=== PATIENT | female | born 1965 | race Caucasian/White ===

== ENCOUNTER 2017-10-06 13:42 | Inpatient (IN) | payer MEDICAID, OTHER ==
[~2017-10-06] VITALS: Ht 160 cm; Wt 84.0 kg
[~2017-10-06 13:42] MED LIST: /ACETCOD2T PO; /OMEP10CA PO; BENA25TA4 PO; BENZ0.5T PO; BENZ5TA PO; COZA1TAB PO; DITR5TAB PO; FLUO20CA8 PO; FLUO40CA PO; FLUP10TA PO; FLUP25TA PO; GEOD1CAP PO; HALO10TA PO; HALO2TA PO; LAMO10TA PO; LIPI10TA PO; LIPI20TA PO; LOSA25TA8 PO; MELA3TAB PO; MELA3TAB49 PO; OMEP40CA2 PO; PRIL20CA PO; PRIL20CA9 PO; PROZ20CA11 PO; PROZ40CA PO; REST15CA PO; RISP25INJ IM; RISP4TAB33 PO; TRAZ1TAB14 PO; TRAZ1TAB25 PO; TRAZ50TA11 PO; VENTAER IN; VITA200028 PO; ZIPR80CA12 PO; ZIPR80CAP FT; ZIPR80CAP PO; cogentin PO; prolixin IM; prolixin PO
[2017-10-06] MEDS ORDERED: BENZ-52 PO (13:53)
[2017-10-06] MEDS ORDERED: LITH300T2 PO (13:53)
[2017-10-06] MEDS ORDERED: GLIP5TAB8 PO (13:53)
[2017-10-06] MEDS ORDERED: LATU120T PO (13:53)
[2017-10-06] MEDS ORDERED: FLUP25VL IM (13:53)
[2017-10-06] MEDS ORDERED: TRAZ-136 PO (13:53)
[2017-10-06 14:41] LABS: MEAN CORPUSCULAR HEMOGLOBIN 28.4 pg (27.0-33.0); MEAN CORPUSCULAR VOLUME 88.8 fl (80.0-96.0); PLATELET COUNT, AUTOMATED 509 10^3/uL (150-450); WHITE BLOOD COUNT 8.6 10^3/uL (4.0-10.0)
[2017-10-06 15:11] LABS: METHADONE URINE NEGATIVE (NEGATIVE)
[2017-10-06 15:22] LABS: ALBUMIN/GLOBULIN RATIO 1.05 (1.00-1.93); ALKALINE PHOSPHATASE 139 U/L (45-117); ALT/SGPT 13 U/L (12-78); ANION GAP 9 MEQ/L (8-16); AST/SGOT < 3 U/L (7-37); BILIRUBIN,DIRECT 0.1 MG/DL (0.0-0.2); BILIRUBIN,TOTAL 0.4 MG/DL (0.2-1.0); BLOOD UREA NITROGEN 20 MG/DL (7-18); CALCIUM LEVEL 9.1 MG/DL (8.5-10.1); CARBON DIOXIDE LEVEL 25 MEQ/L (21-32); CHLORIDE LEVEL 104 MEQ/L (98-107); CREATININE FOR GFR 1.13 MG/DL (0.55-1.02); GLOMERULAR FILTRATION RATE 53.6 (>51); GLUCOSE, FASTING 130 MG/DL (70-105); POTASSIUM SERUM 4.1 MEQ/L (3.5-5.1); SODIUM LEVEL 138 MEQ/L (136-145); TOTAL PROTEIN 7.8 GM/DL (6.4-8.2)
[2017-10-06] MEDS ORDERED: ERGO500014 PO (16:41)
[2017-10-06] MEDS ORDERED: MOM 30ML SUSPENSION UDC PO PRN (16:45)
[2017-10-06] MEDS ORDERED: ACETAMINOPHEN TAB 650MG DOSE (2X325MG) PO PRN (16:45)
[2017-10-06] MEDS ORDERED: MAALOX 30 ML SUSP *UDC PO PRN (16:45)
[2017-10-06 17:38] VITALS: BP 129/62
[2017-10-06] MEDS: traZODone 50 MG TAB PO SCH (20:17)
[2017-10-06] MEDS: ATORVASTATIN 20 MG TAB PO SCH (20:17)
[2017-10-06] MEDS: LITHIUM CARBONATE 300 MG CAP PO SCH (20:17)
[2017-10-07 06:43] VITALS: BP 116/54
[2017-10-07] MEDS: glipiZIDE (GLUCOTROL) 5 MG TAB PO SCH (06:43)
[2017-10-07] MEDS: BENZTROPINE 1 MG TAB PO SCH (08:40)
[2017-10-07] MEDS: OMEPRAZOLE 20 MG CAP PO SCH (08:40)
[2017-10-07] MEDS: FLUoxetine 20 MG CAP PO SCH (08:40)
[2017-10-07] MEDS: LOSARTAN 25 MG TAB PO SCH (08:40)
[2017-10-07] MEDS: LURASIDONE 20 MG TAB (LATUDA) PO SCH (08:41)
[2017-10-07] MEDS ORDERED: fluPHENAZine DECAN 25MG/ML 5ML VIAL (J2680) IM SCH (09:00)
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
[2017-10-07 18:00] VITALS: BP 96/56
[2017-10-07] MEDS: LITHIUM CARBONATE 300 MG CAP PO SCH (20:22)
[2017-10-07] MEDS: traZODone 50 MG TAB PO SCH (20:22)
[2017-10-07] MEDS: ATORVASTATIN 20 MG TAB PO SCH (20:22)
[2017-10-08 06:00] VITALS: BP 118/56
[2017-10-08] MEDS: glipiZIDE (GLUCOTROL) 5 MG TAB PO SCH (07:03)
[2017-10-08] MEDS: LURASIDONE 20 MG TAB (LATUDA) PO SCH (08:39)
[2017-10-08] MEDS: FLUoxetine 20 MG CAP PO SCH (08:39)
[2017-10-08] MEDS: OMEPRAZOLE 20 MG CAP PO SCH ×2 (08:39→21:00)
[2017-10-08] MEDS: LOSARTAN 25 MG TAB PO SCH (08:39)
[2017-10-08] MEDS: BENZTROPINE 1 MG TAB PO SCH (08:39)
--- NOTE | 2017-10-08 09:28 | MHIPNPDOC ---
[facility] Progress Note Progress Note DATE OF SERVICE: 10/08/17 HISTORY: Patient states that she is doing a little better than yesterday, but still depressed with AVH of the hooded figure talking to her. Patient has some SI but without intent and plan, though she states these symptoms have improved a little since yesterday. Reports sleeping over 7 hours. VITAL SIGNS: See below. NEW TEST RESULTS: NA CURRENT MEDICATIONS: See below. MENTAL STATUS EXAMINATION: Behavior: in bed, calm, cooperative Speech: some latency, quiet, withdrawn tone Thought processes: linear Thought content: appropriate, some paucity in content. Perception: last night had paranoid delusions and hallucinations Judgment: fair Insight: fair Orientation: did not assess Mood: "depressed." Affect: dysphoric, restricted range DIAGNOSES: 1. Schizoaffective disorder 2. PTSD 3. MDD ASSESSMENT: Patient remains depressed with psychotic symptoms. Despite these symptoms she is relatable and has some insight into her condition. PROBLEM LIST: 1. psychosis 2. suicidality and depression Plan: - Continue home prolixin 50 mg IM q2.5weeks, last dose was 10/07/17 - Continue prolixin 2.5 mg po BID for psychosis - Continue home prozac 60 mg daily for mood - Continue home latuda 120 mg qhs for psychosis - Continue other home medications - PRN trazodone, tylenol, MOM, Mylanta - Encourage pt to participate in group activities ESTIMATED LENGTH OF STAY: 7 DAYS. TIME SPENT COUNSELING AND COORDINATING INITIAL CARE: 20 minutes. Vital Signs Vital Signs Date Time Temp Pulse Resp B/P (MAP) Pulse Ox O2 Delivery O2 Flow Rate FiO2 10/08/17 08:39 118/56 10/08/17 06:00 96.4 61 14 10/06/17 17:38 95 Room Air Current Medications Current Medications Acetaminophen (Tylenol Tab) 650 mg Q6HP PRN PO HEADACHE or DISCOMFORT; Start 10/06/17 at 16:45; Stop 11/05/17 at 16:44 Al Hydrox/Mg Hydrox/Simethicone (Mylanta) 30 ml Q4HP PRN PO HEARTBURN/ INDIGESTION Last administered on 10/07/17 18:45; Start 10/06/17 at 16:45; Stop 11/05/17 at 16:44 Atorvastatin Calcium (Lipitor) 40 mg QHS PO Last administered on 10/07/17 20: 22; Start 10/06/17 at 21:00; Stop 11/05/17 at 20:59 Benztropine Mesylate (Cogentin) 1 mg DAILY PO Last administered on 10/08/17 08 :39; Start 10/07/17 at 09:00; Stop 11/06/17 at 08:59 Fluoxetine HCl (PROzac) 60 mg DAILY PO Last administered on 10/08/17 08:39; Start 10/07/17 at 09:00; Stop 11/06/17 at 08:59 Fluphenazine Decanoate (Prolixin Decanoate) 50 mg Q14D@09 IM Last administered on 10/07/17 14:28; Start 10/07/17 at 09:00; Stop 11/06/17 at 08:59 Fluphenazine HCl (Prolixin) 2.5 mg BID PO Last administered on 10/08/17 08:39 ; Start 10/07/17 at 09:00; Stop 11/06/17 at 08:59 Glipizide (Glucotrol) 5 mg QAM@0730 PO Last administered on 10/08/17 07:03; Start 10/07/17 at 07:30; Stop 11/06/17 at 07:29 Home Med (Med Rec Complete!) ASDIRECTED XX ; Start 10/06/17 at 16:45; Stop 10/06/17 at 16:45; Status DC [place] Carbonate ([place] Carbonate) 300 mg QHS PO Last administered on 20:22; Start 10/06/17 at 21:00; Stop 11/05/17 at 20:59 Losartan Potassium (Cozaar) 25 mg DAILY PO Last administered on 10/08/17 08:39 ; Start 10/07/17 at 09:00; Stop 11/06/17 at 08:59 Lurasidone HCl (Latuda) 80 mg DAILY@08 PO Last administered on 10/08/17 08:39 ; Start 10/07/17 at 08:00; Stop 11/06/17 at 07:59 Magnesium Hydroxide (Milk Of Magnesia) 30 ml DAILYPRN PRN PO CONSTIPATION; Start 10/06/17 at 16:45; Stop 11/05/17 at 16:44 Omeprazole (PriLOSEC) 20 mg DAILY PO Last administered on 10/08/17 08:39; Start 10/07/17 at 09:00; Stop 11/06/17 at 08:59 Trazodone HCl (Desyrel) 100 mg QHS PO Last administered on 10/07/17 20:22; Start 10/06/17 at 21:00; Stop 11/05/17 at 20:59 Vitamin D (Drisdol) 50,000 units [place]@0900 PO ; Start 10/09/17 at 09:00; Stop 11/08/17 at 08:59 Allergies Coded Allergies: Sertraline (Verified Allergy, Intermediate, RASH, 02/06/13) Bupropion (Verified Allergy, Unknown, 02/06/13) Gabapentin (Verified Allergy, Unknown, SEIZURES, 02/06/13) SMOKE (Verified Adverse Reaction, Intermediate, ASTHMA, 03/30/06) J LUIS SANABRIA MD Oct 08, 2017 09:28
[2017-10-08 18:00] VITALS: BP 111/59
[2017-10-08] MEDS: traZODone 50 MG TAB PO SCH (20:37)
[2017-10-08] MEDS: ATORVASTATIN 20 MG TAB PO SCH (20:37)
[2017-10-08] MEDS: LITHIUM CARBONATE 300 MG CAP PO SCH (20:37)
[2017-10-08] MEDS: NYSTATIN 100,000 UNITS/GM TOPICAL PWD 15 GM TOP SCH (21:00)
[2017-10-08] MEDS ORDERED: OMEPRAZOLE 20 MG CAP PO SCH (21:00)
[2017-10-09 07:00] VITALS: BP 104/54
[2017-10-09] MEDS: glipiZIDE (GLUCOTROL) 5 MG TAB PO SCH (07:01)
[2017-10-09] MEDS: BENZTROPINE 1 MG TAB PO SCH (08:54)
[2017-10-09] MEDS: LOSARTAN 25 MG TAB PO SCH (08:54)
[2017-10-09] MEDS: LURASIDONE 20 MG TAB (LATUDA) PO SCH (08:54)
[2017-10-09] MEDS: OMEPRAZOLE 20 MG CAP PO SCH ×2 (08:54→20:09)
[2017-10-09] MEDS: FLUoxetine 20 MG CAP PO SCH (08:54)
[2017-10-09] MEDS: NYSTATIN 100,000 UNITS/GM TOPICAL PWD 15 GM TOP SCH ×2 (08:55→20:10)
[2017-10-09] MEDS ORDERED: OMEPRAZOLE 20 MG CAP PO SCH (09:00)
[2017-10-09] MEDS ORDERED: NYSTATIN 100,000 UNITS/GM TOPICAL PWD 15 GM TOP SCH (09:00)
[2017-10-09] MEDS ORDERED: VITAMIN D 50,000 UNITS CAPSULE (ERGOCALCIFEROL 1.25MG) PO SCH (09:00)
--- NOTE | 2017-10-09 09:31 | MHIPNPDOC ---
[facility] Progress Note Progress Note DATE OF SERVICE: 10/09/17 HISTORY: Patient reports continuing to have AVH of the hooded figure, though less intense than yesterday. Patient has fleeting SI without intent and plan. Patient reports good sleep, reports mood to be depressed but better, denies medication side effects. VITAL SIGNS: See below. NEW TEST RESULTS: NA CURRENT MEDICATIONS: See below. MENTAL STATUS EXAMINATION: Behavior: in bed, calm, cooperative Speech: some latency, quiet, withdrawn tone Thought processes: linear Thought content: appropriate, some paucity in content. Perception: still has AVH of the hooded figure Judgment: fair Insight: fair Orientation: did not assess Mood: "depressed." Affect: dysphoric, restricted range DIAGNOSES: 1. Schizoaffective disorder 2. PTSD 3. MDD ASSESSMENT: Patient remains depressed with psychotic symptoms. Despite these symptoms she is relatable and has some insight into her condition. PROBLEM LIST: 1. psychosis 2. suicidality and depression Plan: - Continue home prolixin 50 mg IM q2.5weeks, last dose was 10/07/17 - Increase oral prolixin to 5 mg po BID for psychosis - Continue home prozac 60 mg daily for mood - Continue home latuda 120 mg qhs for psychosis - Continue other home medications - PRN trazodone, tylenol, MOM, Mylanta - Encourage pt to participate in group activities ESTIMATED LENGTH OF STAY: 7 DAYS. TIME SPENT COUNSELING AND COORDINATING INITIAL CARE: 20 minutes. Vital Signs Vital Signs Date Time Temp Pulse Resp B/P (MAP) Pulse Ox O2 Delivery O2 Flow Rate FiO2 10/09/17 08:54 104/54 10/09/17 07:00 97.7 64 14 10/06/17 17:38 95 Room Air Current Medications Current Medications Acetaminophen (Tylenol Tab) 650 mg Q6HP PRN PO HEADACHE or DISCOMFORT; Start 10/06/17 at 16:45; Stop 11/05/17 at 16:44 Al Hydrox/Mg Hydrox/Simethicone (Mylanta) 30 ml Q4HP PRN PO HEARTBURN/ INDIGESTION Last administered on 10/07/17 18:45; Start 10/06/17 at 16:45; Stop 11/05/17 at 16:44 Atorvastatin Calcium (Lipitor) 40 mg QHS PO Last administered on 10/08/17 20: 37; Start 10/06/17 at 21:00; Stop 11/05/17 at 20:59 Benztropine Mesylate (Cogentin) 1 mg DAILY PO Last administered on 10/09/17 08:54; Start 10/07/17 at 09:00; Stop 11/06/17 at 08:59 Fluoxetine HCl (PROzac) 60 mg DAILY PO Last administered on 10/09/17 08:54; Start 10/07/17 at 09:00; Stop 11/06/17 at 08:59 Fluphenazine Decanoate (Prolixin Decanoate) 50 mg Q14D@09 IM Last administered on 10/07/17 14:28; Start 10/07/17 at 09:00; Stop 11/06/17 at 08:59 Fluphenazine HCl (Prolixin) 2.5 mg BID PO Last administered on 10/09/17 08:54 ; Start 10/07/17 at 09:00; Stop 11/06/17 at 08:59 Glipizide (Glucotrol) 5 mg QAM@0730 PO Last administered on 10/09/17 07:01; Start 10/07/17 at 07:30; Stop 11/06/17 at 07:29 Home Med (Med Rec Complete!) ASDIRECTED XX ; Start 10/06/17 at 16:45; Stop 10/06/17 at 16:45; Status DC [place] Carbonate ([place] Carbonate) 300 mg QHS PO Last administered on 20:37; Start 10/06/17 at 21:00; Stop 11/05/17 at 20:59 Losartan Potassium (Cozaar) 25 mg DAILY PO Last administered on 10/09/17 08: 54; Start 10/07/17 at 09:00; Stop 11/06/17 at 08:59 Lurasidone HCl (Latuda) 80 mg DAILY@08 PO Last administered on 10/09/17 08:54 ; Start 10/07/17 at 08:00; Stop 11/06/17 at 07:59 Magnesium Hydroxide (Milk Of Magnesia) 30 ml DAILYPRN PRN PO CONSTIPATION; Start 10/06/17 at 16:45; Stop 11/05/17 at 16:44 Nystatin (Mycostatin Powder, Nystop) BID TOP ; Start 10/09/17 at 09:00; Stop 10/09/17 at 09:00; Status DC Nystatin (Mycostatin Powder, Nystop) under breasts ... BID TOP Last administered on 10/09/17 08:55; Start 10/08/17 at 21:00; Stop 11/07/17 at 20:59 Omeprazole (PriLOSEC) 20 mg BID PO Last administered on 10/09/17 08:54; Start 10/08/17 at 21:00; Stop 11/07/17 at 20:59 Omeprazole (PriLOSEC) 20 mg BID PO ; Start 10/08/17 at 21:00; Stop 11/07/17 at 20 :59; Status Cancel Omeprazole (PriLOSEC) 20 mg DAILY PO ; Start 10/09/17 at 09:00; Stop 11/08/17 at 08:59; Status Cancel Omeprazole (PriLOSEC) 20 mg DAILY PO Last administered on 10/08/17 08:39; Start 10/07/17 at 09:00; Stop 10/08/17 at 16:22; Status DC Trazodone HCl (Desyrel) 100 mg QHS PO Last administered on 10/08/17 20:37; Start 10/06/17 at 21:00; Stop 11/05/17 at 20:59 Vitamin D (Drisdol) 50,000 units [place]arro@0900 PO Last administered on 10/09/17 08: 54; Start 10/09/17 at 09:00; Stop 11/08/17 at 08:59 Allergies Coded Allergies: Sertraline (Verified Allergy, Intermediate, RASH, 02/06/13) Bupropion (Verified Allergy, Unknown, 02/06/13) Gabapentin (Verified Allergy, Unknown, SEIZURES, 02/06/13) SMOKE (Verified Adverse Reaction, Intermediate, ASTHMA, 03/30/06) J LUIS SANABRIA MD Oct 09, 2017 09:31
[2017-10-09 18:00] VITALS: BP 97/50
[2017-10-09] MEDS: ATORVASTATIN 20 MG TAB PO SCH (20:07)
[2017-10-09] MEDS: traZODone 50 MG TAB PO SCH (20:08)
[2017-10-09] MEDS: LITHIUM CARBONATE 300 MG CAP PO SCH (20:08)
[2017-10-10 06:00] VITALS: BP 117/56
[2017-10-10] MEDS: glipiZIDE (GLUCOTROL) 5 MG TAB PO SCH (06:41)
[2017-10-10] MEDS: LURASIDONE 20 MG TAB (LATUDA) PO SCH (08:49)
[2017-10-10] MEDS: OMEPRAZOLE 20 MG CAP PO SCH ×2 (08:49→20:15)
[2017-10-10] MEDS: FLUoxetine 20 MG CAP PO SCH (08:49)
[2017-10-10] MEDS: LOSARTAN 25 MG TAB PO SCH (08:49)
[2017-10-10] MEDS: BENZTROPINE 1 MG TAB PO SCH (08:49)
[2017-10-10] MEDS: NYSTATIN 100,000 UNITS/GM TOPICAL PWD 15 GM TOP SCH ×2 (08:50→20:15)
--- NOTE | 2017-10-10 10:54 | MHIPNPDOC ---
[facility] Progress Note Progress Note DATE OF SERVICE: 10/10/17 HISTORY: Patient states she is still having AVH of the hooded figure, though believes they are less intense than before. Has fleeting SI but without intent and plan. Patient feels a little less depressed, has mostly been isolative and sleeping in her room. VITAL SIGNS: See below. NEW TEST RESULTS: NA CURRENT MEDICATIONS: See below. MENTAL STATUS EXAMINATION: Behavior: in bed, calm, cooperative Speech: some latency, withdrawn tone Thought processes: linear Thought content: appropriate, some paucity in content. Perception: has AVH of the hooded figure Judgment: fair Insight: fair Orientation: did not assess Mood: "depressed." Affect: dysthymic, restricted range DIAGNOSES: 1. Schizoaffective disorder 2. PTSD 3. MDD ASSESSMENT: Patient remains depressed with psychotic symptoms. Despite these symptoms she is relatable and has some insight into her condition. PROBLEM LIST: 1. psychosis 2. suicidality and depression Plan: - Continue home prolixin 50 mg IM q2.5weeks, last dose was 10/07/17 - Continue oral prolixin to 5 mg po BID for psychosis - Continue home prozac 60 mg daily for mood - Continue home latuda 120 mg qhs for psychosis - Continue other home medications - PRN trazodone, tylenol, MOM, Mylanta - Encourage pt to participate in group activities ESTIMATED LENGTH OF STAY: 7 DAYS. TIME SPENT COUNSELING AND COORDINATING INITIAL CARE: 20 minutes. Vital Signs Vital Signs Date Time Temp Pulse Resp B/P (MAP) Pulse Ox O2 Delivery O2 Flow Rate FiO2 10/10/17 08:49 138/86 10/10/17 06:00 97.9 60 18 10/06/17 17:38 95 Room Air Current Medications Current Medications Acetaminophen (Tylenol Tab) 650 mg Q6HP PRN PO HEADACHE or DISCOMFORT; Start 10/06/17 at 16:45; Stop 11/05/17 at 16:44 Al Hydrox/Mg Hydrox/Simethicone (Mylanta) 30 ml Q4HP PRN PO HEARTBURN/ INDIGESTION Last administered on 10/07/17 18:45; Start 10/06/17 at 16:45; Stop 11/05/17 at 16:44 Atorvastatin Calcium (Lipitor) 40 mg QHS PO Last administered on 12/10/17at 20: 07; Start 10/06/17 at 21:00; Stop 11/05/17 at 20:59 Benztropine Mesylate (Cogentin) 1 mg DAILY PO Last administered on 10/10/17 08:49; Start 10/07/17 at 09:00; Stop 11/06/17 at 08:59 Fluoxetine HCl (PROzac) 60 mg DAILY PO Last administered on 10/10/17 08:49; Start 10/07/17 at 09:00; Stop 11/06/17 at 08:59 Fluphenazine Decanoate (Prolixin Decanoate) 50 mg Q14D@09 IM Last administered on 10/07/17 14:28; Start 10/07/17 at 09:00; Stop 11/06/17 at 08:59 Fluphenazine HCl (Prolixin) 2.5 mg BID PO Last administered on 10/09/17 08:54 ; Start 10/07/17 at 09:00; Stop 10/09/17 at 09:32; Status DC Fluphenazine HCl (Prolixin) 5 mg BID PO Last administered on 10/10/17 08:48; Start 10/09/17 at 21:00; Stop 11/08/17 at 20:59 Glipizide (Glucotrol) 5 mg QAM@0730 PO Last administered on 10/10/17 06:41; Start 10/07/17 at 07:30; Stop 11/06/17 at 07:29 Home Med (Med Rec Complete!) ASDIRECTED XX ; Start 10/06/17 at 16:45; Stop 10/06/17 at 16:45; Status DC [place] Carbonate ([place] Carbonate) 300 mg QHS PO Last administered on 20:08; Start 10/06/17 at 21:00; Stop 11/05/17 at 20:59 Losartan Potassium (Cozaar) 25 mg DAILY PO Last administered on 10/10/17 08: 49; Start 10/07/17 at 09:00; Stop 11/06/17 at 08:59 Lurasidone HCl (Latuda) 80 mg DAILY@08 PO Last administered on 10/10/17 08:49 ; Start 10/07/17 at 08:00; Stop 11/06/17 at 07:59 Magnesium Hydroxide (Milk Of Magnesia) 30 ml DAILYPRN PRN PO CONSTIPATION; Start 10/06/17 at 16:45; Stop 11/05/17 at 16:44 Nystatin (Mycostatin Powder, Nystop) BID TOP ; Start 10/09/17 at 09:00; Stop 10/09/17 at 09:00; Status DC Nystatin (Mycostatin Powder, Nystop) under breasts ... BID TOP Last administered on 10/10/17 08:50; Start 10/08/17 at 21:00; Stop 11/07/17 at 20:59 Omeprazole (PriLOSEC) 20 mg BID PO Last administered on 10/10/17 08:49; Start 10/08/17 at 21:00; Stop 11/07/17 at 20:59 Omeprazole (PriLOSEC) 20 mg BID PO ; Start 10/08/17 at 21:00; Stop 11/07/17 at 20 :59; Status Cancel Omeprazole (PriLOSEC) 20 mg DAILY PO ; Start 10/09/17 at 09:00; Stop 11/08/17 at 08:59; Status Cancel Omeprazole (PriLOSEC) 20 mg DAILY PO Last administered on 10/08/17 08:39; Start 10/07/17 at 09:00; Stop 10/08/17 at 16:22; Status DC Trazodone HCl (Desyrel) 100 mg QHS PO Last administered on 10/09/17 20:08; Start 10/06/17 at 21:00; Stop 11/05/17 at 20:59 Vitamin D (Drisdol) 50,000 units Navarro@0900 PO Last administered on 10/09/17 08: 54; Start 10/09/17 at 09:00; Stop 11/08/17 at 08:59 Allergies Coded Allergies: Sertraline (Verified Allergy, Intermediate, RASH, 02/06/13) Bupropion (Verified Allergy, Unknown, 02/06/13) Gabapentin (Verified Allergy, Unknown, SEIZURES, 02/06/13) SMOKE (Verified Adverse Reaction, Intermediate, ASTHMA, 03/30/06) J LUIS SANABRIA MD Oct 10, 2017 10:54
[2017-10-10 18:00] VITALS: BP 90/60
[2017-10-10] MEDS: ATORVASTATIN 20 MG TAB PO SCH (20:14)
[2017-10-10] MEDS: traZODone 50 MG TAB PO SCH (20:14)
[2017-10-10] MEDS: LITHIUM CARBONATE 300 MG CAP PO SCH (20:15)
[2017-10-11 07:02] VITALS: BP 104/58
[2017-10-11] MEDS: glipiZIDE (GLUCOTROL) 5 MG TAB PO SCH (07:03)
[2017-10-11] MEDS: OMEPRAZOLE 20 MG CAP PO SCH ×2 (08:44→20:17)
[2017-10-11] MEDS: LURASIDONE 20 MG TAB (LATUDA) PO SCH (08:45)
[2017-10-11] MEDS: LOSARTAN 25 MG TAB PO SCH (08:45)
[2017-10-11] MEDS: BENZTROPINE 1 MG TAB PO SCH (08:45)
[2017-10-11] MEDS: FLUoxetine 20 MG CAP PO SCH (08:45)
[2017-10-11] MEDS: NYSTATIN 100,000 UNITS/GM TOPICAL PWD 15 GM TOP SCH ×2 (08:46→20:16)
--- NOTE | 2017-10-11 10:37 | HPE ---
DATE OF ADMISSION: 10/06/2017 Please refer to psychiatric history and evaluation for further details on this admission. This examination and history is intended for medical issues which may need treatment, followup or consult in this 52-year-old female. PRIMARY CARE PROVIDER: Kate Mendoza [facility]. ALLERGIES: BUPROPION, GABAPENTIN, SERTRALINE, SMOKE. SOCIAL HISTORY: She lives in [place]. She is . She resides with her ex-. She has five children, one resides with her currently. EtOH: None. Smokes: None. Recreational drug use: None. FAMILY HISTORY: Noncontributory. PAST MEDICAL HISTORY: Hypertension. Hyperlipidemia. Gastroesophageal reflux disease (GERD). Osteoporosis. Bipolar disorder. Schizoaffective disorder with auditory hallucinations. Overactive bladder. PAST SURGICAL HISTORY: Appendectomy. Radical hysterectomy. Umbilical hernia repair. Rectocele repair. Cholecystectomy. Unknown back surgery. HOME MEDICATIONS: - atorvastatin 40 mg by mouth daily at bedtime - Cogentin 1 mg by mouth daily - vitamin D 50,000 units by mouth weekly - Prozac 20 mg by mouth three times daily - Prolixin 2 mL IM every 2 weeks - glipizide 5 mg by mouth daily - lithium 300 mg by mouth daily at bedtime - Cozaar 25 mg by mouth daily at bedtime - Latuda 120 mg by mouth daily every evening - trazodone 100 mg by mouth daily at bedtime LABORATORY STUDIES: WBC 8.6, hemoglobin 12.2, hematocrit 38.1, platelets 509. Sodium 138, potassium 4.1, chloride 104, CO2 25, anion gap was 9, BUN 20, creatinine 1.1. Nonfasting glucose 130. [place] level was 0.33. Ten systems review was done. Patient's only complaint was of rash under her breasts and abdominal fold. Will order Nystatin powder. PHYSICAL EXAMINATION: 52-year-old obese female in no acute distress. Height 63 inches, weight 84 kg. Body mass index (BMI) 32.8. The patient is alert and oriented times three. Pupils equal and reactive to light. Extraocular movements intact. Cornea and sclera clear. Conjunctiva normal. No facial asymmetry. Pharynx, tongue and gums pink and moist. Tongue is midline. Neck is supple, without lymphadenopathy. No thyromegaly. No goiter. Carotids 2+ without bruit. Chest clear to auscultation without wheeze or retraction. Heart is regular. Slight reddened rash under breasts. No open areas. Abdomen benign. Bowel sounds positive. Slight reddened rash under abdominal fold. No open areas noted. Peripheral pulses equal and palpable bilaterally. Skin is warm and dry. IMPRESSION/PLAN: 1. Psychiatric plan per psychiatry. Nystatin powder under breasts and abdominal fold twice daily. 2. History of gastroesophageal reflux disease. Continue omeprazole. 3. History of hypertension, stable. 4. History of hyperlipidemia, continue Lipitor. 5. History of hypertension, stable.
--- NOTE | 2017-10-11 13:28 | MHIPNPDOC ---
[facility] Progress Note Progress Note DATE OF SERVICE: 10/11/17 HISTORY: Patient states that her mood has gotten better. Patient still has AVH of the hooded figure making remarks at her, including CAH to harm self, but patient states that she is aware they are AVH, and that they are manageable. States that these AVH have decreased in intensity. Patient states she is likely OK to go home tomorrow. Denies SI intent and plan, reports good sleep, was socializing with roommate. Pt states that she dose not believe in increase in her medications is necessary. VITAL SIGNS: See below. NEW TEST RESULTS: NA CURRENT MEDICATIONS: See below. MENTAL STATUS EXAMINATION: Behavior: walking, calm, cooperative Speech: some latency, mildly taciturn Thought processes: linear Thought content: appropriate, some paucity in content. Perception: has AVH of the hooded figure Judgment: fair Insight: fair Orientation: did not assess Mood: "better" Affect: neutral, restricted range DIAGNOSES: 1. Schizoaffective disorder 2. PTSD 3. MDD ASSESSMENT: Patient's depression and psychotic symptoms have decreased in intensity to the point where the patient believes they are manageable. PROBLEM LIST: 1. psychosis 2. suicidality and depression Plan: - Continue home prolixin 50 mg IM q2.5weeks, last dose was 10/07/17 - Continue oral prolixin 5 mg po BID for psychosis - Continue home prozac 60 mg daily for mood - Continue home latuda 120 mg qhs for psychosis - Continue other home medications - PRN trazodone, tylenol, MOM, Mylanta - Encourage pt to participate in group activities ESTIMATED LENGTH OF STAY: 7 DAYS. TIME SPENT COUNSELING AND COORDINATING INITIAL CARE: 20 minutes. Vital Signs Vital Signs Date Time Temp Pulse Resp B/P (MAP) Pulse Ox O2 Delivery O2 Flow Rate FiO2 10/11/17 08:45 126/96 10/11/17 07:02 97.6 66 18 Room Air 10/06/17 17:38 95 Current Medications Current Medications Acetaminophen (Tylenol Tab) 650 mg Q6HP PRN PO HEADACHE or DISCOMFORT; Start 10/06/17 at 16:45; Stop 11/05/17 at 16:44 Al Hydrox/Mg Hydrox/Simethicone (Mylanta) 30 ml Q4HP PRN PO HEARTBURN/ INDIGESTION Last administered on 10/07/17 18:45; Start 10/06/17 at 16:45; Stop 11/05/17 at 16:44 Atorvastatin Calcium (Lipitor) 40 mg QHS PO Last administered on 10/10/17 20: 14; Start 10/06/17 at 21:00; Stop 11/05/17 at 20:59 Benztropine Mesylate (Cogentin) 1 mg DAILY PO Last administered on 10/11/17 08:45; Start 10/07/17 at 09:00; Stop 11/06/17 at 08:59 Fluoxetine HCl (PROzac) 60 mg DAILY PO Last administered on 10/11/17 08:45; Start 10/07/17 at 09:00; Stop 11/06/17 at 08:59 Fluphenazine Decanoate (Prolixin Decanoate) 50 mg Q14D@09 IM Last administered on 10/07/17 14:28; Start 10/07/17 at 09:00; Stop 11/06/17 at 08:59 Fluphenazine HCl (Prolixin) 2.5 mg BID PO Last administered on 10/09/17 08:54 ; Start 10/07/17 at 09:00; Stop 10/09/17 at 09:32; Status DC Fluphenazine HCl (Prolixin) 5 mg BID PO Last administered on 10/11/17 08:45; Start 10/09/17 at 21:00; Stop 11/08/17 at 20:59 Glipizide (Glucotrol) 5 mg QAM@0730 PO Last administered on 10/11/17 07:03; Start 10/07/17 at 07:30; Stop 11/06/17 at 07:29 Home Med (Med Rec Complete!) ASDIRECTED XX ; Start 10/06/17 at 16:45; Stop 10/06/17 at 16:45; Status DC [place] Carbonate ([place] Carbonate) 300 mg QHS PO Last administered on 20:15; Start 10/06/17 at 21:00; Stop 11/05/17 at 20:59 Losartan Potassium (Cozaar) 25 mg DAILY PO Last administered on 10/11/17 08: 45; Start 10/07/17 at 09:00; Stop 11/06/17 at 08:59 Lurasidone HCl (Latuda) 80 mg DAILY@08 PO Last administered on 10/11/17 08:45 ; Start 10/07/17 at 08:00; Stop 11/06/17 at 07:59 Magnesium Hydroxide (Milk Of Magnesia) 30 ml DAILYPRN PRN PO CONSTIPATION; Start 10/06/17 at 16:45; Stop 11/05/17 at 16:44 Nystatin (Mycostatin Powder, Nystop) BID TOP ; Start 10/09/17 at 09:00; Stop 10/09/17 at 09:00; Status DC Nystatin (Mycostatin Powder, Nystop) under breasts ... BID TOP Last administered on 10/11/17 08:46; Start 10/08/17 at 21:00; Stop 11/07/17 at 20:59 Omeprazole (PriLOSEC) 20 mg BID PO Last administered on 10/11/17 08:44; Start 10/08/17 at 21:00; Stop 11/07/17 at 20:59 Omeprazole (PriLOSEC) 20 mg BID PO ; Start 10/08/17 at 21:00; Stop 11/07/17 at 20 :59; Status Cancel Omeprazole (PriLOSEC) 20 mg DAILY PO ; Start 10/09/17 at 09:00; Stop 11/08/17 at 08:59; Status Cancel Omeprazole (PriLOSEC) 20 mg DAILY PO Last administered on 10/08/17 08:39; Start 10/07/17 at 09:00; Stop 10/08/17 at 16:22; Status DC Trazodone HCl (Desyrel) 100 mg QHS PO Last administered on 10/10/17 20:14; Start 10/06/17 at 21:00; Stop 11/05/17 at 20:59 Vitamin D (Drisdol) 50,000 units [place]@0900 PO Last administered on 10/09/17 08: 54; Start 10/09/17 at 09:00; Stop 11/08/17 at 08:59 Allergies Coded Allergies: Sertraline (Verified Allergy, Intermediate, RASH, 02/06/13) Bupropion (Verified Allergy, Unknown, 02/06/13) Gabapentin (Verified Allergy, Unknown, SEIZURES, 4/9/13) SMOKE (Verified Adverse Reaction, Intermediate, ASTHMA, 03/30/06) J LUIS SANABRIA MD Oct 11, 2017 13:28
[2017-10-11 18:34] VITALS: BP 137/78
[2017-10-11] MEDS: traZODone 50 MG TAB PO SCH (20:17)
[2017-10-11] MEDS: LITHIUM CARBONATE 300 MG CAP PO SCH (20:17)
[2017-10-11] MEDS: ATORVASTATIN 20 MG TAB PO SCH (20:17)
[2017-10-12] MEDS: glipiZIDE (GLUCOTROL) 5 MG TAB PO SCH (06:45)
[2017-10-12 06:48] VITALS: BP 123/60
[2017-10-12 08:16] VITALS: BP 123/60
[2017-10-12] MEDS: FLUoxetine 20 MG CAP PO SCH (08:16)
[2017-10-12] MEDS: BENZTROPINE 1 MG TAB PO SCH (08:16)
[2017-10-12] MEDS: LOSARTAN 25 MG TAB PO SCH (08:16)
[2017-10-12] MEDS: OMEPRAZOLE 20 MG CAP PO SCH (08:16)
[2017-10-12] MEDS: LURASIDONE 20 MG TAB (LATUDA) PO SCH (08:16)
[2017-10-12] MEDS: NYSTATIN 100,000 UNITS/GM TOPICAL PWD 15 GM TOP SCH (08:17)
[2017-10-12] MEDS ORDERED: LITH300T2 PO ×2 (10:13→10:59)
[2017-10-12] MEDS ORDERED: LATU120T PO ×2 (10:13→10:59)
[2017-10-12] MEDS ORDERED: FLUO60TA PO (10:13)
[2017-10-12] MEDS ORDERED: TRAZ-136 PO ×2 (10:13→10:59)
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
== END 2017-10-12 15:56 | disposition home or self-care (01) | DRG 750 ==
LOC: M ED 13:42 → M ED INP 16:43 → M PSY 17:30
PROVIDERS: ADMIT Psychiatry & Neurology Psychiatry; ATTEND Psychiatry & Neurology Psychiatry
DX: F25.9 Schizoaffective disorder, unspecified (principal); I10 Essential (primary) hypertension; K21.9 Gastro-esophageal reflux disease without esophagitis; E78.5 Hyperlipidemia, unspecified; Z91.5 Personal history of self-harm; Z79.899 Other long term (current) drug therapy; Z88.8 Allergy status to other drugs, medicaments and biological substances; Z91.048 Other nonmedicinal substance allergy status; Z90.49 Acquired absence of other specified parts of digestive tract

== ENCOUNTER 2020-05-13 12:29 | Inpatient (IN) | payer MEDICAID, OTHER ==
[~2020-05-13] VITALS: Ht 160 cm; Wt 88.8 kg
[~2020-05-13 12:29] MED LIST changes: -/ACETCOD2T PO; +ACET1TAB15 PO; +BENZ-52 PO; -BENZ0.5T PO; +BENZ0.5T23 PO; +FLUO20CA20 PO; -FLUO20CA8 PO; +FLUO60TA PO; -FLUP10TA PO; +FLUP10TA11 PO; +FLUP2.5T12 PO; -FLUP25TA PO; +FLUP25VL IM; +GLIP5TAB8 PO; -HALO10TA PO; +HALO1TAB29 PO; -HALO2TA PO; +HALO2TAB26 PO; +LAMO100T80 PO; -LAMO10TA PO; +LATU120T PO; +LITH300T2 PO; +LOSA25TA14 PO; -LOSA25TA8 PO; -MELA3TAB PO; +MELA3TAB63 PO; -OMEP40CA2 PO; +OMEP40CA97 PO; +TRAZ-252 PO; +TRAZ-257 PO; -TRAZ50TA11 PO; +VITA500045 PO
[2020-05-13 13:34] LABS: HEMATOCRIT 41.3 % (36.0-47.0); MEAN CORPUSCULAR HGB CONC 31.5 g/dl (32.0-36.5); MEAN CORPUSCULAR VOLUME 92.2 fl (80.0-96.0); PLATELET COUNT, AUTOMATED 504 10^3/uL (150-450); RED BLOOD COUNT 4.48 10^6/uL (4.00-5.40); WHITE BLOOD COUNT 12.2 10^3/uL (4.0-10.0)
[2020-05-13 13:54] LABS: AMPHETAMINES LEVEL URINE NEGATIVE (NEGATIVE); BARBITURATES URINE NEGATIVE (NEGATIVE); BENZODIAZEPINES URINE NEGATIVE (NEGATIVE); CANNABINOIDS URINE NEGATIVE (NEGATIVE); COCAINE METABOLITE URINE NEGATIVE (NEGATIVE); METHADONE URINE NEGATIVE (NEGATIVE); OPIATES URINE NEGATIVE (NEGATIVE); PHENCYCLIDINE URINE NEGATIVE (NEGATIVE)
[2020-05-13 14:07] LABS: ACETAMINOPHEN LEVEL < 2.0 UG/ML (10.0-30.0); ALBUMIN 3.8 GM/DL (3.2-5.2); ALT/SGPT 16 U/L (12-78); BILIRUBIN,DIRECT 0.1 MG/DL (0.0-0.2); BILIRUBIN,TOTAL 0.5 MG/DL (0.2-1.0); BLOOD UREA NITROGEN 14 MG/DL (7-18); CALCIUM LEVEL 9.2 MG/DL (8.5-10.1); CARBON DIOXIDE LEVEL 24 MEQ/L (21-32); CHLORIDE LEVEL 110 MEQ/L (98-107); CREATININE FOR GFR 0.95 MG/DL (0.55-1.30); ETHYL ALCOHOL (ETHANOL) < 0.003 % (0.000-0.010); GLOMERULAR FILTRATION RATE > 60.0 (>51); GLUCOSE, FASTING 113 MG/DL (70-100); LITHIUM LEVEL 0.26 MEQ/L (0.60-1.20); POTASSIUM SERUM 4.3 MEQ/L (3.5-5.1); SALICYLATE LEVEL < 1.7 MG/DL (5.0-30.0); SODIUM LEVEL 143 MEQ/L (136-145); TOTAL PROTEIN 7.5 GM/DL (6.4-8.2)
--- NOTE | 2020-05-13 21:04 | ECGEPIP ---
[facility] - ED Test Date: 2020-05-13 Pat Name: CRISTINA ALLEN Department: Room: - Gender: Female Oral Health Therapist: ROLF : 1965 Requested By: ALLISON Mccloud Order Number: [id number] Reading MD: Monae Murguia Measurements Intervals Dora Rate: 67 P: 57 NH: 179 QRS: 47 QRSD: 95 T: 17 QT: 392 QTc: 414 Interpretive Statements SINUS RHYTHM NSTTW abnormalities SIMILAR 03/12/15 Electronically Signed on 05-13-2020 21:04:10 EDT by Monae Murguia
[2020-05-13] MEDS ORDERED: LURASIDONE HCL 40 MG TAB (LATUDA) PO ONE (22:00)
[2020-05-13] MEDS ORDERED: OMEPRAZOLE 20 MG CAP PO ONE (22:00)
[2020-05-13] MEDS ORDERED: LOSARTAN 25 MG TAB PO ONE (22:00)
[2020-05-13] MEDS ORDERED: SENNA 8.6 MG TAB (SENOKOT) PO ONE (22:00)
[2020-05-13] MEDS ORDERED: ATORVASTATIN 20 MG TAB PO ONE (22:00)
[2020-05-13] MEDS ORDERED: LITHIUM CARBONATE 300 MG CAP PO ONE (22:00)
[2020-05-13] MEDS ORDERED: risperiDONE 2 MG TAB PO ONE (22:00)
[2020-05-13] MEDS ORDERED: LATU80TA PO (22:41)
[2020-05-13] MEDS ORDERED: VITA50005 PO (22:41)
[2020-05-13] MEDS ORDERED: RISP2TAB3 PO (22:41)
[2020-05-13] MEDS ORDERED: SENN-80 PO (22:41)
[2020-05-13] MEDS ORDERED: DOXE50CA PO (22:41)
[2020-05-13] MEDS ORDERED: FLUO20CA22 PO (22:41)
[2020-05-13] MEDS ORDERED: MIRA1POW3 PO (22:41)
[2020-05-13] MEDS ORDERED: INGR40CA PO (22:41)
[2020-05-13] MEDS ORDERED: LITH300T2 PO (22:41)
[2020-05-13] MEDS ORDERED: ATOR80TA59 PO (22:41)
[2020-05-13] MEDS ORDERED: OMEP-218 PO (22:41)
[2020-05-14] MEDS ORDERED: FLUoxetine 20 MG CAP PO ONE (10:30)
[2020-05-14] MEDS ORDERED: glipiZIDE (GLUCOTROL) 5 MG TAB PO ONE (10:30)
[2020-05-14] MEDS ORDERED: OMEPRAZOLE 20 MG CAP PO ONE (10:30)
[2020-05-14] MEDS ORDERED: BENZTROPINE 1 MG TAB PO ONE (10:30)
[2020-05-14] MEDS ORDERED: MOM 30ML SUSPENSION UDC PO PRN (17:00)
[2020-05-14] MEDS ORDERED: ACETAMINOPHEN TAB 650MG DOSE (2X325MG) PO PRN (17:00)
[2020-05-14] MEDS: MIRALAX *UNIT DOSE* 17GM PACKET PO SCH (18:15)
[2020-05-14] MEDS: LURASIDONE HCL 40 MG TAB (LATUDA) PO SCH (18:16)
[2020-05-14] MEDS: DOXEPIN 25 MG CAP PO SCH (22:18)
[2020-05-14] MEDS: OMEPRAZOLE 20 MG CAP PO SCH (22:18)
[2020-05-14] MEDS: risperiDONE 2 MG TAB PO SCH (22:19)
[2020-05-14] MEDS: ATORVASTATIN 20 MG TAB PO SCH (22:19)
[2020-05-14] MEDS: BENZTROPINE 1 MG TAB PO SCH (22:19)
[2020-05-14] MEDS: SENNA 8.6 MG TAB (SENOKOT) PO SCH (22:19)
[2020-05-14] MEDS: LITHIUM CARBONATE 300 MG CAP PO SCH (22:19)
[2020-05-14] MEDS: LOSARTAN 25 MG TAB PO SCH (22:58)
[2020-05-14 23:28] VITALS: BP 135/90
[2020-05-15] MEDS: traZODone 50 MG TAB PO PRN ×2 (00:32→20:40)
[2020-05-15] MEDS: MAALOX 30 ML SUSP *UDC PO PRN (01:17)
--- NOTE | 2020-05-15 07:37 | MHHPEPDOC ---
[facility] History & Physical History and Physical DATE OF ADMISSION: May 14, 2020 at 16:58 HPI: Viry presents today for concerns regarding difficulty sleeping. Viry was brought to the hospital by someone else because she was having suicidal thoughts and is feeling depressed. She reports hearing voices which say that she has ruined things by coming to the hospital and negative perceptions about herself. Sometimes, she only hears one voice or sometimes telling her to kill others. MEDICATIONS: She does not remember which medications she is currently taking, but notes that it is a lot. MEDICAL HISTORY: Viry reports seeing a doctor at a community clinic. Additionally, she reports being admitted to the hospital before for the same sleep-related issues. SOCH/FM: unable to review due to MSE Objective Thought Content: Psychotic tangential reports hearing voices. Appears to respond to internal stimuli. Insight: Poor insight and judgement. Assessment F25.0 Schizoaffective disorder, bipolar type Plan Continue home medications. Observe and determine if complianceis an issue. Treatment priorities are at risk for suicide and altered thought. Length of stay will be between five and seven days. Vital Signs Vital Signs Date Time Temp Pulse Resp B/P (MAP) Pulse Ox O2 Delivery O2 Flow Rate FiO2 05/14/20 23:28 98.6 91 14 135/90 (105) 94 Room Air Medications Scheduled Atorvastatin Calcium (Atorvastatin Calcium) 80 Mg Tablet, 80 MG PO QHS, (Reported) Benztropine Mesylate (Benztropine Mesylate) 1 Mg Tab, 1 MG PO BID, (Reported) Doxepin HCl (Doxepin HCl) 50 Mg Capsule, 50 MG PO QHS, (Reported) Ergocalciferol (Vitamin D2) (Vitamin D2) 50,000 Units Cap, 50,000 UNITS PO 1XWK, (Reported) TUESDAY NIGHTS Fluoxetine Hcl (Fluoxetine HCl) 20 Mg Capsule, 20 MG PO DAILY, (Reported) Fluphenazine Decanoate (Fluphenazine Decanoate) 25 Mg/Ml Soln, 2.5 ML IM ASDI RECTED, (Reported) EVERY 3 WEEKS Glipizide (Glipizide) 5 Mg Tab, 5 MG PO DAILY, (Reported) [place] Carbonate ([place] Carbonate) 300 Mg Tablet, 300 MG PO QHS, (Reported) Losartan Potassium (Cozaar) 25 Mg Tab, 25 MG PO QHS, (Reported) Lurasidone HCl (Latuda) 80 Mg Tablet, 80 MG PO QPM, (Reported) TAKES AT DINNERTIME Omeprazole (Omeprazole) 20 Mg Capsule.dr, 20 MG PO BID, (Reported) Polyethylene Glycol 3350 (Miralax) 17 Gm Powd.pack, 17 GM PO Q2D, (Reported) Risperidone (Risperidone) 2 Mg Tablet, 2 MG PO QHS, (Reported) Sennosides (Senna) 8.6 Mg Tablet, 2 TAB PO QHS, (Reported) Valbenazine Tosylate (Ingrezza) 40 Mg Capsule, 40 MG PO DAILY, (Reported) Allergies Coded Allergies: gabapentin (Verified Adverse Reaction, Severe, seizures, 05/13/20) SMOKE (Verified Adverse Reaction, Intermediate, ASTHMA, 03/30/06) sertraline (Verified Adverse Reaction, Intermediate, rash, 05/13/20) VANNA MONTANEZ DO May 15, 2020 07:37
[2020-05-15] MEDS: BENZTROPINE 1 MG TAB PO SCH ×2 (08:19→20:40)
[2020-05-15] MEDS: OMEPRAZOLE 20 MG CAP PO SCH ×2 (08:19→20:39)
[2020-05-15] MEDS: glipiZIDE (GLUCOTROL) 5 MG TAB PO SCH (08:19)
--- NOTE | 2020-05-15 12:50 | HPEPDOC ---
General Date of Admission May 14, 2020 at 16:58 Date of Service: May 15, 2020 Chief Complaint The patient is a 54-year-old female admitted with a reason for visit of Unspecified Psychosis. History of Present Illness 54 y/o F with h/o schizophrenia was admitted for unspecified psychosis. Hospitalist service was consulted to admit the patient for medical evaluation. Pt was seen and examined at bedside. Pt stated that she is feeling fine. Did not have any physical complaint. c/o hearing non specific voices. Home Medications Scheduled Atorvastatin Calcium (Atorvastatin Calcium) 80 Mg Tablet, 80 MG PO QHS, (Reported) Benztropine Mesylate (Benztropine Mesylate) 1 Mg Tab, 1 MG PO BID, (Reported) Doxepin HCl (Doxepin HCl) 50 Mg Capsule, 50 MG PO QHS, (Reported) Ergocalciferol (Vitamin D2) (Vitamin D2) 50,000 Units Cap, 50,000 UNITS PO 1XWK, (Reported) TUESDAY NIGHTS Fluoxetine Hcl (Fluoxetine HCl) 20 Mg Capsule, 20 MG PO DAILY, (Reported) Fluphenazine Decanoate (Fluphenazine Decanoate) 25 Mg/Ml Soln, 2.5 ML IM ASDIRECTED, (Reported) EVERY 3 WEEKS Glipizide (Glipizide) 5 Mg Tab, 5 MG PO DAILY, (Reported) [place] Carbonate ([place] Carbonate) 300 Mg Tablet, 300 MG PO QHS, (Reported) Losartan Potassium (Cozaar) 25 Mg Tab, 25 MG PO QHS, (Reported) Lurasidone HCl (Latuda) 80 Mg Tablet, 80 MG PO QPM, (Reported) TAKES AT DINNERTIME Omeprazole (Omeprazole) 20 Mg Capsule.dr, 20 MG PO BID, (Reported) Polyethylene Glycol 3350 (Miralax) 17 Gm Powd.pack, 17 GM PO Q2D, (Reported) Risperidone (Risperidone) 2 Mg Tablet, 2 MG PO QHS, (Reported) Sennosides (Senna) 8.6 Mg Tablet, 2 TAB PO QHS, (Reported) Valbenazine Tosylate (Ingrezza) 40 Mg Capsule, 40 MG PO DAILY, (Reported) Allergies Coded Allergies: gabapentin (Verified Adverse Reaction, Severe, seizures, 05/13/20) SMOKE (Verified Adverse Reaction, Intermediate, ASTHMA, 03/30/06) sertraline (Verified Adverse Reaction, Intermediate, rash, 05/13/20) Past Medical History Medical History HLD, DM type 2, HTN, GERD, Schizophrenia Surgical History hysterectomy Family History Father alive 80 years old have DM and HTN Mother at 64 y/o age of mesothiloma complications Social History * Smoker: non-smoker Alcohol: Denies A-FIB/CHADSVASC A-FIB History Current/History of A-Fib/PAF?: No Current PO Anticoag Therapy: No Review of Systems Other systems 10 points review of systems was performed and it was negative except as per HPI Physical Examination General Exam: Positive: Alert, Cooperative, No Acute Distress Eye Exam: Positive: PERRLA ENT Exam: Positive: Atraumatic, Mucous membr. moist/pink Neck Exam: Positive: Supple Chest Exam: Positive: Clear to auscultation Heart Exam: Positive: Rate Normal Telemetry: Positive: No significant arrhythmia Abdomen Exam: Positive: Normal bowel sounds Extremity Exam: Negative: Edema Skin Exam: Positive: Nl turgor and temperature Neuro Exam: Positive: Normal Gait, Normal Speech, Strength at 5/5 X4 ext Psych Exam: Positive: Mood NL Vital Signs Vital Signs Date Time Temp Pulse Resp B/P (MAP) Pulse Ox O2 Delivery O2 Flow Rate FiO2 05/14/20 23:28 98.6 91 14 135/90 (105) 94 Room Air Assessment/Plan 54 y/o F with h/o schizophrenia admitted for non specific psychosis after hearing voices Recent labs reviewed Impression- schizophrenia Plan 1. Schizophrenia further management as per psychiatry team 2. HLD home meds 3. DM type 2 diabetic diet, home meds will controlled 4. HTN home meds 5. GERD home meds 6. Obesity supportive care Thank you for letting us participate in taking care of this patient. Please reconsult as needed. Plan / VTE VTE Prophylaxis Ordered?: No VTE Exclusion Mechanical Proph: Low Risk for VTE GREGG THORNTON MD May 15, 2020 12:50
[2020-05-15] MEDS: LURASIDONE HCL 40 MG TAB (LATUDA) PO SCH (17:35)
[2020-05-15 18:30] VITALS: BP 121/85
[2020-05-15] MEDS: SENNA 8.6 MG TAB (SENOKOT) PO SCH (20:39)
[2020-05-15] MEDS: DOXEPIN 25 MG CAP PO SCH (20:39)
[2020-05-15] MEDS: LOSARTAN 25 MG TAB PO SCH (20:40)
[2020-05-15] MEDS: ATORVASTATIN 20 MG TAB PO SCH (20:40)
[2020-05-15] MEDS: risperiDONE 2 MG TAB PO SCH (20:40)
[2020-05-15] MEDS: LITHIUM CARBONATE 300 MG CAP PO SCH (20:41)
[2020-05-15] MEDS ORDERED: traZODone 50 MG TAB PO ONE (23:00)
[2020-05-16 06:28] VITALS: BP 109/60
--- NOTE | 2020-05-16 07:31 | MHIPNPDOC ---
[facility] Progress Note Progress Note DATE OF SERVICE: 05/16/20 HPI: Viry presents today for concerns regarding her schizoaffective disorder bipolar type. Patient states that she has been feeling moderate with the current medication she is taking, Latuda. Patient denies going to any support groups. Patient notes that she has been having auditory hallucinations telling her to kill Objective Behavior: Bizzare. Intense gaze. Speech: Hyper-verbal. Tangential. Assessment F25.0 Schizoaffective disorder, bipolar type Plan Continue to observe patient At this time, patient is not acutely dangerous Change medication from Latuda to Vraylar 1.5 mg daily. Vital Signs Vital Signs Date Time Temp Pulse Resp B/P (MAP) Pulse Ox O2 Delivery O2 Flow Rate FiO2 05/16/20 06:28 97.0 67 16 109/60 (76) Room Air 05/14/20 23:28 94 Current Medications Current Medications Medications (Trade) Dose Ordered Sig/Bakari Route PRN Reason Start Time Stop Time Status Last Admin Dose Admin Acetaminophen (Tylenol Tab) 650 mg Q6HP PRN PO HEADACHE or DISCOMFORT 05/14/20 17:00 Al Hydrox/Mg Hydrox/Simethicone (Mylanta) 30 ml Q4HP PRN PO HEARTBURN/INDIGESTION 05/14/20 17:00 05/15/20 01:17 Atorvastatin Calcium (Lipitor) 80 mg QHS PO 05/14/20 21:00 05/15/20 20:40 Benztropine Mesylate (Cogentin) 1 mg BID PO 05/14/20 21:00 05/15/20 20:40 Doxepin HCl (SINEquan) 50 mg QHS PO 05/14/20 21:00 05/15/20 20:39 Glipizide (Glucotrol) 5 mg DAILY PO 05/15/20 09:00 05/15/20 08:19 Home Med (Med Rec Complete!) ASDIRECTED XX 05/13/20 22:45 05/13/20 22:42 DC [place] Carbonate ([place] Carbonate) 300 mg QHS PO 05/14/20 21:00 05/15/20 20:41 Losartan Potassium (Cozaar) 25 mg QHS PO 05/14/20 21:00 05/15/20 20:40 Lurasidone HCl (Latuda) 80 mg QPM@1800 PO 05/14/20 18:00 05/15/20 17:35 Magnesium Hydroxide (Milk Of Magnesia) 30 ml DAILYPRN PRN PO CONSTIPATION 05/14/20 17:00 Omeprazole (PriLOSEC) 20 mg BID PO 05/14/20 21:00 05/15/20 20:39 Polyethylene Glycol (Miralax) 1 pkt Q2D PO 05/14/20 09:00 05/14/20 18:15 Risperidone (RisperDAL) 2 mg QHS PO 05/14/20 21:00 05/15/20 20:40 Senna (Senokot) 2 tab QHS PO 05/14/20 21:00 05/15/20 20:39 Trazodone HCl (Desyrel) 50 mg QHSP PRN PO INSOMNIA 05/14/20 17:00 05/15/20 20:40 Allergies Coded Allergies: gabapentin (Verified Adverse Reaction, Severe, seizures, 05/13/20) SMOKE (Verified Adverse Reaction, Intermediate, ASTHMA, 03/30/06) sertraline (Verified Adverse Reaction, Intermediate, rash, 05/13/20) VANNA MONTANEZ DO May 16, 2020 07:31
[2020-05-16] MEDS: glipiZIDE (GLUCOTROL) 5 MG TAB PO SCH (08:14)
[2020-05-16] MEDS: OMEPRAZOLE 20 MG CAP PO SCH ×2 (08:14→21:22)
[2020-05-16] MEDS: MIRALAX *UNIT DOSE* 17GM PACKET PO SCH (08:14)
[2020-05-16] MEDS: BENZTROPINE 1 MG TAB PO SCH ×2 (08:14→21:22)
[2020-05-16] MEDS: CARIPRAZINE 1.5MG CAPSULE (VRAYLAR) PO SCH (09:41)
[2020-05-16 18:09] VITALS: BP 154/78
[2020-05-16] MEDS: traZODone 50 MG TAB PO PRN (21:22)
[2020-05-16] MEDS: SENNA 8.6 MG TAB (SENOKOT) PO SCH (21:22)
[2020-05-16] MEDS: DOXEPIN 25 MG CAP PO SCH (21:22)
[2020-05-16] MEDS: LOSARTAN 25 MG TAB PO SCH (21:22)
[2020-05-16] MEDS: ATORVASTATIN 20 MG TAB PO SCH (21:23)
[2020-05-16] MEDS: risperiDONE 2 MG TAB PO SCH (21:23)
[2020-05-16] MEDS: LITHIUM CARBONATE 300 MG CAP PO SCH (21:23)
[2020-05-17 06:33] VITALS: BP 120/74
[2020-05-17] MEDS: CARIPRAZINE 1.5MG CAPSULE (VRAYLAR) PO SCH (08:27)
[2020-05-17] MEDS: BENZTROPINE 1 MG TAB PO SCH ×2 (08:27→20:28)
[2020-05-17] MEDS: OMEPRAZOLE 20 MG CAP PO SCH ×2 (08:27→20:28)
[2020-05-17] MEDS: glipiZIDE (GLUCOTROL) 5 MG TAB PO SCH (08:28)
[2020-05-17 15:43] VITALS: BP 107/58
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
[2020-05-17] MEDS: SENNA 8.6 MG TAB (SENOKOT) PO SCH (20:27)
[2020-05-17] MEDS: ATORVASTATIN 20 MG TAB PO SCH (20:28)
[2020-05-17] MEDS: risperiDONE 2 MG TAB PO SCH (20:28)
[2020-05-17] MEDS: traZODone 50 MG TAB PO PRN (20:28)
[2020-05-17] MEDS: DOXEPIN 25 MG CAP PO SCH (20:28)
[2020-05-17] MEDS: LITHIUM CARBONATE 300 MG CAP PO SCH (20:29)
[2020-05-17] MEDS: LOSARTAN 25 MG TAB PO SCH (20:31)
[2020-05-18 06:32] VITALS: BP 132/83
[2020-05-18] MEDS: CARIPRAZINE 1.5MG CAPSULE (VRAYLAR) PO SCH (08:00)
[2020-05-18] MEDS: BENZTROPINE 1 MG TAB PO SCH ×2 (08:00→20:49)
[2020-05-18] MEDS: OMEPRAZOLE 20 MG CAP PO SCH ×2 (08:00→20:49)
[2020-05-18] MEDS: glipiZIDE (GLUCOTROL) 5 MG TAB PO SCH (08:01)
[2020-05-18] MEDS: MIRALAX *UNIT DOSE* 17GM PACKET PO SCH (08:01)
[2020-05-18 16:25] VITALS: BP 129/73
--- NOTE | 2020-05-18 17:48 | MHIPNPDOC ---
[facility] [place] Progress Note Progress Note DATE OF SERVICE: 05/18/20 HISTORY: She says she was at the ED since Tuesday. her son brought her. She sees a man in a hoody and he tells her to hill herself or kill her . She says she feels about the same, she still sees the man in the hoody. interval History: On 05/18/20 she says she feels about the same. She says she slept well, her appetite is good. She still feels hopeless and helpless. She still has SI to go home and overdose, she feels safe at [facility] but she is still paranoid and endorses visual and auditory hallucinations VITAL SIGNS: See below. NEW TEST RESULTS: Se below CURRENT MEDICATIONS: See below. MENTAL STATUS EXAMINATION: Patient is a 54-year old female, who is alert, dressed in hospital clothes. Speech: Is slow, normal tone and volume. Thought processes including: She is still asilly distracted, disorganized as if she is responding to internal stimuli Thought content: She still endorses paranoid thoughts, suicidal ideation with a plan to overdose on tablets as soon as she goes back home Description of associations: not loose Description of abnormal or psychotic thoughts: she still endorses paranoid delusions, visual and auditory hallucinations and suicidal thoughts to overdose as soon as she goes back home Judgment: Poor Insight: Poor Orientation: oriented x 3 Recent and remote memory: poor recent and remote memory Attention span and concentration: she is easily distracted Mood: depressed Affect: congruent with mood DIAGNOSES: F25.0 Schizoaffective disorder, bipolar type ASSESSMENT: She is still psychotic. she has poverty of speech, she needs to be prompted to speak. her eye contact is very intense, as if she would be trying to guess my thoughts. She is still depressed, I will increase Vraylar to 3 mgs PO daily. She will start tomorrow her first dose. MANAGEMENT PLAN: Will increase Vraylar to 3 mgs PO daily. She will start this new dose tomorrow morning. TIME SPENT: 20 minutes. Vital Signs Vital Signs Date Time Temp Pulse Resp B/P (MAP) Pulse Ox O2 Delivery O2 Flow Rate FiO2 05/18/20 16:25 98.9 83 16 129/73 (91) 05/18/20 06:32 94 Room Air Current Medications Current Medications Medications (Trade) Dose Ordered Sig/Bakari Route PRN Reason Start Time Stop Time Status Last Admin Dose Admin Acetaminophen (Tylenol Tab) 650 mg Q6HP PRN PO HEADACHE or DISCOMFORT 05/14/20 17:00 Al Hydrox/Mg Hydrox/Simethicone (Mylanta) 30 ml Q4HP PRN PO HEARTBURN/INDIGESTION 05/14/20 17:00 05/15/20 01:17 Atorvastatin Calcium (Lipitor) 80 mg QHS PO 05/14/20 21:00 05/17/20 20:28 Benztropine Mesylate (Cogentin) 1 mg BID PO 05/14/20 21:00 05/18/20 08:00 Cariprazine (Vraylar) 1.5 mg DAILY PO 05/16/20 09:00 05/18/20 08:00 Doxepin HCl (SINEquan) 50 mg QHS PO 05/14/20 21:00 05/17/20 20:28 Glipizide (Glucotrol) 5 mg DAILY PO 05/15/20 09:00 05/18/20 08:01 Home Med (Med Rec Complete!) ASDIRECTED XX 05/13/20 22:45 05/13/20 22:42 DC [place] Carbonate ([place] Carbonate) 300 mg QHS PO 05/14/20 21:00 05/17/20 20:29 Losartan Potassium (Cozaar) 25 mg QHS PO 05/14/20 21:00 05/17/20 20:31 Lurasidone HCl (Latuda) 80 mg QPM@1800 PO 05/14/20 18:00 05/16/20 09:03 DC 05/15/20 17:35 Magnesium Hydroxide (Milk Of Magnesia) 30 ml DAILYPRN PRN PO CONSTIPATION 05/14/20 17:00 Omeprazole (PriLOSEC) 20 mg BID PO 05/14/20 21:00 05/18/20 08:00 Polyethylene Glycol (Miralax) 1 pkt Q2D PO 05/14/20 09:00 05/18/20 08:01 Risperidone (RisperDAL) 2 mg QHS PO 05/14/20 21:00 05/17/20 20:28 Senna (Senokot) 2 tab QHS PO 05/14/20 21:00 7/18/20 20:27 Trazodone HCl (Desyrel) 50 mg QHSP PRN PO INSOMNIA 05/14/20 17:00 05/17/20 20:28 Allergies Coded Allergies: gabapentin (Verified Adverse Reaction, Severe, seizures, 05/13/20) SMOKE (Verified Adverse Reaction, Intermediate, ASTHMA, 03/30/06) sertraline (Verified Adverse Reaction, Intermediate, rash, 05/13/20) GRANT BOLAND MD May 18, 2020 17:48
[2020-05-18] MEDS: SENNA 8.6 MG TAB (SENOKOT) PO SCH (20:48)
[2020-05-18] MEDS: ATORVASTATIN 20 MG TAB PO SCH (20:48)
[2020-05-18] MEDS: DOXEPIN 25 MG CAP PO SCH (20:49)
[2020-05-18] MEDS: risperiDONE 2 MG TAB PO SCH (20:50)
[2020-05-18] MEDS: LITHIUM CARBONATE 300 MG CAP PO SCH (20:50)
[2020-05-18] MEDS: LOSARTAN 25 MG TAB PO SCH (20:50)
[2020-05-18] MEDS: MAALOX 30 ML SUSP *UDC PO PRN (20:54)
[2020-05-18] MEDS: traZODone 50 MG TAB PO PRN (23:20)
[2020-05-19 06:09] VITALS: BP 120/62
--- NOTE | 2020-05-19 07:53 | MHIPNPDOC ---
[facility] Progress Note Progress Note DATE OF SERVICE: 05/19/20 HPI: Viry presents today for a follow-up visit. She states she has been feeling a little better. She denies experiencing shakes or tremors. Viry admits suicidal thoughts and hallucinations are still present. MEDICATIONS: Viry admits to taking 3 mg of Vraylar. Objective Appearance: Appears to be stated age. Well groomed. Well nourished. Affect: Flat affect. Speech: Normal rate. Normal volume. Spontaneous and Fluid. Thought Form: Linear and goal directed. Thought Content: Reports suicidal thoughts and hallucinations still abound. Insight: Poor insight. Assessment F31.9 Bipolar disorder, unspecified Plan Will continue Vraylar at current dose as well as other medications observed. Still isolative to room, will continue to ascertain effect of medications. Vital Signs Vital Signs Date Time Temp Pulse Resp B/P (MAP) Pulse Ox O2 Delivery O2 Flow Rate FiO2 05/19/20 06:09 98.6 74 120/62 (81) Room Air 05/18/20 16:25 16 05/18/20 06:32 94 Current Medications Current Medications Medications (Trade) Dose Ordered Sig/Bakari Route PRN Reason Start Time Stop Time Status Last Admin Dose Admin Acetaminophen (Tylenol Tab) 650 mg Q6HP PRN PO HEADACHE or DISCOMFORT 05/14/20 17:00 Al Hydrox/Mg Hydrox/Simethicone (Mylanta) 30 ml Q4HP PRN PO HEARTBURN/INDIGESTION 05/14/20 17:00 05/18/20 20:54 Atorvastatin Calcium (Lipitor) 80 mg QHS PO 05/14/20 21:00 05/18/20 20:48 Benztropine Mesylate (Cogentin) 1 mg BID PO 05/14/20 21:00 05/18/20 20:49 Cariprazine (Vraylar) 1.5 mg DAILY PO 05/16/20 09:00 05/18/20 17:37 DC 05/18/20 08:00 Cariprazine (Vraylar) 3 mg DAILY PO 05/19/20 09:00 Doxepin HCl (SINEquan) 50 mg QHS PO 05/14/20 21:00 05/18/20 20:49 Glipizide (Glucotrol) 5 mg DAILY PO 05/15/20 09:00 05/18/20 08:01 Home Med (Med Rec Complete!) ASDIRECTED XX 05/13/20 22:45 05/13/20 22:42 DC [place] Carbonate ([place] Carbonate) 300 mg QHS PO 05/14/20 21:00 05/18/20 20:50 Losartan Potassium (Cozaar) 25 mg QHS PO 05/14/20 21:00 05/18/20 20:50 Lurasidone HCl (Latuda) 80 mg QPM@1800 PO 05/14/20 18:00 05/16/20 09:03 DC 05/15/20 17:35 Magnesium Hydroxide (Milk Of Magnesia) 30 ml DAILYPRN PRN PO CONSTIPATION 05/14/20 17:00 Omeprazole (PriLOSEC) 20 mg BID PO 05/14/20 21:00 05/18/20 20:49 Polyethylene Glycol (Miralax) 1 pkt Q2D PO 05/14/20 09:00 05/18/20 08:01 Risperidone (RisperDAL) 2 mg QHS PO 05/14/20 21:00 05/18/20 20:50 Senna (Senokot) 2 tab QHS PO 05/14/20 21:00 05/18/20 20:48 Trazodone HCl (Desyrel) 50 mg QHSP PRN PO INSOMNIA 05/14/20 17:00 05/18/20 23:20 Allergies Coded Allergies: gabapentin (Verified Adverse Reaction, Severe, seizures, 05/13/20) SMOKE (Verified Adverse Reaction, Intermediate, ASTHMA, 03/30/06) sertraline (Verified Adverse Reaction, Intermediate, rash, 05/13/20) VANNA MONTANEZ DO May 19, 2020 07:53
[2020-05-19] MEDS: glipiZIDE (GLUCOTROL) 5 MG TAB PO SCH (08:07)
[2020-05-19] MEDS: CARIPRAZINE 3MG CAPSULE (VRAYLAR) PO SCH (08:07)
[2020-05-19] MEDS: OMEPRAZOLE 20 MG CAP PO SCH ×2 (08:07→20:10)
[2020-05-19] MEDS: BENZTROPINE 1 MG TAB PO SCH ×2 (08:07→20:10)
[2020-05-19 16:12] VITALS: BP 102/58
[2020-05-19] MEDS: SENNA 8.6 MG TAB (SENOKOT) PO SCH (20:08)
[2020-05-19] MEDS: risperiDONE 2 MG TAB PO SCH (20:08)
[2020-05-19] MEDS: LOSARTAN 25 MG TAB PO SCH (20:08)
[2020-05-19] MEDS: traZODone 50 MG TAB PO PRN (20:10)
[2020-05-19] MEDS: DOXEPIN 25 MG CAP PO SCH (20:10)
[2020-05-19] MEDS: LITHIUM CARBONATE 300 MG CAP PO SCH (20:10)
[2020-05-19] MEDS: ATORVASTATIN 20 MG TAB PO SCH (20:10)
[2020-05-19] MEDS ORDERED: traZODone 50 MG TAB PO ONE (21:45)
[2020-05-20 06:32] VITALS: BP 108/69
--- NOTE | 2020-05-20 07:55 | MHIPNPDOC ---
[facility] Progress Note Progress Note DATE OF SERVICE: 05/20/20 HPI: Viry, who has a history of auditory hallucinations, presents today for a follow up. Her sleep quality has been slightly improving. Patient notes that her medication is treating her okay. She reports that she is still experiencing auditory hallucinations with no changes. Viry reports no tremor issues. MEDICATIONS: Patient may need to increase the amount of Vraylar to get the auditory hallucinations under control. Patient may need to have Trazadone dosage increased to improve sleep quality. Objective Appearance: Well nourished. Appears to be stated age. Well groomed. Mood: Generally good. Euthymic. Appropriately reactive. Speech: Normal rate. Normal volume. Spontaneous and Fluid. Thought Content: No evidence of aggressive or homicidal ideation. No evidence of delusions. No thoughts of self harm. No evidence of suicidal ideation. Judgement: Intact as evidenced by decision making in the recent past. Insight: Good insight into symptoms and treatment options. Assessment F25.0 Schizoaffective disorder, bipolar type Plan Increased Vraylar to 4.5 milligrams daily. Continued patients [place] and other medixations without change at this time. Vital Signs Vital Signs Date Time Temp Pulse Resp B/P (MAP) Pulse Ox O2 Delivery O2 Flow Rate FiO2 05/20/20 06:32 97.9 77 12 108/69 (82) Room Air 05/18/20 06:32 94 Current Medications Current Medications Medications (Trade) Dose Ordered Sig/Bakari Route PRN Reason Start Time Stop Time Status Last Admin Dose Admin Acetaminophen (Tylenol Tab) 650 mg Q6HP PRN PO HEADACHE or DISCOMFORT 05/14/20 17:00 Al Hydrox/Mg Hydrox/Simethicone (Mylanta) 30 ml Q4HP PRN PO HEARTBURN/INDIGESTION 05/14/20 17:00 05/18/20 20:54 Atorvastatin Calcium (Lipitor) 80 mg QHS PO 05/14/20 21:00 05/19/20 20:10 Benztropine Mesylate (Cogentin) 1 mg BID PO 05/14/20 21:00 05/19/20 20:10 Cariprazine (Vraylar) 1.5 mg DAILY PO 05/16/20 09:00 05/18/20 17:37 DC 05/18/20 08:00 Cariprazine (Vraylar) 3 mg DAILY PO 05/19/20 09:00 05/19/20 08:07 Doxepin HCl (SINEquan) 50 mg QHS PO 05/14/20 21:00 05/19/20 20:10 Glipizide (Glucotrol) 5 mg DAILY PO 05/15/20 09:00 05/19/20 08:07 Home Med (Med Rec Complete!) ASDIRECTED XX 05/13/20 22:45 05/13/20 22:42 DC [place] Carbonate ([place] Carbonate) 300 mg QHS PO 05/14/20 21:00 05/19/20 20:10 Losartan Potassium (Cozaar) 25 mg QHS PO 05/14/20 21:00 05/19/20 20:08 Lurasidone HCl (Latuda) 80 mg QPM@1800 PO 05/14/20 18:00 05/16/20 09:03 DC 05/15/20 17:35 Magnesium Hydroxide (Milk Of Magnesia) 30 ml DAILYPRN PRN PO CONSTIPATION 05/14/20 17:00 Omeprazole (PriLOSEC) 20 mg BID PO 05/14/20 21:00 05/19/20 20:10 Polyethylene Glycol (Miralax) 1 pkt Q2D PO 05/14/20 09:00 05/18/20 08:01 Risperidone (RisperDAL) 2 mg QHS PO 05/14/20 21:00 05/19/20 20:08 Senna (Senokot) 2 tab QHS PO 05/14/20 21:00 05/19/20 20:08 Trazodone HCl (Desyrel) 50 mg QHSP PRN PO INSOMNIA 05/14/20 17:00 05/19/20 20:10 Allergies Coded Allergies: gabapentin (Verified Adverse Reaction, Severe, seizures, 05/13/20) SMOKE (Verified Adverse Reaction, Intermediate, ASTHMA, 03/30/06) sertraline (Verified Adverse Reaction, Intermediate, rash, 05/13/20) VANNA MONTANEZ DO May 20, 2020 07:55
[2020-05-20] MEDS: CARIPRAZINE 3MG CAPSULE (VRAYLAR) PO SCH (08:09)
[2020-05-20] MEDS: BENZTROPINE 1 MG TAB PO SCH ×2 (08:09→20:06)
[2020-05-20] MEDS: OMEPRAZOLE 20 MG CAP PO SCH ×2 (08:09→20:06)
[2020-05-20] MEDS: glipiZIDE (GLUCOTROL) 5 MG TAB PO SCH (08:09)
[2020-05-20] MEDS: MIRALAX *UNIT DOSE* 17GM PACKET PO SCH (08:09)
[2020-05-20 16:13] VITALS: BP 130/83
[2020-05-20] MEDS: LOSARTAN 25 MG TAB PO SCH (20:04)
[2020-05-20] MEDS: SENNA 8.6 MG TAB (SENOKOT) PO SCH (20:05)
[2020-05-20] MEDS: traZODone 100 MG TAB PO PRN (20:06)
[2020-05-20] MEDS: ATORVASTATIN 20 MG TAB PO SCH (20:06)
[2020-05-20] MEDS: DOXEPIN 25 MG CAP PO SCH (20:06)
[2020-05-20] MEDS: risperiDONE 2 MG TAB PO SCH (20:06)
[2020-05-20] MEDS: LITHIUM CARBONATE 300 MG CAP PO SCH (20:06)
[2020-05-21 06:33] VITALS: BP 119/64
[2020-05-21] MEDS: BENZTROPINE 1 MG TAB PO SCH ×2 (08:02→21:12)
[2020-05-21] MEDS: glipiZIDE (GLUCOTROL) 5 MG TAB PO SCH (08:02)
[2020-05-21] MEDS: OMEPRAZOLE 20 MG CAP PO SCH ×2 (08:02→21:12)
[2020-05-21] MEDS ORDERED: CARIPRAZINE 1.5MG CAPSULE (VRAYLAR) PO SCH (09:00)
--- NOTE | 2020-05-21 09:14 | MHIPNPDOC ---
[facility] Progress Note Progress Note DATE OF SERVICE: 05/21/20 HPI: Viry presents today for concerns regarding a follow up. She notes that the Vraylar is not helping enough. She states that the suicidal thoughts are l essening. MEDICATIONS: She reports that she is doing alright on the physical, commercial medications. Objective Appearance: Appears to be stated age. Fair hygiene. Well nourished. Behavior: Engaged. Pleasant. More talkative. Cooperative with good eye contact. Speech: Normal rate. More spontaneous and fluid with her discussion. Normal volume. Motor: No gross motor abnormalities. No psychomotor problems. Thought Content: No evidence of delusions. No evidence of aggressive or homicidal ideation. Suicidal thoughts from time to time. No thoughts of self harm. Perception: Psychotic symptoms. Insight: Improved insight. Good insight into symptoms and treatment options. Assessment F25.0 Schizoaffective disorder, bipolar type Plan Discontinue Vraylar as patient reports that it is not helpful. Try alternative agent, such as Invega, of which a long depot could be quite helpful for her given her long history Take Invega 3 mg q.n. The risks, benefits as well as common side effects as well as alternative treatments (including non-treatment) were discussed with the patient both in general and for their particular case. The patient selected this option out of a range. Vital Signs Vital Signs Date Time Temp Pulse Resp B/P (MAP) Pulse Ox O2 Delivery O2 Flow Rate FiO2 05/21/20 06:33 97.5 71 18 119/64 (82) Room Air 05/18/20 06:32 94 Current Medications Current Medications Medications (Trade) Dose Ordered Sig/Bakari Route PRN Reason Start Time Stop Time Status Last Admin Dose Admin Acetaminophen (Tylenol Tab) 650 mg Q6HP PRN PO HEADACHE or DISCOMFORT 05/14/20 17:00 Al Hydrox/Mg Hydrox/Simethicone (Mylanta) 30 ml Q4HP PRN PO HEARTBURN/INDIGESTION 05/14/20 17:00 05/18/20 20:54 Atorvastatin Calcium (Lipitor) 80 mg QHS PO 05/14/20 21:00 05/20/20 20:06 Benztropine Mesylate (Cogentin) 1 mg BID PO 05/14/20 21:00 05/21/20 08:02 Cariprazine (Vraylar) 1.5 mg DAILY PO 05/16/20 09:00 05/18/20 17:37 DC 05/18/20 08:00 Cariprazine (Vraylar) 3 mg DAILY PO 05/19/20 09:00 05/20/20 08:59 DC 05/20/20 08:09 Cariprazine (Vraylar) 4.5 mg DAILY PO 05/21/20 09:00 05/21/20 08:02 Doxepin HCl (SINEquan) 50 mg QHS PO 05/14/20 21:00 05/20/20 20:06 Glipizide (Glucotrol) 5 mg DAILY PO 05/15/20 09:00 05/21/20 08:02 Home Med (Med Rec Complete!) ASDIRECTED XX 05/13/20 22:45 05/13/20 22:42 DC [place] Carbonate ([place] Carbonate) 300 mg QHS PO 05/14/20 21:00 05/20/20 20:06 Losartan Potassium (Cozaar) 25 mg QHS PO 05/14/20 21:00 05/20/20 20:04 Lurasidone HCl (Latuda) 80 mg QPM@1800 PO 05/14/20 18:00 05/16/20 09:03 DC 05/15/20 17:35 Magnesium Hydroxide (Milk Of Magnesia) 30 ml DAILYPRN PRN PO CONSTIPATION 05/14/20 17:00 Omeprazole (PriLOSEC) 20 mg BID PO 05/14/20 21:00 05/21/20 08:02 Polyethylene Glycol (Miralax) 1 pkt Q2D PO 05/14/20 09:00 05/20/20 08:09 Risperidone (RisperDAL) 2 mg QHS PO 05/14/20 21:00 05/20/20 20:06 Senna (Senokot) 2 tab QHS PO 05/14/20 21:00 05/20/20 20:05 Trazodone HCl (Desyrel) 50 mg QHSP PRN PO INSOMNIA 05/14/20 17:00 05/20/20 09:00 DC 05/19/20 20:10 Trazodone HCl (Desyrel) 100 mg QHSP PRN PO INSOMNIA 05/20/20 09:00 05/20/20 20:06 Allergies Coded Allergies: gabapentin (Verified Adverse Reaction, Severe, seizures, 05/13/20) SMOKE (Verified Adverse Reaction, Intermediate, ASTHMA, 03/30/06) sertraline (Verified Adverse Reaction, Intermediate, rash, 05/13/20) VANNA MONTANEZ DO May 21, 2020 09:14
[2020-05-21 16:10] VITALS: BP 102/67
[2020-05-21] MEDS ORDERED: PALIPERIDONE 3 MG ER TAB (INVEGA) PO SCH (21:00)
[2020-05-21] MEDS: SENNA 8.6 MG TAB (SENOKOT) PO SCH (21:11)
[2020-05-21] MEDS: ATORVASTATIN 20 MG TAB PO SCH (21:11)
[2020-05-21] MEDS: LITHIUM CARBONATE 300 MG CAP PO SCH (21:12)
[2020-05-21] MEDS: DOXEPIN 25 MG CAP PO SCH (21:12)
[2020-05-21 21:14] VITALS: BP 134/88
[2020-05-21] MEDS: LOSARTAN 25 MG TAB PO SCH (21:14)
[2020-05-21] MEDS: traZODone 100 MG TAB PO PRN (22:08)
[2020-05-22 06:38] VITALS: BP 111/66
--- NOTE | 2020-05-22 08:00 | MHIPNPDOC ---
[facility] Progress Note Progress Note DATE OF SERVICE: 05/22/20 Subjective HPI: Viry complains of fatigue because her roommate was awake all night. She still has suicidal thoughts and hallucinations. Objective Behavior: Cooperative with good eye contact. Pleasant. Has been friendly in the unit. Engaged. Mood: Patient is more euthymic. Appropriately reactive. Generally good. Cognition: Grossly intact. Alert, Attentive, and Oriented to person, place, time. Thought Form: More linear and logical. Thought Content: No evidence of delusions. No thoughts of self harm. No evidence of aggressive or homicidal ideation. Reports some suicidal thoughts and auditory hallucinations, but appears generally amenable. Judgement: Fair. Insight: Fair. Assessment F25.0 Schizoaffective disorder, bipolar type Plan Continue with Invega at this time for treatment of schizoaffective disorder. Continue other medications as she appears to be tolerating well. Well continue to monitor. Vital Signs Vital Signs Date Time Temp Pulse Resp B/P (MAP) Pulse Ox O2 Delivery O2 Flow Rate FiO2 05/22/20 06:38 97.5 79 18 111/66 (81) 05/21/20 06:33 Room Air 05/18/20 06:32 94 Current Medications Current Medications Medications (Trade) Dose Ordered Sig/Bakari Route PRN Reason Start Time Stop Time Status Last Admin Dose Admin Acetaminophen (Tylenol Tab) 650 mg Q6HP PRN PO HEADACHE or DISCOMFORT 05/14/20 17:00 Al Hydrox/Mg Hydrox/Simethicone (Mylanta) 30 ml Q4HP PRN PO HEARTBURN/INDIGESTION 05/14/20 17:00 05/18/20 20:54 Atorvastatin Calcium (Lipitor) 80 mg QHS PO 05/14/20 21:00 05/21/20 21:11 Benztropine Mesylate (Cogentin) 1 mg BID PO 05/14/20 21:00 05/21/20 21:12 Cariprazine (Vraylar) 1.5 mg DAILY PO 05/16/20 09:00 05/18/20 17:37 DC 05/18/20 08:00 Cariprazine (Vraylar) 3 mg DAILY PO 05/19/20 09:00 05/20/20 08:59 DC 05/20/20 08:09 Cariprazine (Vraylar) 4.5 mg DAILY PO 05/21/20 09:00 05/21/20 13:28 DC 05/21/20 08:02 Doxepin HCl (SINEquan) 50 mg QHS PO 05/14/20 21:00 05/21/20 21:12 Glipizide (Glucotrol) 5 mg DAILY PO 05/15/20 09:00 05/21/20 08:02 Home Med (Med Rec Complete!) ASDIRECTED XX 05/13/20 22:45 05/13/20 22:42 DC [place] Carbonate ([place] Carbonate) 300 mg QHS PO 05/14/20 21:00 05/21/20 21:12 Losartan Potassium (Cozaar) 25 mg QHS PO 05/14/20 21:00 05/21/20 21:14 Lurasidone HCl (Latuda) 80 mg QPM@1800 PO 05/14/20 18:00 05/16/20 09:03 DC 05/15/20 17:35 Magnesium Hydroxide (Milk Of Magnesia) 30 ml DAILYPRN PRN PO CONSTIPATION 05/14/20 17:00 Omeprazole (PriLOSEC) 20 mg BID PO 05/14/20 21:00 05/21/20 21:12 Paliperidone (Invega) 3 mg QHS PO 05/21/20 21:00 05/21/20 21:14 Polyethylene Glycol (Miralax) 1 pkt Q2D PO 05/14/20 09:00 05/20/20 08:09 Risperidone (RisperDAL) 2 mg QHS PO 05/14/20 21:00 05/21/20 13:28 DC 05/20/20 20:06 Senna (Senokot) 2 tab QHS PO 05/14/20 21:00 05/21/20 21:11 Trazodone HCl (Desyrel) 50 mg QHSP PRN PO INSOMNIA 05/14/20 17:00 05/20/20 09:00 DC 05/19/20 20:10 Trazodone HCl (Desyrel) 100 mg QHSP PRN PO INSOMNIA 05/20/20 09:00 05/21/20 22:08 Allergies Coded Allergies: gabapentin (Verified Adverse Reaction, Severe, seizures, 05/13/20) SMOKE (Verified Adverse Reaction, Intermediate, ASTHMA, 03/30/06) sertraline (Verified Adverse Reaction, Intermediate, rash, 05/13/20) VANNA MONTANEZ DO May 22, 2020 08:00
[2020-05-22] MEDS: BENZTROPINE 1 MG TAB PO SCH (08:29)
[2020-05-22] MEDS: glipiZIDE (GLUCOTROL) 5 MG TAB PO SCH (08:29)
[2020-05-22] MEDS: OMEPRAZOLE 20 MG CAP PO SCH (08:29)
[2020-05-22] MEDS: MIRALAX *UNIT DOSE* 17GM PACKET PO SCH (08:29)
[2020-05-24] MEDS ORDERED: BENZTROPINE 1 MG TAB ONE ×2 (11:22→17:21)
[2020-05-24] MEDS ORDERED: OMEPRAZOLE 20 MG CAP ONE ×2 (11:22→21:23)
[2020-05-24] MEDS ORDERED: glipiZIDE (GLUCOTROL) 5 MG TAB ONE ×2 (11:22→11:30)
[2020-05-24] MEDS ORDERED: MIRALAX *UNIT DOSE* 17GM PACKET ONE (11:29)
[2020-05-24] MEDS ORDERED: LOSARTAN 25 MG TAB ONE ×2 (11:30→17:21)
[2020-05-24] MEDS ORDERED: LITHIUM CARBONATE 300 MG CAP ONE (17:21)
[2020-05-24] MEDS ORDERED: SENNA 8.6 MG TAB (SENOKOT) ONE (17:21)
[2020-05-24] MEDS ORDERED: ATORVASTATIN 20 MG TAB ONE (17:21)
[2020-05-24] MEDS ORDERED: PALIPERIDONE 3 MG ER TAB (INVEGA) ONE (17:21)
[2020-05-24] MEDS ORDERED: traZODone 100 MG TAB ONE (21:23)
[2020-05-24] MEDS ORDERED: DOXEPIN 25 MG CAP ONE (21:23)
[2020-05-25] MEDS ORDERED: OMEPRAZOLE 20 MG CAP ONE ×2 (09:16→09:24)
[2020-05-25] MEDS ORDERED: DOXEPIN 25 MG CAP ONE (09:16)
[2020-05-25] MEDS ORDERED: LOSARTAN 50MG TABLET ONE (09:24)
[2020-05-25] MEDS ORDERED: SENNA 8.6 MG TAB (SENOKOT) ONE (09:24)
[2020-05-25] MEDS ORDERED: PALIPERIDONE 3 MG ER TAB (INVEGA) ONE (09:24)
[2020-05-25] MEDS ORDERED: ATORVASTATIN 20 MG TAB ONE (09:24)
[2020-05-25] MEDS ORDERED: BENZTROPINE 1 MG TAB ONE ×2 (09:24)
[2020-05-25] MEDS ORDERED: glipiZIDE (GLUCOTROL) 5 MG TAB ONE (09:24)
[2020-05-25] MEDS ORDERED: LITHIUM CARBONATE 300 MG CAP ONE (09:24)
[2020-05-25] MEDS ORDERED: traZODone 100 MG TAB ONE (09:24)
[2020-05-26] MEDS ORDERED: SENNA 8.6 MG TAB (SENOKOT) ONE (08:17)
[2020-05-26] MEDS ORDERED: ATORVASTATIN 20 MG TAB ONE (08:17)
[2020-05-26] MEDS ORDERED: glipiZIDE (GLUCOTROL) 5 MG TAB ONE (08:17)
[2020-05-26] MEDS ORDERED: PALIPERIDONE 3 MG ER TAB (INVEGA) ONE (08:17)
[2020-05-26] MEDS ORDERED: LOSARTAN 25 MG TAB ONE (08:17)
[2020-05-26] MEDS ORDERED: OMEPRAZOLE 20 MG CAP ONE ×2 (08:17→09:03)
[2020-05-26] MEDS ORDERED: BENZTROPINE 1 MG TAB ONE (08:17)
[2020-05-26] MEDS ORDERED: MIRALAX *UNIT DOSE* 17GM PACKET ONE (08:17)
[2020-05-26] MEDS ORDERED: traZODone 100 MG TAB ONE (08:17)
[2020-05-26] MEDS ORDERED: LITHIUM CARBONATE 300 MG CAP ONE (08:17)
[2020-05-26] MEDS ORDERED: DOXEPIN 25 MG CAP ONE (09:03)
[2020-05-26] MEDS ORDERED: ACETAMINOPHEN TAB 650MG DOSE (2X325MG) ONE (09:03)
[2020-05-27] MEDS ORDERED: DOXEPIN 25 MG CAP ONE (08:26)
[2020-05-27] MEDS ORDERED: LITHIUM CARBONATE 300 MG CAP ONE (08:26)
[2020-05-27] MEDS ORDERED: BENZTROPINE 1 MG TAB ONE ×2 (08:26→10:22)
[2020-05-27] MEDS ORDERED: ATORVASTATIN 20 MG TAB ONE (08:26)
[2020-05-27] MEDS ORDERED: traZODone 100 MG TAB ONE (08:26)
[2020-05-27] MEDS ORDERED: OMEPRAZOLE 20 MG CAP ONE ×2 (08:26→10:22)
[2020-05-27] MEDS ORDERED: PALIPERIDONE 3 MG ER TAB (INVEGA) ONE (10:22)
[2020-05-27] MEDS ORDERED: SENNA 8.6 MG TAB (SENOKOT) ONE (10:22)
[2020-05-27] MEDS ORDERED: glipiZIDE (GLUCOTROL) 5 MG TAB ONE (10:22)
[2020-05-27] MEDS ORDERED: LOSARTAN 25 MG TAB ONE (10:22)
[2020-05-28] MEDS ORDERED: OMEPRAZOLE 20 MG CAP ONE ×2 (08:35→20:29)
[2020-05-28] MEDS ORDERED: BENZTROPINE 1 MG TAB ONE ×2 (08:35→20:29)
[2020-05-28] MEDS ORDERED: glipiZIDE (GLUCOTROL) 5 MG TAB ONE (08:35)
[2020-05-28] MEDS ORDERED: MIRALAX *UNIT DOSE* 17GM PACKET ONE (08:35)
[2020-05-28] MEDS ORDERED: ATORVASTATIN 20 MG TAB ONE (20:29)
[2020-05-28] MEDS ORDERED: DOXEPIN 25 MG CAP ONE (20:29)
[2020-05-28] MEDS ORDERED: SENNA 8.6 MG TAB (SENOKOT) ONE (20:29)
[2020-05-28] MEDS ORDERED: traZODone 100 MG TAB ONE (20:29)
[2020-05-28] MEDS ORDERED: LOSARTAN 25 MG TAB ONE (20:29)
[2020-05-28] MEDS ORDERED: PALIPERIDONE 3 MG ER TAB (INVEGA) ONE (20:29)
[2020-05-28] MEDS ORDERED: LITHIUM CARBONATE 300 MG CAP ONE (20:29)
[2020-05-29] MEDS ORDERED: OMEPRAZOLE 20 MG CAP ONE (08:29)
[2020-05-29] MEDS ORDERED: glipiZIDE (GLUCOTROL) 5 MG TAB ONE (08:29)
[2020-05-29] MEDS ORDERED: BENZTROPINE 1 MG TAB ONE (08:29)
[2020-07-17 23:14] LABS: BASO # 0.1 10^3/uL (0.0-0.2); BASO % 0.8 % (0.0-1.0); EOS # 0.4 10^3/uL (0.0-0.5); EOS % 4.1 % (0.0-3.0); HEMATOCRIT 38.6 % (36.0-47.0); HEMOGLOBIN 12.3 g/dl (12.0-15.5); LYMPH # 2.7 10^3/uL (1.5-5.0); LYMPH % 29.4 % (24.0-44.0); MEAN CORPUSCULAR HEMOGLOBIN 29.3 pg (27.0-33.0); MEAN CORPUSCULAR HGB CONC 31.9 g/dl (32.0-36.5); MEAN CORPUSCULAR VOLUME 91.9 fl (80.0-96.0); MONO # 0.7 10^3/uL (0.0-0.8); MONO % 7.3 % (0.0-5.0); NEUTROPHILS # 5.3 10^3/uL (1.5-8.5); NEUTROPHILS % 57.9 % (36.0-66.0); PLATELET COUNT, AUTOMATED 484 10^3/uL (150-450); WHITE BLOOD COUNT 9.2 10^3/uL (4.0-10.0)
--- NOTE | 2020-09-02 11:18 | MHDSPDOC ---
[facility] Discharge Summary Discharge Summary DATE OF ADMISSION: May 14, 2020 at 16:58 DATE OF DISCHARGE: May 29, 2020 at 10:36 DISCHARGE DIAGNOSES: Unspecified psychotic disorder CONSULTANTS INVOLVED:[ None (basic hospitalist screening)] REASON FOR ADMISSION & TREATMENT AND PROGRESS ON THE UNIT : Viry presented to [facility] for experiencing auditory hallucinations and homicidal and suicidal ideation. She reported that she was feeling worse and presented full remission and was admitted out of an abundance of caution. When she was admitted, she subsequently discontinued her previous Latuda as it was not helpful. Viry did better, she improved her hallucinations which were solved, she was social and spontaneous, respectful, pleasant during her admission, and had no behavioral outbursts or other issues. No significant testing problems; For lithium it was 0.48, and she did well on her current lithium dose where she improved and eventually did not meet the involuntary criteria.She had no behavioral outbursts, did well, and attended groups. Will send patient home with Invega and no other changes to her medications. MEDICATIONS: She was tried on Vraylar which did not have a sufficient effect; Other m edications tried was Invega that was titrated up to an effective dose with positive results. DISCHARGE ASSESSMENT:[improved] Legal status considerations: The patient at the time of discharge did not meet criteria for involuntary admission/extension due to having a [normal] mental status exam, [fair] insight into the situation, They are engaged in the discharge process, as well as being friendly and amenable in behavioral control and havent been engaging in any observed concerning behavior or ideation recently. They decline voluntary extension/admission at this time and must be discharged in good jordana, as Im unable to make a case for holding the patient against their will. They may have historical risk factors of admissions and other interactions with psychiatry however, those are not modifiable from a clinical perspective. The patient will need to be discharged in good jordana. MENTAL STATUS EXAMINATION ON DISCHARGE: [General: Well dressed with good hygiene Speech: Spontaneous and fluid Thought processes: Linear and logical Thought content: Future orientated Abstract reasoning, and computation: Intact Description of associations: Intact Description of abnormal or psychotic thoughts:Denies any suicidal or homicidal ideation. Denies any auditory or visual hallucinations. Does not appear to be responding to internal stimuli. Does not appear to be endorsing any bizarre or paranoid ideation. Judgment: fair Insight: fair Orientation: Alert and orientated 3 Recent and remote memory: Intact Attention span and concentration: Intact Fund of knowledge: Adequate Mood: "okay" Affect: Euthymic with a full range] PLAN/FOLLOWUP ARRANGEMENTS: Follow up appointments made (PCP and MH in 5 days of D/C date) and safety plan completed. Safety Planning aspects completed prior to discharge [Medication supplies limited to 7 days with 4 refills to prevent accumulation to OD] [RN reviewed crisis hotline information and other aspects to empower patient to access care in interim before next appointment.] The amount of time spent in the coordination of care for this patient was approximately 30 minutes. Medications Scheduled Atorvastatin Calcium (Atorvastatin Calcium) 80 Mg Tablet, 80 MG PO QHS, (Reported) Benztropine Mesylate (Benztropine Mesylate) 1 Mg Tab, 1 MG PO BID, (Reported) Doxepin HCl (Doxepin HCl) 50 Mg Capsule, 50 MG PO QHS, (Reported) Ergocalciferol (Vitamin D2) (Vitamin D2) 50,000 Units Cap, 50,000 UNITS PO 1XWK, (Reported) TUESDAY NIGHTS Fluoxetine Hcl (Fluoxetine HCl) 20 Mg Capsule, 20 MG PO DAILY, (Reported) Fluphenazine Decanoate (Fluphenazine Decanoate) 25 Mg/Ml Soln, 2.5 ML IM ASDIRECTED, (Reported) EVERY 3 WEEKS Glipizide (Glipizide) 5 Mg Tab, 5 MG PO DAILY, (Reported) [place] Carbonate ([place] Carbonate) 300 Mg Tablet, 300 MG PO QHS, (Reported) Losartan Potassium (Cozaar) 25 Mg Tab, 25 MG PO QHS, (Reported) Lurasidone HCl (Latuda) 80 Mg Tablet, 80 MG PO QPM, (Reported) TAKES AT DINNERTIME Omeprazole (Omeprazole) 20 Mg Capsule.dr, 20 MG PO BID, (Reported) Polyethylene Glycol 3350 (Miralax) 17 Gm Powd.pack, 17 GM PO Q2D, (Reported) Risperidone (Risperidone) 2 Mg Tablet, 2 MG PO QHS, (Reported) Sennosides (Senna) 8.6 Mg Tablet, 2 TAB PO QHS, (Reported) Valbenazine Tosylate (Ingrezza) 40 Mg Capsule, 40 MG PO DAILY, (Reported) Allergies Coded Allergies: gabapentin (Verified Adverse Reaction, Severe, seizures, 7/14/20) SMOKE (Verified Adverse Reaction, Intermediate, ASTHMA, 03/30/06) sertraline (Verified Adverse Reaction, Intermediate, rash, 05/13/20) VANNA MONTANEZ DO Sep 02, 2020 11:18
== END 2020-05-29 10:36 | disposition home or self-care (01) | DRG 750 ==
LOC: M ED 12:29 → M ED INP 05-14 16:58 → M PSY 05-14 21:20
PROVIDERS: ADMIT Psychiatry & Neurology Addiction Medicine; ATTEND Psychiatry & Neurology Addiction Medicine
DX: F25.0 Schizoaffective disorder, bipolar type (principal); E11.9 Type 2 diabetes mellitus without complications; I10 Essential (primary) hypertension; Z79.84 Long term (current) use of oral hypoglycemic drugs; Z79.899 Other long term (current) drug therapy; Z88.8 Allergy status to other drugs, medicaments and biological substances; Z91.048 Other nonmedicinal substance allergy status; E78.5 Hyperlipidemia, unspecified; K21.9 Gastro-esophageal reflux disease without esophagitis; E66.9 Obesity, unspecified; Z68.34 Body mass index [BMI] 34.0-34.9, adult

== ENCOUNTER 2021-01-29 11:49 | Emergency (ER) | payer MEDICAID, OTHER ==
[~2021-01-29] VITALS: Ht 162.6 cm; Wt 81.1 kg
[~2021-01-29 11:49] MED LIST changes: +ATOR80TA59 PO; +DOXE50CA PO; +FLUO20CA22 PO; +LATU80TA PO; -MELA3TAB63 PO; +MELA3TAB70 PO; +MIRA1POW3 PO; +OMEP-218 PO; +RISP-9 PO; +SENN-80 PO; +VALB40CA PO; +VITA50005 PO
[2021-01-29] MEDS ORDERED: STEG5TAB (12:04)
[2021-01-29] MEDS ORDERED: LUMA42CA (12:04)
--- NOTE | 2021-01-29 12:49 | REP ---
INDICATION: Altered Mental Status. COMPARISON: 12/16/2015. TECHNIQUE: CT BRAIN PERFORMED IN THE AXIAL PLANE. CORONAL RECONSTRUCTION IMAGES ARE PERFORMED. FINDINGS: THE VENTRICLES ARE NORMAL IN SIZE AND POSITION. THERE IS NO MIDLINE SHIFT OR MASS EFFECT. KOO-WHITE DIFFERENTIATION IS WELL MAINTAINED. THERE IS NO ACUTE INTRACRANIAL HEMORRHAGE OR EXTRA-AXIAL FLUID COLLECTION. BONE WINDOW EXAMINATION IS UNREMARKABLE. VISUALIZED MASTOID AIR CELLS AND PARANASAL SINUSES ARE CLEAR. IMPRESSION: NEGATIVE NONCONTRAST CT BRAIN. <Electronically signed by David Koo > 01/29/21 1244
[2021-01-29 13:00] LABS: BASO % 0.4 % (0.0-1.0); EOS # 0.1 10^3/uL (0.0-0.5); HEMATOCRIT 41.3 % (36.0-47.0); HEMOGLOBIN 13.2 g/dl (12.0-15.5); LYMPH # 1.5 10^3/uL (1.5-5.0); MEAN CORPUSCULAR HEMOGLOBIN 29.6 pg (27.0-33.0); MEAN CORPUSCULAR VOLUME 92.6 fl (80.0-96.0); MONO # 0.6 10^3/uL (0.0-0.8); MONO % 5.4 % (2.0-8.0); NEUTROPHILS # 7.9 10^3/uL (1.5-8.5); NEUTROPHILS % 77.7 % (36.0-66.0); PLATELET COUNT, AUTOMATED 431 10^3/uL (150-450); RED BLOOD COUNT 4.46 10^6/uL (4.00-5.40); WHITE BLOOD COUNT 10.2 10^3/uL (4.0-10.0)
[2021-01-29 13:43] LABS: ACETAMINOPHEN LEVEL < 2.0 UG/ML (10.0-30.0); ALBUMIN 3.9 GM/DL (3.2-5.2); ALT/SGPT 13 U/L (12-78); BILIRUBIN,DIRECT 0.2 MG/DL (0.0-0.2); BILIRUBIN,TOTAL 0.6 MG/DL (0.2-1.0); BLOOD UREA NITROGEN 17 MG/DL (7-18); CALCIUM LEVEL 9.7 MG/DL (8.5-10.1); CARBON DIOXIDE LEVEL 27 MEQ/L (21-32); CHLORIDE LEVEL 108 MEQ/L (98-107); CK-MB VALUE MASS < 1.0 NG/ML (<3.6); CPK CREATINE PHOSPHOKINASE 63 U/L (26-192); CREATININE FOR GFR 0.88 MG/DL (0.55-1.30); ETHYL ALCOHOL (ETHANOL) < 0.003 % (0.000-0.010); GLOMERULAR FILTRATION RATE > 60.0 (>51); GLUCOSE, FASTING 111 MG/DL (70-100); LITHIUM LEVEL 0.31 MEQ/L (0.60-1.20); MB/CK RELATIVE INDEX 1.59 (< OR =4); POTASSIUM SERUM 4.4 MEQ/L (3.5-5.1); SALICYLATE LEVEL < 1.7 MG/DL (5.0-30.0); SODIUM LEVEL 141 MEQ/L (136-145); TOTAL PROTEIN 7.3 GM/DL (6.4-8.2); TROPONIN I < 0.02 NG/ML (< 0.10)
[2021-01-29 13:58] LABS: OSMOLALITY SERUM 294 MOSM/KG (275-295)
[2021-01-29 14:35] VITALS: BP 162/77
[2021-01-29 14:43] LABS: AMPHETAMINES LEVEL URINE NEGATIVE (NEGATIVE); BARBITURATES URINE NEGATIVE (NEGATIVE); BENZODIAZEPINES URINE NEGATIVE (NEGATIVE); CANNABINOIDS URINE NEGATIVE (NEGATIVE); COCAINE METABOLITE URINE NEGATIVE (NEGATIVE); METHADONE URINE NEGATIVE (NEGATIVE); OPIATES URINE NEGATIVE (NEGATIVE); PHENCYCLIDINE URINE NEGATIVE (NEGATIVE)
--- NOTE | 2021-01-30 06:32 | ECGEPIP ---
[facility] - ED Test Date: 2021-01-29 Pat Name: CRISTINA ALLEN Department: Room: - Gender: Female Dining Room Server: fabiano : [id number] Requested By: MARÍA ELENA URBINA Order Number: [id number] Reading MD: Asha Morris Measurements Intervals [place] Rate: 68 P: 46 TN: 186 QRS: 24 QRSD: 76 T: 20 QT: 398 QTc: 423 Interpretive Statements Normal sinus rhythm Septal infarct , age undetermined Nonspecific ST T wave changes cw 05/13/[address] T wave changes Electronically Signed on 01-30-2021 6:31:44 EDT by Asha Morris
== END 2021-01-29 14:39 | disposition home or self-care (01) ==
LOC: M ED 11:49
DX: R41.3 Other amnesia (principal); I10 Essential (primary) hypertension; E78.5 Hyperlipidemia, unspecified; F20.9 Schizophrenia, unspecified; J30.89 Other allergic rhinitis; Z79.899 Other long term (current) drug therapy; Z88.8 Allergy status to other drugs, medicaments and biological substances

== ENCOUNTER 2021-03-13 10:29 | Inpatient (IN) | payer MEDICAID, OTHER ==
[~2021-03-13] VITALS: Ht 162.6 cm; Wt 79.9 kg
[~2021-03-13 10:29] MED LIST changes: +LUMA42CA PO; +STEG5TAB PO
[2021-03-13 11:11] LABS: HEMATOCRIT 40.8 % (36.0-47.0); MEAN CORPUSCULAR HEMOGLOBIN 29.6 pg (27.0-33.0); MEAN CORPUSCULAR HGB CONC 31.9 g/dl (32.0-36.5); MEAN CORPUSCULAR VOLUME 92.9 fl (80.0-96.0); PLATELET COUNT, AUTOMATED 423 10^3/uL (150-450); RED BLOOD COUNT 4.39 10^6/uL (4.00-5.40); WHITE BLOOD COUNT 8.5 10^3/uL (4.0-10.0)
[2021-03-13 11:41] LABS: ACETAMINOPHEN LEVEL < 2.0 UG/ML (10.0-30.0); ALBUMIN 3.8 GM/DL (3.2-5.2); ALT/SGPT 13 U/L (12-78); BILIRUBIN,DIRECT 0.1 MG/DL (0.0-0.2); BILIRUBIN,TOTAL 0.5 MG/DL (0.2-1.0); BLOOD UREA NITROGEN 17 MG/DL (7-18); CALCIUM LEVEL 9.3 MG/DL (8.5-10.1); CARBON DIOXIDE LEVEL 28 MEQ/L (21-32); CHLORIDE LEVEL 110 MEQ/L (98-107); CREATININE FOR GFR 0.69 MG/DL (0.55-1.30); ETHYL ALCOHOL (ETHANOL) < 0.003 % (0.000-0.010); GLOMERULAR FILTRATION RATE > 60.0 (>51); GLUCOSE, FASTING 106 MG/DL (70-100); POTASSIUM SERUM 4.3 MEQ/L (3.5-5.1); SALICYLATE LEVEL < 1.7 MG/DL (5.0-30.0); SODIUM LEVEL 143 MEQ/L (136-145); TOTAL PROTEIN 7.1 GM/DL (6.4-8.2)
[2021-03-13 12:03] LABS: AMPHETAMINES LEVEL URINE NEGATIVE (NEGATIVE); BARBITURATES URINE NEGATIVE (NEGATIVE); BENZODIAZEPINES URINE NEGATIVE (NEGATIVE); CANNABINOIDS URINE NEGATIVE (NEGATIVE); COCAINE METABOLITE URINE NEGATIVE (NEGATIVE); METHADONE URINE NEGATIVE (NEGATIVE); OPIATES URINE NEGATIVE (NEGATIVE); PHENCYCLIDINE URINE NEGATIVE (NEGATIVE)
[2021-03-13] MEDS ORDERED: ONE-1TAB PO (13:42)
[2021-03-13] MEDS ORDERED: MAGN400C2 PO (13:42)
[2021-03-13] MEDS ORDERED: TRAZ-252 PO (13:42)
[2021-03-13] MEDS ORDERED: MOM 30ML SUSPENSION UDC PO PRN (16:30)
[2021-03-13 17:36] VITALS: BP 138/80
[2021-03-13] MEDS: traZODone 50 MG TAB PO PRN (20:42)
[2021-03-13] MEDS: ACETAMINOPHEN TAB 650MG DOSE (2X325MG) PO PRN (20:43)
[2021-03-13] MEDS: SENNA 8.6 MG TAB (SENOKOT) PO SCH (21:00)
[2021-03-13] MEDS: MAGNESIUM OXIDE 400MG TAB (MAG-OX) PO SCH (21:00)
[2021-03-13] MEDS: OLANZapine ORAL DISINTEGRATING TAB 5MG PO PRN (21:20)
[2021-03-13] MEDS: ATORVASTATIN 20 MG TAB PO SCH (21:20)
[2021-03-13] MEDS: OMEPRAZOLE 20 MG CAP PO SCH (21:20)
[2021-03-13] MEDS: LITHIUM CARBONATE 300 MG CAP PO SCH (21:21)
[2021-03-13] MEDS ORDERED: traZODone 50 MG TAB PO ONE (23:10)
[2021-03-14 06:19] VITALS: BP 141/86
[2021-03-14] MEDS: glipiZIDE (GLUCOTROL) 5 MG TAB PO SCH (06:50)
[2021-03-14] MEDS: LOSARTAN 25 MG TAB PO SCH (08:12)
[2021-03-14] MEDS: FLUoxetine 20 MG CAP PO SCH (08:12)
[2021-03-14] MEDS: OMEPRAZOLE 20 MG CAP PO SCH ×2 (08:12→20:07)
--- NOTE | 2021-03-14 11:58 | MHHPEPDOC ---
General Date Of Admission: March 13, 2021 Legal Status: 9.39 Chief Complaint "[I was having suicidal thoughts and almost walked in front of a car]. History of Present Illness HISTORY OF THE PRESENT ILLNESS: Patient is a 55 -year-old , female, who [has a long extensive psychiatric history with the numerous previous admissions, with last discharge 4 months ago The patient has been attending outpatient clinic and has been compliant with her medications. Patient states that for the past week. She has been feeling increasingly depressed with increasing suicidal thoughts, and 2 days ago she tried to walk into an approaching car, but she stopped but felt very scared and feeling unsafe and came to emergency room seeking help. Patient claims that she hasn't no new stressors and no clear precipitant, but just does not feel right, feeling sad, having no energy or motivation and doesn't feel right.]. She denies any drug or alcohol use and denies any new changes in her life.. Psychiatric Review of Systems Depression (2 or more weeks): depressed mood, insomnia/hypersomnia, feelings of worthlesness, suicidal thoughts Edwige (4 or more days of): denies Psychosis: denies PTSD: denies Anxiety: denies Past Psychiatric History Previous Psychiatric Diagnosis: [Has extensive history]. Previous Psychiatric Admissions: [Multiple admissions]. Suicide Attempts: [Had some suicidal thoughts in the past, but no serious attempt reported]. Psychiatric Follow-up: [Is attending outpatient clinic]. Psychiatric medications: [Per history]. Past Medical History Medical Problems No major medical history except for chronic back pain Head Injury: No Seizures: No Hospitalizations: No Surgeries: No Family Medical/Psychiatric HX Medical Problems Noncontributory Psychiatric Disorders: No Addiction: No Suicide Attemps/Completions: No Addiction History denies Social History Childhood: [Uneventful]. Abuse/Trauma:[Denies]. Current Living Situation: [Lived with her ex- who she 13 years of]. Education: [High school education]. Employment: . On SSI Social Support: [Lived with her ex-. Reports getting some support]. Legal: [Denies]. Marital: [Was , has 5 children live through the ex-]. Mental Status Examination General Appearance: disheveled, appears stated age Build: average Demeanor: average, withdrawn Eye Contact: average Activity: average Behavior: cooperative Speech: clear, slow, low in volume Mood: depressed Affect: constricted, appropriate, congruent Thought Process: logical/linear Thought Content (Delusions): none reported Thought Content (Other): none reported Thought Content (Aggressive): none reported Perception (Hallucinations): none reported Perception (Other): none reported Cognition (Impairment of): none reported Cognition(Intelligence Est.): average Oriented: Awake, Alert, Oriented times three Insight: fair Judgment: Poor Psychosis: Denies Diagnoses Major depression, recurrent, severe without psychosis A-FIB/CHADSVASC A-FIB History Current/History of A-Fib/PAF?: No Current PO Anticoag Therapy: No Age/Risk Factor Scoring CHADSVASC: CHADSVASC Response (Comments) Value Gender Risk Factor Female 1 Hx of CHF No 0 Hx of HTN No 0 Hx of Stroke/TIA/or VTE No 0 Hx of Diabetes No 0 Hx of Vascular Disease No 0 Total 1 Treatment Treatment ordered: NONE Assessment Increasing depression without any clear precipitant Initial Treatment Plan 1. Patient was admitted on a 9.39 status. 2. Complete history was obtained. 3. With patients permission, family will be contacted and database will be expanded. 4. Patients medication regimen will be reviewed and changed accordingly. 5. Patient will be provided with protected environment. 6. Patient will be treated with individual, group, and milieu therapies. 7. Patient will receive supportive psych-education. 8. Discharge planning will commence immediately. 9. Outpatient follow-up treatment will be strongly recommended. 10. The initial treatment plan will focus initially on: * Depression. * Risk for suicide. ESTIMATED LENGTH OF STAY: 5-7 DAYS. TIME SPENT COUNSELING AND COORDINATING INITIAL CARE: 45 minutes. Tobacco Cessation Screen If Patient is a Smoker None N/A-No Antipsychotics Vital Signs Vital Signs Date Time Temp Pulse Resp B/P (MAP) Pulse Ox O2 Delivery O2 Flow Rate FiO2 03/14/21 08:12 141/74 03/14/21 06:19 97.8 67 18 97 Room Air Medications Scheduled Atorvastatin Calcium (Atorvastatin Calcium) 80 Mg Tablet, 80 MG PO QHS, (Reported) Ergocalciferol (Vitamin D2) (Vitamin D2) 50,000 Units Cap, 50,000 UNITS PO 1XWK, (Reported) TUESDAY NIGHTS Ertugliflozin Pidolate (Steglatro) 5 Mg Tablet, 5 MG PO DAILY, (Reported) Fluoxetine Hcl (Fluoxetine HCl) 20 Mg Capsule, 20 MG PO DAILY, (Reported) Fluphenazine Decanoate (Fluphenazine Decanoate) 25 Mg/Ml Soln, 2.5 ML IM ASDIRECTED, (Reported) EVERY 2-3 WEEKS Glipizide (Glipizide) 5 Mg Tab, 5 MG PO DAILY, (Reported) Abrams Carbonate (Abrams Carbonate) 300 Mg Tablet, 300 MG PO QHS, (Reported) Losartan Potassium (Cozaar) 25 Mg Tab, 25 MG PO DAILY, (Reported) Lumateperone Tosylate (Caplyta) 42 Mg Capsule, 42 MG PO QHS, (Reported) Magnesium Oxide (Magnesium) 400 Mg Capsule, 400 MG PO QHS, (Reported) Multivitamin/Ferrous Sulfate (One-Daily Dujsl-Nai-Pqzq Tab) 18 Mg Tablet, 1 TAB PO QHS, (Reported) Omeprazole (Omeprazole) 20 Mg Capsule.dr, 20 MG PO BID, (Reported) Sennosides (Senna) 8.6 Mg Tablet, 2 TAB PO QHS, (Reported) Trazodone HCl (Trazodone HCl) 50 Mg Tablet, 50 MG PO QHS, (Reported) Valbenazine Tosylate (Ingrezza) 40 Mg Capsule, 40 MG PO DAILY, (Reported) Scheduled PRN Polyethylene Glycol 3350 (Miralax) 17 Gm Powd.pack, 17 GM PO DAILY PRN for CONSTIPATION, (Reported) Allergies Coded Allergies: gabapentin (Verified Adverse Reaction, Severe, seizures, 05/13/20) SMOKE (Verified Adverse Reaction, Intermediate, ASTHMA, 03/30/06) sertraline (Verified Adverse Reaction, Intermediate, rash, 05/13/20) CHUCK MEDINA M.D. March 14, 2021 11:58
[2021-03-14] MEDS: ACETAMINOPHEN TAB 650MG DOSE (2X325MG) PO PRN ×2 (13:22→21:01)
[2021-03-14 16:36] VITALS: BP 134/66
[2021-03-14] MEDS: ATORVASTATIN 20 MG TAB PO SCH (20:06)
[2021-03-14] MEDS: LITHIUM CARBONATE 300 MG CAP PO SCH (20:07)
[2021-03-14] MEDS: traZODone 50 MG TAB PO PRN (20:07)
[2021-03-14] MEDS: MAGNESIUM OXIDE 400MG TAB (MAG-OX) PO SCH (21:00)
[2021-03-14] MEDS: SENNA 8.6 MG TAB (SENOKOT) PO SCH (21:00)
[2021-03-14] MEDS ORDERED: traZODone 50 MG TAB PO ONE (22:25)
[2021-03-15] MEDS: ACETAMINOPHEN TAB 650MG DOSE (2X325MG) PO PRN (03:35)
[2021-03-15] MEDS: LOSARTAN 25 MG TAB PO SCH (06:04)
[2021-03-15] MEDS: glipiZIDE (GLUCOTROL) 5 MG TAB PO SCH (06:33)
[2021-03-15 06:55] VITALS: BP 182/110
[2021-03-15 07:12] VITALS: BP 196/102
[2021-03-15] MEDS ORDERED: LOSARTAN 25 MG TAB PO ONE (07:45)
[2021-03-15] MEDS ORDERED: cloNIDine 0.1MG TABLET PO ONE ×2 (07:45→09:00)
[2021-03-15] MEDS: OMEPRAZOLE 20 MG CAP PO SCH ×2 (08:18→20:08)
[2021-03-15] MEDS: FLUoxetine 20 MG CAP PO SCH (08:18)
[2021-03-15 09:06] VITALS: BP 112/62
--- NOTE | 2021-03-15 09:13 | MHIPNPDOC ---
[facility] Progress Note Progress Note DATE OF SERVICE: 03/15/21 The patient reports that she is failing so so and not much better. She didn't fall asleep until 4:00 in the morning and didn't get much rest.. She is a eating, maintaining good control. and hasn't shown any acting out behavior. She appears very preoccupied, somewhat withdrawn and not very spontaneous and reports feeling anxious and depressed, but not any worse. She is denying any hallucination denying any active suicidal plan and is willing to cooperate with the treatment to feel better. HISTORY: . VITAL SIGNS: See below. NEW TEST RESULTS: . CURRENT MEDICATIONS: See below. MENTAL STATUS EXAMINATION: Patient is a [55]-year old female, who is [, sitting on her bed, cooperative]. Speech: Is [ration are organized but not productive]. Language skills are [good]. Thought processes including: [Organized]. Thought content: [. No gross psychotic symptoms and patient denies any active suicidal plan]. Abstract reasoning, and computation: [Fair]. Description of associations: [Firm]. Description of abnormal or psychotic thoughts: [None]. Judgment: [Fair]. Insight: [fair]. Orientation: [, Well oriented]. Recent and remote memory: [Fair]. Attention span and concentration: [Fair]. Language: . Fund of knowledge: [Average]. Mood: [, Depressed, preoccupied]. Affect: [A little blunted but appropriate]. DIAGNOSES: 1. . Major depression, recurrent 2. . 3. . ASSESSMENT:[Cooperating with treatment, but no significant change] MANAGEMENT PLAN: [Continue with her medicine and supportive therapy]. TIME SPENT: [15] minutes. Vital Signs Vital Signs Date Time Temp Pulse Resp B/P (MAP) Pulse Ox O2 Delivery O2 Flow Rate FiO2 03/15/21 07:46 196/102 03/15/21 07:40 66 03/15/21 06:55 98.2 18 98 03/14/21 06:19 Room Air Current Medications Current Medications Medications (Trade) Dose Ordered Sig/Bakari Route PRN Reason Start Time Stop Time Status Last Admin Dose Admin Acetaminophen (Tylenol Tab) 650 mg Q6HP PRN PO HEADACHE or DISCOMFORT 03/13/21 16:30 03/15/21 03:35 Al Hydrox/Mg Hydrox/Simethicone (Mylanta) 30 ml Q4HP PRN PO HEARTBURN/INDIGESTION 03/13/21 16:30 Atorvastatin Calcium (Lipitor) 80 mg QHS PO 03/13/21 21:00 03/14/21 20:06 Fluoxetine HCl (PROzac) 20 mg DAILY PO 03/14/21 09:00 03/15/21 08:18 Fluphenazine Decanoate (Prolixin Decanoate) 62.5 mg Q21D IM 03/23/21 09:00 Glipizide (Glucotrol) 5 mg DAILY@0730 PO 03/14/21 07:30 03/15/21 06:33 Home Med (Med Rec Complete!) ASDIRECTED XX 03/13/21 13:45 03/13/21 13:45 DC [place] Carbonate ([place] Carbonate) 300 mg QHS PO 03/13/21 21:00 03/14/21 20:07 Losartan Potassium (Cozaar) 25 mg DAILY PO 03/14/21 09:00 03/15/21 06:04 Magnesium Hydroxide (Milk Of Magnesia) 30 ml DAILYPRN PRN PO CONSTIPATION 03/13/21 16:30 Magnesium Oxide (Mag-Ox) 400 mg QHS PO 03/13/21 21:00 Olanzapine (ZyPREXA ZYDIS) 10 mg Q6HP PRN PO ANXIETY/AGITATION 03/13/21 16:30 03/13/21 21:20 Omeprazole (PriLOSEC) 20 mg BID PO 03/13/21 21:00 03/15/21 08:18 Polyethylene Glycol (Miralax) 1 pkt DAILY PRN PO CONSTIPATION 03/13/21 20:45 Senna (Senokot) 2 tab QHS PO 03/13/21 21:00 Trazodone HCl (Desyrel) 50 mg QHSP PRN PO INSOMNIA 03/13/21 16:30 03/14/21 22:45 DC 03/14/21 20:07 Trazodone HCl (Desyrel) 100 mg QHSP PRN PO INSOMNIA 03/15/21 20:00 Vitamin D (Drisdol) 50,000 units Navarro@2100 PO 03/15/21 21:00 Allergies Coded Allergies: gabapentin (Verified Adverse Reaction, Severe, seizures, 05/13/20) SMOKE (Verified Adverse Reaction, Intermediate, ASTHMA, 03/30/06) sertraline (Verified Adverse Reaction, Intermediate, rash, 05/13/20) CHUCK MEDINA M.D. March 15, 2021 09:13
[2021-03-15 10:49] VITALS: BP 128/66
[2021-03-15] MEDS ORDERED: RIZATRIPTAN MLT 10 MG TAB PO PRN (10:55)
[2021-03-15] MEDS ORDERED: FIORICET TAB PO PRN (10:55)
--- NOTE | 2021-03-15 11:11 | IPNPDOC ---
Date Seen The patient was seen on 03/15/21. Progress Note SUBJECTIVE: Patient complains of severe headache occurring 2 times a week diffusely, without photophobia, neck rigidity, fever, chills, bilateral upper extremity paresthesias better with Tylenol , which she usually takes at home but had not given her much relief here in the hospital. She denies nausea, vomiting, epigastric pain, auditory aura. No changes in vision, diplopia, blurred vision or change in visual acuity. Patient was found to have uncontrolled hypertension diastolic pressure greater than 100 OBJECTIVE PHYSICAL EXAMINATION: VITAL SIGNS: Please see below. GENERAL: Awake, alert, oriented 3. Face is symmetric. No pallor, icterus CARDIOVASCULAR: S1, S2, regular rate, rhythm RESPIRATORY: Clear to auscultation wheezing or rales ABDOMINAL: Obese, soft, nontender, nondistended, positive bowel sounds 4 quadrants EXTREMITIES: No cyanosis, clubbing or pitting edema LABORATORY DATA, IMAGING STUDIES, MICROBIOLOGY: Please see below. ASSESSMENT AND PLAN: Migraine -Maxalt 10 mg every 2 hourly, 30 mg daily dose. Maximum -PRN FIORICET -tylenol 1 gram bid -topamax 25 mg qhs -outpt referral for maintenance rx and eval for botox /neurology at [facility] Uncontrollable hypertension secondary to migraine -losartan increased to 50 mg bid with holding parameters -treat migraine to decrease hypertension which is reactive -given clonidine and norvasc today. HOSPITALIST signing off, pls reconsult if needed. VS, I&O, 24H, Fishbone Vital Signs/I&O Vital Signs Date Time Temp Pulse Resp B/P (MAP) Pulse Ox O2 Delivery O2 Flow Rate FiO2 03/15/21 10:49 128/66 (86) 03/15/21 09:06 70 03/15/21 06:55 98.2 18 98 03/14/21 06:19 Room Air Laboratory Data Microbiology Microbiology 03/13/21 Respiratory Virus Panel (PCR) (СЕРГЕЙ) - Final, Complete LEE BAKER MD March 15, 2021 11:11
--- NOTE | 2021-03-15 11:17 | HPEPDOC ---
[facility] Medical History & Physical Date of Admission March 14, 2021 Date of Service: March 15, 2021 History and Physical CHIEF COMPLAINT:h/a HISTORY OF PRESENT ILLNESS: 55 y/o F w pmh HTN, DM, migraine admitted to [facility] for schizophrenia . Patient complains of severe headache occurring 2 times a week diffusely, without photophobia, neck rigidity, fever, chills, bilateral upper extremity paresthesias better with Tylenol , which she usually takes at home but had not given her much relief here in the hospital. She denies nausea, vomiting, epigastric pain, auditory aura. No changes in vision, diplopia, blurred vision or change in visual acuity. Patient was found to have uncontrolled hypertension diastolic pressure greater than 100 PAST MEDICAL HISTORY: Schizophrenia, diabetes, hypertension, obesity, BMI of 30 hyperlipidemia, gastroesophageal reflux disease, chronic back pain PAST SURGICAL HISTORY: Hysterectomy, back surgery with hollie placed SOCIAL HISTORY: Nonsmoker. No alcohol use or recreational drug use FAMILY HISTORY: father diabetes, hypertension. Mother, mesothelioma at 64 ALLERGIES: Please see below. REVIEW OF SYSTEMS: 10 point review of systems negative aside from positive findings in HPI HOME MEDICATIONS: Please see below. PHYSICAL EXAMINATION: VITAL SIGNS: see below GENERAL: Awake, alert, oriented 3. Face is symmetric. No pallor, icterus CARDIOVASCULAR: S1, S2, regular rate, rhythm RESPIRATORY: Clear to auscultation wheezing or rales ABDOMINAL: Obese, soft, nontender, nondistended, positive bowel sounds 4 quadrants EXTREMITIES: No cyanosis, clubbing or pitting edema LABORATORY DATA, IMAGING STUDIES, MICROBIOLOGY: Please see below. ASSESSMENT AND PLAN: Migraine -Maxalt 10 mg every 2 hourly, 30 mg daily dose. Maximum -PRN FIORICET -tylenol 1 gram bid -topamax 25 mg qhs -outpt referral for maintenance rx and eval for botox /neurology at [facility] Uncontrollable hypertension secondary to migraine -losartan increased to 50 mg bid with holding parameters -treat migraine to decrease hypertension which is reactive -given clonidine and norvasc today. Schizophrenia, -Managed by primary team psychiatrist diabetes, -Consistent carbohydrate diet, resume on home meds obesity, BMI of 30 -Outpatient weight loss program. Encouraged low-fat diet at home hyperlipidemia, -Outpatient referral for weight loss program resumed on home meds gastroesophageal reflux disease, -Asymptomatic. Resume home meds chronic back pain -Outpatient follow-up with her neurologist in the office HOSPITALIST signing off, pls reconsult if needed. Vital Signs Vital Signs Date Time Temp Pulse Resp B/P (MAP) Pulse Ox O2 Delivery O2 Flow Rate FiO2 03/15/21 10:49 128/66 (86) 03/15/21 09:06 70 03/15/21 06:55 98.2 18 98 03/14/21 06:19 Room Air Laboratory Data Microbiology Microbiology 03/13/21 Respiratory Virus Panel (PCR) (СЕРГЕЙ) - Final, Complete Home Medications Scheduled Atorvastatin Calcium (Atorvastatin Calcium) 80 Mg Tablet, 80 MG PO QHS Ergocalciferol (Vitamin D2) (Vitamin D2) 50,000 Units Cap, 50,000 UNITS PO 1XWK Tuesday Ertugliflozin Pidolate (Steglatro) 5 Mg Tablet, 5 MG PO DAILY Fluoxetine Hcl (Fluoxetine HCl) 20 Mg Capsule, 20 MG PO DAILY Fluphenazine Decanoate (Fluphenazine Decanoate) 25 Mg/Ml Soln, 2.5 ML IM ASDIRECTED EVERY 2-3 WEEKS Glipizide (Glipizide) 5 Mg Tab, 5 MG PO DAILY [place]ive Carbonate (Clive Carbonate) 300 Mg Tablet, 300 MG PO QHS Losartan Potassium (Cozaar) 25 Mg Tab, 25 MG PO DAILY Lumateperone Tosylate (Caplyta) 42 Mg Capsule, 42 MG PO QHS Magnesium Oxide (Magnesium) 400 Mg Capsule, 400 MG PO QHS Multivitamin/Ferrous Sulfate (One-Daily Plglx-Wnz-Vlft Tab) 18 Mg Tablet, 1 TAB PO QHS Omeprazole (Omeprazole) 20 Mg Capsule.dr, 20 MG PO BID Sennosides (Senna) 8.6 Mg Tablet, 2 TAB PO QHS Trazodone HCl (Trazodone HCl) 50 Mg Tablet, 50 MG PO QHS Valbenazine Tosylate (Ingrezza) 40 Mg Capsule, 40 MG PO DAILY Scheduled PRN Polyethylene Glycol 3350 (Miralax) 17 Gm Powd.pack, 17 GM PO DAILY PRN for CONSTIPATION Allergies Coded Allergies: gabapentin (Verified Adverse Reaction, Severe, seizures, 05/13/20) SMOKE (Verified Adverse Reaction, Intermediate, ASTHMA, 03/30/06) sertraline (Verified Adverse Reaction, Intermediate, rash, 05/13/20) A-FIB/CHADSVASC A-FIB History Current/History of A-Fib/PAF?: No Age/Risk Factor Scoring CHADSVASC: CHADSVASC Response (Comments) Value Age Risk Factor Age < 65 years old 0 Gender Risk Factor Female 1 Hx of CHF No 0 Hx of Stroke/TIA/or VTE No 0 Hx of Diabetes Yes 1 Hx of Vascular Disease No 0 Total 2 Treatment Treatment ordered: NONE LEE BAKER MD March 15, 2021 11:14
[2021-03-15] MEDS: ACETAMINOPHEN 500 MG TAB PO SCH ×2 (11:19→20:08)
[2021-03-15] MEDS ORDERED: RIZATRIPTAN MLT 10 MG TAB PO ONE (11:30)
[2021-03-15] MEDS ORDERED: FIORICET TAB PO ONE (11:30)
[2021-03-15 17:24] VITALS: BP 120/78
[2021-03-15] MEDS: OLANZapine ORAL DISINTEGRATING TAB 5MG PO PRN (17:26)
[2021-03-15] MEDS: LITHIUM CARBONATE 300 MG CAP PO SCH (20:08)
[2021-03-15] MEDS: VITAMIN D 50,000 UNITS CAPSULE (ERGOCALCIFEROL 1.25MG) PO SCH (20:08)
[2021-03-15] MEDS: traZODone 100 MG TAB PO PRN (20:08)
[2021-03-15] MEDS: ATORVASTATIN 20 MG TAB PO SCH (20:08)
[2021-03-15] MEDS: TOPIRAMATE (TopAMAX) 25 MG TAB PO SCH (20:08)
[2021-03-15] MEDS: LOSARTAN 50MG TABLET PO SCH (20:08)
[2021-03-15] MEDS: SENNA 8.6 MG TAB (SENOKOT) PO SCH (21:00)
[2021-03-15] MEDS: MAGNESIUM OXIDE 400MG TAB (MAG-OX) PO SCH (21:00)
[2021-03-16 06:30] VITALS: BP 98/67
[2021-03-16] MEDS: glipiZIDE (GLUCOTROL) 5 MG TAB PO SCH (06:34)
[2021-03-16] MEDS: LOSARTAN 50MG TABLET PO SCH ×2 (08:47→20:08)
[2021-03-16] MEDS: FLUoxetine 20 MG CAP PO SCH (08:47)
[2021-03-16] MEDS: ACETAMINOPHEN 500 MG TAB PO SCH ×2 (08:47→20:06)
[2021-03-16 08:48] LABS: BLOOD UREA NITROGEN 18 MG/DL (7-18); CALCIUM LEVEL 9.2 MG/DL (8.5-10.1); CARBON DIOXIDE LEVEL 29 MEQ/L (21-32); CHLORIDE LEVEL 109 MEQ/L (98-107); GLOMERULAR FILTRATION RATE > 60.0 (>51); GLUCOSE, FASTING 100 MG/DL (70-100); POTASSIUM SERUM 4.3 MEQ/L (3.5-5.1); SODIUM LEVEL 142 MEQ/L (136-145)
[2021-03-16] MEDS: OMEPRAZOLE 20 MG CAP PO SCH ×2 (08:48→20:08)
--- NOTE | 2021-03-16 13:51 | MHIPNPDOC ---
[facility] Progress Note Progress Note DATE OF SERVICE: 03/16/21 HISTORY: Patient is a 55 -year-old , female, who has a long extensive psychiatric history with the numerous previous admissions, with last discharge 4 months ago. She came in with suicidal ideation stating that I was having suicidal thoughts and almost walked in front of a car.The patient has been attending outpatient clinic and has been compliant with her medications. Patient states that for the past week. She has been feeling increasingly depressed with increasing suicidal thoughts, and 2 days ago she tried to walk into an approaching car, but she stopped but felt very scared and feeling unsafe and came to emergency room seeking help. Patient claims that she hasn't no new stressors and no clear precipitant, but just does not feel right, feeling sad, having no energy or motivation and doesn't feel right.]. She denies any drug or alcohol use and denies any new changes in her life. VITAL SIGNS: See below. NEW TEST RESULTS: . CURRENT MEDICATIONS: See below. MENTAL STATUS EXAMINATION Patient is a 55 -year-old , female, who has a long extensive psychiatric history with the numerous previous admissions who came in with suicidal ideation stating that I was having suicidal thoughts and almost walked in front of a car" General Appearance: slightly disheveled, appears stated age Build: average Demeanor: average, withdrawn Eye Contact: average Activity: average Behavior: cooperative Speech: clear, slow, low in volume Mood: depressed Affect: constricted, appropriate, congruent Thought Process: logical/linear Thought Content (Delusions): none reported Thought Content (Other): none reported Thought Content (Aggressive): none reported Perception (Hallucinations): none reported Perception (Other): none reported Cognition (Impairment of): none reported Cognition(Intelligence Est.): average Oriented: Awake, Alert, Oriented times three Insight: fair Judgment: Poor DIAGNOSES: Schizoaffective, Bipolar type ASSESSMENT: Patient is interviewed today in the interview room. She is dressed in hospital clothing and is slightly disheveled. She is meeting with this provider for the first time as she was admitted during the weekend. Patient explains that she became increasingly depressed over the past two weeks, was having suicidal thoughts and walked in front of cars in an attempt to end her life. She states that when she walked in front of the cars, they were swerving to avoid hitting her and drivers were swearing at her and she went back home. She states that 2 days later, she felt not safe at home and she confided to a confidant that she was having suicidal thoughts . Her confidant then told her to come to the ED. Patient states that she has previously suicide attempt by overdose. Asked about any stressors or triggers, she states that her ex- is a stressor. She states that they live in the same house, but have separate rooms. She states that he is an angry person. She explains that when they were still ,she cheated on him and they got and he has not forgiven her. She continues to say that her ex- " he won't sleep with me, he won't hug me and I was feeling alone". She states that sometimes he raises his voice at her. Patient states that she has family members who are supportive, but they live far away from her. Patient states that she is thinking of going to live in [address]. She states that she is also thinking of joining a daycare program . States that she was active in a daycare program years ago and her mood significantly improved. She states that she has chronic migraines which make her depression worse. Today she reports no migraines. She reports no suicidal or Homicidal ideation. She is compliant with medication and she has been attending group activities. She is encouraged to continue attending group and will start discharge planning discussion tomorrow. MANAGEMENT PLAN:Continue with all her medications TIME SPENT: 25 minutes. Vital Signs Vital Signs Date Time Temp Pulse Resp B/P (MAP) Pulse Ox O2 Delivery O2 Flow Rate FiO2 03/16/21 08:47 140/81 03/16/21 06:30 98.2 72 18 98 Room Air Laboratory Data 24H Labs Laboratory Tests 2 03/16/21 07:57: Anion Gap 4L, Glomerular Filtration Rate > 60.0, Calcium Level 9.2 CBC/BMP Laboratory Tests 03/16/21 07:57 Current Medications Current Medications Medications (Trade) Dose Ordered Sig/Bakari Route PRN Reason Start Time Stop Time Status Last Admin Dose Admin Acetaminophen (Tylenol Tab) 650 mg Q6HP PRN PO HEADACHE or DISCOMFORT 03/13/21 16:30 03/15/21 10:56 DC 03/15/21 03:35 Acetaminophen (Tylenol Tab) 1,000 mg BID PO 03/15/21 09:00 03/16/21 08:47 Acetaminophen/ Butalbital/ Caffeine (Fioricet) 2 ea Q4HP PRN PO HEADACHE 03/15/21 10:55 Al Hydrox/Mg Hydrox/Simethicone (Mylanta) 30 ml Q4HP PRN PO HEARTBURN/INDIGESTION 03/13/21 16:30 Atorvastatin Calcium (Lipitor) 80 mg QHS PO 03/13/21 21:00 03/15/21 20:08 Fluoxetine HCl (PROzac) 20 mg DAILY PO 03/14/21 09:00 03/16/21 08:47 Fluphenazine Decanoate (Prolixin Decanoate) 62.5 mg Q21D IM 03/23/21 09:00 Glipizide (Glucotrol) 5 mg DAILY@0730 PO 03/14/21 07:30 03/16/21 06:34 Home Med (Med Rec Complete!) ASDIRECTED XX 03/13/21 13:45 03/13/21 13:45 DC [place] Carbonate ([place] Carbonate) 300 mg QHS PO 03/13/21 21:00 03/15/21 20:08 Losartan Potassium (Cozaar) 25 mg DAILY PO 03/14/21 09:00 03/15/21 11:00 DC 03/15/21 06:04 Losartan Potassium (Cozaar) 50 mg BID PO 03/15/21 21:00 03/16/21 08:47 Magnesium Hydroxide (Milk Of Magnesia) 30 ml DAILYPRN PRN PO CONSTIPATION 03/13/21 16:30 Magnesium Oxide (Mag-Ox) 400 mg QHS PO 03/13/21 21:00 Olanzapine (ZyPREXA ZYDIS) 10 mg Q6HP PRN PO ANXIETY/AGITATION 03/13/21 16:30 03/15/21 17:26 Omeprazole (PriLOSEC) 20 mg BID PO 03/13/21 21:00 03/16/21 08:48 Polyethylene Glycol (Miralax) 1 pkt DAILY PRN PO CONSTIPATION 03/13/21 20:45 Rizatriptan Benzoate (Maxalt-Photolithographer) 10 mg Q2HP PRN PO MIGRAINE 03/15/21 10:55 03/15/21 20:08 Senna (Senokot) 2 tab QHS PO 03/13/21 21:00 Topiramate (TopAMAX) 25 mg QHS PO 03/15/21 21:00 03/15/21 20:08 Trazodone HCl (Desyrel) 50 mg QHSP PRN PO INSOMNIA 03/13/21 16:30 03/14/21 22:45 DC 03/14/21 20:07 Trazodone HCl (Desyrel) 100 mg QHSP PRN PO INSOMNIA 03/15/21 20:00 03/15/21 20:08 Vitamin D (Drisdol) 50,000 units Navarro@2100 PO 03/15/21 21:00 03/15/21 20:08 Allergies Coded Allergies: gabapentin (Verified Adverse Reaction, Severe, seizures, 05/13/20) SMOKE (Verified Adverse Reaction, Intermediate, ASTHMA, 03/30/06) sertraline (Verified Adverse Reaction, Intermediate, rash, 05/13/20) GILMA RIVERA NP March 16, 2021 13:51
[2021-03-16 16:53] VITALS: BP 134/75
[2021-03-16] MEDS: SENNA 8.6 MG TAB (SENOKOT) PO SCH (20:06)
[2021-03-16] MEDS: LITHIUM CARBONATE 300 MG CAP PO SCH (20:06)
[2021-03-16] MEDS: TOPIRAMATE (TopAMAX) 25 MG TAB PO SCH (20:06)
[2021-03-16] MEDS: ATORVASTATIN 20 MG TAB PO SCH (20:08)
[2021-03-16] MEDS: traZODone 100 MG TAB PO PRN (20:10)
[2021-03-16] MEDS: MAGNESIUM OXIDE 400MG TAB (MAG-OX) PO SCH (20:11)
[2021-03-17] MEDS: MAALOX 30 ML SUSP *UDC PO PRN (02:49)
[2021-03-17] MEDS: glipiZIDE (GLUCOTROL) 5 MG TAB PO SCH (06:36)
[2021-03-17 06:55] VITALS: BP 137/68
[2021-03-17] MEDS: FLUoxetine 20 MG CAP PO SCH (08:10)
[2021-03-17] MEDS: ACETAMINOPHEN 500 MG TAB PO SCH ×2 (08:10→20:31)
[2021-03-17] MEDS: OMEPRAZOLE 20 MG CAP PO SCH ×2 (08:10→20:30)
[2021-03-17] MEDS: LOSARTAN 50MG TABLET PO SCH ×2 (08:11→20:58)
[2021-03-17] MEDS: MIRALAX *UNIT DOSE* 17GM PACKET PO PRN (09:06)
--- NOTE | 2021-03-17 11:33 | MHIPNPDOC ---
[facility] Progress Note Progress Note DATE OF SERVICE: 03/17/21 HISTORY: Patient is a 55 -year-old , female, who has a long extensive psychiatric history with the numerous previous admissions, with last discharge 4 months ago. She came in with suicidal ideation stating that I was having suicidal thoughts and almost walked in front of a car.The patient has been attending outpatient clinic and has been compliant with her medications. Patient states that for the past week. She has been feeling increasingly depressed with increasing suicidal thoughts, and 2 days ago she tried to walk into an approaching car, but she stopped but felt very scared and feeling unsafe and came to emergency room seeking help. Patient claims that she hasn't no new stressors and no clear precipitant, but just does not feel right, feeling sad, having no energy or motivation and doesn't feel right.]. She denies any drug or alcohol use and denies any new changes in her life. VITAL SIGNS: See below. NEW TEST RESULTS: . CURRENT MEDICATIONS: See below. MENTAL STATUS EXAMINATION Patient is a 55 -year-old , female, who has a long extensive psychiatric history with the numerous previous admissions who came in with suicidal ideation stating that I was having suicidal thoughts and almost walked in front of a car" General Appearance: slightly disheveled, appears stated age Build: average Demeanor: average, withdrawn Eye Contact: average Activity: average Behavior: cooperative Speech: clear, slow, low in volume Mood: depressed Affect: constricted, appropriate, congruent Thought Process: logical/linear Thought Content (Delusions): none reported Thought Content (Other): none reported Thought Content (Aggressive): none reported Perception (Hallucinations): none reported Perception (Other): none reported Cognition (Impairment of): none reported Cognition(Intelligence Est.): average Oriented: Awake, Alert, Oriented times three Insight: fair Judgment: Poor DIAGNOSES: Schizoaffective, Bipolar type ASSESSMENT: Reports feeling sleep deprived due to poor sleep due secondary to gas pain, reports feeling anxious today. Also was told by her ex- that he does not want to her to return home. He states that he is not comfortable with her returning home and she is home while he is at work. He doesn't want her at the house waiting for a bed at [facility]. She may have to go to [facility] she reports. States that she is mildly anxious about talking to [facility] about her housing. She reports poor supports and only has her ex-. States that feels that she need more supervision during the day. She reports that when she walked out into the traffic reports that the voices were saying "do it! I just didn't do it quite right, I couldn't tell him that I did that for two days." She reports d epression and anxiety but no longer has suicidal ideations, although she had not divulged that she was having auditory hallucinations in her initial assessment. MANAGEMENT PLAN:Continue with all her medications. Discharge when stable TIME SPENT: 25 minutes. Vital Signs Vital Signs Date Time Temp Pulse Resp B/P (MAP) Pulse Ox O2 Delivery O2 Flow Rate FiO2 03/17/21 08:11 168/94 03/17/21 06:55 98.9 65 20 98 Room Air Current Medications Current Medications Medications (Trade) Dose Ordered Sig/Bakari Route PRN Reason Start Time Stop Time Status Last Admin Dose Admin Acetaminophen (Tylenol Tab) 650 mg Q6HP PRN PO HEADACHE or DISCOMFORT 03/13/21 16:30 03/15/21 10:56 DC 03/15/21 03:35 Acetaminophen (Tylenol Tab) 1,000 mg BID PO 03/15/21 09:00 03/17/21 08:10 Acetaminophen/ Butalbital/ Caffeine (Fioricet) 2 ea Q4HP PRN PO HEADACHE 03/15/21 10:55 Al Hydrox/Mg Hydrox/Simethicone (Mylanta) 30 ml Q4HP PRN PO HEARTBURN/INDIGESTION 03/13/21 16:30 03/17/21 02:49 Atorvastatin Calcium (Lipitor) 80 mg QHS PO 03/13/21 21:00 03/16/21 20:08 Fluoxetine HCl (PROzac) 20 mg DAILY PO 03/14/21 09:00 03/17/21 08:10 Fluphenazine Decanoate (Prolixin Decanoate) 62.5 mg Q21D IM 03/23/21 09:00 Glipizide (Glucotrol) 5 mg DAILY@0730 PO 03/14/21 07:30 03/17/21 06:36 Home Med (Med Rec Complete!) ASDIRECTED XX 03/13/21 13:45 03/13/21 13:45 DC [place] Carbonate ([place] Carbonate) 300 mg QHS PO 03/13/21 21:00 03/16/21 20:06 Losartan Potassium (Cozaar) 25 mg DAILY PO 03/14/21 09:00 03/15/21 11:00 DC 03/15/21 06:04 Losartan Potassium (Cozaar) 50 mg BID PO 03/15/21 21:00 03/17/21 08:11 Magnesium Hydroxide (Milk Of Magnesia) 30 ml DAILYPRN PRN PO CONSTIPATION 03/13/21 16:30 Magnesium Oxide (Mag-Ox) 400 mg QHS PO 03/13/21 21:00 Olanzapine (ZyPREXA ZYDIS) 10 mg Q6HP PRN PO ANXIETY/AGITATION 03/13/21 16:30 03/15/21 17:26 Omeprazole (PriLOSEC) 20 mg BID PO 03/13/21 21:00 03/17/21 08:10 Polyethylene Glycol (Miralax) 1 pkt DAILY PRN PO CONSTIPATION 03/13/21 20:45 03/17/21 09:06 Rizatriptan Benzoate (Maxalt-Food And Beverage Service Manager) 10 mg Q2HP PRN PO MIGRAINE 03/15/21 10:55 03/15/21 20:08 Senna (Senokot) 2 tab QHS PO 03/13/21 21:00 03/16/21 20:06 Topiramate (TopAMAX) 25 mg QHS PO 03/15/21 21:00 03/16/21 20:06 Trazodone HCl (Desyrel) 50 mg QHSP PRN PO INSOMNIA 03/13/21 16:30 03/14/21 22:45 DC 03/14/21 20:07 Trazodone HCl (Desyrel) 100 mg QHSP PRN PO INSOMNIA 03/15/21 20:00 03/16/21 20:10 Vitamin D (Drisdol) 50,000 units Navarro@2100 PO 03/15/21 21:00 03/15/21 20:08 Allergies Coded Allergies: gabapentin (Verified Adverse Reaction, Severe, seizures, 05/13/20) SMOKE (Verified Adverse Reaction, Intermediate, ASTHMA, 03/30/06) sertraline (Verified Adverse Reaction, Intermediate, rash, 05/13/20) GILMA RIVERA NP March 17, 2021 11:33
[2021-03-17 16:10] VITALS: BP 152/86
[2021-03-17] MEDS: OLANZapine ORAL DISINTEGRATING TAB 5MG PO PRN (16:20)
[2021-03-17] MEDS: MAGNESIUM OXIDE 400MG TAB (MAG-OX) PO SCH (20:30)
[2021-03-17] MEDS: ATORVASTATIN 20 MG TAB PO SCH (20:31)
[2021-03-17] MEDS: TOPIRAMATE (TopAMAX) 25 MG TAB PO SCH (20:31)
[2021-03-17] MEDS: LITHIUM CARBONATE 300 MG CAP PO SCH (20:31)
[2021-03-17] MEDS: SENNA 8.6 MG TAB (SENOKOT) PO SCH (20:31)
[2021-03-17] MEDS ORDERED: fluPHENAZine DECAN 25MG/ML 5ML VIAL (J2680) IM ONE (21:00)
[2021-03-17] MEDS: traZODone 100 MG TAB PO PRN (21:41)
[2021-03-18 06:37] VITALS: BP 125/73
[2021-03-18] MEDS: glipiZIDE (GLUCOTROL) 5 MG TAB PO SCH (07:49)
[2021-03-18] MEDS: OMEPRAZOLE 20 MG CAP PO SCH ×2 (09:33→20:15)
[2021-03-18] MEDS: FLUoxetine 20 MG CAP PO SCH (09:33)
[2021-03-18] MEDS: LOSARTAN 50MG TABLET PO SCH ×2 (09:33→20:16)
[2021-03-18] MEDS: ACETAMINOPHEN 500 MG TAB PO SCH ×2 (09:34→20:16)
--- NOTE | 2021-03-18 13:41 | MHIPNPDOC ---
[facility] Progress Note Progress Note DATE OF SERVICE: 03/18/21 HISTORY: Patient is a 55 -year-old , female, who has a long extensive psychiatric history with the numerous previous admissions, with last discharge 4 months ago. She came in with suicidal ideation stating that I was having suicidal thoughts and almost walked in front of a car.The patient has been attending outpatient clinic and has been compliant with her medications. Patient states that for the past week. She has been feeling increasingly depressed with increasing suicidal thoughts, and 2 days ago she tried to walk into an approaching car, but she stopped but felt very scared and feeling unsafe and came to emergency room seeking help. Patient claims that she hasn't no new stressors and no clear precipitant, but just does not feel right, feeling sad, having no energy or motivation and doesn't feel right.]. She denies any drug or alcohol use and denies any new changes in her life. VITAL SIGNS: See below. NEW TEST RESULTS: . CURRENT MEDICATIONS: See below. MENTAL STATUS EXAMINATION Patient is a 55 -year-old , female, who has a long extensive psychiatric history with the numerous previous admissions who came in with suicidal ideation stating that I was having suicidal thoughts and almost walked in front of a car" General Appearance: slightly disheveled, appears stated age Build: average Demeanor: average, withdrawn Eye Contact: average Activity: average Behavior: cooperative Speech: clear, slow, low in volume Mood: depressed Affect: constricted, congruent Thought Process: logical/linear Thought Content (Delusions): none reported Thought Content (Other): visual hallucinations Thought Content (Aggressive): none reported Perception (Hallucinations): none reported Perception (Other): none reported Cognition (Impairment of): none reported Cognition(Intelligence Est.): average Oriented: Awake, Alert, Oriented times three Insight: fair Judgment: fair DIAGNOSES: Schizoaffective, Bipolar type ASSESSMENT: Patient has been sleeping most of the shift. She reports being very tired, states that she is trying to catch up on her sleep. She reports continued depression and anxiety but denies suicidal ideations today. She stated "I wish I would quit seeing the hooded person." She states that she has visual hallucinations of a black hooded person, she states that this scares her at times. She was given her Long Acting Injectable yesterday. Had a meeting today with [facility], states that the meeting went well. She understands that she will be discussed in their next meeting next week. She does not feel safe at this time for discharge due to her continued depression and anxiety. Reports poor motivation and MANAGEMENT PLAN:Continue with all her medications. Discharge when stable TIME SPENT: 25 minutes. Vital Signs Vital Signs Date Time Temp Pulse Resp B/P (MAP) Pulse Ox O2 Delivery O2 Flow Rate FiO2 03/18/21 09:33 125/73 03/18/21 06:37 98.1 65 16 100 Room Air Current Medications Current Medications Medications (Trade) Dose Ordered Sig/Bakari Route PRN Reason Start Time Stop Time Status Last Admin Dose Admin Acetaminophen (Tylenol Tab) 650 mg Q6HP PRN PO HEADACHE or DISCOMFORT 03/13/21 16:30 03/15/21 10:56 DC 03/15/21 03:35 Acetaminophen (Tylenol Tab) 1,000 mg BID PO 03/15/21 09:00 03/18/21 09:34 Acetaminophen/ Butalbital/ Caffeine (Fioricet) 2 ea Q4HP PRN PO HEADACHE 03/15/21 10:55 Al Hydrox/Mg Hydrox/Simethicone (Mylanta) 30 ml Q4HP PRN PO HEARTBURN/INDIGESTION 03/13/21 16:30 03/17/21 02:49 Atorvastatin Calcium (Lipitor) 80 mg QHS PO 03/13/21 21:00 03/17/21 20:31 Fluoxetine HCl (PROzac) 20 mg DAILY PO 03/14/21 09:00 03/18/21 09:33 Fluphenazine Decanoate (Prolixin Decanoate) 62.5 mg Q21D IM 03/23/21 09:00 03/17/21 11:28 DC Glipizide (Glucotrol) 5 mg DAILY@0730 PO 03/14/21 07:30 03/18/21 07:49 Home Med (Med Rec Complete!) ASDIRECTED XX 03/13/21 13:45 03/13/21 13:45 DC [place] Carbonate ([place] Carbonate) 300 mg QHS PO 03/13/21 21:00 03/17/21 20:31 Losartan Potassium (Cozaar) 25 mg DAILY PO 03/14/21 09:00 03/15/21 11:00 DC 03/15/21 06:04 Losartan Potassium (Cozaar) 50 mg BID PO 03/15/21 21:00 03/18/21 09:33 Magnesium Hydroxide (Milk Of Magnesia) 30 ml DAILYPRN PRN PO CONSTIPATION 03/13/21 16:30 Magnesium Oxide (Mag-Ox) 400 mg QHS PO 03/13/21 21:00 03/17/21 20:30 Olanzapine (ZyPREXA ZYDIS) 10 mg Q6HP PRN PO ANXIETY/AGITATION 03/13/21 16:30 03/17/21 16:20 Omeprazole (PriLOSEC) 20 mg BID PO 03/13/21 21:00 03/18/21 09:33 Polyethylene Glycol (Miralax) 1 pkt DAILY PRN PO CONSTIPATION 03/13/21 20:45 03/17/21 09:06 Rizatriptan Benzoate (Maxalt-Telephone Operator Chief) 10 mg Q2HP PRN PO MIGRAINE 03/15/21 10:55 03/15/21 20:08 Senna (Senokot) 2 tab QHS PO 03/13/21 21:00 03/17/21 20:31 Topiramate (TopAMAX) 25 mg QHS PO 03/15/21 21:00 03/17/21 20:31 Trazodone HCl (Desyrel) 50 mg QHSP PRN PO INSOMNIA 03/13/21 16:30 03/14/21 22:45 DC 03/14/21 20:07 Trazodone HCl (Desyrel) 100 mg QHSP PRN PO INSOMNIA 03/15/21 20:00 03/17/21 21:41 Vitamin D (Drisdol) 50,000 units Navarro@2100 PO 03/15/21 21:00 03/15/21 20:08 Allergies Coded Allergies: gabapentin (Verified Adverse Reaction, Severe, seizures, 05/13/20) SMOKE (Verified Adverse Reaction, Intermediate, ASTHMA, 03/30/06) sertraline (Verified Adverse Reaction, Intermediate, rash, 05/13/20) GILMA RIVERA NP March 18, 2021 13:38
[2021-03-18 18:09] VITALS: BP 139/79
[2021-03-18] MEDS: ATORVASTATIN 20 MG TAB PO SCH (20:15)
[2021-03-18] MEDS: SENNA 8.6 MG TAB (SENOKOT) PO SCH (20:15)
[2021-03-18] MEDS: TOPIRAMATE (TopAMAX) 25 MG TAB PO SCH (20:15)
[2021-03-18] MEDS: MAGNESIUM OXIDE 400MG TAB (MAG-OX) PO SCH (20:15)
[2021-03-18] MEDS: LITHIUM CARBONATE 300 MG CAP PO SCH (20:16)
[2021-03-18] MEDS: traZODone 100 MG TAB PO PRN (20:16)
[2021-03-19 06:45] VITALS: BP 110/59
[2021-03-19] MEDS: glipiZIDE (GLUCOTROL) 5 MG TAB PO SCH (07:03)
[2021-03-19] MEDS: OMEPRAZOLE 20 MG CAP PO SCH ×2 (08:06→20:16)
[2021-03-19] MEDS: ACETAMINOPHEN 500 MG TAB PO SCH ×2 (08:06→20:16)
[2021-03-19] MEDS: FLUoxetine 20 MG CAP PO SCH (08:07)
[2021-03-19] MEDS: LOSARTAN 50MG TABLET PO SCH ×2 (08:09→20:15)
--- NOTE | 2021-03-19 12:02 | MHIPNPDOC ---
[facility] Progress Note Progress Note DATE OF SERVICE: 03/19/21 HISTORY: Patient is a 55 -year-old , female, who has a long extensive psychiatric history with the numerous previous admissions, with last discharge 4 months ago. She came in with suicidal ideation stating that I was having suicidal thoughts and almost walked in front of a car.The patient has been attending outpatient clinic and has been compliant with her medications. Patient states that for the past week. She has been feeling increasingly depressed with increasing suicidal thoughts, and 2 days ago she tried to walk into an approaching car, but she stopped but felt very scared and feeling unsafe and came to emergency room seeking help. Patient claims that she hasn't no new stressors and no clear precipitant, but just does not feel right, feeling sad, having no energy or motivation and doesn't feel right.]. She denies any drug or alcohol use and denies any new changes in her life. VITAL SIGNS: See below. NEW TEST RESULTS: . CURRENT MEDICATIONS: See below. MENTAL STATUS EXAMINATION Patient is a 55 -year-old , female, who has a long extensive psychiatric history with the numerous previous admissions who came in with suicidal ideation stating that I was having suicidal thoughts and almost walked in front of a car" General Appearance: slightly disheveled, appears stated age Speech: Is spontaneous normal rate, tone and volume Language skills are intact Thought processes including: linear and goal oriented Thought content: denies depression and anxiety. Reports fleeing suicidal idea tions but no homicidal ideation, planning or intent. Abstract reasoning, and computation: fair Description of associations: denies, none observed Description of abnormal or psychotic thoughts: denies, none observed. Judgment: fair Insight: fair Orientation: alert and oriented to person, place, time and situation Recent and remote memory: intact Attention span and concentration: good Language: expansive Fund of knowledge: average Mood: Less depressed mood Affect: Constricted DIAGNOSES: Schizoaffective, Bipolar type ASSESSMENT: Patient found in bed, states that her depression and anxiety has mildly decreased but reports fleeting suicidal ideations. She states that she had auditory and visual hallucinations and stated "I probably won't ever stop seeing the hooded person,. he's always been there." She reports that while she has been in the hospital that she has thoughts about self harm. "I am safe here because I can't overdose on medications because that is given to me, I can't hang myself on the bathroom door because that would fall down." She reports fearing the voices because when she was brought in she states "When I out into traffic, right before that I was only going out for the mail - the voices told me to go out into traffic and I did it." She worries about her impulse to listen to the voices. She states that she does not feel safe to go to the [facility] at this time, fears that she may not be able to not listen to voices that continue to tell her "kill yourself, hurt yourself." Patient remains depressed and anxious per her report, minimal socialization with peers and group therapy. MANAGEMENT PLAN:Continue with all her medications. Discharge when stable TIME SPENT: 25 minutes. Vital Signs Vital Signs Date Time Temp Pulse Resp B/P (MAP) Pulse Ox O2 Delivery O2 Flow Rate FiO2 03/19/21 08:09 136/91 03/19/21 06:45 98.1 63 18 95 Room Air Current Medications Current Medications Medications (Trade) Dose Ordered Sig/Bakari Route PRN Reason Start Time Stop Time Status Last Admin Dose Admin Acetaminophen (Tylenol Tab) 650 mg Q6HP PRN PO HEADACHE or DISCOMFORT 03/13/21 16:30 03/15/21 10:56 DC 03/15/21 03:35 Acetaminophen (Tylenol Tab) 1,000 mg BID PO 03/15/21 09:00 03/19/21 08:06 Acetaminophen/ Butalbital/ Caffeine (Fioricet) 2 ea Q4HP PRN PO HEADACHE 03/15/21 10:55 Al Hydrox/Mg Hydrox/Simethicone (Mylanta) 30 ml Q4HP PRN PO HEARTBURN/INDIGESTION 03/13/21 16:30 03/17/21 02:49 Atorvastatin Calcium (Lipitor) 80 mg QHS PO 03/13/21 21:00 03/18/21 20:15 Fluoxetine HCl (PROzac) 20 mg DAILY PO 03/14/21 09:00 03/19/21 08:07 Fluphenazine Decanoate (Prolixin Decanoate) 62.5 mg Q21D IM 03/23/21 09:00 03/17/21 11:28 DC Glipizide (Glucotrol) 5 mg DAILY@0730 PO 03/14/21 07:30 03/19/21 07:03 Home Med (Med Rec Complete!) ASDIRECTED XX 03/13/21 13:45 03/13/21 13:45 DC [place] Carbonate ([place] Carbonate) 300 mg QHS PO 03/13/21 21:00 03/18/21 20:16 Losartan Potassium (Cozaar) 25 mg DAILY PO 03/14/21 09:00 03/15/21 11:00 DC 03/15/21 06:04 Losartan Potassium (Cozaar) 50 mg BID PO 03/15/21 21:00 03/18/21 20:16 Magnesium Hydroxide (Milk Of Magnesia) 30 ml DAILYPRN PRN PO CONSTIPATION 03/13/21 16:30 Magnesium Oxide (Mag-Ox) 400 mg QHS PO 03/13/21 21:00 03/18/21 20:15 Olanzapine (ZyPREXA ZYDIS) 10 mg Q6HP PRN PO ANXIETY/AGITATION 03/13/21 16:30 03/17/21 16:20 Omeprazole (PriLOSEC) 20 mg BID PO 03/13/21 21:00 03/19/21 08:06 Polyethylene Glycol (Miralax) 1 pkt DAILY PRN PO CONSTIPATION 03/13/21 20:45 03/17/21 09:06 Rizatriptan Benzoate (Maxalt-Scarf And Anneal Operator) 10 mg Q2HP PRN PO MIGRAINE 03/15/21 10:55 03/15/21 20:08 Senna (Senokot) 2 tab QHS PO 03/13/21 21:00 03/18/21 20:15 Topiramate (TopAMAX) 25 mg QHS PO 03/15/21 21:00 03/18/21 20:15 Trazodone HCl (Desyrel) 50 mg QHSP PRN PO INSOMNIA 03/13/21 16:30 03/14/21 22:45 DC 03/14/21 20:07 Trazodone HCl (Desyrel) 100 mg QHSP PRN PO INSOMNIA 03/15/21 20:00 03/18/21 20:16 Vitamin D (Drisdol) 50,000 units Navarro@2100 PO 03/15/21 21:00 03/15/21 20:08 Allergies Coded Allergies: gabapentin (Verified Adverse Reaction, Severe, seizures, 05/13/20) SMOKE (Verified Adverse Reaction, Intermediate, ASTHMA, 03/30/06) sertraline (Verified Adverse Reaction, Intermediate, rash, 05/13/20) GILMA RIVERA NP March 19, 2021 11:36
[2021-03-19 16:08] VITALS: BP 126/71
[2021-03-19] MEDS: SENNA 8.6 MG TAB (SENOKOT) PO SCH (20:15)
[2021-03-19] MEDS: traZODone 100 MG TAB PO PRN (20:15)
[2021-03-19] MEDS: LITHIUM CARBONATE 300 MG CAP PO SCH (20:16)
[2021-03-19] MEDS: TOPIRAMATE (TopAMAX) 25 MG TAB PO SCH (20:16)
[2021-03-19] MEDS: ATORVASTATIN 20 MG TAB PO SCH (20:16)
[2021-03-19] MEDS: MAGNESIUM OXIDE 400MG TAB (MAG-OX) PO SCH (20:17)
[2021-03-20 06:19] VITALS: BP 115/65
[2021-03-20] MEDS: glipiZIDE (GLUCOTROL) 5 MG TAB PO SCH (08:00)
[2021-03-20] MEDS: FLUoxetine 20 MG CAP PO SCH (08:25)
[2021-03-20] MEDS: OMEPRAZOLE 20 MG CAP PO SCH ×2 (08:25→20:12)
[2021-03-20] MEDS: ACETAMINOPHEN 500 MG TAB PO SCH ×2 (08:25→20:14)
[2021-03-20] MEDS: LOSARTAN 50MG TABLET PO SCH ×2 (08:27→20:16)
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
--- NOTE | 2021-03-20 15:52 | IPNPDOC ---
Subjective Date Seen The patient was seen on 03/20/21. Subjective Chief Complaint/HPI called by nurse to see this patient for Ear pain. Tracie complained of right ear pain for the past 3 days. She stated having the pain after a shower when the water force hit her right ear. Since then she has also been having difficulty in hearing in that ear. It feels full and when she swallows it hurts and "pops" Objective Physical Examination General Exam: Positive: Alert, Cooperative, No Acute Distress Eye Exam: Positive: PERRLA, Conjunctiva & lids normal, EOMI; Negative: Sclera icteric ENT Exam: Positive: Other ENT (bilateral large amounts of wax.) Neck Exam: Positive: Supple; Negative: JVD, thyromegaly Chest Exam: Positive: Clear to auscultation, Normal air movement Heart Exam: Positive: Rate Normal, Regular Rhythm, Normal S1, Normal S2; Negative: Murmurs, Rubs Abdomen Exam: Positive: Normal bowel sounds, Soft; Negative: Tenderness, Hepatospenomegaly Assessment /Plan Assessment Right Ear Pain and difficulty in hearing Otoscopy of both ears show large amounts of dark brown wax. The right ear is completely blocked and Tm could not be seen. Left ear is partially blocked and a chinck of the top part of the TM could be seen which appeared OK as much as could be seen will start on Carbamide ear drops both ears. Lalit improvement by Tuesday will have to refer to the ENT clinic Plan/VTE VTE Prophylaxis Ordered?: No VS, I&O, 24H, Fishbone Vital Signs/I&O Vital Signs Date Time Temp Pulse Resp B/P (MAP) Pulse Ox O2 Delivery O2 Flow Rate FiO2 03/20/21 08:27 115/65 03/20/21 06:19 99.0 67 18 95 Room Air Laboratory Data Microbiology Microbiology 03/13/21 Respiratory Virus Panel (PCR) (СЕРГЕЙ) - Final, Complete IBIS COMBS MD March 20, 2021 15:52
[2021-03-20 18:26] VITALS: BP 142/92
[2021-03-20] MEDS: TOPIRAMATE (TopAMAX) 25 MG TAB PO SCH (20:11)
[2021-03-20] MEDS: SENNA 8.6 MG TAB (SENOKOT) PO SCH (20:11)
[2021-03-20] MEDS: traZODone 100 MG TAB PO PRN (20:12)
[2021-03-20] MEDS: MAGNESIUM OXIDE 400MG TAB (MAG-OX) PO SCH (20:12)
[2021-03-20] MEDS: ATORVASTATIN 20 MG TAB PO SCH (20:12)
[2021-03-20] MEDS: CARBAMIDE PEROXIDE 6.5% OTIC SOLN 15ML AU SCH (20:12)
[2021-03-20] MEDS: LITHIUM CARBONATE 300 MG CAP PO SCH (20:12)
[2021-03-20] MEDS: OLANZapine ORAL DISINTEGRATING TAB 5MG PO PRN (23:10)
[2021-03-21 06:00] VITALS: BP 122/68
[2021-03-21] MEDS: glipiZIDE (GLUCOTROL) 5 MG TAB PO SCH (06:30)
[2021-03-21] MEDS: OMEPRAZOLE 20 MG CAP PO SCH ×2 (08:09→20:16)
[2021-03-21] MEDS: FLUoxetine 20 MG CAP PO SCH (08:09)
[2021-03-21] MEDS: CARBAMIDE PEROXIDE 6.5% OTIC SOLN 15ML AU SCH ×2 (08:10→20:17)
[2021-03-21] MEDS: ACETAMINOPHEN 500 MG TAB PO SCH ×2 (08:10→20:16)
[2021-03-21] MEDS: LOSARTAN 50MG TABLET PO SCH ×2 (08:12→20:17)
[2021-03-21 16:52] VITALS: BP 148/81
[2021-03-21] MEDS: traZODone 100 MG TAB PO PRN (20:16)
[2021-03-21] MEDS: TOPIRAMATE (TopAMAX) 25 MG TAB PO SCH (20:16)
[2021-03-21] MEDS: SENNA 8.6 MG TAB (SENOKOT) PO SCH (20:16)
[2021-03-21] MEDS: LITHIUM CARBONATE 300 MG CAP PO SCH (20:17)
[2021-03-21] MEDS: MAGNESIUM OXIDE 400MG TAB (MAG-OX) PO SCH (20:17)
[2021-03-21] MEDS: ATORVASTATIN 20 MG TAB PO SCH (20:17)
[2021-03-21] MEDS: OLANZapine ORAL DISINTEGRATING TAB 5MG PO PRN (22:06)
[2021-03-22 06:47] VITALS: BP 117/78
[2021-03-22] MEDS: glipiZIDE (GLUCOTROL) 5 MG TAB PO SCH (07:44)
[2021-03-22] MEDS: FLUoxetine 20 MG CAP PO SCH (08:32)
[2021-03-22] MEDS: ACETAMINOPHEN 500 MG TAB PO SCH ×2 (08:32→20:14)
[2021-03-22] MEDS: CARBAMIDE PEROXIDE 6.5% OTIC SOLN 15ML AU SCH ×2 (08:32→21:05)
[2021-03-22] MEDS: OMEPRAZOLE 20 MG CAP PO SCH ×2 (08:32→20:14)
[2021-03-22] MEDS: LOSARTAN 50MG TABLET PO SCH ×2 (09:00→21:00)
[2021-03-22] MEDS: MIRALAX *UNIT DOSE* 17GM PACKET PO PRN (17:16)
[2021-03-22 18:11] VITALS: BP 126/68
[2021-03-22] MEDS: VITAMIN D 50,000 UNITS CAPSULE (ERGOCALCIFEROL 1.25MG) PO SCH (20:14)
[2021-03-22] MEDS: ATORVASTATIN 20 MG TAB PO SCH (20:14)
[2021-03-22] MEDS: TOPIRAMATE (TopAMAX) 25 MG TAB PO SCH (20:14)
[2021-03-22] MEDS: SENNA 8.6 MG TAB (SENOKOT) PO SCH (20:14)
[2021-03-22] MEDS: LITHIUM CARBONATE 300 MG CAP PO SCH (20:15)
[2021-03-22] MEDS: MAGNESIUM OXIDE 400MG TAB (MAG-OX) PO SCH (20:15)
[2021-03-22] MEDS: traZODone 100 MG TAB PO PRN (20:15)
[2021-03-22] MEDS: OLANZapine ORAL DISINTEGRATING TAB 5MG PO PRN (20:22)
[2021-03-23] MEDS: glipiZIDE (GLUCOTROL) 5 MG TAB PO SCH (06:42)
[2021-03-23 07:02] VITALS: BP 107/60
[2021-03-23] MEDS: OMEPRAZOLE 20 MG CAP PO SCH ×2 (08:23→20:07)
[2021-03-23] MEDS: FLUoxetine 20 MG CAP PO SCH (08:23)
[2021-03-23] MEDS: ACETAMINOPHEN 500 MG TAB PO SCH ×2 (08:23→20:07)
[2021-03-23] MEDS: CARBAMIDE PEROXIDE 6.5% OTIC SOLN 15ML AU SCH ×2 (08:24→20:06)
[2021-03-23] MEDS: LOSARTAN 50MG TABLET PO SCH ×2 (09:00→20:43)
[2021-03-23] MEDS ORDERED: fluPHENAZine DECAN 25MG/ML 5ML VIAL (J2680) IM SCH ×2 (09:00→14:00)
[2021-03-23] MEDS: OLANZapine ORAL DISINTEGRATING TAB 5MG PO PRN ×2 (11:31→22:45)
--- NOTE | 2021-03-23 12:19 | MHIPNPDOC ---
[facility] Progress Note Progress Note DATE OF SERVICE: 03/23/21 HISTORY: [Patient is a 55 -year-old , female, who has a long extensive psychiatric history with the numerous previous admissions, with last discharge 4 months ago. She came in with suicidal ideation stating that I was having suicidal thoughts and almost walked in front of a car.The patient has been attending outpatient clinic and has been compliant with her medications. Patient states that for the past week. She has been feeling increasingly depressed with increasing suicidal thoughts, and 2 days ago she tried to walk into an approaching car, but she stopped but felt very scared and feeling unsafe and came to emergency room seeking help. Patient claims that she hasn't no new stressors and no clear precipitant, but just does not feel right, feeling sad, having no energy or motivation and doesn't feel right.]. She denies any drug or alcohol use and denies any new changes in her life. VITAL SIGNS: See below. CURRENT MEDICATIONS: See below. MENTAL STATUS EXAMINATION Patient is a 55 -year-old , female, who has a long extensive psychiatric history with the numerous previous admissions who came in with suicidal ideation stating that I was having suicidal thoughts and almost walked in front of a car" General Appearance: unkempt, disheveled, poor attention to ADLs, appears stated age Speech: Is spontaneous slow/rate rate, tone and volume Language skills are intact Thought processes including: linear and goal oriented Thought content: report mild depression and anxiety. Reports fleeting suicidal ideations but no homicidal ideation, planning or intent. Abstract reasoning, and computation: fair Description of associations: denies, none observed Description of abnormal or psychotic thoughts: denies Judgment: fair Insight: fair Orientation: alert and oriented to person, place, time and situation Recent and remote memory: intact Attention span and concentration: good Language: expansive Fund of knowledge: average Mood: euthymic mood Affect: Constricted DIAGNOSES: Schizoaffective, Bipolar type ASSESSMENT: In today's interview patient reports that she is doing better and is moderately anxious due to unknown housing. She would like to be discharged tomorrow to have her machine adjuster leader case trim meet her at [facility]. she is future oriented, denies in the interview that she is depressed and did not mention her auditory or visual hallucinations. She has been withdrawn and isolative at times, but according to the room mate who shares the room they have been social with each other. Patient feels that she is ready for discharge tomorrow MANAGEMENT PLAN: Continue with all her medications. Discharge tomorrow TIME SPENT: 25 minutes. Vital Signs Vital Signs Date Time Temp Pulse Resp B/P (MAP) Pulse Ox O2 Delivery O2 Flow Rate FiO2 03/23/21 09:00 107/60 03/23/21 07:02 97.9 63 20 96 Room Air Current Medications Current Medications Medications (Trade) Dose Ordered Sig/Bakari Route PRN Reason Start Time Stop Time Status Last Admin Dose Admin Acetaminophen (Tylenol Tab) 650 mg Q6HP PRN PO HEADACHE or DISCOMFORT 03/13/21 16:30 03/15/21 10:56 DC 03/15/21 03:35 Acetaminophen (Tylenol Tab) 1,000 mg BID PO 03/15/21 09:00 03/23/21 08:23 Acetaminophen/ Butalbital/ Caffeine (Fioricet) 2 ea Q4HP PRN PO HEADACHE 03/15/21 10:55 Al Hydrox/Mg Hydrox/Simethicone (Mylanta) 30 ml Q4HP PRN PO HEARTBURN/INDIGESTION 03/13/21 16:30 03/17/21 02:49 Atorvastatin Calcium (Lipitor) 80 mg QHS PO 03/13/21 21:00 03/22/21 20:14 Carbamide Peroxide (Debrox) 3 drop BID AU 03/20/21 21:00 03/24/21 09:01 03/23/21 08:24 Fluoxetine HCl (PROzac) 20 mg DAILY PO 03/14/21 09:00 03/23/21 08:23 Fluphenazine Decanoate (Prolixin Decanoate) 62.5 mg Q21D IM 03/23/21 09:00 03/17/21 11:28 DC Glipizide (Glucotrol) 5 mg DAILY@0730 PO 03/14/21 07:30 03/23/21 06:42 Home Med (Med Rec Complete!) ASDIRECTED XX 03/13/21 13:45 03/13/21 13:45 DC Hallam Carbonate (Hallam Carbonate) 300 mg QHS PO 03/13/21 21:00 03/22/21 20:15 Losartan Potassium (Cozaar) 25 mg DAILY PO 03/14/21 09:00 03/15/21 11:00 DC 03/15/21 06:04 Losartan Potassium (Cozaar) 50 mg BID PO 03/15/21 21:00 03/19/21 20:15 Magnesium Hydroxide (Milk Of Magnesia) 30 ml DAILYPRN PRN PO CONSTIPATION 03/13/21 16:30 Magnesium Oxide (Mag-Ox) 400 mg QHS PO 03/13/21 21:00 03/22/21 20:15 Olanzapine (ZyPREXA ZYDIS) 10 mg Q6HP PRN PO ANXIETY/AGITATION 03/13/21 16:30 03/23/21 11:31 Omeprazole (PriLOSEC) 20 mg BID PO 03/13/21 21:00 03/23/21 08:23 Polyethylene Glycol (Miralax) 1 pkt DAILY PRN PO CONSTIPATION 03/13/21 20:45 03/22/21 17:16 Rizatriptan Benzoate (Maxalt-School Guidance Counselor) 10 mg Q2HP PRN PO MIGRAINE 03/15/21 10:55 03/15/21 20:08 Senna (Senokot) 2 tab QHS PO 03/13/21 21:00 03/22/21 20:14 Topiramate (TopAMAX) 25 mg QHS PO 03/15/21 21:00 03/22/21 20:14 Trazodone HCl (Desyrel) 50 mg QHSP PRN PO INSOMNIA 03/13/21 16:30 03/14/21 22:45 DC 03/14/21 20:07 Trazodone HCl (Desyrel) 100 mg QHSP PRN PO INSOMNIA 03/15/21 20:00 03/22/21 20:15 Vitamin D (Drisdol) 50,000 units Navarro@2100 PO 03/15/21 21:00 03/22/21 20:14 Allergies Coded Allergies: gabapentin (Verified Adverse Reaction, Severe, seizures, 05/13/20) SMOKE (Verified Adverse Reaction, Intermediate, ASTHMA, 03/30/06) sertraline (Verified Adverse Reaction, Intermediate, rash, 05/13/20) GILMA RIVERA NP March 23, 2021 12:19
[2021-03-23 18:54] VITALS: BP 150/86
[2021-03-23] MEDS: SENNA 8.6 MG TAB (SENOKOT) PO SCH (20:06)
[2021-03-23] MEDS: MAGNESIUM OXIDE 400MG TAB (MAG-OX) PO SCH (20:06)
[2021-03-23] MEDS: LITHIUM CARBONATE 300 MG CAP PO SCH (20:06)
[2021-03-23] MEDS: ATORVASTATIN 20 MG TAB PO SCH (20:07)
[2021-03-23] MEDS: traZODone 100 MG TAB PO PRN (20:07)
[2021-03-23] MEDS: TOPIRAMATE (TopAMAX) 25 MG TAB PO SCH (20:07)
[2021-03-24] MEDS: MAALOX 30 ML SUSP *UDC PO PRN (04:49)
[2021-03-24 06:38] VITALS: BP 145/90
[2021-03-24] MEDS: glipiZIDE (GLUCOTROL) 5 MG TAB PO SCH (06:46)
[2021-03-24 07:59] VITALS: BP 145/90
[2021-03-24] MEDS: CARBAMIDE PEROXIDE 6.5% OTIC SOLN 15ML AU SCH (08:03)
[2021-03-24 08:04] VITALS: BP 135/90
[2021-03-24] MEDS: OMEPRAZOLE 20 MG CAP PO SCH (08:04)
[2021-03-24] MEDS: FLUoxetine 20 MG CAP PO SCH (08:04)
[2021-03-24] MEDS: LOSARTAN 50MG TABLET PO SCH (08:04)
[2021-03-24] MEDS: ACETAMINOPHEN 500 MG TAB PO SCH (08:04)
[2021-03-24] MEDS ORDERED: ATOR80TA59 PO (08:47)
[2021-03-24] MEDS ORDERED: COZA1TAB PO (08:47)
[2021-03-24] MEDS ORDERED: SENN-80 PO (08:47)
[2021-03-24] MEDS ORDERED: LITH300T2 PO (08:47)
[2021-03-24] MEDS ORDERED: FLUP25VL IM (08:47)
[2021-03-24] MEDS ORDERED: GLIP5TAB8 PO (08:47)
[2021-03-24] MEDS ORDERED: FLUO20CA22 PO (08:47)
[2021-03-24] MEDS ORDERED: VITA50005 PO (08:47)
[2021-03-24] MEDS ORDERED: VALB40CA PO (08:47)
[2021-03-24] MEDS ORDERED: OMEP-218 PO (08:47)
[2021-03-24] MEDS ORDERED: MIRA1POW3 PO (08:48)
[2021-03-24] MEDS ORDERED: TRAZ-257 PO (08:48)
[2021-03-24] MEDS ORDERED: MAXA10TA15 PO (08:48)
[2021-03-24] MEDS ORDERED: STEG5TAB PO (08:48)
[2021-03-24] MEDS ORDERED: MAGN400C2 PO (08:48)
[2021-03-24] MEDS ORDERED: LUMA42CA PO (08:48)
[2021-03-24] MEDS ORDERED: TOPA1TAB PO (08:48)
[2021-03-24] MEDS ORDERED: ONE-1TAB PO (08:48)
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
== END 2021-03-24 09:05 | disposition home or self-care (01) | DRG 750 ==
LOC: M ED 10:29 → M ED INP 16:29 → M PSY 17:15
PROVIDERS: ADMIT Psychiatry & Neurology Psychiatry; ATTEND Psychiatry & Neurology Psychiatry
DX: F25.0 Schizoaffective disorder, bipolar type (principal); R45.851 Suicidal ideations; M54.9 Dorsalgia, unspecified; G89.29 Other chronic pain; Z79.899 Other long term (current) drug therapy; Z88.8 Allergy status to other drugs, medicaments and biological substances; F33.0 Major depressive disorder, recurrent, mild; G43.909 Migraine, unspecified, not intractable, without status migrainosus; I10 Essential (primary) hypertension; E11.9 Type 2 diabetes mellitus without complications; E66.9 Obesity, unspecified; Z68.30 Body mass index [BMI] 30.0-30.9, adult; E78.5 Hyperlipidemia, unspecified; K21.9 Gastro-esophageal reflux disease without esophagitis; Z90.79 Acquired absence of other genital organ(s); Z98.1 Arthrodesis status; H92.01 Otalgia, right ear; H61.21 Impacted cerumen, right ear

== ENCOUNTER 2021-10-02 08:43 | Emergency (ER) | payer MEDICAID, OTHER ==
[~2021-10-02] VITALS: Ht 160 cm; Wt 84.1 kg
[~2021-10-02 08:43] MED LIST changes: +ERGO500029 PO; +MAGN400C2 PO; +MAXA10TA15 PO; +OMEP40CA4 PO; -OMEP40CA97 PO; +ONE-1TAB PO; +TOPA1TAB PO; -VITA50005 PO
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
--- OUTSIDE RECORDS SUMMARY | 2021-10-02 08:58 | CCD ---
Author Author [facility] Organization [facility] Address Unknown Phone Unavailable Care Team Providers Care Diesel Engine Inspector Name Role Phone Cassia Culver PCP Unavailable Allergies, Adverse Reactions, Alerts Allergy Substance Code C odeSystem Reaction Severity Critic ality Status Start Date Moderate Medications Medication Medication Code Medication CodeSystem Start Date Stop Date Route Dose Status Fill Instructions RxNorm Problems Problem Name Code CodeSy stem Alternate Code Alternate CodeSystem Start Date End Date Status Narrative Schizophrenia, unspecified 17240556 SNOMED- CT 2018-11-20 Active Schizophrenia, unspecified 53831558 SNOMED- CT 2018-11-20 Active Schizoaffective disorder, bipolar type 24603967 SNOMED-CT 2021-04-06 Active Recurrent depressive disorder, current episode severe without psychotic symptoms 74809327 SNOMED-CT 2018-11-20 Active Recurrent depressive disorder, current episode severe without psychotic symptoms 71540844 SNOMED-CT 2018-11-20 Active Relevant diagnostic tests/laboratory data Narrative No Information Procedures Procedure Name Code Code System Target Site Date of Procedure Status Service Delivery Location Device Cod e Device Name Device UID SNOMED-CT () 2021-04-[address] [place], [place], [id number] SNOMED-CT () 2021-04-[address] [place], [place], [id number] SNOMED-CT () 2021-05-31 [address] [place], [id number] [id number] SNOMED-CT () 2021-05-[address] [place], [id number] [id number] SNOMED-CT () 2021-07-01 [address] [place], [address] [id number] SNOMED-CT () 2021-07-[address] [place], [address] [id number] SNOMED-CT () 2021-07-[address] [place], [place], [address] [id number] SNOMED-CT () 2021-07-[address] [place], [place], [address] [id number] SNOMED-CT () 2021-08-[address] [place], [address] [id number] SNOMED-CT () 2021-08-[address] [place], [address] [id number] SNOMED-CT () 2021-03-31 [address] [place], [place], [address] [id number] Encounters/Encounter Diagnoses Encounter Name Encounter Code Diagnosis Code Diagnosis Name Diagnosis CodeSystem Date of Diagnosis Service Delivery L ocation [id number] Schizoaffective disorder, bipolar type [facility]ED-[facility] , , , Vital Signs No Information Social History Element Description Description Start Date End Date Code CodeSystem AdditionalInfo SexAssignedAtBirth Female 1965 F AdministrativeGender Hospital Discharge Instructions * Reason For Referral Medical Equipment * FDA Assessments *
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
[2021-10-02] MEDS ORDERED: PROT1TAB2 PO (08:59)
[2021-10-02] MEDS ORDERED: DOXE50CA PO (08:59)
--- OUTSIDE RECORDS SUMMARY | 2021-10-02 08:59 | CCD ---
Author Author Viry Culver Organization [facility] Address Unknown Phone Unavailable Care Team Providers Care Technical Customer Support Specialist Name Role Phone Cassia Culver PCP Unavailable Allergies, Adverse Reactions, Alerts Allergy Substance Code C odeSystem Reaction Severity Critic ality Status Start Date Moderate Medications Medication Medication Code Medication CodeSystem Start Date Stop Date Route Dose Status Fill Instructions RxNorm Problems Problem Name Code CodeSy stem Alternate Code Alternate CodeSystem Start Date End Date Status Narrative Recurrent depressive disorder, current episode severe without psychotic symptoms 32445617 SNOMED-CT 2018-11-20 Active Recurrent depressive disorder, current episode severe without psychotic symptoms 20550978 SNOMED-CT 2018-11-20 Active Schizoaffective disorder, bipolar type 01675290 SNOMED-CT 2021-04-06 Active Schizophrenia, unspecified 10356856 SNOMED- [place] 2018-11-20 Active Schizophrenia, unspecified 26189716 SNOMED- CT 2018-11-20 Active Relevant diagnostic tests/laboratory data Narrative No Information Procedures Procedure Name Code Code System Target Site Date of Procedure Status Service Delivery Location Device Cod e Device Name Device UID SNOMED-CT () 2021-04-30 [address] [place], [place], [id number] SNOMED-CT () 2021-05-31 [address] [place], [place], [id number] SNOMED-CT () 2021-07-01 [address] [place], [place], [id number] [id number] SNOMED-CT () 2021-07-31 [address] [place], [id number] SNOMED-CT () 2021-04-30 [address] [place], [id number] [id number] SNOMED-CT () 2021-05-[address] [place], [id number] SNOMED-CT () 2021-07-01 [address] [place], [id number] [id number] SNOMED-CT () 2021-07-31 [address] [place], [place], [id number] [id number] SNOMED-CT () 2021-03-31 [address] [place], [place], [id number] Encounters/Encounter Diagnoses Encounter Name Encounter Code Diagnosis Code Diagnosis Name Diagnosis CodeSystem Date of Diagnosis Service Delivery L ocation 89764320 Schizoaffective disorder, bipolar type [facility] , , , Vital Signs No Information Social History Element Description Description Start Date End Date Code CodeSystem AdditionalInfo SexAssignedAtBirth Female 1965 F AdministrativeGender Hospital Discharge Instructions * Reason For Referral Medical Equipment * FDA Assessments *
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
--- OUTSIDE RECORDS SUMMARY | 2021-10-02 08:59 | CCD ---
Author Author [facility] Organization [facility] Address Unknown Phone Unavailable Care Team Providers Care Milling Operator Name Role Phone Aurelia Duong Unavailable PROBLEMS Type Condition ICD9-CM Code [id number] Code Onset Dates Condition S tatus W/U Status Risk SNOMED Code Notes Problem Mixed hyperlipidemia E78.2 Active confirmed 189869925 Problem Major depressive disorder, recurrent sev ere without psychotic features F33.2 Active confirmed 30875405 Problem Paranoid schizophrenia F20.0 Active confirmed 42858534 Problem Essential (primary) hypertension I10 Active conf irmed 54129267 Problem Recurrent major depressive disorder in remission F 33.40 Active confirmed 85342268 Problem Constipation, unspecified constipation type K59.00 Active confirmed 44633072 Problem Iron deficiency anemia, unspecified iron deficiency an emia type D50.9 Active confirmed 43556695 Problem Adjustment disorder with anxious mood F43.22 Ac tive confirmed 50651833 Problem Subclinical hypothyroidism E03.8 Active confirmed 12177036 Problem Memory loss R41.3 Active confirmed 85056043 Problem Type 2 diabetes mellitus wit hout complication, without long-term current use of insulin E11.9 Active confirmed 697911388 Problem Constipation K59.00 Active confirmed 3942952 8 Problem Mammogram abnormal R92.8 Active confirmed 1 96427957 Problem Obesity (BMI 35.0-39.9 without comorbidity) E66.9 Active confirmed 363099797 Problem Insomnia, unspecified type G47.00 Active confirmed 537118271 Problem Schizoaffective disorder, bipolar type F25.0 A ctive confirmed 25457820 Problem Burning tongue K14.6 Active confirmed 53153 4006 Problem Gastro-esophageal reflux disease without esophagitis K21.9 Active confirmed 414985749 Problem Restless leg syndrome G25.81 Active confirmed 70330121 Problem Vitamin D deficiency E55.9 Active confirmed 96246097 Problem Obesity (BMI 30.0-34.9) E66.9 Active confirmed 304935534915711 Problem Schizophrenia, unspecified type F20.9 Active confi rmed 44509931 Problem BMI 32.0-32.9,adult Z68.32 Active confirmed 935950007 Problem Mental health problem F48.9 Active confirmed 824076431 Problem Other chronic pain G89.29 Active confirmed 8 5415534 Problem MDD (major depressive disorder), recurrent episode, modera te F33.1 Active confirmed 868111292 Problem Akathisia G25.71 Active confirmed 154429861 Problem Lumbago with sciatica, right side M54.41 Active confirmed 558844628 Problem Schizoaffective disorder, unspecified F25.9 Ac tive confirmed 11091396 Problem Memory impairment R41.3 Active confirmed 38 9705658 Problem Hypertriglyceridemia E78.1 Active confirmed 817346164 Problem BMI 34.0-34.9,adult Z68.34 Active confirmed 384735251 ALLERGIES Allergen (clinical drug ingredient) Drug/Non Drug Allergy do cumented on EMR Reaction Allergy Type Onset Date Status [facility] Drug Allergy Active gabapentin Neurontin([facility] Code:[address]-88) SEIZURES Drug Allergy Active ENCOUNTERS from 1965 to 2021-08-09 Encounter Location Date Provider Diagnosis [address] [address] Jul, Aurelia Duong Gastroesophageal reflux dise ase with esophagitis without hemorrhage K21.00 ; Type 2 diabetes mellitus without complication, without long- term current use of insulin E11.9 ; Mental health problem F48.9 ; Neurological symptoms R29.90 ; Hypertriglyceridemia E78.1 ; Weight gain R63.5 ; Obesity (BMI 30.0-34.9) E66.9 ; BMI 34.0-34.9,adult Z68.34 and Person consulting for explanation of examination or test finding Z71.2 IMMUNIZATIONS Vaccine Route Administration Date Status Fluphenazine [...] No Information VITAL SIGNS Height 62 in 23 Jul, 2021 Weight 186.4 lbs Jul, BMI 34.09 kg/m2 Jul, Temperature 98.4 degrees Fahrenheit Jul, Heart Rate 103 /min Jul, Respiratory Rate 18 /min Jul, Oximetry 97 % Jul, Blood pressure systolic 114 mmHg Jul, Blood pressure diastolic 70 mmHg Jul, MEDICATIONS Medication SIG (Take, Route, Frequency, Duration) Notes Start Da te End Date Status Multi Complete/Iron - as directed Orally Active fluPHENAZine Decanoate 25 MG/ML 3ml Injection q 2w Active Benztropine Mesylate 1 MG TAKE ONE TABLET BY MOUTH TWI CE A DAY Orally twice a day Active Doxepin HCl 50 MG 1 capsule at bedtime Orally qhs for 30 days May, Active Magnesium Oxide 400 MG 1 tablet with food Orally daily Active Steglatro 5 MG 1 tablet Orally Once a day for 90 days 04 2019 Active Atorvastatin Calcium 80 MG 1 tablet Orally Once a day for 30 day(s) Active Tylenol 325 MG 2 tablet as needed Orally every 4 hrs for 90 days Mar, Active Topamax 25 MG 1 tablet Orally QHS Mar, Active Kim Carbonate 300 MG take one tablet by mouth at bedtime po qhs Active Pantoprazole Sodium 40 MG 1 tablet Orally Twice a day for 30 day (s) Jul, Active glipiZIDE 5 MG 1 tablet 30 minutes before b reakfast Orally Once a day for 90 day(s) Active Losartan Potassium 25 MG 1 tablet Orally Once a day for 90 Active Ingrezza 40 MG 1 capsule Orally Once a day for 30 days Oct, Active Senokot 8.6 MG 2 tablets at bedtime as needed Orally Once a day for 90 days Active Rizatriptan Benzoate 10 MG 1 tablet now and one tablet in 1 hour, approx 12 migraines a day Orally Once a day for 12 days Jul, Active FLUoxetine HCl 20 MG 3 Orally Once a day for 30 days Active fluPHENAZine HCl 2.5 MG 1 tablet Orally bid for 30 days May, Active Vitamin D (Ergocalciferol) 1.25 MG (54735 UT) TAKE 1 C APSULE BY MOUTH ONCE A WEEK Active MiraLax 17 GM/SCOOP 1 scoop mixed with 8 ounces of fluid Orally once per day as needed Active PROCEDURES No Information RESULTS No Results REASON FOR VISIT [facility] Neuro Concerns MEDICAL (GENERAL) HISTORY Type Description Date Medical [...] Bladder suspension with mesh 2008 Surgical History 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 Avoid trigger foods including spicy, acidic foods, peppermint and chocolate. Keep food diary to determine personal triggers. Do not eat or drink 2 hours before bed. Keep head of bed elevated. Weight loss will improve reflux. The patient experienced to have flare ups of GERD. Will switch her from omeprazole to pantoprazole today. Advised to follow up if symptoms worsen or persist. Precautions given and patient verbalized understanding. Follow up as needed. Jul, Type 2 diabetes mellitus wit hout complication, without long-term current use of insulin (ICD-10 - E11.9) Advised to continue on the current medication regimen. Things that you can do at home to improve glycemic control (improve blood sugars) 1. Avoid foods with added sugars (read nutrition labels) 2. Avoid foods high in carbohydrates (bread, pasta, rice, sugar, sweets, processed foods) 3. Increase physical activity 4. Avoid snacking/eating between meals 5. Avoid sugary beverages like fruit juice, soda, alcohol Jul, Mental health problem (ICD-10 - F48.9) Keep appointments with [facility] Jul, Neurological symptoms (ICD-10 - R29.90) Keep appointments with Neurology Nursing staff requested office note and recent testing Jul, Hypertriglyceridemia (ICD-10 - E78.1) Elevated Triglycerides. Will recheck cholesterol with next labs. Already on atorvastatin Jul, Weight gain (ICD-10 - R63.5) The patient had gained around 5.8 pounds of the body weight since the previous visit and currently weighs around 186.4 pounds with a BMI of 34.09 Index. Jul, Obesity (BMI 30.0-34.9) (ICD-10 - E66.9) Recommend increasing low impact activity (walking, swimming, yoga), weight loss and diet including portion control, avoidance of high glycemic index foods like white bread, white pasta, white rice, white sugar and avoidance of fatty foods like butter, fried foods, steak/ground beef, full fat dairy products. Avoid sugary beverages like fruit juice, soda and alcohol. Consume lean protein including fish, chicken and healthy fats like avocado, nuts and olive oil. Check food labels and avoid foods high in salt especially prepackaged meals. Try to eat structured meals throughout the day, ensuring obtaining macronutrients at each meal (proteins, fats, carbohydrates). [place] [employer] recommends at least 120 minutes of aerobic activity per week. This can include any heart raising activity and does not need to be done all at once Jul, BMI 34.0-34.9,adult (ICD-10 - Z68.34) As above Jul, Person consulting for explan ation of examination or test finding (ICD-10 - Z71.2) Lab results were reviewed in detail with the patient which obtained on 07/08/2021 Jul, Other All questions an d concerns addressed, patient understanding and agreeable to plan. Patient encouraged to follow up at the clinic for any additional or new questions or concerns. Time spent includes face to face time with patient and review of any pertinent laboratory results, consult documentation/hospital notes and diagnostic imaging. Time spent: 30 mins Vera Bueno, scribing the following service on behalf of Aurelia Duong NP on 07/23/2021. PLAN OF TREATMENT Medication Medication Name Sig Start Date Stop Date Ingrezza 40 MG 1 capsule Orally Once a day for 30 days Oct, fluPHENAZine HCl 2.5 MG 1 tablet Orally bid for 30 days May, FLUoxetine HCl 20 MG 3 Orally Once a day for 30 days Treatment Notes Assessment Notes Clinical Notes Gastroesophageal reflux disease with esophagitis witho ut hemorrhage May use Tums/Rolaids as needed for acute flares.Avoid trigger foods including spicy, acidic foods, peppermint and chocolate. Keep food diary to determine personal triggers.Do not eat or drink 2 hours before bed.Keep head of bed elevated. Weight loss will improve reflux. The patient experienced to have flare up s of GERD. Will switch her from omeprazole to pantoprazole today. Advised to follow up if symptoms worsen or persist. Precautions given and patient verbalized understanding. Follow up as needed. Type 2 diabetes mellitus without complic ation, without long-term current use of insulin Advised to continue on the current medic ation regimen. Things that you can do at home to improve glycemic control (improve blood sugars) 1. Avoid foods with added sugars (read nutrition labels) 2. Avoid foods high in carbohydrates (bread, pasta, rice, sugar, sweets, processed foods) 3. Increase physical activity 4. Avoid snacking/eating between meals 5. Avoid sugary beverages like fruit juice, soda, alcohol Mental health problem Keep appointments with [facility] Neurological symptoms Keep appointments with Neurology Nursi staff requested office note and recent testing Hypertriglyceridemia Elevated Triglyceri gold.Will recheck cholesterol with next labs. Already on atorvastatin Weight gain The patient had gained aroun d 5.8 pounds of the body weight since the previous visit and currently weighs around 186.4 pounds with a BMI of 34.09 Index. Obesity (BMI 30.0-34.9) Recommend increasing low imp act activity (walking, swimming, yoga), weight loss and diet including portion control, avoidance of high glycemic index foods like white bread, white pasta, white rice, white sugar and avoidance of fatty foods like butter, fried foods, steak/ground beef, full fat dairy products. Avoid sugary beverages like fruit juice, soda and alcohol. Consume lean protein including fish, chicken and healthy fats like avocado, nuts and olive oil. Check food labels and avoid foods high in salt especially prepackaged meals. Try to eat structured meals throughout the day, ensuring obtaining macronutrients at each meal (proteins, fats, carbohydrates). [place] [employer] recommends at least 120 minutes of aerobic activity per week. This can include any heart raising activity and does not need to be done all at once BMI 34.0-34.9,adult As above Person consulting for explanation of examination or te st finding Lab results were reviewed in detail with the patient which obtained on 07/08/2021 Future Test Test Name Order Date LIPID PROFILE [id number] HGBA1C [id number] COMPLETE METABOLIC PROLFILE [id number] Next Appt Details 3 Months, prn Reason:DM/Labs Provider Name:Tavoarlen Carrillo, 2021-08-12 0 9:15:00 AM, [address] [place] [address], [phone], Provider Name:Brenda Allen, 08-12 09:40:00 AM, [address] [place] [address], [phone], Provider Name:Lizzy Zapien, 08-13 04:45:00 PM, [address] [place] [address], [phone], Provider Name:Aurelia Duong, 2021-09-01 3 10:00:00 AM, [address] [place] [address], [phone], Follow Up:3 Months, prnDM/Labs Insurance Providers Payer Name Payer Address Payer Phone Insured Name Patient Relati onship to Insured Coverage Start Date Coverage End Date [facility] [employer] [address] [facility] [id number] [place]
--- OUTSIDE RECORDS SUMMARY | 2021-10-02 09:00 | CCD ---
Author Author [facility] Organization [facility] Address Unknown Phone Unavailable Care Team Providers Care Caustic Operator Name Role Phone Ad, L Aurelia ICT DEVELOPER Unavailable Unavailable [facility] Ii, L Aurelia ICT DEVELOPER Unavailable Unavailable Ad, L Aurelia ICT DEVELOPER Unavailable Unavailable [facility] Ii, L Aurelia ICT DEVELOPER Unavailable Unavailable [facility] Ii, L Aurelia ICT DEVELOPER Unavailable Unavailable [facility] Ii, L Aurelia ICT DEVELOPER Unavailable Unavailable [facility] Ii, L Aurelia ICT DEVELOPER Unavailable Unavailable Ad, L Aurelia ICT DEVELOPER Unavailable Unavailable Ad, L Aurelia ICT DEVELOPER Unavailable Unavailable [facility] Ii, L Aurelia ICT DEVELOPER Unavailable Unavailable Ad, L Aurelia ICT DEVELOPER Unavailable Unavailable Ad, L Aurelia ICT DEVELOPER Unavailable Unavailable [facility] Ii, L Aurelia ICT DEVELOPER Unavailable Unavailable Ad, L Aurelia ICT DEVELOPER Unavailable Unavailable Ad, L Aurelia ICT DEVELOPER Unavailable Unavailable [facility] Ii, L Aurelia ICT DEVELOPER Unavailable Unavailable Ad, L Aurelia ICT DEVELOPER Unavailable Unavailable [facility] Ii, L Aurelia ICT DEVELOPER Unavailable Unavailable Ad, L Aurelia ICT DEVELOPER Unavailable Unavailable [facility] Ii, L Aurelia ICT DEVELOPER Unavailable Unavailable Ad, L Aurelia ICT DEVELOPER Unavailable Unavailable Ad, L Aurelia ICT DEVELOPER Unavailable Unavailable Ad, L Aurelia ICT DEVELOPER Unavailable Unavailable Ad, L Aurelia ICT DEVELOPER Unavailable Unavailable Ad, L Aurelia ICT DEVELOPER Unavailable Unavailable [facility] Ii, L Aurelia ICT DEVELOPER Unavailable Unavailable [facility] Ii, L Aurelia ICT DEVELOPER Unavailable Unavailable Ad, L Aurelia ICT DEVELOPER Unavailable Unavailable Ad, L Aurelia ICT DEVELOPER Unavailable Unavailable [facility] Ii, L Aurelia ICT DEVELOPER Unavailable Unavailable [facility] Ii, L Aurelia ICT DEVELOPER Unavailable Unavailable [facility] Ii, L Aurelia ICT DEVELOPER Unavailable Unavailable [facility] Ii, L Aurelia ICT DEVELOPER Unavailable Unavailable Ad, L Aurelia ICT DEVELOPER Unavailable Unavailable Ad, L Aurelia ICT DEVELOPER Unavailable Unavailable Ad, L Aurelia ICT DEVELOPER Unavailable Unavailable Ad, L Aurelia ICT DEVELOPER Unavailable Unavailable Ad, L Aurelia ICT DEVELOPER Unavailable Unavailable Ad, L Aurelia ICT DEVELOPER Unavailable Unavailable [facility], L Aurelia ICT DEVELOPER Unavailable [facility] Unavailable Unavailable JEMMA, J JANEY DO Unavailable Unavailable JEMMA, J JANEY DO Unavailable Unavailable JEMMA, J JANEY DO Unavailable Unavailable JEMMA, J JANEY DO Unavailable Unavailable JEMMA, J JANEY DO Unavailable Unavailable JEMMA, J JANEY DO Unavailable Unavailable JEMMA, J JAENY DO Unavailable Unavailable JEMMA, J JANEY DO Unavailable Unavailable JEMMA, J JANEY DO Unavailable Unavailable JEMMA, J JANEY DO Unavailable Unavailable JEMMA, J JANEY DO Unavailable Unavailable JEMMA, J JANEY DO Unavailable Unavailable JEMMA, J JANEY DO Unavailable Unavailable JEMMA, J JANEY DO Unavailable Unavailable JEMMA, J JANEY DO Unavailable Unavailable JEMMA, J JANEY DO Unavailable Unavailable JEMMA, J JANEY DO Unavailable Unavailable JEMMA, J JANEY DO Unavailable Unavailable JEMMA, J JANEY DO Unavailable Unavailable JEMMA, J JANEY DO Unavailable Unavailable JEMMA, J JANEY DO Unavailable Unavailable JEMMA, J JANEY DO Unavailable Unavailable JEMMA, J JANEY DO Unavailable Unavailable JEMMA, J JANEY DO Unavailable Unavailable JEMMA, J JANEY DO Unavailable Unavailable JEMMA, J JANEY DO Unavailable Unavailable JEMMA, J JANEY DO Unavailable Unavailable SMITH SR, KALEY RING MD Unavailable Unavailable SMITH SR, KALEY RING MD Unavailable Unavailable SMITH SR, KALEY RING MD Unavailable Unavailable SMITH SR, KALEY RING MD Unavailable Unavailable SMITH SR, KALEY RING MD Unavailable Unavailable SMITH SR, KALEY RING MD Unavailable Unavailable SMITH SR, KALEY RING MD Unavailable Unavailable SMITH SR, KALEY RING MD Unavailable Unavailable SMITH SR, KALEY RING MD Unavailable Unavailable SMITH SR, KALEY RING MD Unavailable Unavailable SMITH SR, KALEY RING MD Unavailable Unavailable SMITH SR, KALEY RING MD Unavailable Unavailable SMITH SR, KALEY RING MD Unavailable Unavailable SMITH SR, KALEY RING MD Unavailable Unavailable SMITH SR, KALEY RING MD Unavailable Unavailable SMITH SR, KALEY RING MD Unavailable Unavailable SMITH SR, KALEY RING MD Unavailable Unavailable SMITH SR, KALEY RING MD Unavailable Unavailable SMITH SR, KALEY RING MD Unavailable Unavailable SMITH SR, KALEY RING MD Unavailable Unavailable SMITH SR, KALEY RING MD Unavailable Unavailable SMITH SR, KALEY RING MD Unavailable Unavailable SMITH SR, KALEY RING MD Unavailable Unavailable SMITH SR, KALEY RING MD Unavailable Unavailable SMITH SR, KALEY RING MD Unavailable Unavailable SMITH SR, KALEY RING MD Unavailable Unavailable SMITH SR, KALEY RING MD Unavailable Unavailable SMITH SR, KALEY RING MD Unavailable Unavailable SMITH SR, KALEY RING MD Unavailable Unavailable SMITH SR, KALEY RING MD Unavailable Unavailable SMITH SR, KALEY RING MD Unavailable Unavailable SMITH SR, KALEY RING MD Unavailable Unavailable SMITH SR, KALEY RING MD Unavailable Unavailable SMITH SR, KALEY RING MD Unavailable Unavailable SMITH SR, KALEY RING MD Unavailable Unavailable SMITH SR, KALEY RING MD Unavailable Unavailable SMITH SR, KALEY RING MD Unavailable Unavailable SMITH SR, KALEY RING MD Unavailable Unavailable SMITH SR, KALEY RING MD Unavailable Unavailable SMITH SR, KALEY RING MD Unavailable Unavailable SMITH SR, KALEY RING MD Unavailable Unavailable SMITH SR, KALEY RING MD Unavailable Unavailable SMITH SR, KALEY RING MD Unavailable Unavailable SMITH SR, KALEY RING MD Unavailable Unavailable SMITH SR, KALEY RING MD Unavailable Unavailable SMITH SR, KALEY RING MD Unavailable Unavailable SMITH SR, KALEY RING MD Unavailable Unavailable SMITH SR, KALEY RING MD Unavailable Unavailable SMITH SR, KALEY RING MD Unavailable Unavailable SMITH SR, KALEY RING MD Unavailable Unavailable SMITH SR, KALEY RING MD Unavailable Unavailable SMITH SR, KALEY RING MD Unavailable Unavailable SMITH SR, KALEY RING MD Unavailable Unavailable SMITH SR, KALEY RING MD Unavailable Unavailable SMITH SR, KALEY RING MD Unavailable Unavailable SMITH SR, KALEY RING MD Unavailable Unavailable JODIE, VIDHI CIGAR MACHINE FEEDER Unavailable Unavailable JODIE, VIDHI CIGAR MACHINE FEEDER Unavailable Unavailable JODIE, VIDHI CIGAR MACHINE FEEDER Unavailable Unavailable JODIE, VIDHI CIGAR MACHINE FEEDER Unavailable Unavailable JODIE, VIDHI CIGAR MACHINE FEEDER Unavailable Unavailable JODIE, VIDHI CIGAR MACHINE FEEDER Unavailable Unavailable JODIE, VIDHI CIGAR MACHINE FEEDER Unavailable Unavailable JODIE, VIDHI CIGAR MACHINE FEEDER Unavailable Unavailable JODIE, VIDHI CIGAR MACHINE FEEDER Unavailable Unavailable JODIE, VIDHI CIGAR MACHINE FEEDER Unavailable Unavailable JODIE, VIDHI CIGAR MACHINE FEEDER Unavailable Unavailable JODIE, VIDHI CIGAR MACHINE FEEDER Unavailable Unavailable JODIE, VIDHI CIGAR MACHINE FEEDER Unavailable Unavailable JODIE, VIDHI CIGAR MACHINE FEEDER Unavailable Unavailable JODIE, VIDHI CIGAR MACHINE FEEDER Unavailable Unavailable JODIE, VIDHI CIGAR MACHINE FEEDER Unavailable Unavailable JODIE, VIDHI CIGAR MACHINE FEEDER Unavailable Unavailable JODIE, VIDHI CIGAR MACHINE FEEDER Unavailable Unavailable JODIE, VIDHI CIGAR MACHINE FEEDER Unavailable Unavailable JODIE, VIDHI CIGAR MACHINE FEEDER Unavailable Unavailable JODIE, VIDHI CIGAR MACHINE FEEDER Unavailable Unavailable JODIE, VIDHI CIGAR MACHINE FEEDER Unavailable Unavailable JODIE, VIDHI CIGAR MACHINE FEEDER Unavailable Unavailable JODIE, VIDHI CIGAR MACHINE FEEDER Unavailable Unavailable JODIE, VIDHI CIGAR MACHINE FEEDER Unavailable Unavailable JODIE, VIDHI CIGAR MACHINE FEEDER Unavailable Unavailable JODIE, VIDHI CIGAR MACHINE FEEDER Unavailable Unavailable JODIE, VIDHI CIGAR MACHINE FEEDER Unavailable Unavailable JODIE, VIDHI CIGAR MACHINE FEEDER Unavailable Unavailable JODIE, VIDHI CIGAR MACHINE FEEDER Unavailable Unavailable JODIE, VIDHI CIGAR MACHINE FEEDER Unavailable Unavailable JODIE, VIDHI CIGAR MACHINE FEEDER Unavailable Unavailable JODIE, VIDHI CIGAR MACHINE FEEDER Unavailable Unavailable JODIE, VIDHI CIGAR MACHINE FEEDER Unavailable Unavailable JODIE, VIDHI CIGAR MACHINE FEEDER Unavailable Unavailable JODIE, VIDHI CIGAR MACHINE FEEDER Unavailable Unavailable JODIE, VIDHI CIGAR MACHINE FEEDER Unavailable Unavailable Rydberg, Jodi PA Unavailable Unavailable Rydberg, Jodi PA Unavailable Unavailable Rydberg, Jodi PA Unavailable Unavailable Rydberg, Jodi PA Unavailable Unavailable Rydberg, Jodi PA Unavailable Unavailable Rydberg, Jodi PA Unavailable Unavailable Rydberg, Jodi PA Unavailable Unavailable Rydberg, Jodi PA Unavailable Unavailable Rydberg, Jodi PA Unavailable Unavailable Rydberg, Jodi PA Unavailable Unavailable Rydberg, Jodi PA Unavailable Unavailable Rydberg, Jodi PA Unavailable Unavailable Rydberg, Jodi PA Unavailable Unavailable Rydberg, Jodi PA Unavailable Unavailable Rydberg, Jodi PA Unavailable Unavailable Rydberg, Jodi PA Unavailable Unavailable Rydberg, Jodi PA Unavailable Unavailable Rydberg, Jodi PA Unavailable Unavailable Rydberg, Jodi PA Unavailable Unavailable Rydberg, Jodi PA Unavailable Unavailable Rydberg, Jodi PA Unavailable Unavailable Rydberg, Jodi PA Unavailable Unavailable Rydberg, Jodi PA Unavailable Unavailable Mony, M Oly PA-C Unavailable Unavailable Mony, M Oly PA-C Unavailable Unavailable Mony, M Oly PA-C Unavailable Unavailable Mony, M Oly PA-C Unavailable Unavailable Mony, M Oly PA-C Unavailable Unavailable Mony, M Oly PA-C Unavailable Unavailable Mony, M Oly PA-C Unavailable Unavailable Mony, M Oly PA-C Unavailable Unavailable Mony, M Oly PA-C Unavailable Unavailable Mony, M Oly PA-C Unavailable Unavailable Mony, M Oly PA-C Unavailable Unavailable Mony, M Oly PA-C Unavailable Unavailable Mony, M Oly PA-C Unavailable Unavailable Mony, M Oly PA-C Unavailable Unavailable Mony, M Oly PA-C Unavailable Unavailable Mony, M Oly PA-C Unavailable Unavailable Mony, M Oly PA-C Unavailable Unavailable Mony, M Oly PA-C Unavailable Unavailable Mony, M Oly PA-C Unavailable Unavailable Mony, M Oly PA-C Unavailable Unavailable Mony, M Oly PA-C Unavailable Unavailable Mony, M Oly PA-C Unavailable Unavailable Mony, M Oly PA-C Unavailable Unavailable Mony, M Oly PA-C Unavailable Unavailable Mony, M Oly PA-C Unavailable Unavailable Mony, M Oly PA-C Unavailable Unavailable Mony, M Oly PA-C Unavailable Unavailable Mony, M Oly PA-C Unavailable Unavailable Mony, M Oly PA-C Unavailable Unavailable Mony, M Oly PA-C Unavailable Unavailable Mony, M Oly PA-C Unavailable Unavailable Mony, M Oly PA-C Unavailable Unavailable Mony, M Oly PA-C Unavailable Unavailable Mony, M Oly PA-C Unavailable Unavailable Mony, M Oly PA-C Unavailable Unavailable Mony, M Oly PA-C Unavailable Unavailable Mony, M Oly PA-C Unavailable Unavailable Mony, M Oly PA-C Unavailable Unavailable DESJARLAIS, KATJA ACTOR UNDERSTUDY Unavailable Unavailable DESJARLAIS, KATJA ACTOR UNDERSTUDY Unavailable Unavailable DESJARLAIS, KATJA ACTOR UNDERSTUDY Unavailable Unavailable DESJARLAIS, KATJA ACTOR UNDERSTUDY Unavailable Unavailable DESJARLAIS, KATJA ACTOR UNDERSTUDY Unavailable Unavailable DESJARLAIS, KATJA ACTOR UNDERSTUDY Unavailable Unavailable DESJARLAIS, KATJA ACTOR UNDERSTUDY Unavailable Unavailable DESJARLAIS, KATJA ACTOR UNDERSTUDY Unavailable Unavailable DESJARLAIS, KATJA ACTOR UNDERSTUDY Unavailable Unavailable DESJARLAIS, KATJA ACTOR UNDERSTUDY Unavailable Unavailable Dorie ZAPIEN Unavailable Unavailable JUAN MANUEL, KENDRA Unavailable Unavailable DRAKE, ESTEFANIA DANE CIGAR MACHINE FEEDER-C, MSN Unavailable Unavailab le DRAKE, ESTEFANIA DANE CIGAR MACHINE FEEDER-C, MSN Unavailable Unavailab le DRAKE, ESTEFANIA DANE CIGAR MACHINE FEEDER-C, MSN Unavailable Unavailab le DRAKE, ESTEFANIA DANE CIGAR MACHINE FEEDER-C, MSN Unavailable Unavailab le DRAKE, ESTEFANIA DANE CIGAR MACHINE FEEDER-C, MSN Unavailable Unavailab le DRAKE, ESTEFANIA DANE CIGAR MACHINE FEEDER-C, MSN Unavailable Unavailab le DRAKE, ESTEFANIA DANE CIGAR MACHINE FEEDER-C, MSN Unavailable Unavailab le DRAKE, ESTEFANIA DANE CIGAR MACHINE FEEDER-C, MSN Unavailable Unavailab le DRAKE, ESTEFANIA DANE CIGAR MACHINE FEEDER-C, MSN Unavailable Unavailab le DRAKE, ESTEFANIA DANE CIGAR MACHINE FEEDER-C, MSN Unavailable Unavailab le DRAKE, ESTEFANIA DANE CIGAR MACHINE FEEDER-C, MSN Unavailable Unavailab le DRAKE, ESTEFANIA DANE CIGAR MACHINE FEEDER-C, MSN Unavailable Unavailab le DRAKE, ESTEFANIA DANE CIGAR MACHINE FEEDER-C, MSN Unavailable Unavailab le DRAKE, ESTEFANIA DANE CIGAR MACHINE FEEDER-C, MSN Unavailable Unavailab le DRAKE, ESTEFANIA DANE CIGAR MACHINE FEEDER-C, MSN Unavailable Unavailab le DRAKE, ESTEFANIA DANE CIGAR MACHINE FEEDER-C, MSN Unavailable Unavailab le DRAKE, ESTEFANIA DANE CIGAR MACHINE FEEDER-C, MSN Unavailable Unavailab le DRAKE, ESTEFANIA DANE CIGAR MACHINE FEEDER-C, MSN Unavailable Unavailab le DRAKE, ESTEFANIA DANE CIGAR MACHINE FEEDER-C, MSN Unavailable Unavailab le DRAKE, ESTEFANIA DANE CIGAR MACHINE FEEDER-C, MSN Unavailable Unavailab le DRAKE, ESTEFANIA DANE CIGAR MACHINE FEEDER-C, MSN Unavailable Unavailab le DRAKE, ESTEFANIA DANE CIGAR MACHINE FEEDER-C, MSN Unavailable Unavailab le DRAKE, ESTEFANIA DANE CIGAR MACHINE FEEDER-C, MSN Unavailable Unavailab le DRAKE, ESTEFANIA DANE CIGAR MACHINE FEEDER-C, MSN Unavailable Unavailab le DRAKE, ESTEFANIA DANE CIGAR MACHINE FEEDER-C, MSN Unavailable Unavailab le DRAKE, ESTEFANIA DANE CIGAR MACHINE FEEDER-C, MSN Unavailable Unavailab le DRAKE, ESTEFANIA DANE CIGAR MACHINE FEEDER-C, MSN Unavailable Unavailab le DRAKE, ESTEFANIA DANE CIGAR MACHINE FEEDER-C, MSN Unavailable Unavailab le DRAKE, ESTEFANIA DANE CIGAR MACHINE FEEDER-C, MSN Unavailable Unavailab le DRAKE, ESTEFANIA DANE CIGAR MACHINE FEEDER-C, MSN Unavailable Unavailab le DRAKE, ESTEFANIA DANE CIGAR MACHINE FEEDER-C, MSN Unavailable Unavailab le DRAKE, ESTEFANIA DANE CIGAR MACHINE FEEDER-C, MSN Unavailable Unavailab le DRAKE, ESTEFANIA DANE CIGAR MACHINE FEEDER-C, MSN Unavailable Unavailab le DRAKE, ESTEFANIA DANE CIGAR MACHINE FEEDER-C, MSN Unavailable Unavailab le DRAKE, ESTEFANIA DANE CIGAR MACHINE FEEDER-C, MSN Unavailable Unavailab le DRAKE, ESTEFANIA DANE CIGAR MACHINE FEEDER-C, MSN Unavailable Unavailab le DRAKE, ESTEFANIA DANE CIGAR MACHINE FEEDER-C, MSN Unavailable Unavailab le DRAKE, ESTEFANIA DANE CIGAR MACHINE FEEDER-C, MSN Unavailable Unavailab le DRAKE, ESTEFANIA DANE CIGAR MACHINE FEEDER-C, MSN Unavailable Unavailab le DRAKE, ESTEFANIA DANE CIGAR MACHINE FEEDER-C, MSN Unavailable Unavailab le DRAKE, ESTEFANIA DANE CIGAR MACHINE FEEDER-C, MSN Unavailable Unavailab le DRAKE, ESTEFANIA DANE CIGAR MACHINE FEEDER-C, MSN Unavailable Unavailab le DRAKE, ESTEFANIA DANE CIGAR MACHINE FEEDER-C, MSN Unavailable Unavailab le DRAKE, ESTFEANIA DANE CIGAR MACHINE FEEDER-C, MSN Unavailable Unavailab le DRAKE, ESTEFANIA DANE CIGAR MACHINE FEEDER-C, MSN Unavailable Unavailab le WILBER SERRANO PA Unavailable Unavailable WILBER SERRANO PA Unavailable Unavailable WILBER SERRANO PA Unavailable Unavailable WILBER SERRANO PA Unavailable Unavailable WILBER ESRRANO PA Unavailable Unavailable WILBER SERRANO PA Unavailable Unavailable WILBER SERRANO PA Unavailable Unavailable WILBER SERRANO PA Unavailable Unavailable WILBER SERRANO PA Unavailable Unavailable WILBER SERRANO PA Unavailable Unavailable WILBER SERRANO PA Unavailable Unavailable WILBER SERRANO PA Unavailable Unavailable WILBER SERRANO PA Unavailable Unavailable WILBER SERRANO PA Unavailable Unavailable ZACH, WILBER JORGE ALBERTO PA Unavailable Unavailable ZACH, WILBER JORGE ALBERTO PA Unavailable Unavailable ZACH, WILBER JORGE ALBERTO PA Unavailable Unavailable ZACH, WILBER JORGE ALBERTO PA Unavailable Unavailable ZACH, WILBER JORGE ALBERTO PA Unavailable Unavailable ZACH, WILBER JORGE ALBERTO PA Unavailable Unavailable ZACH, WILBER JORGE ALBERTO PA Unavailable Unavailable ZACH, WILBER JORGE ALBERTO PA Unavailable Unavailable WERBLIN, Shoaib. KATIE Unavailable [phone] WERBLIN, Z. KATIE Unavailable [phone] WERBLIN, Z. KATIE Unavailable [phone] WERBLIN, Z. KATIE Unavailable [phone] WERBLIN, Z. KATIE Unavailable [phone] Lizzy Zapien Unavailable Lizzy Zapien Unavailable PEGBERT MD Unavailable Unavailable PEG, BERT MD Unavailable Unavailable PEG, BERT MD Unavailable Unavailable PEG, BERT MD Unavailable Unavailable PEG, BERT MD Unavailable Unavailable PEG, BERT MD Unavailable Unavailable PEG, BERT MD Unavailable Unavailable PEG, BERT MD Unavailable Unavailable PEG, BERT MD Unavailable Unavailable PEG, BERT MD Unavailable Unavailable PEG, BERT MD Unavailable Unavailable PEG, BERT MD Unavailable Unavailable PEG, BERT MD Unavailable Unavailable PEG, BERT MD Unavailable Unavailable PEG, BERT MD Unavailable Unavailable PEG, BERT MD Unavailable Unavailable PEG, BERT MD Unavailable Unavailable PEG, BERT MD Unavailable Unavailable PEG, BERT MD Unavailable Unavailable PEG, BERT MD Unavailable Unavailable PEG, BERT MD Unavailable Unavailable PEG, BERT MD Unavailable Unavailable PEG, BERT MD Unavailable Unavailable PEG, BRET MD Unavailable Unavailable PEG, BERT MD Unavailable Unavailable PEG, BERT MD Unavailable Unavailable PEG, BERT MD Unavailable Unavailable PEG, BERT MD Unavailable Unavailable PEG, BERT MD Unavailable Unavailable PEG, BERT MD Unavailable Unavailable PEG, BERT MD Unavailable Unavailable PEG, BRET MD Unavailable Unavailable PEG, BERT MD Unavailable Unavailable PEG, BERT MD Unavailable Unavailable PEG, BERT MD Unavailable Unavailable PEG, BERT MD Unavailable Unavailable PEG, BERT MD Unavailable Unavailable PEG, BERT MD Unavailable Unavailable PEG, BERT MD Unavailable Unavailable PEG, BERT MD Unavailable Unavailable PEG, BERT MD Unavailable Unavailable PEG, BERT MD Unavailable Unavailable PEG, BERT MD Unavailable Unavailable JUAN DAVID, PRALONSO ANTONY MD Unavailable Unavailable JUAN DAVID, PRYSHARMIN ANTONY MD Unavailable Unavailable JUAN DAVID, PRYJAMADEO ANTONY MD Unavailable Unavailable JUAN DAVID, PRYSHARMIN ANTONY MD Unavailable Unavailable JUAN DAVID, PRYJAMADEO ANTONY MD Unavailable Unavailable JUAN DAVID, PRYJAMADEO ANTONY MD Unavailable Unavailable JUAN DAVID, PRYJMA CASSIA STAFFORD Unavailable Unavailable JUAN DAVID, PRYJAMADEO ANTONY MD Unavailable Unavailable JUAN DAVID, PRYJAMADEO ANTONY MD Unavailable Unavailable JUAN DAVID, PRYJAMADEO ANTONY MD Unavailable Unavailable JUAN DAVID, PRYSHARMIN ANTONY MD Unavailable Unavailable JUAN DAVID, PRYJAMADEO ANTONY MD Unavailable Unavailable JUAN DAVID, PRYJAMADEO ANTONY MD Unavailable Unavailable JUAN DAVID, BLUYSHARMIN ANTONY MD Unavailable Unavailable JUAN DAVID, BLUYSHARMIN ANTONY MD Unavailable Unavailable JUAN DAVID, PRYSHARMIN ANTONY MD Unavailable Unavailable JUAN DAVID, PRYSHARMIN ANTONY MD Unavailable Unavailable JUAN DAVID, PRYJAMADEO ANTONY MD Unavailable Unavailable JUAN DAVID, PRYSHARMIN ANTONY MD Unavailable Unavailable JUAN DAVID, BLUYSHARMIN ANTONY MD Unavailable Unavailable JUAN DAVID, LUCIO ANTONY MD Unavailable Unavailable JUAN DAVID, BLUYSHARMIN ANTONY MD Unavailable Unavailable JUAN DAVID, PRYJAMADEO ANTONY MD Unavailable Unavailable JUAN DAVID, BLUYSHARMIN ANTONY MD Unavailable Unavailable JUAN DAVID, LUCIO ANTONY MD Unavailable Unavailable JUAN DAVID, LUCIO ANTONY MD Unavailable Unavailable JUAN DAVID, NAHUMJAMADEO ANTONY MD Unavailable Unavailable JUAN DAVID, PRYJAMADEO ANTONY MD Unavailable Unavailable JUAN DAVID, PRYJAMADEO ANTONY MD Unavailable Unavailable JUAN DAVID, PRYJAMADEO ANTONY MD Unavailable Unavailable Bartoszewski, Edith Moses MS, RPA-C Unavailable Unav ailable Bartoszewski, Edith Aurelia MS, RPA-C Unavailable Unav ailable Bartoszewski, Edith Aurelia MS, RPA-C Unavailable Unav ailable Bartoszewski, Edith Moses MS, RPA-C Unavailable Unav ailable Bartoszewski, Edith Aurelia MS, RPA-C Unavailable Unav ailable Bartoszewski, Edith Aurelia MS, RPA-C Unavailable Unav ailable Bartoszewski, Edith Aurelia MS, RPA-C Unavailable Unav ailable Bartoszewski, Edith Aurelia MS, RPA-C Unavailable Unav ailable Bartoszewski, Edith Aurelia MS, RPA-C Unavailable Unav ailable Bartoszewski, Edith Aurelia MS, RPA-C Unavailable Unav ailable Bartoszewski, Edith Aurelia MS, RPA-C Unavailable Unav ailable Bartoszewski, Edith Aurelia MS, RPA-C Unavailable Unav ailable Bartoszewski, Edith Aurelia MS, RPA-C Unavailable Unav ailable Bartoszewski, Edith Aurelia MS, RPA-C Unavailable Unav ailable Bartoszewski, Edith Aurelia MS, RPA-C Unavailable Unav ailable Bartoszewski, Edith Aurelia MS, RPA-C Unavailable Unav ailable Bartoszewski, Edith Aurelia MS, RPA-C Unavailable Unav ailable Bartoszewski, Edith Aurelia MS, RPA-C Unavailable Unav ailable Bartoszewski, Edith Aurelia MS, RPA-C Unavailable Unav ailable Bartoszewski, Edith Aurelia MS, RPA-C Unavailable Unav ailable Bartoszewski, Edith Aurelia MS, RPA-C Unavailable Unav ailable Bartoszewski, Edith Aurelia MS, RPA-C Unavailable Unav ailable Bartoszewski, Edith Aurelia MS, RPA-C Unavailable Unav ailable Bartoszewski, Edith Aurelia MS, RPA-C Unavailable Unav ailable Bartoszewski, Edith Aurelia MS, RPA-C Unavailable Unav ailable Bartoszewski, Edith Aurelia MS, RPA-C Unavailable Unav ailable Bartoszewski, Edith Aurelia MS, RPA-C Unavailable Unav ailable Bartoszewski, Edith Aurelia MS, RPA-C Unavailable Unav ailable Bartoszewski, Edith Aurelia MS, RPA-C Unavailable Unav ailable Bartoszewski, Edith Aurelia MS, RPA-C Unavailable Unav ailable AGRAWAL, QUE Unavailable Unavailable Omkar, A Oly CIGAR MACHINE FEEDER Unavailable Unavailable Omkar, A Oly CIGAR MACHINE FEEDER Unavailable Unavailable Omkar, A Oly CIGAR MACHINE FEEDER Unavailable Unavailable Omkar, A Oly CIGAR MACHINE FEEDER Unavailable Unavailable Omkar, A Oly CIGAR MACHINE FEEDER Unavailable Unavailable Omkar, A Oly CIGAR MACHINE FEEDER Unavailable Unavailable Omkar, A Oly CIGAR MACHINE FEEDER Unavailable Unavailable Omkar, A Oly CIGAR MACHINE FEEDER Unavailable Unavailable Omkar, A Oly CIGAR MACHINE FEEDER Unavailable Unavailable Omkar, A Oly CIGAR MACHINE FEEDER Unavailable Unavailable Omkar, A Oly CIGAR MACHINE FEEDER Unavailable Unavailable Omkar, A Oly CIGAR MACHINE FEEDER Unavailable Unavailable Omkar, A Oly CIGAR MACHINE FEEDER Unavailable Unavailable Omkar, A Oly CIGAR MACHINE FEEDER Unavailable Unavailable Omkar, A Oly CIGAR MACHINE FEEDER Unavailable Unavailable Omkar, A Oly CIGAR MACHINE FEEDER Unavailable Unavailable Omkar, A Oly CIGAR MACHINE FEEDER Unavailable Unavailable Omkar, A Oly CIGAR MACHINE FEEDER Unavailable Unavailable Omkar, A Oly CIGAR MACHINE FEEDER Unavailable Unavailable Omkar, A Oly CIGAR MACHINE FEEDER Unavailable Unavailable Omkar, A Oly CIGAR MACHINE FEEDER Unavailable Unavailable Omkar, A Oly CIGAR MACHINE FEEDER Unavailable Unavailable Omkar, A Oly CIGAR MACHINE FEEDER Unavailable Unavailable Omkar, A Oly CIGAR MACHINE FEEDER Unavailable Unavailable Omkar, A Oly CIGAR MACHINE FEEDER Unavailable Unavailable Omkar, A Oly CIGAR MACHINE FEEDER Unavailable Unavailable Omkar, A Oly CIGAR MACHINE FEEDER Unavailable Unavailable Omkar, A Oly CIGAR MACHINE FEEDER Unavailable Unavailable Omkar, A Oly CIGAR MACHINE FEEDER Unavailable Unavailable Omkar, A Oly CIGAR MACHINE FEEDER Unavailable Unavailable Omkar, A Oly CIGAR MACHINE FEEDER Unavailable Unavailable Omkar, A Oly CIGAR MACHINE FEEDER Unavailable Unavailable Omkar, A Oly CIGAR MACHINE FEEDER Unavailable Unavailable Omakr, A Oly CIGAR MACHINE FEEDER Unavailable Unavailable Omkar, A Oly CIGAR MACHINE FEEDER Unavailable Unavailable Omkar, A Oly CIGAR MACHINE FEEDER Unavailable Unavailable Omkar, A Oly CIGAR MACHINE FEEDER Unavailable Unavailable Omkar, A Oly CIGAR MACHINE FEEDER Unavailable Unavailable Omkar, A Oly CIGAR MACHINE FEEDER Unavailable Unavailable Omkar, A Oly CIGAR MACHINE FEEDER Unavailable Unavailable Omkar, A Oly CIGAR MACHINE FEEDER Unavailable Unavailable Omkar, A Oly CIGAR MACHINE FEEDER Unavailable Unavailable Omkar, A Oly CIGAR MACHINE FEEDER Unavailable Unavailable Omkar, A Oly CIGAR MACHINE FEEDER Unavailable Unavailable Omkar, A Oly CIGAR MACHINE FEEDER Unavailable Unavailable Omkar, A Oly CIGAR MACHINE FEEDER Unavailable Unavailable Omkar, A Oly CIGAR MACHINE FEEDER Unavailable Unavailable Omkar, A Oly CIGAR MACHINE FEEDER Unavailable Unavailable Omkar, A Oly CIGAR MACHINE FEEDER Unavailable Unavailable Omkar, A Oly CIGAR MACHINE FEEDER Unavailable Unavailable Omkar, A Oly CIGAR MACHINE FEEDER Unavailable Unavailable Omkar, A Oly CIGAR MACHINE FEEDER Unavailable Unavailable Omkar, A Oly CIGAR MACHINE FEEDER Unavailable Unavailable Omkar, A Oly CIGAR MACHINE FEEDER Unavailable Unavailable Omkar, A Oly CIGAR MACHINE FEEDER Unavailable Unavailable ZUKER, B SETH MD Unavailable Unavailable ZUKER, B SETH MD Unavailable Unavailable ZUKER, B SETH MD Unavailable Unavailable ZUKER, B SETH MD Unavailable Unavailable ZUKER, B SETH MD Unavailable Unavailable ZUKER, B SETH MD Unavailable Unavailable ZUKER, B SETH MD Unavailable Unavailable ZUKER, B SETH MD Unavailable Unavailable ZUKER, B SETH MD Unavailable Unavailable ZUKER, B SETH MD Unavailable Unavailable ZUKER, B SETH MD Unavailable Unavailable ZUKER, B SETH MD Unavailable Unavailable ZUKER, B SETH MD Unavailable Unavailable ZUKER, B SETH MD Unavailable Unavailable ZUKER, B SETH MD Unavailable Unavailable ZUKER, B SETH MD Unavailable Unavailable Kozacka, Neida Unavailable Kozacka, Neida Unavailable HANSA, ROCKY WAQAR PA-C Unavailable Unavailable HANSA, ROCKY WAQAR PA-C Unavailable Unavailable HANSA, ROCKY WAQAR PA-C Unavailable Unavailable HANSA, ROCKY WAQAR PA-C Unavailable Unavailable HANSA, ROCKY WAQAR PA-C Unavailable Unavailable HANSA, ROCKY WAQAR PA-C Unavailable Unavailable HANSA, ROCKY WAQAR PA-C Unavailable Unavailable HANSA, ROCKY WAQAR PA-C Unavailable Unavailable HANSA, ROCKY WAQAR PA-C Unavailable Unavailable HANSA, ROCKY WAQAR PA-C Unavailable Unavailable Omkar, A Oly CIGAR MACHINE FEEDER Unavailable Unavailable Omkar, A Oly CIGAR MACHINE FEEDER Unavailable Unavailable Omkar, A Oly CIGAR MACHINE FEEDER Unavailable Unavailable Omkar, A Oly CIGAR MACHINE FEEDER Unavailable Unavailable Omkar, A Oly CIGAR MACHINE FEEDER Unavailable Unavailable Omkar, A Oly CIGAR MACHINE FEEDER Unavailable Unavailable Omkar, A Oly CIGAR MACHINE FEEDER Unavailable Unavailable Omkar, A Oly CIGAR MACHINE FEEDER Unavailable Unavailable Omkar, A Oly CIGAR MACHINE FEEDER Unavailable Unavailable Omkar, A Oly CIGAR MACHINE FEEDER Unavailable Unavailable Omkar, A Oly CIGAR MACHINE FEEDER Unavailable Unavailable Omkar, A Oly CIGAR MACHINE FEEDER Unavailable Unavailable Omkar, A Oly CIGAR MACHINE FEEDER Unavailable Unavailable Omkar, A Oly CIGAR MACHINE FEEDER Unavailable Unavailable Omkar, A Oly CIGAR MACHINE FEEDER Unavailable Unavailable Omkar, A Oly CIGAR MACHINE FEEDER Unavailable Unavailable Omkar, A Oly CIGAR MACHINE FEEDER Unavailable Unavailable Omkar, A Oly CIGAR MACHINE FEEDER Unavailable Unavailable Omkar, A Oly CIGAR MACHINE FEEDER Unavailable Unavailable Omkar, A Oly CIGAR MACHINE FEEDER Unavailable Unavailable Omkar, A Oly CIGAR MACHINE FEEDER Unavailable Unavailable Omkar, A Oly CIGAR MACHINE FEEDER Unavailable Unavailable Omkar, A Oly CIGAR MACHINE FEEDER Unavailable Unavailable Omkar, A Oly CIGAR MACHINE FEEDER Unavailable Unavailable Omkar, A Oly CIGAR MACHINE FEEDER Unavailable Unavailable Omkar, A Oly CIGAR MACHINE FEEDER Unavailable Unavailable Omkar, A Oly CIGAR MACHINE FEEDER Unavailable Unavailable Omkar, A Oly CIGAR MACHINE FEEDER Unavailable Unavailable Omkar, A Oly CIGAR MACHINE FEEDER Unavailable Unavailable Omkar, A Oly CIGAR MACHINE FEEDER Unavailable Unavailable Omkar, A Oly CIGAR MACHINE FEEDER Unavailable Unavailable Omkar, A Oly CIGAR MACHINE FEEDER Unavailable Unavailable Omkar, A Oly CIGAR MACHINE FEEDER Unavailable Unavailable Omkar, A Oly CIGAR MACHINE FEEDER Unavailable Unavailable Omkar, A Oly CIGAR MACHINE FEEDER Unavailable Unavailable Omkar, A Oly CIGAR MACHINE FEEDER Unavailable Unavailable Omkar, A Oly CIGAR MACHINE FEEDER Unavailable Unavailable Omkar, A Oly CIGAR MACHINE FEEDER Unavailable Unavailable Omkar, A Oly CIGAR MACHINE FEEDER Unavailable Unavailable Omkar, A Oly CIGAR MACHINE FEEDER Unavailable Unavailable Omkar, A Oly CIGAR MACHINE FEEDER Unavailable Unavailable Omkar, A Oly CIGAR MACHINE FEEDER Unavailable Unavailable Omkar, A Oly CIGAR MACHINE FEEDER Unavailable Unavailable Omkar, A Oly CIGAR MACHINE FEEDER Unavailable Unavailable Omkar, A Oly CIGAR MACHINE FEEDER Unavailable Unavailable Omkar, A Oly CIGAR MACHINE FEEDER Unavailable Unavailable Omkar, A Oly CIGAR MACHINE FEEDER Unavailable Unavailable Omkar, A Oly CIGAR MACHINE FEEDER Unavailable Unavailable Omkar, A Oly CIGAR MACHINE FEEDER Unavailable Unavailable Omkar, A Oly CIGAR MACHINE FEEDER Unavailable Unavailable Omkar, A Oly CIGAR MACHINE FEEDER Unavailable Unavailable Omkar, A Oly CIGAR MACHINE FEEDER Unavailable Unavailable Omkar, A Oly CIGAR MACHINE FEEDER Unavailable Unavailable Omkar, A Oly CIGAR MACHINE FEEDER Unavailable Unavailable Omkar, A Oly CIGAR MACHINE FEEDER Unavailable Unavailable [place], Estefania Chung CIGAR MACHINE FEEDER Unavailable Unavailable [place], Estefania Chung CIGAR MACHINE FEEDER Unavailable Unavailable [place], Estefania Chung CIGAR MACHINE FEEDER Unavailable Unavailable [place], Estefania Chung CIGAR MACHINE FEEDER Unavailable Unavailable [place], Estefania Chung CIGAR MACHINE FEEDER Unavailable Unavailable [place]or[place], Estefania Chung CIGAR MACHINE FEEDER Unavailable Unavailable [place], Estefania Chung CIGAR MACHINE FEEDER Unavailable Unavailable [place], Estefania Chung CIGAR MACHINE FEEDER Unavailable Unavailable [place], Estefania Chung CIGAR MACHINE FEEDER Unavailable Unavailable [place], Estefania Chung CIGAR MACHINE FEEDER Unavailable Unavailable [place], Estefania Chung CIGAR MACHINE FEEDER Unavailable Unavailable [place], Estefania Chung CIGAR MACHINE FEEDER Unavailable Unavailable [place], Estefania Chung CIGAR MACHINE FEEDER Unavailable Unavailable [place], Estefania Chung CIGAR MACHINE FEEDER Unavailable Unavailable Re-disclosure Warning The records that you are about to access may contain information from federally-assisted alcohol or drug abuse programs. If such information is present, then the following federally mandated warning applies: This information has been disclosed to you from records protected by federal confidentiality rules (42 CFR part 2). The federal rules prohibit you from making any further disclosure of this information unless further disclosure is expressly permitted by the written consent of the person to whom it pertains or as otherwise permitted by 42 CFR part 2. A general authorization for the release of medical or other information is NOT sufficient for this purpose. The Federal rules restrict any use of the information to criminally investigate or prosecute any alcohol or drug abuse patient.The records that you are about to access may contain highly sensitive health information, the redisclosure of which is protected by Article 27-F of the [facility] Public Health law. If you continue you may have access to information: Regarding HIV / AIDS; Provided by facilities licensed or operated by the [facility] Office of Mental Health; or Provided by the [facility] Office for People With Developmental Disabilities. If such information is present, then the following [facility] mandated warning applies: This information has been disclosed to you from confidential records which are protected by state law. State law prohibits you from making any further disclosure of this information without the specific written consent of the person to whom it pertains, or as otherwise permitted by law. Any unauthorized further disclosure in violation of state law may result in a fine or shelter sentence or both. A general authorization for the release of medical or other information is NOT sufficient authorization for further disc losure. Family History Family Member Name Family Member Gender Family Member Status Date o f Status Description Data Source(s) Unknown Female Problem [facility] ([facility]) Encounters Encounter Providers Location Date Indications Data Source(s ) Outpatient [facility] 09/28/2021 12:00:00 AM [place] [id number] ([facility]) Outpatient [facility] 09/23/2021 12:00:00 AM [place] [address] ([facility]) Outpatient Attender: Neida Gilbert 09/21/2021 09:08:00 AM [facility] Outpatient Attender: WAQAR SANTO PA-C 09/15/2021 09:50:00 AM [facility] Outpatient Attender: Neida Gilbert 09/15/2021 08:14:00 AM [facility] Outpatient Attender: KATJA PILLAI NP 09/08/2021 08: 34:00 AM [facility] Outpatient Attender: Neida Gilbert 09/07/2021 09:03:00 AM [facility] Outpatient Attender: Neida Gilbert 08/31/2021 09:01:[address] [facility] Outpatient [facility] 08/27/2021 12:00:00 AM [facility] ([facility]) Outpatient Attender: Chung URBINA 08/26/2021 09:47:[address] [facility] Outpatient Attender: KATJA PILLAI NP 08/26/2021 09: 14:[address] [facility] Outpatient Attender: WAQAR SANTO PA-C 08/26/2021 09:10:[address] [facility] Outpatient [facility] 08/26/2021 12:00:00 AM EDT eCW1 ([facility]) Outpatient Attender: Aurelia ROCHAReferrer: Delmer ROCHA EMERGENCY ROOM-LAB REF 08/25/2021 12:29:00 PM EDT - 08/25/2021 12:29:00 PM EDT [facility] Outpatient [facility] 08/25/2021 12:00:00 AM EDT eCW1 ([facility]) Outpatient Attender: Neida Gilbert 08/24/2021 09:21:[address] [facility] Outpatient Attender: Lizzy Zapien 08/13/2021 04:45:[address] [facility] Outpatient Attender: WAQAR SANTO PA-C 08/12/2021 09:35:[address] [facility] Outpatient Attender: KATJA PILLAI NP 08/12/2021 09: 34:[address] [facility] Outpatient Attender: WAQAR SANTO PA-C 07/29/2021 09:21:[address] [facility] Outpatient Attender: KATJA PILLAI NP 07/29/2021 09: 13:[address] [facility] Outpatient Attender: Aurelia ROCHA 07/23/2021 10:17:[address] [facility] Outpatient [facility] 07/23/2021 12:00:00 AM EDT eCW1 ([facility]) Outpatient Attender: WAQAR SANTO PA-C 07/15/2021 09:49:[address] [facility] Outpatient Attender: Aurelia Duong RNPReferrer: Delmer ROCHA EMERGENCY ROOM-LAB 07/08/2021 06:04:00 PM EDT - 07/08/2021 06:04:[address] [facility] Outpatient Attender: Oly Espitia FNPConsultant: [facility] [id number] 07/08/2021 06:04:00 PM [facility] Outpatient Attender: Oly Espitia FNPReferrer: Aurelia ROCHA EMERGENCY ROOM-CLN2 07/08/2021 04:16:00 PM EDT - 07/08/2021 04:16:[address] [facility] Admission cancelled. Disregard status an d admitted date. Outpatient Attender: Oly Espitia CIARA 07/08/2021 10:12 :[address] [facility] Admission cancelled. Disregard status an d admitted date. Outpatient [facility] 07/08/2021 12:00:00 AM EDT [facility] ([facility]) Outpatient Attender: Lizzy Zapien 07/02/2021 05:30:[address] [facility] Outpatient [facility] 07/01/2021 12:00:00 AM EDT [facility] ([facility]) Outpatient Attender: WAQAR SANTO PA-C 06/24/2021 10:00:[address] [facility] Outpatient Attender: KATJA PILLAI NP 06/24/2021 09: 21:[address] [facility] Outpatient Attender: Lizzy Zapien 06/18/2021 10:15:[address] [facility] Outpatient Attender: Lizzy Zapien 06/10/2021 09:56:[address] [facility] Outpatient Attender: Lizzy Zapien 06/04/2021 08:03:[address] [facility] Outpatient Attender: WAQAR SANTO PA-C 06/03/2021 09:18:[address] [facility] Outpatient Attender: KATJA PILLAI NP 06/03/2021 09: 03:[address] [facility] Preadmit Attender: Aurelia ROCHA 06/02/2021 10:00:[address] [facility] Outpatient Attender: BERT RUVALCABA MD Main office - [facility] n 05/21/2021 03:15:00 PM [facility] Attender: Lizzy Zapien 05/19/2021 09:59:[address] [facility] Admission cancelled. Disregard status an d admitted date. Outpatient Attender: WAQAR SANTO PA-C 05/13/2021 01:47:[address] [facility] Outpatient Attender: KATJA PILLAI NP 05/13/2021 09: 57:[address] [facility] Outpatient Attender: WAQAR SANTO PA-C 05/13/2021 09:56:[address] [facility] Admission cancelled. Disregard status an d admitted date. Outpatient Attender: Aurelia ROCHA 05/12/2021 08:32:[address] [facility] Outpatient [facility] 05/12/2021 12:00:00 AM EDT eCW1 ([facility]) Outpatient Attender: Lizzy Zapien 05[facility]05[facility] 05/01/2021 12:00:00 AM EDT eCW1 ([facility]) Outpatient Attender: KATJA PILLAI NP 04/28/2021 09: 21:[address] [facility] Outpatient Attender: BERT RUVALCABA MD Main office - [facility] 04/23/2021 03:45:00 PM EDT [facility] ([facility]) Outpatient Attender: WAQAR SANTO PA-C 04/22/2021 09:54:[address] [facility] Outpatient Attender: Lizzy Zapien 04/21/2021 10:00:[address] [facility] Outpatient [facility] 04/08/2021 12:00:00 AM EDT eCW1 ([facility]) Outpatient Attender: Lizzy Zapien 04/07/2021 10:00:[address] [facility] Outpatient [facility] 04/06/2021 12:00:00 AM EDT eCW1 ([facility]) Outpatient Attender: Oly Sykes PA-C 04/01/2021 11:14 :[address] [facility] Outpatient Attender: WAQAR SANTO PA-C 04/01/2021 11:00:[address] [facility] ([facility]) TCM/Hospital Follow Up [facility] 04/01/2021 12:00:00 AM EDT eCW1 ([facility]) Outpatient Attender: KATJA PILLAI NP 03/31/2021 10: 40:[address] [facility] Outpatient Attender: Lizzy Zapien 03/26/2021 11:00:[address] [facility] Outpatient Attender: Lizzy Zapien 03/13/2021 09:29:[address] [facility] Outpatient [facility] 03/04/2021 12:00:00 AM EDT eCW1 ([facility]) Outpatient Attender: Lizzy Zapien 03/02/2021 10:00:[address] [facility] Outpatient Attender: WAQAR SANTO PA-C 02/27/2021 09:55:[address] [facility] Outpatient [facility] 02/24/2021 12:00:00 AM EDT eCW1 ([facility]) Outpatient Attender: BERT RUVALCABA MD Main office - [facility] 02/23/2021 08:30:00 AM EDT [facility] ([facility] ) Outpatient Attender: WAQAR SANTO PA-C 02/23/2021 08:17:[address] [facility] Outpatient Attender: KATJA PILLAI NP 02/17/2021 09: 17:[address] [facility] Outpatient Attender: JANEY EASTON DO 02/16/2021 09:21:00 A [facility] Outpatient Attender: WAQAR SANTO PA-C 02/16/2021 08:49:[address] [facility] Outpatient [facility] 02/16/2021 12:00:00 AM EDT eCW1 ([facility]) Outpatient [facility] 02/13/2021 12:00:00 AM EDT eCW1 ([facility]) Outpatient Attender: Lizzy Dye: LIZZY PLASENCIA 02/10/2021 09:03:[address] [facility] Outpatient [facility] 02/10/2021 12:00:00 AM EDT eCW1 ([facility]) Outpatient Attender: KATJA PILLAI NP 01/30/2021 02: 00:[address] [facility] Outpatient Attender: WAQAR SANTO PA-C 01/29/2021 09:42:[address] [facility] Outpatient Attender: WAQAR SANTO PA-C 01/27/2021 10:35:[address] [facility] Outpatient Attender: Lizzy Dye: LIZZY PLASENCIA 01/20/2021 06:00:[address] [facility] Outpatient Attender: Lizzy Dye: LIZZY PLASENCIA 01/13/2021 04:00:[address] [facility] Outpatient Attender: WAQAR SANTO PA-C 01/12/2021 08:47:[address] [facility] Outpatient Attender: KATJA PILLAI NP 01/08/2021 10: 00:00 AM [facility] Outpatient Attender: WAQAR SANTO PA-C 12/30/2020 09:00:00 AM [facility] Outpatient Attender: WAQAR SANTO PA-C 12/29/2020 08:49:00 AM [facility] Admission cancelled. Disregard status an d admitted date. Outpatient Attender: Lizzy Dye: LIZZY PLASENCIA 12/25/2020 05:00:00 PM [facility] Outpatient Attender: KATJA PILLAI NP 12/25/2020 10: 00:00 AM [facility] Outpatient Attender: Lizzy Dye: LIZZY PLASENCIA 12/18/2020 10:00:00 AM [facility] 12/17/2020 12:00:00 AM EST eCW1 ([facility]) Outpatient Attender: CASSIA RAJANeferrer: Aurelia ROCHA 12/16/2020 01:00:00 PM [facility] 12/16/2020 12:00:00 AM EST eCW1 ([facility]) Outpatient Attender: Oly Sykes PA-C 12/15/2020 09:48 :00 AM [facility] 12/15/2020 12:00:00 AM EST eCW1 ([facility]) Outpatient Attender: WAQAR SANTO PA-C 12/11/2020 09:04:00 AM [facility] Outpatient Attender: Lizzy Dye: LIZZY PLASENCIA 12/08/2020 08:16:00 AM [facility] 12/08/2020 12:00:00 AM EST eCW1 ([facility]) Outpatient Attender: Lizzy Dye: LIZZY PLASENCIA 12/02/2020 09:07:00 AM [facility] Outpatient [facility] 12/01/2020 12:00:00 AM EST eCW1 ([facility]) Outpatient Attender: WAQAR SANTO PA-C 11/26/2020 10:48:00 AM [facility] Outpatient [facility] 11/26/2020 12:00:00 AM EST eCW1 ([facility]) Outpatient Attender: KATJA PILLAI NP 11/25/2020 01: 40:00 PM [facility] Outpatient Attender: WAQAR SANTO PA-C 11/24/2020 09:51:00 AM [facility] Admission cancelled. Disregard status an d admitted date. Outpatient Attender: WAQAR SANTO PA-C 11/10/2020 10:00:00 AM [facility] Outpatient Attender: KATJA PILLAI NP 11/07/2020 10: 40:00 AM [facility] Outpatient [facility] 11/05/2020 12:00:00 AM EST eCW1 ([facility]) Outpatient Attender: Lizzy Dye: LIZZY PLASENCIA 10/29/2020 08:04:00 AM [facility] Outpatient Attender: WAQAR SANTO PA-C 10/27/2020 09:24:00 AM [facility] Outpatient [facility] 10/27/2020 12:00:00 AM EST eCW1 ([facility]) Outpatient [facility] 10/27/2020 12:00:00 AM EST eCW1 ([facility]) Outpatient Attender: KATJA PILLAI NP 10/22/2020 10: 00:00 AM [facility] Outpatient Attender: WAQAR SANTO PA-C 10/20/2020 11:00:00 AM [facility] Outpatient [facility] 10/20/2020 12:00:00 AM EST eCW1 ([facility]) Outpatient Attender: Oly URBINA 10/16/2020 08:58 :00 AM [facility] Outpatient [facility] 10/16/2020 12:00:00 AM EST eCW1 ([facility]) Outpatient [facility] 10/16/2020 12:00:00 AM EST eCW1 ([facility]) Outpatient [facility] 10/16/2020 12:00:00 AM EST eCW1 ([facility]) Outpatient [facility] 10/16/2020 12:00:00 AM EST eCW1 ([facility]) Outpatient [facility] 10/16/2020 12:00:00 AM EST eCW1 ([facility]) Outpatient Attender: LIZZY ZAPIEN 10/15/2020 10:00:00 AM [facility] Outpatient Attender: Aurelia Duong RNPReferrer: Delmer ROCHA EMERGENCY ROOM-LAB 10/13/2020 10:26:00 AM [facility] - 10/13/2020 10:26:00 AM [facility] Outpatient Attender: WAQAR SANTO PA-C 10/13/2020 09:48:00 AM [facility] Outpatient [facility] 10/13/2020 12:00:00 AM EST eCW1 ([facility]) Outpatient Attender: WAQAR SANTO PA-C 10/03/2020 10:55:00 AM [facility] Outpatient Attender: WAQAR SANTO PA-C 10/02/2020 11:00:00 AM [facility] Outpatient Attender: KATJA PILLAI NP 10/02/2020 08: 58:00 AM [facility] Outpatient Attender: LIZZY ZAPIEN 09/30/2020 10:00:00 AM [facility] Outpatient Attender: LIZZY ZAPIEN 09/17/2020 09:02:00 AM [facility] Outpatient Attender: WAQAR SANTO PA-C 09/16/2020 08:56:00 AM [facility] Outpatient Attender: KATJA PILLAI NP 09/11/2020 10: 24:00 AM [facility] Outpatient [facility] 09/09/2020 12:00:00 AM EST eCW1 ([facility]) Outpatient [facility] 09/08/2020 12:00:00 AM EST eCW1 ([facility]) Outpatient [facility] 09/08/2020 12:00:00 AM EST eCW1 ([facility]) Outpatient Attender: LIZZY ZAPIEN 09/03/2020 10:00:00 AM [facility] Outpatient Attender: KATJA PILLAI NP 08/26/2020 11: 40:[address] [facility] Outpatient Attender: WAQAR SANTO PA-C 08/26/2020 08:56:[address] [facility] Outpatient Attender: LIZZY ZAPIEN 08/20/2020 10:00:[address] [facility] Outpatient Attender: LIZZY ZAPIEN 08/06/2020 09:03:[address] [facility] Outpatient Attender: WAQAR SANTO PA-C 08/05/2020 09:03:[address] [facility] Outpatient Attender: KATJA PILLAI NP 07/24/2020 09: 25:[address] [facility] Outpatient Attender: WAQAR SANTO PA-C 07/23/2020 11:42:[address] [facility] Outpatient Attender: LIZZY ZAPIEN 07/23/2020 09:02:[address] [facility] Outpatient Attender: WAQAR SANTO PA-C 07/15/2020 08:52:[address] [facility] Outpatient Attender: LIZZY ZAPIEN 07/09/2020 09:05:[address] [facility] Outpatient Attender: KATJA PILLAI NP 07/03/2020 09: 50:[address] [facility] Outpatient Attender: LIZZY ZAPIEN 07/02/2020 09:02:[address] [facility] Outpatient Attender: Aurelia ROCHA 06/25/2020 11:00:[address] [facility] Outpatient Attender: LIZZY ZAPIEN 06/25/2020 09:02:[address] [facility] Outpatient Attender: DANE SAMS, MSNReferr er: MARÍA ELENA SMITH SR EMERGENCY ROOM-LAB 06/24/2020 09:29:00 AM EDT - 06/24/2020 09:29:[address] [facility] Outpatient Attender: WAQAR SANTO PA-C 06/24/2020 08:46:[address] [facility] Outpatient Attender: Aurelia ROCHA 06/18/2020 10:46:[address] [facility] Outpatient Attender: KATJA PILLAI NP 06/12/2020 10: 40:[address] [facility] Outpatient Attender: LIZZY ZAPIEN 06/11/2020 08:16:[address] [facility] Outpatient Attender: WAQAR SANTO PA-C 06/03/2020 01:07:[address] [facility] Outpatient Attender: KATJA PILLAI NP 05/30/2020 09: 14:[address] [facility] Outpatient Attender: LIZZY ZAPIEN 05/13/2020 08:51:[address] [facility] Outpatient Attender: WAQAR SANTO PA-C 05/13/2020 08:50:[address] [facility] Outpatient Attender: LIZZY Warrenender: KENDRA LUBIN 05/06/2020 09:44:[address] [facility] Outpatient Attender: QUE AGRAWAL 04/24/2020 11:30:[address] [facility] Outpatient Attender: WAQAR SANTO PA-C 04/21/2020 09:55:[address] [facility] Outpatient Attender: KATJA PILLAI NP 04/16/2020 09: 15:[address] [facility] Outpatient Attender: QUE AGRAWAL 03/27/2020 10:30:[address] [facility] Outpatient Attender: QUE AGRAWAL 03/21/2020 04:00:[address] [facility] Outpatient Attender: CASSIA FALL MDReferrer: HAYDEN KOO 12/11/2019 10:00:00 AM [facility] Outpatient Attender: CASSIA FALL MDReferrer: HAYDEN KOO 09/20/2019 09:52:00 AM [facility] - 09/20/2019 09:52:00 AM [facility] Outpatient Attender: CASSIA FALL MDReferrer: HAYDEN KOO 07/17/2019 09:30:00 AM [facility] 07/17/2019 09:30:[address] [facility] Outpatient Attender: HAYDEN KOOReferr er: HAYDEN KOO 03/19/2019 12:51:00 PM EDT - 03/19/2019 12:51:[address] [facility] Outpatient Attender: HAYDEN KOOReferr er: AHYDEN KOO 02/23/2019 01:28:00 PM EDT - 02/23/2019 01:28:[address] [facility] Outpatient Attender: HAYDEN KOOReferr er: HAYDEN KOO 02/20/2019 11:39:00 AM EDT - 02/20/2019 11:39:[address] [facility] Outpatient Attender: HAYDEN KOOReferr er: HAYDEN KOO EMERGENCY ROOM-LAB 10/19/2018 01:49:00 PM [facility] - 10/19/2018 01:49:00 PM [facility] Emergency Attender: JORGE ALBERTO Zarateerrer: HAYDEN RENE EMERGENCY ROOM-ER 09/07/2018 11:13:00 AM [facility] - 09/07/2018 09:15:00 PM [facility] Outpatient Attender: HAYDEN KOO 07/07/2016 0 2:28:[address] [facility] Emergency Attender: KATIE URBINA 016 12:47:00 PM T - 03/17/2016 03:50:[address] [facility] Outpatient Attender: VIDHI URBINA 01/29/2016 02:00 :[address] [facility] Outpatient Attender: SETH RAJANeferrer: Jodi NOVOA 03/21/2014 12:08:[address] [facility] Outpatient Attender: Jodi NOVOA 01/04/2014 09:00:00 AM [facility] Emergency Attender: Aurelia Harden MS, RPA-C 09/11/2013 12:24:00 PM EST - 09/11/2013 01:30:00 PM [facility] Immunizations Vaccine Date Status Description Data Source(s) COVID-19 VACCINE Moderna 09/17/2021 12:00:00 AM EST completed [facility] Vaccine Series Complete: NOThis Data was Submitted to [facility] Via [employer]. 08/26/2021 10:06:00 AM EDT completed e CW1 ([facility]) 08/26/2021 10:06:00 AM EDT completed e CW1 ([facility]) 08/26/2021 10:06:00 AM EDT completed e CW1 ([facility]) 08/12/2021 09:59:00 AM EDT completed e CW1 ([facility]) 08/12/2021 09:59:00 AM EDT completed e CW1 ([facility]) 08/12/2021 09:59:00 AM EDT completed e CW1 ([facility]) 07/29/2021 10:39:00 AM EDT completed e CW1 ([facility]) 07/29/2021 10:39:00 AM EDT completed e CW1 ([facility]) 07/29/2021 10:39:00 AM EDT completed e CW1 ([facility]) 07/29/2021 10:39:00 AM EDT completed e CW1 ([facility]) 07/15/2021 10:37:00 AM EDT completed e CW1 ([facility]) 07/15/2021 10:37:00 AM EDT completed e CW1 ([facility]) 07/15/2021 10:37:00 AM EDT completed e CW1 ([facility]) 07/15/2021 10:37:00 AM EDT completed e CW1 ([facility]) 06/24/2021 10:21:00 AM EDT completed e CW1 ([facility]) 06/24/2021 10:21:00 AM EDT completed e CW1 ([facility]) 06/24/2021 10:21:00 AM EDT completed e CW1 ([facility]) 06/24/2021 10:21:00 AM EDT completed e CW1 ([facility]) 06/24/2021 10:21:00 AM EDT completed e CW1 ([facility]) 06/24/2021 10:21:00 AM EDT completed e CW1 ([facility]) 06/03/2021 09:35:00 AM EDT completed e CW1 ([facility]) 06/03/2021 09:35:00 AM EDT completed e CW1 ([facility]) 06/03/2021 09:35:00 AM EDT completed e CW1 ([facility]) 06/03/2021 09:35:00 AM EDT completed e CW1 ([facility]) 06/03/2021 09:35:00 AM EDT completed e CW1 ([facility]) 06/03/2021 09:35:00 AM EDT completed e CW1 ([facility]) 05/13/2021 10:38:00 AM EDT completed e CW1 ([facility]) 05/13/2021 10:38:00 AM EDT completed e CW1 ([facility]) 05/13/2021 10:38:00 AM EDT completed e CW1 ([facility]) 05/13/2021 10:38:00 AM EDT completed e CW1 ([facility]) 05/13/2021 10:38:00 AM EDT completed e CW1 ([facility]) 05/13/2021 10:38:00 AM EDT completed e CW1 ([facility]) 05/13/2021 10:38:00 AM EDT completed e CW1 ([facility]) 04/22/2021 11:06:00 AM EDT completed e CW1 ([facility]) 04/22/2021 11:06:00 AM EDT completed e CW1 ([facility]) 04/22/2021 11:06:00 AM EDT completed e CW1 ([facility]) 04/22/2021 11:06:00 AM EDT completed e CW1 ([facility]) 04/22/2021 11:06:00 AM EDT completed e CW1 ([facility]) 04/22/2021 11:06:00 AM EDT completed e CW1 ([facility]) 04/22/2021 11:06:00 AM EDT completed e CW1 ([facility]) 04/22/2021 11:06:00 AM EDT completed e CW1 ([facility]) 04/01/2021 11:31:00 AM EDT completed e CW1 ([facility]) 04/01/2021 11:31:00 AM EDT completed e CW1 ([facility]) 04/01/2021 11:31:00 AM EDT completed e CW1 ([facility]) 04/01/2021 11:31:00 AM EDT completed e CW1 ([facility]) 04/01/2021 11:31:00 AM EDT completed e CW1 ([facility]) 04/01/2021 11:31:00 AM EDT completed e CW1 ([facility]) 04/01/2021 11:31:00 AM EDT completed e CW1 ([facility]) 04/01/2021 11:31:00 AM EDT completed e CW1 ([facility]) 04/01/2021 11:31:00 AM EDT completed e CW1 ([facility]) 04/01/2021 11:31:00 AM EDT completed e CW1 ([facility]) 04/01/2021 11:31:00 AM EDT completed e CW1 ([facility]) 02/27/2021 10:15:00 AM EDT completed e CW1 ([facility]) 02/27/2021 10:15:00 AM EDT completed e CW1 ([facility]) 02/27/2021 10:15:00 AM EDT completed e CW1 ([facility]) 02/27/2021 10:15:00 AM EDT completed e CW1 ([facility]) 02/27/2021 10:15:00 AM EDT completed e CW1 ([facility]) 02/27/2021 10:15:00 AM EDT completed e CW1 ([facility]) 02/27/2021 10:15:00 AM EDT completed e CW1 ([facility]) 02/27/2021 10:15:00 AM EDT completed e CW1 ([facility]) 02/27/2021 10:15:00 AM EDT completed e CW1 ([facility]) 02/27/2021 10:15:00 AM EDT completed e CW1 ([facility]) 02/27/2021 10:15:00 AM EDT completed e CW1 ([facility]) 02/27/2021 10:15:00 AM EDT completed e CW1 ([facility]) 02/27/2021 10:15:00 AM EDT completed e CW1 ([facility]) 02/27/2021 10:15:00 AM EDT completed e CW1 ([facility]) 02/16/2021 09:05:00 AM EDT completed e CW1 ([facility]) 02/16/2021 09:05:00 AM EDT completed e CW1 ([facility]) 02/16/2021 09:05:00 AM EDT completed e CW1 ([facility]) 02/16/2021 09:05:00 AM EDT completed e CW1 ([facility]) 02/16/2021 09:05:00 AM EDT completed e CW1 ([facility]) 02/16/2021 09:05:00 AM EDT completed e CW1 ([facility]) 02/16/2021 09:05:00 AM EDT completed e CW1 ([facility]) 02/16/2021 09:05:00 AM EDT completed e CW1 ([facility]) 02/16/2021 09:05:00 AM EDT completed e CW1 ([facility]) 02/16/2021 09:05:00 AM EDT completed e CW1 ([facility]) 02/16/2021 09:05:00 AM EDT completed e CW1 ([facility]) 02/16/2021 09:05:00 AM EDT completed e CW1 ([facility]) 02/16/2021 09:05:00 AM EDT completed e CW1 ([facility]) 02/16/2021 09:05:00 AM EDT completed e CW1 ([facility]) 02/16/2021 09:05:00 AM EDT completed e CW1 ([facility]) 01/29/2021 10:18:00 AM EDT completed e CW1 ([facility]) 01/29/2021 10:18:00 AM EDT completed e CW1 ([facility]) 01/29/2021 10:18:00 AM EDT completed e CW1 ([facility]) 01/29/2021 10:18:00 AM EDT completed e CW1 ([facility]) 01/29/2021 10:18:00 AM EDT completed e CW1 ([facility]) 01/29/2021 10:18:00 AM EDT completed e CW1 ([facility]) 01/29/2021 10:18:00 AM EDT completed e CW1 ([facility]) 01/29/2021 10:18:00 AM EDT completed e CW1 ([facility]) 01/29/2021 10:18:00 AM EDT completed e CW1 ([facility]) 01/29/2021 10:18:00 AM EDT completed e CW1 ([facility]) 01/29/2021 10:18:00 AM EDT completed e CW1 ([facility]) 01/29/2021 10:18:00 AM EDT completed e CW1 ([facility]) 01/29/2021 10:18:00 AM EDT completed e CW1 ([facility]) 01/29/2021 10:18:00 AM EDT completed e CW1 ([facility]) 01/29/2021 10:18:00 AM EDT completed e CW1 ([facility]) 01/29/2021 10:18:00 AM EDT completed e CW1 ([facility]) 01/12/2021 10:28:00 AM EDT completed e CW1 ([facility]) 01/12/2021 10:28:00 AM EDT completed e CW1 ([facility]) 01/12/2021 10:28:00 AM EDT completed e CW1 ([facility]) 01/12/2021 10:28:00 AM EDT completed e CW1 ([facility]) 01/12/2021 10:28:00 AM EDT completed e CW1 ([facility]) 01/12/2021 10:28:00 AM EDT completed e CW1 ([facility]) 01/12/2021 10:28:00 AM EDT completed e CW1 ([facility]) 01/12/2021 10:28:00 AM EDT completed e CW1 ([facility]) 01/12/2021 10:28:00 AM EDT completed e CW1 ([facility]) 01/12/2021 10:28:00 AM EDT completed e CW1 ([facility]) 01/12/2021 10:28:00 AM EDT completed e CW1 ([facility]) 01/12/2021 10:28:00 AM EDT completed e CW1 ([facility]) 01/12/2021 10:28:00 AM EDT completed e CW1 ([facility]) 01/12/2021 10:28:00 AM EDT completed e CW1 ([facility]) 01/12/2021 10:28:00 AM EDT completed e CW1 ([facility]) 01/12/2021 10:28:00 AM EDT completed e CW1 ([facility]) 12/30/2020 10:00:00 AM EST completed e CW1 ([facility]) 12/30/2020 10:00:00 AM EST completed e CW1 ([facility]) 12/30/2020 10:00:00 AM EST completed e CW1 ([facility]) 12/30/2020 10:00:00 AM EST completed e CW1 ([facility]) 12/30/2020 10:00:00 AM EST completed e CW1 ([facility]) 12/30/2020 10:00:00 AM EST completed e CW1 ([facility]) 12/30/2020 10:00:00 AM EST completed e CW1 ([facility]) 12/30/2020 10:00:00 AM EST completed e CW1 ([facility]) 12/30/2020 10:00:00 AM EST completed e CW1 ([facility]) 12/30/2020 10:00:00 AM EST completed e CW1 ([facility]) 12/30/2020 10:00:00 AM EST completed e CW1 ([facility]) 12/30/2020 10:00:00 AM EST completed e CW1 ([facility]) 12/30/2020 10:00:00 AM EST completed e CW1 ([facility]) 12/30/2020 10:00:00 AM EST completed e CW1 ([facility]) 12/30/2020 10:00:00 AM EST completed e CW1 ([facility]) 12/30/2020 10:00:00 AM EST completed e CW1 ([facility]) 12/11/2020 09:07:00 AM EST completed e CW1 ([facility]) 12/11/2020 09:07:00 AM EST completed e CW1 ([facility]) 12/11/2020 09:07:00 AM EST completed e CW1 ([facility]) 12/11/2020 09:07:00 AM EST completed e CW1 ([facility]) 12/11/2020 09:07:00 AM EST completed e CW1 ([facility]) 12/11/2020 09:07:00 AM EST completed e CW1 ([facility]) 12/11/2020 09:07:00 AM EST completed e CW1 ([facility]) 12/11/2020 09:07:00 AM EST completed e CW1 ([facility]) 12/11/2020 09:07:00 AM EST completed e CW1 ([facility]) 12/11/2020 09:07:00 AM EST completed e CW1 ([facility]) 12/11/2020 09:07:00 AM EST completed e CW1 ([facility]) 12/11/2020 09:07:00 AM EST completed e CW1 ([facility]) 12/11/2020 09:07:00 AM EST completed e CW1 ([facility]) 12/11/2020 09:07:00 AM EST completed e CW1 ([facility]) 12/11/2020 09:07:00 AM EST completed e CW1 ([facility]) 12/11/2020 09:07:00 AM EST completed e CW1 ([facility]) 12/11/2020 09:07:00 AM EST completed e CW1 ([facility]) 12/11/2020 09:07:00 AM EST completed e CW1 ([facility]) 12/11/2020 09:07:00 AM EST completed e CW1 ([facility]) 11/26/2020 09:40:00 AM EST completed e CW1 ([facility]) 11/26/2020 09:40:00 AM EST completed e CW1 ([facility]) 11/26/2020 09:40:00 AM EST completed e CW1 ([facility]) 11/26/2020 09:40:00 AM EST completed e CW1 ([facility]) 11/26/2020 09:40:00 AM EST completed e CW1 ([facility]) 11/26/2020 09:40:00 AM EST completed e CW1 ([facility]) 11/26/2020 09:40:00 AM EST completed e CW1 ([facility]) 11/26/2020 09:40:00 AM EST completed e CW1 ([facility]) 11/26/2020 09:40:00 AM EST completed e CW1 ([facility]) 11/26/2020 09:40:00 AM EST completed e CW1 ([facility]) 11/26/2020 09:40:00 AM EST completed e CW1 ([facility]) 11/26/2020 09:40:00 AM EST completed e CW1 ([facility]) 11/26/2020 09:40:00 AM EST completed e CW1 ([facility]) 11/26/2020 09:40:00 AM EST completed e CW1 ([facility]) 11/26/2020 09:40:00 AM EST completed e CW1 ([facility]) 11/26/2020 09:40:00 AM EST completed e CW1 ([facility]) 11/26/2020 09:40:00 AM EST completed e CW1 ([facility]) 11/26/2020 09:40:00 AM EST completed e CW1 ([facility]) 11/26/2020 09:40:00 AM EST completed e CW1 ([facility]) 11/26/2020 09:40:00 AM EST completed e CW1 ([facility]) 11/26/2020 09:40:00 AM EST completed e CW1 ([facility]) 11/26/2020 09:40:00 AM EST completed e CW1 ([facility]) 11/10/2020 10:32:00 AM EST completed e CW1 ([facility]) 11/10/2020 10:32:00 AM EST completed e CW1 ([facility]) 11/10/2020 10:32:00 AM EST completed e CW1 ([facility]) 11/10/2020 10:32:00 AM EST completed e CW1 ([facility]) 11/10/2020 10:32:00 AM EST completed e CW1 ([facility]) 11/10/2020 10:32:00 AM EST completed e CW1 ([facility]) 11/10/2020 10:32:00 AM EST completed e CW1 ([facility]) 11/10/2020 10:32:00 AM EST completed e CW1 ([facility]) 11/10/2020 10:32:00 AM EST completed e CW1 ([facility]) 11/10/2020 10:32:00 AM EST completed e CW1 ([facility]) 11/10/2020 10:32:00 AM EST completed e CW1 ([facility]) 11/10/2020 10:32:00 AM EST completed e CW1 ([facility]) 11/10/2020 10:32:00 AM EST completed e CW1 ([facility]) 11/10/2020 10:32:00 AM EST completed e CW1 ([facility]) 11/10/2020 10:32:00 AM EST completed e CW1 ([facility]) 11/10/2020 10:32:00 AM EST completed e CW1 ([facility]) 11/10/2020 10:32:00 AM EST completed e CW1 ([facility]) 11/10/2020 10:32:00 AM EST completed e CW1 ([facility]) 11/10/2020 10:32:00 AM EST completed e CW1 ([facility]) 11/10/2020 10:32:00 AM EST completed e CW1 ([facility]) 11/10/2020 10:32:00 AM EST completed e CW1 ([facility]) 11/10/2020 10:32:00 AM EST completed e CW1 ([facility]) 10/27/2020 09:42:00 AM EST completed e CW1 ([facility]) 10/27/2020 09:42:00 AM EST completed e CW1 ([facility]) 10/27/2020 09:42:00 AM EST completed e CW1 ([facility]) 10/27/2020 09:42:00 AM EST completed e CW1 ([facility]) 10/27/2020 09:42:00 AM EST completed e CW1 ([facility]) 10/27/2020 09:42:00 AM EST completed e CW1 ([facility]) 10/27/2020 09:42:00 AM EST completed e CW1 ([facility]) 10/27/2020 09:42:00 AM EST completed e CW1 ([facility]) 10/27/2020 09:42:00 AM EST completed e CW1 ([facility]) 10/27/2020 09:42:00 AM EST completed e CW1 ([facility]) 10/27/2020 09:42:00 AM EST completed e CW1 ([facility]) 10/27/2020 09:42:00 AM EST completed e CW1 ([facility]) 10/27/2020 09:42:00 AM EST completed e CW1 ([facility]) 10/27/2020 09:42:00 AM EST completed e CW1 ([facility]) 10/27/2020 09:42:00 AM EST completed e CW1 ([facility]) 10/27/2020 09:42:00 AM EST completed e CW1 ([facility]) 10/27/2020 09:42:00 AM EST completed e CW1 ([facility]) 10/27/2020 09:42:00 AM EST completed e CW1 ([facility]) 10/27/2020 09:42:00 AM EST completed e CW1 ([facility]) 10/27/2020 09:42:00 AM EST completed e CW1 ([facility]) 10/27/2020 09:42:00 AM EST completed e CW1 ([facility]) 10/27/2020 09:42:00 AM EST completed e CW1 ([facility]) 10/27/2020 09:42:00 AM EST completed e CW1 ([facility]) 10/27/2020 09:42:00 AM EST completed e CW1 ([facility]) 10/27/2020 09:42:00 AM EST completed e CW1 ([facility]) 10/13/2020 11:58:00 AM EST completed e CW1 ([facility]) 10/13/2020 11:58:00 AM EST completed e CW1 ([facility]) 10/13/2020 11:58:00 AM EST completed e CW1 ([facility]) 10/13/2020 11:58:00 AM EST completed e CW1 ([facility]) 10/13/2020 11:58:00 AM EST completed e CW1 ([facility]) 10/13/2020 11:58:00 AM EST completed e CW1 ([facility]) 10/13/2020 11:58:00 AM EST completed e CW1 ([facility]) 10/13/2020 11:58:00 AM EST completed e CW1 ([facility]) 10/13/2020 11:58:00 AM EST completed e CW1 ([facility]) 10/13/2020 11:58:00 AM EST completed e CW1 ([facility]) 10/13/2020 11:58:00 AM EST completed e CW1 ([facility]) 10/13/2020 11:58:00 AM EST completed e CW1 ([facility]) 10/13/2020 11:58:00 AM EST completed e CW1 ([facility]) 10/13/2020 11:58:00 AM EST completed e CW1 ([facility]) 10/13/2020 11:58:00 AM EST completed e CW1 ([facility]) 10/13/2020 11:58:00 AM EST completed e CW1 ([facility]) 10/13/2020 11:58:00 AM EST completed e CW1 ([facility]) 10/13/2020 11:58:00 AM EST completed e CW1 ([facility]) 10/13/2020 11:58:00 AM EST completed e CW1 ([facility]) 10/13/2020 11:58:00 AM EST completed e CW1 ([facility]) 10/13/2020 11:58:00 AM EST completed e CW1 ([facility]) 10/13/2020 11:58:00 AM EST completed e CW1 ([facility]) 10/13/2020 11:58:00 AM EST completed e CW1 ([facility]) 10/13/2020 11:58:00 AM EST completed e CW1 ([facility]) 10/13/2020 11:58:00 AM EST completed e CW1 ([facility]) 10/13/2020 11:58:00 AM EST completed e CW1 ([facility]) 10/13/2020 11:58:00 AM EST completed e CW1 ([facility]) 10/13/2020 11:58:00 AM EST completed e CW1 ([facility]) 10/13/2020 11:58:00 AM EST completed e CW1 ([facility]) 10/13/2020 11:58:00 AM EST completed e CW1 ([facility]) 10/13/2020 11:58:00 AM EST completed e CW1 ([facility]) 10/13/2020 11:58:00 AM EST completed e CW1 ([facility]) 10/03/2020 11:20:00 AM EST completed e CW1 ([facility]) 10/03/2020 11:20:00 AM EST completed e CW1 ([facility]) 10/03/2020 11:20:00 AM EST completed e CW1 ([facility]) 10/03/2020 11:20:00 AM EST completed e CW1 ([facility]) 10/03/2020 11:20:00 AM EST completed e CW1 ([facility]) 10/03/2020 11:20:00 AM EST completed e CW1 ([facility]) 10/03/2020 11:20:00 AM EST completed e CW1 ([facility]) 10/03/2020 11:20:00 AM EST completed e CW1 ([facility]) 10/03/2020 11:20:00 AM EST completed e CW1 ([facility]) 10/03/2020 11:20:00 AM EST completed e CW1 ([facility]) 10/03/2020 11:20:00 AM EST completed e CW1 ([facility]) 10/03/2020 11:20:00 AM EST completed e CW1 ([facility]) 10/03/2020 11:20:00 AM EST completed e CW1 ([facility]) 10/03/2020 11:20:00 AM EST completed e CW1 ([facility]) 10/03/2020 11:20:00 AM EST completed e CW1 ([facility]) 10/03/2020 11:20:00 AM EST completed e CW1 ([facility]) 10/03/2020 11:20:00 AM EST completed e CW1 ([facility]) 10/03/2020 11:20:00 AM EST completed e CW1 ([facility]) 10/03/2020 11:20:00 AM EST completed e CW1 ([facility]) 10/03/2020 11:20:00 AM EST completed e CW1 ([facility]) 10/03/2020 11:20:00 AM EST completed e CW1 ([facility]) 10/03/2020 11:20:00 AM EST completed e CW1 ([facility]) 10/03/2020 11:20:00 AM EST completed e CW1 ([facility]) 10/03/2020 11:20:00 AM EST completed e CW1 ([facility]) 10/03/2020 11:20:00 AM EST completed e CW1 ([facility]) 10/03/2020 11:20:00 AM EST completed e CW1 ([facility]) 10/03/2020 11:20:00 AM EST completed e CW1 ([facility]) 10/03/2020 11:20:00 AM EST completed e CW1 ([facility]) 10/03/2020 11:20:00 AM EST completed e CW1 ([facility]) 10/03/2020 11:20:00 AM EST completed e CW1 ([facility]) 10/03/2020 11:20:00 AM EST completed e CW1 ([facility]) 10/03/2020 11:20:00 AM EST completed e CW1 ([facility]) 09/16/2020 09:41:00 AM EST completed e CW1 ([facility]) 09/16/2020 09:41:00 AM EST completed e CW1 ([facility]) 09/16/2020 09:41:00 AM EST completed e CW1 ([facility]) 09/16/2020 09:41:00 AM EST completed e CW1 ([facility]) 09/16/2020 09:41:00 AM EST completed e CW1 ([facility]) 09/16/2020 09:41:00 AM EST completed e CW1 ([facility]) 09/16/2020 09:41:00 AM EST completed e CW1 ([facility]) 09/16/2020 09:41:00 AM EST completed e CW1 ([facility]) 09/16/2020 09:41:00 AM EST completed e CW1 ([facility]) 09/16/2020 09:41:00 AM EST completed e CW1 ([facility]) 09/16/2020 09:41:00 AM EST completed e CW1 ([facility]) 09/16/2020 09:41:00 AM EST completed e CW1 ([facility]) 09/16/2020 09:41:00 AM EST completed e CW1 ([facility]) 09/16/2020 09:41:00 AM EST completed e CW1 ([facility]) 09/16/2020 09:41:00 AM EST completed e CW1 ([facility]) 09/16/2020 09:41:00 AM EST completed e CW1 ([facility]) 09/16/2020 09:41:00 AM EST completed e CW1 ([facility]) 09/16/2020 09:41:00 AM EST completed e CW1 ([facility]) 09/16/2020 09:41:00 AM EST completed e CW1 ([facility]) 09/16/2020 09:41:00 AM EST completed e CW1 ([facility]) 09/16/2020 09:41:00 AM EST completed e CW1 ([facility]) 09/16/2020 09:41:00 AM EST completed e CW1 ([facility]) 09/16/2020 09:41:00 AM EST completed e CW1 ([facility]) 09/16/2020 09:41:00 AM EST completed e CW1 ([facility]) 09/16/2020 09:41:00 AM EST completed e CW1 ([facility]) 09/16/2020 09:41:00 AM EST completed e CW1 ([facility]) 09/16/2020 09:41:00 AM EST completed e CW1 ([facility]) 09/16/2020 09:41:00 AM EST completed e CW1 ([facility]) 09/16/2020 09:41:00 AM EST completed e CW1 ([facility]) 09/16/2020 09:41:00 AM EST completed e CW1 ([facility]) 09/16/2020 09:41:00 AM EST completed e CW1 ([facility]) 09/16/2020 09:41:00 AM EST completed e CW1 ([facility]) 08/26/2020 09:13:00 AM EDT completed e CW1 ([facility]) 08/26/2020 09:13:00 AM EDT completed e CW1 ([facility]) 08/26/2020 09:13:00 AM EDT completed e CW1 ([facility]) 08/26/2020 09:13:00 AM EDT completed e CW1 ([facility]) 08/26/2020 09:13:00 AM EDT completed e CW1 ([facility]) 08/26/2020 09:13:00 AM EDT completed e CW1 ([facility]) 08/26/2020 09:13:00 AM EDT completed e CW1 ([facility]) 08/26/2020 09:13:00 AM EDT completed e CW1 ([facility]) 08/26/2020 09:13:00 AM EDT completed e CW1 ([facility]) 08/26/2020 09:13:00 AM EDT completed e CW1 ([facility]) 08/26/2020 09:13:00 AM EDT completed e CW1 ([facility]) 08/26/2020 09:13:00 AM EDT completed e CW1 ([facility]) 08/26/2020 09:13:00 AM EDT completed e CW1 ([facility]) 08/26/2020 09:13:00 AM EDT completed e CW1 ([facility]) 08/26/2020 09:13:00 AM EDT completed e CW1 ([facility]) 08/26/2020 09:13:00 AM EDT completed e CW1 ([facility]) 08/26/2020 09:13:00 AM EDT completed e CW1 ([facility]) 08/26/2020 09:13:00 AM EDT completed e CW1 ([facility]) 08/26/2020 09:13:00 AM EDT completed e CW1 ([facility]) 08/26/2020 09:13:00 AM EDT completed e CW1 ([facility]) 08/26/2020 09:13:00 AM EDT completed e CW1 ([facility]) 08/26/2020 09:13:00 AM EDT completed e CW1 ([facility]) 08/26/2020 09:13:00 AM EDT completed e CW1 ([facility]) 08/26/2020 09:13:00 AM EDT completed e CW1 ([facility]) 08/26/2020 09:13:00 AM EDT completed e CW1 ([facility]) 08/26/2020 09:13:00 AM EDT completed e CW1 ([facility]) 08/26/2020 09:13:00 AM EDT completed e CW1 ([facility]) 08/26/2020 09:13:00 AM EDT completed e CW1 ([facility]) 08/26/2020 09:13:00 AM EDT completed e CW1 ([facility]) 08/26/2020 09:13:00 AM EDT completed e CW1 ([facility]) 08/26/2020 09:13:00 AM EDT completed e CW1 ([facility]) 08/26/2020 09:13:00 AM EDT completed e CW1 ([facility]) 08/26/2020 09:13:00 AM EDT completed e CW1 ([facility]) 08/26/2020 09:13:00 AM EDT completed e CW1 ([facility]) 08/26/2020 09:13:00 AM EDT completed e CW1 ([facility]) 08/05/2020 11:45:00 AM EDT completed e CW1 ([facility]) 08/05/2020 11:45:00 AM EDT completed e CW1 ([facility]) 08/05/2020 11:45:00 AM EDT completed e CW1 ([facility]) 08/05/2020 11:45:00 AM EDT completed e CW1 ([facility]) 08/05/2020 11:45:00 AM EDT completed e CW1 ([facility]) 08/05/2020 11:45:00 AM EDT completed e CW1 ([facility]) 08/05/2020 11:45:00 AM EDT completed e CW1 ([facility]) 08/05/2020 11:45:00 AM EDT completed e CW1 ([facility]) 08/05/2020 11:45:00 AM EDT completed e CW1 ([facility]) 08/05/2020 11:45:00 AM EDT completed e CW1 ([facility]) 08/05/2020 11:45:00 AM EDT completed e CW1 ([facility]) 08/05/2020 11:45:00 AM EDT completed e CW1 ([facility]) 08/05/2020 11:45:00 AM EDT completed e CW1 ([facility]) 08/05/2020 11:45:00 AM EDT completed e CW1 ([facility]) 08/05/2020 11:45:00 AM EDT completed e CW1 ([facility]) 08/05/2020 11:45:00 AM EDT completed e CW1 ([facility]) 08/05/2020 11:45:00 AM EDT completed e CW1 ([facility]) 08/05/2020 11:45:00 AM EDT completed e CW1 ([facility]) 08/05/2020 11:45:00 AM EDT completed e CW1 ([facility]) 08/05/2020 11:45:00 AM EDT completed e CW1 ([facility]) 08/05/2020 11:45:00 AM EDT completed e CW1 ([facility]) 08/05/2020 11:45:00 AM EDT completed e CW1 ([facility]) 08/05/2020 11:45:00 AM EDT completed e CW1 ([facility]) 08/05/2020 11:45:00 AM EDT completed e CW1 ([facility]) 08/05/2020 11:45:00 AM EDT completed e CW1 ([facility]) 08/05/2020 11:45:00 AM EDT completed e CW1 ([facility]) 08/05/2020 11:45:00 AM EDT completed e CW1 ([facility]) 08/05/2020 11:45:00 AM EDT completed e CW1 ([facility]) 08/05/2020 11:45:00 AM EDT completed e CW1 ([facility]) 08/05/2020 11:45:00 AM EDT completed e CW1 ([facility]) 08/05/2020 11:45:00 AM EDT completed e CW1 ([facility]) 08/05/2020 11:45:00 AM EDT completed e CW1 ([facility]) 08/05/2020 11:45:00 AM EDT completed e CW1 ([facility]) 08/05/2020 11:45:00 AM EDT completed e CW1 ([facility]) 08/05/2020 11:45:00 AM EDT completed e CW1 ([facility]) Medications Medication Brand Name Start Date Product Form Dose Route Admi nistrative Instructions Pharmacy Instructions Status Indications Reaction Description Data Source(s) ramelteon 8 MG Oral Tablet [Rozerem] Rozerem 8 MG Rozerem 8 MG 09/11/2021 12:00:00 AM EST 1.0 {tablet_at_bedtime_as_needed} active Rozerem 8 MG eCW1 ([facility]) pantoprazole 40 MG Delayed Release Oral Tablet Pantopr azole Sodium 40 MG Pantoprazole Sodium 40 MG 07/23/2021 12:00:00 AM EDT 1.0 {tablet} active Pantoprazole Sodium 40 MG eCW1 ( [facility]) pantoprazole 40 MG Delayed Release Oral Tablet Pantopr azole Sodium 40 MG Pantoprazole Sodium 40 MG 07/23/2021 12:00:00 AM EDT 1.0 {tablet} active Pantoprazole Sodium 40 MG eCW1 ( [facility]) pantoprazole 40 MG Delayed Release Oral Tablet Pantopr azole Sodium 40 MG Pantoprazole Sodium 40 MG 07/23/2021 12:00:00 AM EDT 1.0 {tablet} active Pantoprazole Sodium 40 MG eCW1 ( [facility]) pantoprazole 40 MG Delayed Release Oral Tablet Pantopr azole Sodium 40 MG Pantoprazole Sodium 40 MG 07/23/2021 12:00:00 AM EDT 1.0 {tablet} active Pantoprazole Sodium 40 MG eCW1 ( [facility]) pantoprazole 40 MG Delayed Release Oral Tablet Pantopr azole Sodium 40 MG Pantoprazole Sodium 40 MG 07/23/2021 12:00:00 AM EDT 1.0 {tablet} active Pantoprazole Sodium 40 MG eCW1 ( [facility]) pantoprazole 40 MG Delayed Release Oral Tablet Pantopr azole Sodium 40 MG Pantoprazole Sodium 40 MG 07/23/2021 12:00:00 AM EDT 1.0 {tablet} active Pantoprazole Sodium 40 MG eCW1 ( [facility]) rizatriptan 10 MG Oral Tablet Rizatriptan Benzoate 10 MG Rizatriptan Benzoate 10 MG 07/01/2021 12:00:00 AM EDT active Rizatriptan Benzoate 10 MG eCW1 ([facility]) rizatriptan 10 MG Oral Tablet Rizatriptan Benzoate 10 MG Rizatriptan Benzoate 10 MG 07/01/2021 12:00:00 AM EDT active Rizatriptan Benzoate 10 MG eCW1 ([facility]) rizatriptan 10 MG Oral Tablet Rizatriptan Benzoate 10 MG Rizatriptan Benzoate 10 MG 07/01/2021 12:00:00 AM EDT active Rizatriptan Benzoate 10 MG eCW1 ([facility]) rizatriptan 10 MG Oral Tablet Rizatriptan Benzoate 10 MG Rizatriptan Benzoate 10 MG 07/01/2021 12:00:00 AM EDT active Rizatriptan Benzoate 10 MG eCW1 ([facility]) rizatriptan 10 MG Oral Tablet Rizatriptan Benzoate 10 MG Rizatriptan Benzoate 10 MG 07/01/2021 12:00:00 AM EDT active Rizatriptan Benzoate 10 MG eCW1 ([facility]) rizatriptan 10 MG Oral Tablet Rizatriptan Benzoate 10 MG Rizatriptan Benzoate 10 MG 07/01/2021 12:00:00 AM EDT active Rizatriptan Benzoate 10 MG eCW1 ([facility]) rizatriptan 10 MG Oral Tablet Rizatriptan Benzoate 10 MG Rizatriptan Benzoate 10 MG 07/01/2021 12:00:00 AM EDT active Rizatriptan Benzoate 10 MG eCW1 ([facility]) rizatriptan 10 MG Oral Tablet Rizatriptan Benzoate 10 MG Rizatriptan Benzoate 10 MG 07/01/2021 12:00:00 AM EDT active Rizatriptan Benzoate 10 MG eCW1 ([facility]) Doxepin Hydrochloride 50 MG Oral Capsule Doxepin HCl 50 MG D oxepin HCl 50 MG 06/10/2021 12:00:00 AM EDT 1.0 {capsule_at_bedtime} active Doxepin HCl 50 MG eCW1 ([facility]) Doxepin Hydrochloride 50 MG Oral Capsule Doxepin HCl 50 MG D oxepin HCl 50 MG 06/10/2021 12:00:00 AM EDT 1.0 {capsule_at_bedtime} active Doxepin HCl 50 MG eCW1 ([facility]) Fluphenazine Hydrochloride 5 MG Oral Tablet fluPHENAZi ne HCl 5 MG fluPHENAZine HCl 5 MG 06/10/2021 12:00:00 AM EDT 1.0 {tablet} act zahraa fluPHENAZine HCl 5 MG eCW1 ([facility]) Fluphenazine Hydrochloride 2.5 MG Oral Tablet fluPHENA Zine HCl 2.5 MG fluPHENAZine HCl 2.5 MG 06/10/2021 12:00:00 AM EDT 1.0 {tablet} active fluPHENAZine HCl 2.5 MG eCW1 ([facility]) Fluphenazine Hydrochloride 2.5 MG Oral Tablet fluPHENA Zine HCl 2.5 MG fluPHENAZine HCl 2.5 MG 06/10/2021 12:00:00 AM EDT 1.0 {tablet} active fluPHENAZine HCl 2.5 MG eCW1 ([facility]) Doxepin Hydrochloride 50 MG Oral Capsule Doxepin HCl 50 MG D oxepin HCl 50 MG 06/10/2021 12:00:00 AM EDT 1.0 {capsule_at_bedtime} active Doxepin HCl 50 MG eCW1 ([facility]) Doxepin Hydrochloride 50 MG Oral Capsule Doxepin HCl 50 MG D oxepin HCl 50 MG 06/10/2021 12:00:00 AM EDT 1.0 {capsule_at_bedtime} active Doxepin HCl 50 MG eCW1 ([facility]) Doxepin Hydrochloride 50 MG Oral Capsule Doxepin HCl 50 MG D oxepin HCl 50 MG 06/10/2021 12:00:00 AM EDT 1.0 {capsule_at_bedtime} active Doxepin HCl 50 MG eCW1 ([facility]) Fluphenazine Hydrochloride 5 MG Oral Tablet fluPHENAZi ne HCl 5 MG fluPHENAZine HCl 5 MG 06/10/2021 12:00:00 AM EDT 1.0 {tablet} act zahraa fluPHENAZine HCl 5 MG eCW1 ([facility]) Fluphenazine Hydrochloride 5 MG Oral Tablet fluPHENAZi ne HCl 5 MG fluPHENAZine HCl 5 MG 06/10/2021 12:00:00 AM EDT 1.0 {tablet} act zahraa fluPHENAZine HCl 5 MG eCW1 ([facility]) Fluphenazine Hydrochloride 5 MG Oral Tablet fluPHENAZi ne HCl 5 MG fluPHENAZine HCl 5 MG 06/10/2021 12:00:00 AM EDT 1.0 {tablet} act zahraa fluPHENAZine HCl 5 MG eCW1 ([facility]) Doxepin Hydrochloride 50 MG Oral Capsule Doxepin HCl 50 MG D oxepin HCl 50 MG 06/10/2021 12:00:00 AM EDT 1.0 {capsule_at_bedtime} active Doxepin HCl 50 MG eCW1 ([facility]) Doxepin Hydrochloride 50 MG Oral Capsule Doxepin HCl 50 MG D oxepin HCl 50 MG 06/10/2021 12:00:00 AM EDT 1.0 {capsule_at_bedtime} active Doxepin HCl 50 MG eCW1 ([facility]) Fluphenazine Hydrochloride 5 MG Oral Tablet fluPHENAZi ne HCl 5 MG fluPHENAZine HCl 5 MG 06/10/2021 12:00:00 AM EDT 1.0 {tablet} act zahraa fluPHENAZine HCl 5 MG [facility]CW1 ([facility] Fluphenazine Hydrochloride 5 MG Oral Tablet fluPHENAZi ne HCl 5 MG fluPHENAZine HCl 5 MG 06/10/2021 12:00:00 AM EDT 1.0 {tablet} act zahraa fluPHENAZine HCl 5 MG [facility]CW1 [facility]) Doxepin Hydrochloride 50 MG Oral Capsule Doxepin HCl 50 MG D oxepin HCl 50 MG 06/10/2021 12:00:00 AM EDT 1.0 {capsule_at_bedtime} active Doxepin HCl 50 MG eCW1 ([facility]) topiramate 25 MG Oral Tablet [Topamax] Topamax 25 MG Topamax 25 MG 04/29/2021 12:00:00 AM EDT 1.0 {tablet} active To pamax 25 MG eCW1 ([facility]) topiramate 25 MG Oral Tablet [Topamax] Topamax 25 MG Topamax 25 MG 04/29/2021 12:00:00 AM EDT 1.0 {tablet} active To pamax 25 MG eCW1 ([facility]) topiramate 25 MG Oral Tablet [Topamax] Topamax 25 MG Topamax 25 MG 04/29/2021 12:00:00 AM EDT 1.0 {tablet} active To pamax 25 MG eCW1 ([facility]) topiramate 25 MG Oral Tablet [Topamax] Topamax 25 MG Topamax 25 MG 04/29/2021 12:00:00 AM EDT 1.0 {tablet} active To pamax 25 MG eCW1 ([facility]) topiramate 25 MG Oral Tablet [Topamax] Topamax 25 MG Topamax 25 MG 04/29/2021 12:00:00 AM EDT 1.0 {tablet} active To pamax 25 MG eCW1 ([facility]) topiramate 25 MG Oral Tablet [Topamax] Topamax 25 MG Topamax 25 MG 04/29/2021 12:00:00 AM EDT 1.0 {tablet} active To pamax 25 MG eCW1 ([facility]) topiramate 25 MG Oral Tablet [Topamax] Topamax 25 MG Topamax 25 MG 04/29/2021 12:00:00 AM EDT 1.0 {tablet} active To pamax 25 MG eCW1 ([facility]) topiramate 25 MG Oral Tablet [Topamax] Topamax 25 MG Topamax 25 MG 04/29/2021 12:00:00 AM EDT 1.0 {tablet} active To pamax 25 MG eCW1 ([facility]) topiramate 25 MG Oral Tablet [Topamax] Topamax 25 MG Topamax 25 MG 04/29/2021 12:00:00 AM EDT 1.0 {tablet} active To pamax 25 MG eCW1 ([facility]) topiramate 25 MG Oral Tablet [Topamax] Topamax 25 MG Topamax 25 MG 04/29/2021 12:00:00 AM EDT 1.0 {tablet} active To pamax 25 MG eCW1 ([facility]) Trazodone Hydrochloride 100 MG Oral Tablet traZODone H Cl 100 MG traZODone HCl 100 MG 04/15/2021 12:00:00 AM EDT 1.0 {tablet_at_bedtime} active traZODone HCl 100 MG eCW1 ([facility]) Trazodone Hydrochloride 100 MG Oral Tablet traZODone H Cl 100 MG traZODone HCl 100 MG 04/15/2021 12:00:00 AM EDT 1.0 {tablet_at_bedtime} active traZODone HCl 100 MG eCW1 ([facility]) Acetaminophen 325 MG Oral Tablet [Tylenol] Tylenol 325 MG Ty lenol 325 MG 04/08/2021 12:00:00 AM EDT 2.0 {tablet_as_needed} active Tylenol 325 MG eCW1 ([facility]) Acetaminophen 325 MG Oral Tablet [Tylenol] Tylenol 325 MG Ty lenol 325 MG 04/08/2021 12:00:00 AM EDT 2.0 {tablet_as_needed} active Tylenol 325 MG eCW1 ([facility]) Acetaminophen 325 MG Oral Tablet [Tylenol] Tylenol 325 MG Ty lenol 325 MG 04/08/2021 12:00:00 AM EDT 2.0 {tablet_as_needed} active Tylenol 325 MG eCW1 ([facility]) Acetaminophen 325 MG Oral Tablet [Tylenol] Tylenol 325 MG Ty lenol 325 MG 04/08/2021 12:00:00 AM EDT 2.0 {tablet_as_needed} active Tylenol 325 MG eCW1 ([facility]) Acetaminophen 325 MG Oral Tablet [Tylenol] Tylenol 325 MG Ty lenol 325 MG 04/08/2021 12:00:00 AM EDT 2.0 {tablet_as_needed} active Tylenol 325 MG eCW1 ([facility]) Acetaminophen 325 MG Oral Tablet [Tylenol] Tylenol 325 MG Ty lenol 325 MG 04/08/2021 12:00:00 AM EDT 2.0 {tablet_as_needed} active Tylenol 325 MG eCW1 ([facility]) Acetaminophen 325 MG Oral Tablet [Tylenol] Tylenol 325 MG Ty lenol 325 MG 04/08/2021 12:00:00 AM EDT 2.0 {tablet_as_needed} active Tylenol 325 MG eCW1 ([facility]) Acetaminophen 325 MG Oral Tablet [Tylenol] Tylenol 325 MG Ty lenol 325 MG 04/08/2021 12:00:00 AM EDT 2.0 {tablet_as_needed} active Tylenol 325 MG eCW1 ([facility]) Acetaminophen 325 MG Oral Tablet [Tylenol] Tylenol 325 MG Ty lenol 325 MG 04/08/2021 12:00:00 AM EDT 2.0 {tablet_as_needed} active Tylenol 325 MG eCW1 ([facility]) Acetaminophen 325 MG Oral Tablet [Tylenol] Tylenol 325 MG Ty lenol 325 MG 04/08/2021 12:00:00 AM EDT 2.0 {tablet_as_needed} active Tylenol 325 MG eCW1 ([facility]) Acetaminophen 325 MG Oral Tablet [Tylenol] Tylenol 325 MG Ty lenol 325 MG 04/08/2021 12:00:00 AM EDT 2.0 {tablet_as_needed} active Tylenol 325 MG eCW1 ([facility]) Acetaminophen 325 MG Oral Tablet [Tylenol] Tylenol 325 MG Ty lenol 325 MG 04/08/2021 12:00:00 AM EDT 2.0 {tablet_as_needed} active Tylenol 325 MG eCW1 ([facility]) 20 mg 03/03/2021 12:00:00 AM EDT capsule 30 TAKE 1 CAPSULE BY MOUTH ONCE A DAY TAKE 1 CAPSULE BY MOUTH ONCE A DAY SOLD: 03/08/2021 [facility] 300 mg 02/05/2021 12:00:00 AM EDT tablet 30 TAKE ONE TABLET BY MOUTH AT BEDTIME TAKE ONE TABLET BY MOUTH AT BEDTIME SOLD: 02/07/2021 [facility] 300 mg 02/05/2021 12:00:00 AM EDT tablet 30 TAKE ONE TABLET BY MOUTH AT BEDTIME TAKE ONE TABLET BY MOUTH AT BEDTIME SOLD: 03/08/2021 [facility] 50 mg 02/02/2021 12:00:00 AM EDT tablet 30 TAKE ONE TABLET BY MOUTH AT BEDTIME NEEDED TAKE ONE TABLET BY MOUTH AT BEDTIME NEEDED SOLD: [facility] 50 mg 02/02/2021 12:00:00 AM EDT tablet 30 TAKE ONE TABLET BY MOUTH AT BEDTIME NEEDED TAKE ONE TABLET BY MOUTH AT BEDTIME NEEDED SOLD: [facility] Trazodone Hydrochloride 50 MG Oral Tablet Trazodone HC l 50 MG Trazodone HCl 50 MG 01/30/2021 12:00:00 AM EDT 1.0 {tablet_at_bedtime_as_needed} active Trazodone HCl 50 MG eCW1 ([facility]) Trazodone Hydrochloride 50 MG Oral Tablet Trazodone HC l 50 MG Trazodone HCl 50 MG 01/30/2021 12:00:00 AM EDT 1.0 {tablet_at_bedtime_as_needed} active Trazodone HCl 50 MG eCW1 ([facility]) Trazodone Hydrochloride 50 MG Oral Tablet Trazodone HC l 50 MG Trazodone HCl 50 MG 01/30/2021 12:00:00 AM EDT 1.0 {tablet_at_bedtime_as_needed} active Trazodone HCl 50 MG eCW1 ([facility]) Trazodone Hydrochloride 50 MG Oral Tablet Trazodone HC l 50 MG Trazodone HCl 50 MG 01/30/2021 12:00:00 AM EDT 1.0 {tablet_at_bedtime_as_needed} active Trazodone HCl 50 MG eCW1 ([facility]) Trazodone Hydrochloride 50 MG Oral Tablet Trazodone HC l 50 MG Trazodone HCl 50 MG 01/30/2021 12:00:00 AM EDT 1.0 {tablet_at_bedtime_as_needed} active Trazodone HCl 50 MG eCW1 ([facility]) 25 mg/mL 01/28/2021 12:00:00 AM EDT solution 5 INJ ECT 2.5ML EVERY 2 WEEKS INJECT 2.5ML EVERY 2 WEEKS SOLD: 01/29/2021 [facility] 42 mg 01/19/2021 12:00:00 AM EDT capsule 30 TAKE ONE CAPSULE BY MOUTH EVERY DAY WITH FOOD TAKE ONE CAPSULE BY MOUTH EVERY DAY WITH FOOD SOLD: 01/20/2021 [facility] 42 mg 01/19/2021 12:00:00 AM EDT capsule 30 TAKE ONE CAPSULE BY MOUTH EVERY DAY WITH FOOD TAKE ONE CAPSULE BY MOUTH EVERY DAY WITH FOOD SOLD: 02/17/2021 [facility] 300 mg 01/10/2021 12:00:00 AM EST tablet 30 TAKE ONE TABLET BY MOUTH AT BEDTIME TAKE ONE TABLET BY MOUTH AT BEDTIME SOLD: 01/10/2021 [facility] 50 mg 01/07/2021 12:00:00 AM EST capsule 30 TAKE ONE CAPSULE BY MOUTH AT BEDTIME WITH FOOD TAKE ONE CAPSULE BY MOUTH AT BEDTIME WITH FOOD SOLD: 01/10/2021 [facility] 50 mg 01/07/2021 12:00:00 AM EST capsule 30 TAKE ONE CAPSULE BY MOUTH AT BEDTIME WITH FOOD TAKE ONE CAPSULE BY MOUTH AT BEDTIME WITH FOOD SOLD: 02/03/2021 [facility] 50 mg 12/15/2020 12:00:00 AM EST capsule 30 TAKE ONE CAPSULE BY MOUTH AT BEDTIME WITH FOOD TAKE ONE CAPSULE BY MOUTH AT BEDTIME WITH FOOD SOLD: 12/16/2020 [facility] 25 mg 12/08/2020 12:00:00 AM EST tablet 30 TAKE 1 TABLET BY MOUTH ONCE A DAY TAKE 1 TABLET BY MOUTH ONCE A DAY SOLD: 01/20/2021 [facility] 25 mg 12/08/2020 12:00:00 AM EST tablet 30 TAKE 1 TABLET BY MOUTH ONCE A DAY TAKE 1 TABLET BY MOUTH ONCE A DAY SOLD: 12/12/2020 [facility] 25 mg 12/08/2020 12:00:00 AM EST tablet 30 TAKE 1 TABLET BY MOUTH ONCE A DAY TAKE 1 TABLET BY MOUTH ONCE A DAY SOLD: 02/17/2021 [facility] 1,250 mcg (50,000 unit) 12/02/2020 12:00:00 AM EST capsule 4 TAKE 1 CAPSULE BY MOUTH ONCE A WEEK TAKE 1 CAPSULE BY MOUTH ONCE A WEEK SOLD: 02/03/2021 [facility] 1,250 mcg (50,000 unit) 12/02/2020 12:00:00 AM EST capsule 4 TAKE 1 CAPSULE BY MOUTH ONCE A WEEK TAKE 1 CAPSULE BY MOUTH ONCE A WEEK SOLD: 01/06/2021 [facility] 1,250 mcg (50,000 unit) 12/02/2020 12:00:00 AM EST capsule 4 TAKE 1 CAPSULE BY MOUTH ONCE A WEEK TAKE 1 CAPSULE BY MOUTH ONCE A WEEK SOLD: 12/07/2020 [facility] 1,250 mcg (50,000 unit) 12/02/2020 12:00:00 AM EST capsule 4 TAKE 1 CAPSULE BY MOUTH ONCE A WEEK TAKE 1 CAPSULE BY MOUTH ONCE A WEEK SOLD: 03/08/2021 [facility] 20 mg 11/26/2020 12:00:00 AM EST capsule,delayed release (DR/EC) 180 TAKE 1 CAPSULE BY MOUTH TWO TIMES A DAY TAKE 1 CAPSULE BY MOUTH TWO TIMES A DAY SOLD: 02/17/2021 [facility] 42 mg 11/26/2020 12:00:00 AM EST capsule 30 TAKE ONE CAPSULE BY MOUTH EVERY DAY WITH FOOD TAKE ONE CAPSULE BY MOUTH EVERY DAY WITH FOOD SOLD: 12/23/2020 [facility] 40 mg 11/26/2020 12:00:00 AM EST tablet 15 TAKE ONE TABLET BY MOUTH EVERY DAY WITH FOOD TAKE ONE TABLET BY MOUTH EVERY DAY WITH FOOD SOLD: 11/28/2020 [facility] 42 mg 11/26/2020 12:00:00 AM EST capsule 30 TAKE ONE CAPSULE BY MOUTH EVERY DAY WITH FOOD TAKE ONE CAPSULE BY MOUTH EVERY DAY WITH FOOD SOLD: 11/28/2020 [facility] 20 mg 11/26/2020 12:00:00 AM EST capsule,delayed release (DR/EC) 180 TAKE 1 CAPSULE BY MOUTH TWO TIMES A DAY TAKE 1 CAPSULE BY MOUTH TWO TIMES A DAY SOLD: 11/28/2020 [facility] 60 mg 11/12/2020 12:00:00 AM EST tablet 15 TAKE ONE TABLET BY MOUTH EVERY DAY WITH FOOD TAKE ONE TABLET BY MOUTH EVERY DAY WITH FOOD SOLD: 11/13/2020 [facility] 2 mg 11/07/2020 12:00:00 AM EST tablet 30 TAKE 1 TABLET BY MOUTH ONCE AT BEDTIME TAKE 1 TABLET BY MOUTH ONCE AT BEDTIME SOLD: 11/09/2020 [facility] 33 gauge 11/06/2020 12:00:00 AM EST misc 200 USE DIRECTED TWO TIMES A DAY AND NEEDED USE DIRECTED TWO TIMES A DAY AND NEEDED SOLD: 11/09/2020 [facility] BLOOD SUGAR DIAGNOSTIC 11/06/2020 12:00:00 AM EST strip 200 USE DIRECTED TWO TIMES A DAY AND NEEDED USE DIRECTED TWO TIMES A DAY AND NEEDED SOLD: 11/09/2020 [facility] One Touch Test Strips UNK 11/05/2020 12:00:00 AM EST active One Touch Test Strips eCW1 ([facility]) One Touch Delica Lancets UNK 11/05/2020 12:00:00 AM EST active One Touch Delica Lancets eCW1 ([facility]) 42 mg 11/03/2020 12:00:00 AM EST capsule 30 TAKE ONE CAPSULE BY MOUTH EVERY DAY WITH FOOD TAKE ONE CAPSULE BY MOUTH EVERY DAY WITH FOOD SOLD: 11/03/2020 [facility] 20 mg 10/28/2020 12:00:00 AM EST capsule 30 TAKE ONE CAPSULE BY MOUTH EVERY DAY TAKE ONE CAPSULE BY MOUTH EVERY DAY SOLD: 01/06/2021 [facility] 50 mg 10/28/2020 12:00:00 AM EST capsule 30 TAKE 1 CAPSULE BY MOUTH ONCE AT BEDTIME WITH FOOD TAKE 1 CAPSULE BY MOUTH ONCE AT BEDTIME WITH FOOD SOLD : 10/30/2020 [facility] 20 mg 10/28/2020 12:00:00 AM EST capsule 30 TAKE ONE CAPSULE BY MOUTH EVERY DAY TAKE ONE CAPSULE BY MOUTH EVERY DAY SOLD: 10/30/2020 [facility] 20 mg 10/28/2020 12:00:00 AM EST capsule 30 TAKE ONE CAPSULE BY MOUTH EVERY DAY TAKE ONE CAPSULE BY MOUTH EVERY DAY SOLD: 11/28/2020 [facility] 20 mg 10/28/2020 12:00:00 AM EST capsule 30 TAKE ONE CAPSULE BY MOUTH EVERY DAY TAKE ONE CAPSULE BY MOUTH EVERY DAY SOLD: 02/03/2021 [facility] 8.6 mg 10/27/2020 12:00:00 AM EST tablet 60 TAKE TWO TABLETS BY MOUTH EVERY DAY AT BEDTIME NEEDED TAKE TWO TABLETS BY MOUTH EVERY DAY AT B EDTIME NEEDED SOLD: 11/26/2020 [facility] 8.6 mg 10/27/2020 12:00:00 AM EST tablet 60 TAKE TWO TABLETS BY MOUTH EVERY DAY AT BEDTIME NEEDED TAKE TWO TABLETS BY MOUTH EVERY DAY AT B EDTIME NEEDED SOLD: 12/23/2020 [facility] 8.6 mg 10/27/2020 12:00:00 AM EST tablet 60 TAKE TWO TABLETS BY MOUTH EVERY DAY AT BEDTIME NEEDED TAKE TWO TABLETS BY MOUTH EVERY DAY AT B EDTIME NEEDED SOLD: 10/30/2020 [facility] 8.6 mg 10/27/2020 12:00:00 AM EST tablet 60 TAKE TWO TABLETS BY MOUTH EVERY DAY AT BEDTIME NEEDED TAKE TWO TABLETS BY MOUTH EVERY DAY AT B EDTIME NEEDED SOLD: 01/20/2021 [facility] 8.6 mg 10/27/2020 12:00:00 AM EST tablet 60 TAKE TWO TABLETS BY MOUTH EVERY DAY AT BEDTIME NEEDED TAKE TWO TABLETS BY MOUTH EVERY DAY AT B EDTIME NEEDED SOLD: 02/17/2021 [facility] Caplyta 42 MG Caplyta 42 MG 10/22/2020 12:00:00 AM EST 1.0 {capsule_with_food} active Caplyta 42 MG eCW1 ([facility]) Caplyta 42 MG Cap[facility]ta 42 MG 10/22/2020 12:00:00 AM EST 1.0 {capsule_with_food} active Caplyta 42 MG eCW1 ([facility]) Caplyta 42 MG [facility]ta 42 MG 10/22/2020 12:00:00 AM EST 1.0 {capsule_with_food} active Caplyta 42 MG eCW1 ([facility]) Caplyta 42 MG [facility] 42 MG 10/22/2020 12:00:00 AM EST 1.0 {capsule_with_food} active Caplyta 42 MG eCW1 ([facility]) [facility]lyta 42 MG [facility]ta 42 MG 10/22/2020 12:00:00 AM EST 1.0 {capsule_with_food} active Caplyta 42 MG eCW1 ([facility]) [facility] 42 MG [facility] 42 MG 10/22/2020 12:00:00 AM EST 1.0 {capsule_with_food} active Caplyta 42 MG eCW1 ([facility]) [facility]lyta 42 MG [facility] 42 MG 10/22/2020 12:00:00 AM EST 1.0 {capsule_with_food} active Caplyta 42 MG eCW1 ([facility]) Caplyta 42 MG [facility]ta 42 MG 10/22/2020 12:00:00 AM EST 1.0 {capsule_with_food} active Caplyta 42 MG eCW1 ([facility]) Caplyta 42 MG Cap[facility]ta 42 MG 10/22/2020 12:00:00 AM EST 1.0 {capsule_with_food} active Caplyta 42 MG eCW1 ([facility]) Caplyta 42 MG Caplyta 42 MG 10/22/2020 12:00:00 AM EST 1.0 {capsule_with_food} active Caplyta 42 MG eCW1 ([facility]) Caplyta 42 MG [facility] 42 MG 10/22/2020 12:00:00 AM EST 1.0 {capsule_with_food} active Caplyta 42 MG eCW1 ([facility]) Caplyta 42 MG [facility] 42 MG 10/22/2020 12:00:00 AM EST 1.0 {capsule_with_food} active Caplyta 42 MG eCW1 ([facility]) Caplyta 42 MG [facility] 42 MG 10/22/2020 12:00:00 AM EST 1.0 {capsule_with_food} active Caplyta 42 MG eCW1 ([facility]) Caplyta 42 MG [facility]ta 42 MG 10/22/2020 12:00:00 AM EST 1.0 {capsule_with_food} active Caplyta 42 MG eCW1 ([facility]) Caplyta 42 MG Caplyta 42 MG 10/22/2020 12:00:00 AM EST 1.0 {capsule_with_food} active Caplyta 42 MG eCW1 ([facility]) Caplyta 42 MG Caplyta 42 MG 10/22/2020 12:00:00 AM EST 1.0 {capsule_with_food} active Caplyta 42 MG eCW1 ([facility]) Caplyta 42 MG [facility] 42 MG 10/22/2020 12:00:00 AM EST 1.0 {capsule_with_food} active Caplyta 42 MG eCW1 ([facility]) Caplyta 42 MG [facility] 42 MG 10/22/2020 12:00:00 AM EST 1.0 {capsule_with_food} active Caplyta 42 MG eCW1 ([facility]) Caplyta 42 MG [facility] 42 MG 10/22/2020 12:00:00 AM EST 1.0 {capsule_with_food} active Caplyta 42 MG eCW1 ([facility]) Caplyta 42 MG [facility] 42 MG 10/22/2020 12:00:00 AM EST 1.0 {capsule_with_food} active Caplyta 42 MG eCW1 ([facility]) Caplyta 42 MG Caplyta 42 MG 10/22/2020 12:00:00 AM EST 1.0 {capsule_with_food} active Caplyta 42 MG eCW1 ([facility]) 17 gram/dose 10/17/2020 12:00:00 AM EST powder 510 MIX ONE SCOOP WITH 8 OUNCES OF WATER ONCE DAILY NEEDED MIX ONE SCOOP WITH 8 OUNCES OF WATER ONC E DAILY NEEDED SOLD: 02/17/2021 [facility] 17 gram/dose 10/17/2020 12:00:00 AM EST powder 510 MIX ONE SCOOP WITH 8 OUNCES OF WATER ONCE DAILY NEEDED MIX ONE SCOOP WITH 8 OUNCES OF WATER ONC E DAILY NEEDED SOLD: 10/18/2020 [facility] 1 mg 10/15/2020 12:00:00 AM EST tablet 60 TAKE 1 TABLET BY MOUTH 2 TIMES A DAY TAKE 1 TABLET BY MOUTH 2 TIMES A DAY SOLD: 11/18/2020 [facility] 1 mg 10/15/2020 12:00:00 AM EST tablet 60 TAKE 1 TABLET BY MOUTH 2 TIMES A DAY TAKE 1 TABLET BY MOUTH 2 TIMES A DAY SOLD: 12/15/2020 [facility] 1 mg 10/15/2020 12:00:00 AM EST tablet 60 TAKE 1 TABLET BY MOUTH 2 TIMES A DAY TAKE 1 TABLET BY MOUTH 2 TIMES A DAY SOLD: 01/20/2021 [facility] 1 mg 10/15/2020 12:00:00 AM EST tablet 60 TAKE 1 TABLET BY MOUTH 2 TIMES A DAY TAKE 1 TABLET BY MOUTH 2 TIMES A DAY SOLD: 10/18/2020 [facility] 80 mg 10/14/2020 12:00:00 AM EST tablet 30 TAKE ONE TABLET BY MOUTH EVERY DAY TAKE ONE TABLET BY MOUTH EVERY DAY SOLD: 03/08/2021 [facility] 80 mg 10/14/2020 12:00:00 AM EST tablet 30 TAKE ONE TABLET BY MOUTH EVERY DAY TAKE ONE TABLET BY MOUTH EVERY DAY SOLD: 02/03/2021 [facility] 80 mg 10/14/2020 12:00:00 AM EST tablet 30 TAKE ONE TABLET BY MOUTH EVERY DAY TAKE ONE TABLET BY MOUTH EVERY DAY SOLD: 01/06/2021 [facility] 80 mg 10/14/2020 12:00:00 AM EST tablet 90 TAKE ONE TABLET BY MOUTH EVERY DAY TAKE ONE TABLET BY MOUTH EVERY DAY SOLD: 10/18/2020 [facility] 25 mg/mL 10/05/2020 12:00:00 AM EST solution 5 INJECT 2 & 1/2 ML EVERY 2 WEEKS INJECT 2 & 1/2 ML EVERY 2 WEEKS SOLD: 11/26/2020 [facility] 25 mg/mL 10/05/2020 12:00:00 AM EST solution 5 INJECT 2 & 1/2 ML EVERY 2 WEEKS INJECT 2 & 1/2 ML EVERY 2 WEEKS SOLD: 12/30/2020 [facility] 25 mg/mL 10/05/2020 12:00:00 AM EST solution 5 INJECT 2 & 1/2 ML EVERY 2 WEEKS INJECT 2 & 1/2 ML EVERY 2 WEEKS SOLD: 10/07/2020 [facility] 2 mg 09/16/2020 12:00:00 AM EST tablet 30 TAKE ONE TABLET BY MOUTH EVERY DAY AT BEDTIME TAKE ONE TABLET BY MOUTH EVERY DAY AT BEDTIME SOLD: 10/14/2020 [facility] 2 mg 09/16/2020 12:00:00 AM EST tablet 30 TAKE ONE TABLET BY MOUTH EVERY DAY AT BEDTIME TAKE ONE TABLET BY MOUTH EVERY DAY AT BEDTIME SOLD: 09/16/2020 [facility] 5 mg 09/09/2020 12:00:00 AM EST tablet 30 TAKE ONE TABLET BY MOUTH EVERY DAY TAKE ONE TABLET BY MOUTH EVERY DAY SOLD: 02/17/2021 [facility] 5 mg 09/09/2020 12:00:00 AM EST tablet 30 TAKE ONE TABLET BY MOUTH EVERY DAY TAKE ONE TABLET BY MOUTH EVERY DAY SOLD: 12/15/2020 [facility] 5 mg 09/09/2020 12:00:00 AM EST tablet 90 TAKE ONE TABLET BY MOUTH EVERY DAY TAKE ONE TABLET BY MOUTH EVERY DAY SOLD: 09/11/2020 [facility] 5 mg 09/09/2020 12:00:00 AM EST tablet 30 TAKE ONE TABLET BY MOUTH EVERY DAY TAKE ONE TABLET BY MOUTH EVERY DAY SOLD: 01/20/2021 [facility] 50 mg 09/01/2020 12:00:00 AM EST capsule 30 TAKE 1 CAPSULE BY MOUTH ONCE AT BEDTIME WITH FOOD TAKE 1 CAPSULE BY MOUTH ONCE AT BEDTIME WITH FOOD SOLD : 10/04/2020 [facility] 50 mg 09/01/2020 12:00:00 AM EST capsule 30 TAKE 1 CAPSULE BY MOUTH ONCE AT BEDTIME WITH FOOD TAKE 1 CAPSULE BY MOUTH ONCE AT BEDTIME WITH FOOD SOLD : 09/07/2020 [facility] 80 mg 08/06/2020 12:00:00 AM EDT tablet 30 TAKE ONE TABLET BY MOUTH EVERY DAY WITH FOOD TAKE ONE TABLET BY MOUTH EVERY DAY WITH FOOD SOLD: 08/07/2020 [facility] 80 mg 08/06/2020 12:00:00 AM EDT tablet 30 TAKE ONE TABLET BY MOUTH EVERY DAY WITH FOOD TAKE ONE TABLET BY MOUTH EVERY DAY WITH FOOD SOLD: 10/07/2020 [facility] 80 mg 08/06/2020 12:00:00 AM EDT tablet 30 TAKE ONE TABLET BY MOUTH EVERY DAY WITH FOOD TAKE ONE TABLET BY MOUTH EVERY DAY WITH FOOD SOLD: 11/03/2020 [facility] 80 mg 08/06/2020 12:00:00 AM EDT tablet 30 TAKE ONE TABLET BY MOUTH EVERY DAY WITH FOOD TAKE ONE TABLET BY MOUTH EVERY DAY WITH FOOD SOLD: 09/11/2020 [facility] 300 mg 07/15/2020 12:00:00 AM EDT tablet 30 TAKE ONE TABLET BY MOUTH EVERY DAY AT BEDTIME TAKE ONE TABLET BY MOUTH EVERY DAY AT BEDTIME SOLD: 09/07/2020 [facility] 300 mg 07/15/2020 12:00:00 AM EDT tablet 30 TAKE ONE TABLET BY MOUTH EVERY DAY AT BEDTIME TAKE ONE TABLET BY MOUTH EVERY DAY AT BEDTIME SOLD: 11/03/2020 [facility] 300 mg 07/15/2020 12:00:00 AM EDT tablet 30 TAKE ONE TABLET BY MOUTH EVERY DAY AT BEDTIME TAKE ONE TABLET BY MOUTH EVERY DAY AT BEDTIME SOLD: 12/12/2020 [facility] 300 mg 07/15/2020 12:00:00 AM EDT tablet 30 TAKE ONE TABLET BY MOUTH EVERY DAY AT BEDTIME TAKE ONE TABLET BY MOUTH EVERY DAY AT BEDTIME SOLD: 10/04/2020 [facility] 300 mg 07/15/2020 12:00:00 AM EDT tablet 30 TAKE ONE TABLET BY MOUTH EVERY DAY AT BEDTIME TAKE ONE TABLET BY MOUTH EVERY DAY AT BEDTIME SOLD: 08/10/2020 [facility] 1,250 mcg (50,000 unit) 06/02/2020 12:00:00 AM EDT capsule 12 TAKE ONE CAPSULE BY MOUTH ONCE WEEKLY TAKE ONE CAPSULE BY MOUTH ONCE WEEKLY SOLD: 08/24/2020 [facility] 1 mg 05/15/2020 12:00:00 AM EDT tablet 60 TAKE ONE TABLET BY MOUTH TWICE A DAY TAKE ONE TABLET BY MOUTH TWICE A DAY SOLD: 09/07/2020 [facility] 1 mg 05/15/2020 12:00:00 AM EDT tablet 60 TAKE ONE TABLET BY MOUTH TWICE A DAY TAKE ONE TABLET BY MOUTH TWICE A DAY SOLD: 08/05/2020 [facility] 20 mg 05/04/2020 12:00:00 AM EDT capsule,delayed release (DR/EC) 180 TAKE 1 CAPSULE BY MOUTH TWO TIMES A DAY TAKE 1 CAPSULE BY MOUTH TWO TIMES A DAY SOLD: 08/24/2020 [facility] 50 mg 04/21/2020 12:00:00 AM EDT capsule 30 TAKE ONE CAPSULE BY MOUTH EVERY DAY WITH FOOD AT BEDTIME TAKE ONE CAPSULE BY MOUTH EVERY DAY WITH FOOD AT BEDTIME SOLD: 08/07/2020 [facility] 20 mg 04/11/2020 12:00:00 AM EDT capsule 90 TAKE ONE CAPSULE BY MOUTH EVERY DAY TAKE ONE CAPSULE BY MOUTH EVERY DAY SOLD: 08/05/2020 [facility] 8.6 mg 04/07/2020 12:00:00 AM EDT tablet 60 TAKE TWO TABLETS BY MOUTH EVERY DAY AT BEDTIME NEEDED TAKE TWO TABLETS BY MOUTH EVERY DAY AT B EDTIME NEEDED SOLD: 08/24/2020 [facility] 8.6 mg 04/07/2020 12:00:00 AM EDT tablet 60 TAKE TWO TABLETS BY MOUTH EVERY DAY AT BEDTIME NEEDED TAKE TWO TABLETS BY MOUTH EVERY DAY AT B EDTIME NEEDED SOLD: 09/21/2020 [facility] 1 mg 04/07/2020 12:00:00 AM EDT tablet 30 TAKE 1 TABLET BY MOUTH TWO TIMES A DAY TAKE 1 TABLET BY MOUTH TWO TIMES A DAY SOLD: 10/04/2020 [facility] 25 mg/mL 04/02/2020 12:00:00 AM EDT solution 5 INJECT 2.5ML EVERY 3 WEEKS DIRECTED INJECT 2.5ML EVERY 3 WEEKS DIRECTED SOLD: 09/07/2020 [facility] 25 mg 02/19/2020 12:00:00 AM EDT tablet 90 TAKE ONE TABLET BY MOUTH EVERY DAY TAKE ONE TABLET BY MOUTH EVERY DAY SOLD: 09/07/2020 [facility] Insurance Providers Payer name Policy type / Coverage type Policy ID Covered alliance party ID Covered alliance party's relationship to blackman Policy Blackman Plan Information BS [facility] Hmo Blue Option Medigap Part B [id number] Self [facility] Community Plan Commercial [id number] Self [place] 4 [place] [id number] S [id number] [facility] MEDICAID [id number] S [id number] Managed Care - [facility] Community Plan P [id number] S [id number] [facility] MEDICAID [id number] S [id number] [place] 4 [place] [id number] S [id number] Medicaid S [id number] S [id number] [facility] MEDICAID [id number] S [id number] [facility] MEDICAID [id number] S [id number] [facility] MEDICAID [id number] S [id number] [facility] [id number] S [id number] MEDICAID [id number] SP [id number] MEDICAID [id number] S [id number] MEDICAID PROF FEES [id number] S [id number] ANSI-Commercial [id number] ANSI-Commercial [id number] ANSI-Medicaid [id number] ANSI-Medicaid [id number] ANSI-Medicaid [id number] ANSI-Commercial [id number] ANSI-Commercial [id number] ANSI-Medicaid [id number] ANSI-Commercial [id number] [facility] [id number] ANSI-Commercial [id number] [facility] [id number] [facility] [id number] [facility] [id number] [employer]ellApartCommercial [id number] ANSI-Commercial [id number] ANSI-Medicaid [id number] ANSI-Commercial [id number] ANSI-Medicaid [id number] ANSI-Commercial [id number] [facility]-Medicaid [id number] ANSI-Commercial [id number] ANSI-Medicaid [id number] ANSI-Commercial [id number] ANSI-Commercial [id number] [facility] [id number] ANSI-Commercial [id number] [facility]-Medicaid [id number] [facility]-Medicaid [id number] [facility] [id number] ANSI-Commercial 5le020kq-i760-01ry-v279-8r2f74055f6j 1rz468ku-w677-01ga-[id number] ANSI-Commercial 4kz9640h-p34m-8396-gly3-342466d4v543 4jj0313o-k96d-7700-xtv0-194553u3q565 ANSI-Medicaid [id number] ANSI-Medicaid [id number] ANSI-Commercial 8683nd78-v98h-153f-qj26-m2h7y988478l 7982nw13-u55f-871d-fc70-h1z6d957217n ANSI-Commercial 5pg9ri62-3h71-50a7-u28j-o8a86fo99435 8pm7zm53-1y06-69p9-x41i-[id number] [facility] MEDICAID [id number] S [id number] [facility] MEDICAID [id number] S [id number] ANSI-Commercial [id number]-[id number] ANSI-Medicaid [id number] ANSI-Medicaid [id number] ANSI-Commercial 5p81r1i2-0x71-0je4-0b91-7x4573g8qr2m 4g24i9b0-2x21-2ha1-0r16-2h9254i8fa8x ANSI-Commercial u731e681-4866-0065-8ryn-b4d43e420882 [id number]-[id number] ANSI-Medicaid [id number] ANSI-Medicaid [id number] ANSI-Commercial [id number]-m98j-[id number] 91170aj9-5wj6-00o6-z55y-4459578h2s40 ANSI-Commercial x728m33g-716i-[id number] w160r25g-978w-[id number] ANSI-Medicaid [id number] ANSI-Commercial 79nq0x93-4139-0620-bfes-5q37840xk1g2 29ep8w39-7658-9060-rgzd-7h30717vz4m4 ANSI-Medicaid [id number] ANSI-Medicaid [id number] ANSI-Commercial u544yy76-xq19-54he-2354-2e792o6g0e8d n629tx21-mw40-22gd-2489-3m715y7t6u1a ANSI-Medicaid [id number] ANSI-Commercial u0sf3926-62rl-19r0-u3g4-om7130lt53nb x5ea3935-84bi-28t5-n6v5-pz0358vq50sk ANSI-Medicaid [id number] ANSI-Commercial 2jf7gl64-44b8-9qa9-j6b7-ka84ya87951u 5nz4vj24-14m6-4rc2-i1v4-nj50qe24760b ANSI-Commercial 6m680202-2p26-0i33-b7m3-p308w614632j 9u922817-4n49-6w66-v5i4-[id number] ANSI-Medicaid [id number] [facility] [id number] S [id number] [facility] [id number] S [id number] ANSI-Medicaid [id number] ANSI-Medicaid [id number] ANSI-Commercial [id number]-n2f9-1w40sur7105a 399543b0-22m5-1h8u-r4l3-4y90cvh2420n ANSI-Commercial 58c88zyl-ag4d-6gd9-o9b2-6b4tp2125of4 21k06uth-oh5a-4fd8-o6u5-9s9rc5571cj1 [facility] [id number] S [id number] ANSI-Commercial [id number]-r1g5-01gv8y4o6943 6t58zj70-1233-811j-g4d1-59jx8t9f7293 ANSI-Medicaid [id number] ANSI-Commercial 38911dku-39y5-4456-8mo2-t2wg918z68ea 71805ccn-14f5-0618-2vz3-f6gv481r38ii ANSI-Medicaid [id number] MEDICAID [id number] SP [id number] [facility] WELL 4 ME [place] HMO [id number] S [id number] [facility] WELL 4 ME [place] HMO [id number] S [id number] [facility] MEDICAID [place] HMO [id number] S [id number] MEDICAID [place] [id number] S [id number] [facility] [place] HMO [id number] S [id number] [facility] MEDICAID [place] HMO [id number] S [id number] [facility] WELL 4 ME [place] HMO [id number] S [id number] [facility](MCAID) O [id number] S [id number] MEDICAID [place] [id number] S [id number] MEDICAID [place] [id number] S [id number] MEDICAID M [id number] S [id number] MEDICAID [place] [id number] S [id number] [facility] [id number] SP [id number] SELF PAY SP [id number] S [id number] [facility] MEDICAID [place] HMO UN S UN BLUE CROSS KULKARNI PLAN [id number] SP [id number] SELF PAY SP UNAVAILABLE S UNAVAILA BLE BLUE CROSS KULKARNI PLAN [id number] SP [id number] BCBS [facility] [place] HMO [id number] S [id number] [employer] COMMUNITY PLAN MCDHMO [id number] SP [id number] [facility] [id number] SP [id number] [facility] MEDICAID [id number] S [id number] [facility] WE[place] 4 [place] [id number] S [id number] [facility] MEDICAID [id number] S [id number] [facility] MEDICAID [id number] S [id number] [facility] WELL 4 ME [id number] S [id number] [facility] MEDICAID [id number] S [id number] [facility] COMMUNITY PLAN MCDO [id number] SP [id number] EMEDNY [id number] SP [id number] Problems, Conditions, and Diagnoses Code Display Name Description Problem Type Effective Dates Data Source(s) R49.0 Dysphonia DYSPHONIA Diagnosis 08/26/2021 09:47:00 AM [facility] R05.9 COUGH, UNSPECIFIED COUGH, UNSPECIFIED Diagnosis 09:47:[address] [facility] Z20.822 CONTACT WITH AND (SUSPECTED) EXPOSURE TO COVID-19 CONTACT WITH AND (SUSPECTED) EXPOSURE TO COVID-19 Diagnosis 08/25/2021 12:29:[address] [facility] F25.9 Schizoaffective disorder, unspecified SC HIZOAFFECTIVE DISORDER, UNSPECIFIED Diagnosis 08/13/2021 04:45:00 PM [facility] l F33.1 Major depressive disorder, recurrent, mo derate MAJOR DEPRESSIVE DISORDER, RECURRENT, MODERATE Diagnosis 07/29/2021 09:13:00 AM [facility] Z71.2 Person consulting for explanation of exa mination or test findings PERSON CONSULTING FOR EXPLANATION OF EXAM OR TEST Diagnosis 07/23/2021 10:17: [address] [facility] Z68.34 Body mass index (BMI) 34.0-34.9, adult B RADHA MASS INDEX [BMI] 34.0-34.9, ADULT Diagnosis 07/23/2021 10:17:00 AM [facility] E66.9 Obesity, unspecified OBESITY, UNSPECIFIED Diagnosis 07/23/2021 10:17:[address] [facility] E78.1 Pure hyperglyceridemia PURE HYPERGLYCERIDEMIA Diagnosi s 07/23/2021 10:17:[address] [facility] E11.9 Type 2 diabetes mellitus without complic ations TYPE 2 DIABETES MELLITUS WITHOUT COMPLICATIONS Diagnosis 07/23/2021 10:17:[address] [facility] K21.00 GASTRO-ESOPHAGEAL REFLUX DIS WITH ESOPHA GITIS, WIT GASTRO-ESOPHAGEAL REFLUX DIS WITH ESOPHAGITIS, WIT Diagnosis 07/23/2021 10:17:[address] [facility] R29.90 Unspecified symptoms and signs involving the nervous system UNSPECIFIED SYMPTOMS AND SIGNS INVOLVING THE NERVO Diagnosis 07/23/2021 10:17:[address] [facility] F48.9 Nonpsychotic mental disorder, unspecifie d NONPSYCHOTIC MENTAL DISORDER, UNSPECIFIED Diagnosis 07/23/2021 10:17:00 AM [facility] F20.9 Schizophrenia, unspecified SCHIZOPHRENIA, UNSPECIFIED Diagnosis 07/15/2021 09:49:[address] [facility] R41.3 Other amnesia OTHER AMNESIA Diagnosis 07/08/2021 04:15:[address] [facility] R81 Glycosuria GLYCOSURIA Diagnosis 07/08/2021 04:15:00 PM [facility] E78.2 Mixed hyperlipidemia MIXED HYPERLIPIDEMIA Diagnosis 07/08/2021 04:15:[address] [facility] R74.8 Abnormal levels of other serum enzymes A BNORMAL LEVELS OF OTHER SERUM ENZYMES Diagnosis 07/08/2021 04:15:00 PM [facility] I10 Essential (primary) hypertension ESSENTIAL (PRIMARY) H YPERTENSION Diagnosis 07/08/2021 04:15:[address] [facility] R63.5 Abnormal weight gain ABNORMAL WEIGHT GAIN Diagnosis 07/08/2021 04:15:[address] [facility] M54.5 Low back pain LOW BACK PAIN Diagnosis 07/08/2021 04:15:[address] [facility] F25.0 Schizoaffective disorder, bipolar type S CHIZOAFFECTIVE DISORDER, BIPOLAR TYPE Diagnosis 06/24/2021 09:21:00 AM [facility] E55.9 Vitamin D deficiency, unspecified VITAMIN D DEFI CIENCY, UNSPECIFIED Diagnosis 06/24/2021 09:21:[address] [facility] G47.00 Insomnia, unspecified INSOMNIA, UNSPECIFIED Diagnosis 06/24/2021 09:21:[address] [facility] F20.0 Paranoid schizophrenia PARANOID SCHIZOPHRENIA Diagnosi s 06/24/2021 09:21:[address] [facility] G24.01 Drug induced subacute dyskinesia DRUG INDUCED BARONE BACUTE DYSKINESIA Diagnosis 06/03/2021 09:03:[address] [facility] Z71.89 Other specified counseling OTHER SPECIFIED COUNSELING Diagnosis 05/12/2021 08:32:[address] [facility] Z23 Encounter for immunization ENCOUNTER FOR IMMUNIZATION Diagnosis 05/12/2021 08:32:[address] [facility] Z12.31 Encounter for screening mammogram for ma lignant neoplasm of breast ENCNTR SCREEN MAMMOGRAM FOR MALIGNANT NEOPLASM OF Diagnosis 05/12/2021 08:32:[address] [facility] Z68.32 Body mass index (BMI) 32.0-32.9, adult B RADHA MASS INDEX [BMI] 32.0-32.9, ADULT Diagnosis 05/12/2021 08:32:00 AM [facility] K59.00 Constipation, unspecified CONSTIPATION, UNSPECIFIED Di agnosis 05/12/2021 08:32:[address] [facility] F33.2 Major depressive disorder, recurrent sev ere without psychotic features MAJOR DEPRESSV DISORDER, RECURRENT SEVERE W/O PSYC Diagnosis 08:32:[address] [facility] H61.22 Impacted cerumen, left ear IMPACTED CERUMEN, LEFT EAR Diagnosis 05/12/2021 08:32:[address] [facility] K21.9 Gastro-esophageal reflux disease without esophagitis GASTRO-ESOPHAGEAL REFLUX DISEASE WITHOUT ESOPHAGIT Diagnosis 05/12/2021 08:32:[address] [facility] Z00.00 Encounter for general adult medical examination without abnormal findings ENCNTR FOR GENERAL ADULT MEDICAL EXAM W/O ABNORMAL FINDINGS Diagnosis 05/12/2021 08:32:[address] [facility] F43.22 Adjustment disorder with anxiety ADJUSTMENT DISO RDER WITH ANXIETY Diagnosis 04/28/2021 09:21:[address] [facility] H61.21 Impacted cerumen, right ear IMPACTED CERUMEN, RIGHT EA R Diagnosis 04/01/2021 11:14:[address] [facility] R45.851 Suicidal ideations SUICIDAL IDEATIONS Diagnosis 12/2020 11:14:[address] [facility] F33.40 Major depressive disorder, recurrent, in remission, unspecified MAJOR DEPRESSIVE DISORDER, RECURRENT, IN REMISSION Diagnosis 10:40:[address] [facility] Z02.89 Encounter for other administrative exami nations ENCOUNTER FOR OTHER ADMINISTRATIVE EXAMINATIONS Diagnosis 02/16/2021 09:21:[address] 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 Diagnosis 10/16/2020 08:58:00 AM [facility] R79.9 Abnormal finding of blood chemistry, uns pecified ABNORMAL FINDING OF BLOOD CHEMISTRY, UNSPECIFIED Diagnosis 10/16/2020 08:58:00 AM [facility] pital K14.6 Glossodynia GLOSSODYNIA Diagnosis 10/16/2020 08:58:00 AM [facility] R25.2 Cramp and spasm CRAMP AND SPASM Diagnosis 10/16/2020 08:5 8:00 AM [facility] D50.9 Iron deficiency anemia, unspecified IRON DEFICIE NCY ANEMIA, UNSPECIFIED Diagnosis 10/16/2020 08:58:00 AM [facility] F33.1 [id number] MDD (major depressive disorder), recurrent episode, moderate Problem 07/29/2021 12:00:00 AM EDT eCW1 ([facility]) F48.9 [id number] Mental health problem Problem 07/23/2021 12: 00:00 AM EDT eC1 ([facility]) E78.1 [id number] Hypertriglyceridemia Problem 07/23/2021 12:0 0:00 AM EDT eCW1 ([facility]) Z68.34 [id number] BMI 34.0-34.9,adult Problem 07/23/2021 12:00 :00 AM EDT eCW1 ([facility]) E03.8 [id number] Subclinical hypothyroidism Problem 12:00:00 AM EDT eCW1 ([facility]) R41.3 [id number] Memory impairment Problem 07/08/2021 12:00:0 0 AM EDT eCW1 ([facility]) F25.9 Schizoaffective disorder Schizoaffective disorder, uns pecified Problem 07/08/2021 12:00:00 AM EDT eCW1 ([facility]) Z68.32 [id number] BMI 32.0-32.9,adult Problem 05/17/2021 12:00 :00 AM EDT eCW1 ([facility]) E66.9 [id number] Obesity (BMI 30.0-34.9) Problem 0 05/12/2021 12:00:00 AM EDT eCW1 ([facility]) F20.9 [id number] Schizophrenia, unspecified type Problem 05/12/2021 12:00:00 AM EDT eCW1 ([facility]) F43.22 [id number] Adjustment disorder with anxious mood Pro blem 04/30/2021 12:00:00 AM EDT eCW1 ([facility]) [id number] Schizoaffective disorder, bipolar type S chizoaffective disorder, bipolar type Condition 04/06/2021 12:00:00 AM EDT [facility]) [id number] Schizoaffective disorder, bipolar type S chizoaffective disorder, bipolar type Condition 04/06/2021 12:00:00 AM EDT [facility] ([facility]) [id number] Schizoaffective disorder, bipolar type S chizoaffective disorder, bipolar type Condition 04/06/2021 12:00:00 AM EDT [facility] ([facility]) [id number] Schizoaffective disorder, bipolar type S chizoaffective disorder, bipolar type Condition 04/06/2021 12:00:00 AM EDT [facility] ([facility]) [id number] Schizoaffective disorder, bipolar type S chizoaffective disorder, bipolar type Condition 04/06/2021 12:00:00 AM EDT [facility] ([facility]) R41.3 03090514 Memory loss Problem 12/15/2020 12:00:[address] eCW1 ([facility]) E55.9 Vitamin D deficiency Vitamin D deficiency Problem 10/16/2020 12:00:00 AM EST eCW1 ([facility]) G25.81 62293216 Restless leg syndrome Problem 10/16/2020 12: 00:00 AM EST eCW1 ([facility]) K14.6 [id number] Burning tongue Problem 10/16/2020 12:00:00 A M EST eCW1 ([facility]) Surgeries/Procedures Procedure Description Date Indications Data Source(s) OFFICE OUTPATIENT VISIT 25 MINUTES 05/21/2021 12:00:00 AM EDT [facility] ([facility], ) MRI BRAIN BRAIN STEM W/O CONTRAST MATERIAL 04/30/2021 12:00:00 AM EDT [facility] ([facility], ) MRI BRAIN BRAIN STEM W/O CONTRAST MATERIAL 04/30/2021 12:00:00 AM EDT [facility] ([facility], ) OFFICE OUTPATIENT VISIT 25 MINUTES 04/23/2021 12:00:00 AM EDT [facility] ([facility], ) ELECTROENCEPHALOGRAM W/REC AWAKE&ASLEEP 04/16/2021 12: 00:00 AM EDT [facility] ([facility], ) ELECTROENCEPHALOGRAM W/REC AWAKE&ASLEEP 04/16/2021 12: 00:00 AM EDT [facility] ([facility], ) OFFICE OUTPATIENT VISIT 25 MINUTES 02/23/2021 12:00:00 AM EDT [facility] ([facility], ) Results ID Date Data Source [id number] 08/25/2021 12:15:00 PM EDT [facility] Name Value Range Interpretation Code Description Data Latia rce(s) Supporting Document(s) [facility]IVE [facility] This lab was ordered by [facility] and reported by [facility]. ID Date Data Source [id number] 08/25/2021 12:43:00 PM [facility]T [facility] Name Value Range Interpretation Code Description Data Latia rce(s) Supporting Document(s) COVID-19 NEGATIVE NEGATIVE [facility] Negative results should be treated as pr esumptive and, ifinconsistent with clinical signs and symptoms or necessaryfor patient management, should be tested with differentauthorized or cleared molecular tests.Negative results do not preclude SARS-CoV-2 infection andshould not be used as the sole basis for patient managementdecisions.This is a rapid molecular isothermal nucleic acidamplification technology (NAAT) in vitro diagnostic testutilizing a loop mediated isothermal amplification (LAMP)test with nicking endonuclease amplification reaction(NEAR) intended for the qualitative detection of nucleica [place] from the SARS-CoV-2 viral RNA in direct nasal,nasopharyngeal or throat swabs from individuals who aresuspected of COVID-19.Results are for the indentification of SARS-CoV-2 RNA. [id number] RNA is generally detectable in respiratorysamples during the actue phase of infection. ID Date Data Source COVID-19 IN-HOUSE 08/25/2021 12:00:00 AM EDT eCW1 ([facility]) Name Value Range Interpretation Code Description Data Latia rce(s) Supporting Document(s) NEGATIVE NEGATIVE COVID-19 eCW1 ([facility]) ID Date Data Source [id number] 07/30/2021 12:00:00 AM EDT [facility] Name Value Range Interpretation Code Description Data Latia rce(s) Supporting Document(s) SARS-COV 2 PCR NEGATIVE [facility] This lab was ordered by [id number] and reported by [email or web address]. ID Date Data Source [id number] 07/30/2021 12:00:00 AM EDT [facility] Name Value Range Interpretation Code Description Data Latia rce(s) Supporting Document(s) SARS-CoV-2 (COVID-19) RNA [Presence] in Respiratory specimen by ROBERTO with probe detection Not detected [facility] This lab was ordered by [email or web address] and r [facility] ID Date Data Source [id number] 07/14/2021 06:05:00 AM EDT [facility] Name Value Range Interpretation Code Description Data Latia rce(s) Supporting Document(s) TANDEM-R OSTASE 16.1 ug/L . [facility] Premenopausal Women: 6.0 - 22.7 Postmenopausal Women: 8.1 - 31.6Performed at: [facility] [id number] Director: Rosa Bateman MD, Phone: [phone] ID Date Data Source [id number] 07/14/2021 06:05:00 AM EDT [facility] Name Value Range Interpretation Code Description Data Latia rce(s) Supporting Document(s) Alk Phosphatase, Bone Specific 16.1 ug/L [facility] Premenopausal Wo men: 6.0 - 22.7 Postmenopausal Women: 8.1 - 31.6 PDF . [facility] ID Date Data Source [id number] 07/08/2021 07:03:00 PM EDT [facility] Name Value Range Interpretation Code Description Data Latia rce(s) Supporting Document(s) FREE T4 0.9 ng/dL 0.76-1.46 [facility] ID Date Data Source [id number] 07/08/2021 07:03:00 PM EDT [facility] Name Value Range Interpretation Code Description Data Latia rce(s) Supporting Document(s) TSH 4.658 uIU/mL 0.358-3.74 H [facility] ID Date Data Source [id number] 07/08/2021 06:46:00 PM EDT [facility] l Name Value Range Interpretation Code Description Data Latia rce(s) Supporting Document(s) GAMMA GLUTAMYL TRANSPEPTIDASE 24 U/L 5-55 [facility] ID Date Data Source [id number] 07/08/2021 06:46:00 PM EDT [facility] l Name Value Range Interpretation Code Description Data Latia rce(s) Supporting Document(s) CHOLESTEROL 190 mg/dL 0-200 [facility] TRIGLYCERIDES 251 mg/dL 0-150 H [facility] LDL CHOLESTEROL 94 mg/dL 0-100 [facility] HDL CHOLESTEROL 46 mg/dL 40-60 [facility] CHOL/HDL RATIO 4.1 0.0-5.0 [facility] ID Date Data Source [id number] 07/08/2021 06:46:00 PM EDT [facility] l Name Value Range Interpretation Code Description Data Latia rce(s) Supporting Document(s) GLUCOSE 117 mg/dL 74-106 H [facility] BLOOD UREA NITROGEN 22 mg/dL 7-18 H [facility] CREATININE 0.90 mg/dL 0.6-1.0 [facility] SODIUM 142 mmol/L 136-145 [facility] POTASSIUM 4.0 mmol/L 3.5-5.1 [facility] CHLORIDE 105 mmol/L 98-107 [facility] CO2 25 mmol/L 21-32 [facility] CALCIUM 8.8 mg/dL 8.5-10.1 [facility] ANION GAP 12.0 mmol/L 5-12 [facility] GLOMERULAR FILTRATION RATE 65 mL/min [facility] GFR IS CALCULATED IN mL/min/1.73m2 KARO L FUNCTION: >90MILDLY DECREASED: 60-89MILDY TO MODERATELY DECREASED: 45-59 MODERATELY TO SEVERELY DECREASED: 30-44SEVERELY DECREASED: 15-29RENAL FAILURE: <15 AST 7 U/L 15-37 L [facility] ALT 28 U/L 12-78 [facility] ALKALINE PHOSPHATASE 142 U/L 46-116 H [facility] pital TOTAL BILIRUBIN 0.4 mg/dL 0.2-1.0 [facility] TOTAL PROTEIN 7.9 g/dl 6.4-8.2 [facility] ALBUMIN 3.9 gm/dL 3.4-5.0 [facility] ID Date Data Source [id number] 07/08/2021 06:28:00 PM EDT [facility] Name Value Range Interpretation Code Description Data Latia rce(s) Supporting Document(s) HGBA1C 6.0 % 3.8-5.6 H [facility] Diabetic > or = to 6.5%Prediabetes 5.7-6 .4%Normal <5.7 ESTIMATED AVERAGE GLUCOSE 125.5 mg/dL [facility] ID Date Data Source [id number] 07/08/2021 06:22:00 PM EDT [facility] Name Value Range Interpretation Code Description Data Latia rce(s) Supporting Document(s) URINE MICROALBUMIN 12.3 mg/L 1.3-20.0 [facility] URINE CREATININE 102.8 mg/dL [facility] MICROALBUMIN/CREATININE RATIO 11 ug/mg [facility] ID Date Data Source [id number] 07/08/2021 06:18:00 PM EDT [facility] Name Value Range Interpretation Code Description Data Latia rce(s) Supporting Document(s) WHITE BLOOD COUNT 9.8 K/mm3 4.0-10.0 [facility] al RED BLOOD COUNT 4.49 M/mm3 4.00-5.50 [facility] HEMOGLOBIN 13.7 gm/dL 12.0-16.0 [facility] HEMATOCRIT 40.5 % 36.0-48.8 [facility] MEAN CELL VOLUME 90.2 fl 80-96 [facility] MEAN CORPUSCULAR HEMOGLOBIN 30.5 pg 27.0-31.0 [facility] MEAN CORPUSCULAR HGB CONC 33.8 g/dl 32.0-36.0 [facility] RED CELL DISTRIBUTION WIDTH 13.5 % 10.0-14.5 [facility] PLATELET COUNT 471 K/mm3 172-450 H [facility] MEAN PLATELET VOLUME 8.2 fl 9.0-13.0 L [facility] pital GRAN % 65.5 % 50-80.0 [facility] IG% 0.3 % 0.0-0.2 H [facility] LYMPH % 21.7 % 25.0-50.0 L [facility] MONO % 8.2 % 2.0-10.0 [facility] EOS % 4.1 % 0-5.0 [facility] BASO % 0.2 % 0.0-2.0 [facility] GRAN # 6.4 K/mm3 2.0-8.00 [facility] IG# 0.0 K/mm3 0.0-0.2 [facility] LYMPH # 2.1 K/mm3 1.0-5.0 [facility] MONO # 0.8 K/mm3 0.10-1.20 [facility] EOS # 0.4 K/mm3 0.0-0.5 [facility] BASO # 0.0 K/mm3 0.0-0.2 [facility] ID Date Data Source [id number] 07/08/2021 05:46:00 PM EDT [facility] Name Value Range Interpretation Code Description Data Latia rce(s) Supporting Document(s) URINE RBC 3-5 /hpf 0-3 H [facility] URINE WBC 3-5 /hpf 0-5 [facility] URINE EPITHELIAL CELLS 1+ /hpf 0 [facility] ospital URINE BACTERIA TRACE NONE SEEN H [facility] ID Date Data Source [id number] 07/08/2021 05:45:00 PM EDT [facility] Name Value Range Interpretation Code Description Data Latia rce(s) Supporting Document(s) URINE COLOR. YELLOW [facility] URINE APPEARANCE CLEAR [facility] URINE GLUCOSE (UA) >=1000 mg/dL NEGATIVE [facility] spital URINE BILIRUBIN NEGATIVE NEGATIVE [facility] URINE KETONE NEGATIVE mg/dL NEGATIVE [facility] SPECIFIC GRAVITY,URINE 1.015 1.005-1.030 [facility] URINE BLOOD 1+(SMALL) NEGATIVE [facility] PH,URINE 5.0 5.0-9.0 [facility] URINE PROTEIN NEGATIVE mg/dL NEGATIVE [facility] URINE UROBILINOGEN NORMAL(0.2-1) mg/dL 0-1 [facility] URINE NITRATE NEGATIVE NEGATIVE [facility] URINE LEUKOCYTE ESTERASE NEGATIVE NEGATIVE [facility] ID Date Data Source [id number] 07/08/2021 12:00:00 AM EDT eCW1 ([facility]) Name Value Range Interpretation Code Description Data Latia rce(s) Supporting Document(s) CLEAR URINE APPEARANCE eCW1 ([facility]) YELLOW URINE COLOR. eCW1 ([facility]) >=1000 NEGATIVE URINE GLUCOSE (UA) eCW1 ( [facility]) NEGATIVE NEGATIVE URINE BILIRUBIN eCW1 ([facility]) 1.015 1.005-1.030 SPECIFIC GRAVITY,URINE e CW1 ([facility]) 1+(SMALL) NEGATIVE URINE BLOOD eCW1 ([facility]) NEGATIVE NEGATIVE URINE KETONE eCW1 ([facility]) 5.0 5.0-9.0 PH,URINE eCW1 ([facility]) NEGATIVE NEGATIVE URINE PROTEIN eCW1 ([facility]) NORMAL(0.2-1) 0-1 URINE UROBILINOGEN eCW 1 ([facility]) NEGATIVE NEGATIVE URINE LEUKOCYTE ESTERASE eCW1 ([facility]) NEGATIVE NEGATIVE URINE NITRATE eCW1 ([facility]) ID Date Data Source [id number] 03/13/2021 02:33:00 PM EDT [facility] Name Value Range Interpretation Code Description Data Latia rce(s) Supporting Document(s) SARS-CoV-2 (COVID 19) NEGATIVE - SARS-CoV-2 (COVID19) [facility] This lab was ordered by [facility] a nd reported by [facility]. ID Date Data Source [id number] 12/16/2020 01:06:00 PM [facility] DATE OF EXAMINATION: 12/16/2020 12:33 EST EXTREMITY LIMITED HISTORY: Axillary node ULTRASOUND LEFT axilla Real-time ultrasound imaging was performed utilizing B-mode/bowser scale and colorDoppler imaging where applicable. FINDINGS: Previously noted 2 lymph nodes are unchanged in size and contour. Today's studyreveals a newly developed 0.4 x 0.5 cm lymph node. There are no fluidcollections or soft tissue masses. IMPRESSION: New 0.5 x 0.4 cm lymph node. There are 2 other prior nodes are unchanged insize. Electronically signed in [id number] by: Rach Sanchez M.D. 12/16/2020 12:59 EST Name Value Range Interpretation Code Description Data Latia rce(s) Supporting Document(s) ID Date Data Source [id number] 10/16/2020 08:39:00 AM EST [facility] Name Value Range Interpretation Code Description Data Latia rce(s) Supporting Document(s) MAGNESIUM 2.3 mg/dL 1.8-2.4 [facility] ID Date Data Source [id number] 10/16/2020 08:39:00 AM EST [facility] Name Value Range Interpretation Code Description Data Latia rce(s) Supporting Document(s) FERRITIN 36 ng/mL 8-252 [facility] ID Date Data Source [id number] 10/16/2020 08:39:00 AM EST [facility] Name Value Range Interpretation Code Description Data Latia rce(s) Supporting Document(s) IRON 51 ug/dL 50-170 [facility] TIBC 346 ug/dL 250-450 [facility] % SATURATION 15 % 20-50 L [facility] ID Date Data Source [id number] 10/13/2020 11:10:00 AM EST [facility] Name Value Range Interpretation Code Description Data Latia rce(s) Supporting Document(s) CHOLESTEROL 210 mg/dL 0-200 H [facility] TRIGLYCERIDES 210 mg/dL 0-150 H [facility] LDL CHOLESTEROL 121 mg/dL 0-100 H [facility] HDL CHOLESTEROL 47 mg/dL 40-60 [facility] CHOL/HDL RATIO 4.5 0.0-5.0 [facility] ID Date Data Source [id number] 10/13/2020 11:10:00 AM EST [facility] Name Value Range Interpretation Code Description Data Ltaia rce(s) Supporting Document(s) GLUCOSE 123 mg/dL 74-106 H [facility] BLOOD UREA NITROGEN 30 mg/dL 7-18 H [facility] ital CREATININE 1.0 mg/dL 0.6-1.0 [facility] SODIUM 139 mmol/L 136-145 [facility] POTASSIUM 4.5 mmol/L 3.5-5.1 [facility] CHLORIDE 101 mmol/L 98-107 [facility] CO2 23 mmol/L 21-32 [facility] CALCIUM 9.8 mg/dL 8.5-10.1 [facility] ANION GAP 15.0 mmol/L 5-12 H [facility] GLOMERULAR FILTRATION RATE 57 mL/min [facility] GFR IS CALCULATED IN mL/min/1.73m2 KARO L FUNCTION: >90MILDLY DECREASED: 60-89MILDY TO MODERATELY DECREASED: 45-59 MODERATELY TO SEVERELY DECREASED: 30-44SEVERELY DECREASED: 15-29RENAL FAILURE: <15 AST 14 U/L 15-37 L [facility] ALT 16 U/L 12-78 [facility] ALKALINE PHOSPHATASE 130 U/L 46-116 H [facility] pital TOTAL BILIRUBIN 0.5 mg/dL 0.2-1.0 [facility] TOTAL PROTEIN 7.4 g/dl 6.4-8.2 [facility] ALBUMIN 3.8 gm/dL 3.4-5.0 [facility] ID Date Data Source [id number] 10/13/2020 11:08:00 AM [facility] l Name Value Range Interpretation Code Description Data Latia rce(s) Supporting Document(s) URINE MICROALBUMIN 6.6 mg/L 1.3-20.[address] [facility] isaac URINE CREATININE 85.0 mg/dL [facility] al MICROALBUMIN/CREATININE RATIO 7 ug/mg [facility] ID Date Data Source [id number] 10/13/2020 10:57:00 AM [facility] l Name Value Range Interpretation Code Description Data Latia rce(s) Supporting Document(s) HGBA1C 6.6 % 3.8-5.6 H [facility] Diabetic > or = to 6.5%Prediabetes 5.7-6 .4%Normal <5.7 ID Date Data Source [id number] 10/13/2020 10:57:00 AM [facility] l Name Value Range Interpretation Code Description Data Latia rce(s) Supporting Document(s) ESTIMATED AVERAGE GLUCOSE 142.7 mg/dL [facility] Procedure Social History Code Duration Value Status Description Data Source(s ) Smoking 08/26/2021 12:00:00 AM EDT Never Smoker completed Never S moker eCW1 ([facility]) Smoking 08/26/2021 12:00:00 AM EDT Never Smoker completed Never S moker eCW1 ([facility]) Smoking 08/26/2021 12:00:00 AM EDT Never Smoker completed Never S moker eCW1 ([facility]) Smoking 08/26/2021 12:00:00 AM EDT Never Smoker completed Never S moker eCW1 ([facility]) Smoking 08/26/2021 12:00:00 AM EDT Never Smoker completed Never S moker eCW1 ([facility]) Smoking 07/23/2021 12:00:00 AM EDT Never Smoker completed Never S moker eCW1 ([facility]) Smoking 07/08/2021 12:00:00 AM EDT Never Smoker completed Never S moker eCW1 ([facility]) Smoking 05/12/2021 12:00:00 AM EDT Never Smoker completed Never S moker eCW1 ([facility]) Smoking 05/12/2021 12:00:00 AM EDT Never Smoker completed Never S moker eCW1 ([facility]) Smoking 04/01/2021 12:00:00 AM EDT Never Smoker completed Never S moker eCW1 ([facility]) Smoking 04/01/2021 12:00:00 AM EDT Never Smoker completed Never S moker eCW1 ([facility]) Smoking 04/01/2021 12:00:00 AM EDT Never Smoker completed Never S moker eCW1 ([facility]) Smoking 04/01/2021 12:00:00 AM EDT Never Smoker completed Never S moker eCW1 ([facility]) Smoking 12/15/2020 12:00:00 AM EST Never Smoker completed Never S moker eCW1 ([facility]) Smoking 12/15/2020 12:00:00 AM EST Never Smoker completed Never S moker eCW1 ([facility]) Smoking 12/15/2020 12:00:00 AM EST Never Smoker completed Never S moker eCW1 ([facility]) Smoking 12/15/2020 12:00:00 AM EST Never Smoker completed Never S moker eCW1 ([facility]) Smoking 12/15/2020 12:00:00 AM EST Never Smoker completed Never S moker eCW1 ([facility]) Smoking 12/15/2020 12:00:00 AM EST Never Smoker completed Never S moker eCW1 ([facility]) Smoking 12/15/2020 12:00:00 AM EST Never Smoker completed Never S moker eCW1 ([facility]) Smoking 12/15/2020 12:00:00 AM EST Never Smoker completed Never S moker eCW1 ([facility]) Smoking 11/10/2020 12:00:00 AM EST Never Smoker completed Never S moker eCW1 ([facility]) Smoking 11/10/2020 12:00:00 AM EST Never Smoker completed Never S moker eCW1 ([facility]) Smoking 11/10/2020 12:00:00 AM EST Never Smoker completed Never S moker eCW1 ([facility]) Smoking 10/16/2020 12:00:00 AM EST Never Smoker completed Never S moker eCW1 ([facility]) Smoking 10/16/2020 12:00:00 AM EST Never Smoker completed Never S moker eCW1 ([facility]) Smoking 10/16/2020 12:00:00 AM EST Never Smoker completed Never S moker eCW1 ([facility]) Smoking 10/16/2020 12:00:00 AM EST Never Smoker completed Never S moker eCW1 ([facility]) Smoking 10/16/2020 12:00:00 AM EST Never Smoker completed Never S moker eCW1 ([facility]) Smoking 10/16/2020 12:00:00 AM EST Never Smoker completed Never S moker eCW1 ([facility]) Smoking 10/16/2020 12:00:00 AM EST Never Smoker completed Never S moker eCW1 ([facility]) Smoking 10/16/2020 12:00:00 AM EST Never Smoker completed Never S moker eCW1 ([facility]) Smoking 10/16/2020 12:00:00 AM EST Never Smoker completed Never S moker eCW1 ([facility]) Vital Signs ID Date Data Source UNK Name Value Range Interpretation Code Description Data Source(s) Body weight 186 [lb_av] 186 [lb_av] eCW1 ([facility]) Body height 62 [in_i] 62 [in_i] eCW1 ([facility]) Body mass index (BMI) [Ratio] 34.02 kg/m2 34.02 kg/m2 eCW1 ([facility]) Body temperature 98.7 [degF] 98.7 [degF] eCW1 ( [facility]) Heart rate 91 /min 91 /min eCW1 ([facility]) Respiratory rate 18 /min 18 /min eCW1 ([facility]) Oxygen saturation in Arterial blood by Pulse oximetry 98 % 98 % eCW1 ([facility]) Body weight 186.4 [lb_av] 186.4 [lb_av] eCW1 ([facility]) Body height 62 [in_i] 62 [in_i] eCW1 ([facility]) Body temperature 98.4 [degF] 98.4 [degF] eCW1 ( [facility]) Heart rate 103 /min 103 /min eCW1 ([facility]) Respiratory rate 18 /min 18 /min eCW1 ([facility]) Oxygen saturation in Arterial blood by Pulse oximetry 97 % 97 % eCW1 ([facility]) Body mass index (BMI) [Ratio] 34.09 kg/m2 34.09 kg/m2 eCW1 ([facility]) Body height 62 [in_i] 62 [in_i] eCW1 ([facility]) Body weight 182.2 [lb_av] 182.2 [lb_av] eCW1 ([facility]) Body mass index (BMI) [Ratio] 33.32 kg/m2 33.32 kg/m2 eCW1 ([facility]) Body temperature 99 [degF] 99 [degF] eCW1 ([facility]) Heart rate 90 /min 90 /min eCW1 ([facility]) Respiratory rate 18 /min 18 /min eCW1 ([facility]) Oxygen saturation in Arterial blood by Pulse oximetry 97 % 97 % eCW1 ([facility]) Body height 62 [in_i] 62 [in_i] eCW1 ([facility]) Body weight 179.4 [lb_av] 179.4 [lb_av] eCW1 ([facility]) Body mass index (BMI) [Ratio] 32.81 kg/m2 32.81 kg/m2 eCW1 ([facility]) Body temperature 98.4 [degF] 98.4 [degF] eCW1 ( [facility]) Heart rate 88 /min 88 /min eCW1 ([facility]) Respiratory rate 16 /min 16 /min eCW1 ([facility]) Oxygen saturation in Arterial blood by Pulse oximetry 97 % 97 % eCW1 ([facility]) Body height 62 [in_i] 62 [in_i] eCW1 ([facility]) Body weight 178.2 [lb_av] 178.2 [lb_av] eCW1 ([facility]) Body mass index (BMI) [Ratio] 32.59 kg/m2 32.59 kg/m2 eCW1 ([facility]) Body temperature 98.5 [degF] 98.5 [degF] eCW1 ( [facility]) Heart rate 80 /min 80 /min eCW1 ([facility]) Respiratory rate 16 /min 16 /min eCW1 ([facility]) Oxygen saturation in Arterial blood by Pulse oximetry 97 % 97 % eCW1 ([facility]) Body height 62 [in_i] 62 [in_i] eCW1 ([facility]) Body weight 183.6 [lb_av] 183.6 [lb_av] eCW1 ([facility]) Body mass index (BMI) [Ratio] 33.58 kg/m2 33.58 kg/m2 eCW1 ([facility]) Body temperature 98.6 [degF] 98.6 [degF] eCW1 ( [facility]) Heart rate 79 /min 79 /min eCW1 ([facility]) Respiratory rate 16 /min 16 /min eCW1 ([facility]) Oxygen saturation in Arterial blood by Pulse oximetry 98 % 98 % eCW1 ([facility]) ID Date Data Source [id number] 04/21/2021 10:11:00 AM EDT [facility] l Name Value Range Interpretation Code Description Data Source(s) WEIGHT 90.71 kilos 90.71 kilos [facility] al HEIGHT 162.56 centimeters 162.56 centimeter [facility] WEIGHT 90.71 kilos 90.71 kilos [facility] al HEIGHT 162.56 centimeters 162.56 centimeter [facility] Patient Treatment Plan of Care Planned Activity Planned Date Details Description Data Source (s) pantoprazole 40 MG Delayed Release Oral Tablet 07/23/2021 12:00:00 AM EDT eCW1 ([facility]) rizatriptan 10 MG Oral Tablet 07/01/2021 12:00:00 AM EDT eCW1 ([facility]) Doxepin Hydrochloride 50 MG Oral Capsule 06/10/2021 12:00:00 AM EDT eCW1 ([facility]) Fluphenazine Hydrochloride 2.5 MG Oral Tablet 06/10/2021 12:00:00 A M EDT eCW1 ([facility]) Doxepin Hydrochloride 50 MG Oral Capsule 06/10/2021 12:00:00 AM EDT eCW1 ([facility]) Fluphenazine Hydrochloride 5 MG Oral Tablet 06/10/2021 12:00:00 AM EDT eCW1 ([facility]) topiramate 25 MG Oral Tablet [Topamax] 04/29/2021 12:00:00 AM EDT eCW1 ([facility]) topiramate 25 MG Oral Tablet [Topamax] 04/29/2021 12:00:00 AM EDT eCW1 ([facility]) topiramate 25 MG Oral Tablet [Topamax] 04/29/2021 12:00:00 AM EDT eCW1 ([facility]) Acetaminophen 325 MG Oral Tablet [Tylenol] 04/08/2021 12:00:00 AM E DT eCW1 ([facility]) Acetaminophen 325 MG Oral Tablet [Tylenol] 04/08/2021 12:00:00 AM E DT eCW1 ([facility]) One Touch Delica Lancets 11/05/2020 12:00:00 AM EST eCW1 ([facility]) One Touch Test Strips 11/05/2020 12:00:00 AM EST eCW1 ([facility])
--- NOTE | 2021-10-02 09:30 | REP ---
INDICATION: Cough[place] COMPARISON: None. TECHNIQUE: PA and lateral. FINDINGS: Patchy opacities are identified primarily right upper lobe, right base and diffusely throughout the left lung. No effusion. No pneumothorax. Mediastinum and cardiac silhouette are normal. Skeletal structures are intact. Willis rods noted. IMPRESSION: Multifocal bilateral opacities consistent with COVID-19 pulmonary disease. <Electronically signed by Daryl Cuevas > 10/02/21 [id number]
--- OUTSIDE RECORDS SUMMARY | 2021-10-02 09:35 | CCD ---
Author Author [facility] Organization [facility] Address Unknown Phone Unavailable Care Team Providers Care Laundry Housekeeping Aide Name Role Phone Ad, L Aurelia FEED MANAGER Unavailable Unavailable Ad, L Aurelia FEED MANAGER Unavailable Unavailable Ad, L Aurelia FEED MANAGER Unavailable Unavailable [employer], L Aurelia FEED MANAGER Unavailable Unavailable [employer], L Aurelia FEED MANAGER Unavailable Unavailable [employer], L Aurelia FEED MANAGER Unavailable Unavailable Ad, L Aurelia FEED MANAGER Unavailable Unavailable Ad, L Aurelia FEED MANAGER Unavailable Unavailable Ad, L Aurelia FEED MANAGER Unavailable Unavailable [employer], L Aurelia FEED MANAGER Unavailable Unavailable [employer], L Aurelia FEED MANAGER Unavailable Unavailable Ad, L Aurelia FEED MANAGER Unavailable Unavailable Ad, L Aurelia FEED MANAGER Unavailable Unavailable Ad, L Aurelia FEED MANAGER Unavailable Unavailable [employer], L Aurelia FEED MANAGER Unavailable Unavailable Ad, L Aurelia FEED MANAGER Unavailable Unavailable Ad, L Aurelia FEED MANAGER Unavailable Unavailable [employer], L Aurelia FEED MANAGER Unavailable Unavailable [employer], L Aurelia FEED MANAGER Unavailable Unavailable Ad, L Aurelia FEED MANAGER Unavailable Unavailable [employer], L Aurelia FEED MANAGER Unavailable Unavailable [employer], L Aurelia FEED MANAGER Unavailable Unavailable Ad, L Aurelia FEED MANAGER Unavailable Unavailable [employer], L Aurelia FEED MANAGER Unavailable Unavailable Ad, L Aurelia FEED MANAGER Unavailable Unavailable Ad, L Aurelia FEED MANAGER Unavailable Unavailable Ad, L Aurelia FEED MANAGER Unavailable Unavailable [employer], L Aurelia FEED MANAGER Unavailable Unavailable Ad, L Aurelia FEED MANAGER Unavailable Unavailable [employer], L Aurelia FEED MANAGER Unavailable Unavailable [employer], L Aurelia FEED MANAGER Unavailable Unavailable Ad, L Aurelia FEED MANAGER Unavailable Unavailable [employer], L Aurelia FEED MANAGER Unavailable Unavailable [employer], L Aurelia FEED MANAGER Unavailable Unavailable [employer], L Aurelia FEED MANAGER Unavailable Unavailable [employer], L Aurelia FEED MANAGER Unavailable Unavailable Ad, L Aurelia FEED MANAGER Unavailable Unavailable [employer], L Aurelia FEED MANAGER Unavailable Unavailable Ad, L Aurelia FEED MANAGER Unavailable Unavailable Ad, L Aurelia FEED MANAGER Unavailable [facility] Unavailable Unavailable JEMMA, [...] KALEY RING MD Unavailable Unavailable JODIE, VIDHI FINGERNAIL FORMER Unavailable Unavailable JODIE, VIDHI FINGERNAIL FORMER Unavailable Unavailable JODIE, VIDHI FINGERNAIL FORMER Unavailable Unavailable JODIE, VIDHI FINGERNAIL FORMER Unavailable Unavailable JODIE, VIDHI FINGERNAIL FORMER Unavailable Unavailable JODIE, VIDHI FINGERNAIL FORMER Unavailable Unavailable JODIE, VIDHI FINGERNAIL FORMER Unavailable Unavailable JODIE, VIDHI FINGERNAIL FORMER Unavailable Unavailable JODIE, VIDHI FINGERNAIL FORMER Unavailable Unavailable JODIE, VIDHI FINGERNAIL FORMER Unavailable Unavailable JODIE, VIDHI FINGERNAIL FORMER Unavailable Unavailable JODIE, VIDHI FINGERNAIL FORMER Unavailable Unavailable JODIE, VIDHI FINGERNAIL FORMER Unavailable Unavailable JODIE, VIDHI FINGERNAIL FORMER Unavailable Unavailable JODIE, VIDHI FINGERNAIL FORMER Unavailable Unavailable JODIE, VIDHI FINGERNAIL FORMER Unavailable Unavailable JODIE, VIDHI FINGERNAIL FORMER Unavailable Unavailable JODIE, VIDHI FINGERNAIL FORMER Unavailable Unavailable JODIE, VIDHI FINGERNAIL FORMER Unavailable Unavailable JODIE, VIDHI FINGERNAIL FORMER Unavailable Unavailable JODIE, VIDHI FINGERNAIL FORMER Unavailable Unavailable JODIE, VIDHI FINGERNAIL FORMER Unavailable Unavailable JODIE, VIDHI FINGERNAIL FORMER Unavailable Unavailable JODIE, VIDHI FINGERNAIL FORMER Unavailable Unavailable JODIE, VIDHI FINGERNAIL FORMER Unavailable Unavailable JODIE, VIDHI FINGERNAIL FORMER Unavailable Unavailable JODIE, VIDHI FINGERNAIL FORMER Unavailable Unavailable JODIE, VIDIH FINGERNAIL FORMER Unavailable Unavailable JODIE, VIDHI FINGERNAIL FORMER Unavailable Unavailable JODIE, VIDHI FINGERNAIL FORMER Unavailable Unavailable JODIE, VIDHI FINGERNAIL FORMER Unavailable Unavailable JODIE, VIDHI FINGERNAIL FORMER Unavailable Unavailable JODIE, VIDHI FINGERNAIL FORMER Unavailable Unavailable JODIE, VIDHI FINGERNAIL FORMER Unavailable Unavailable JODIE, VIDHI FINGERNAIL FORMER Unavailable Unavailable JODIE, VIDHI FINGERNAIL FORMER Unavailable Unavailable JODIE, VIDHI FINGERNAIL FORMER Unavailable Unavailable Rydberg, Jodi PA Unavailable Unavailable [...] M Oly PA-C Unavailable Unavailable DESJARLAIS, KATJA DIRECTOR OF ENROLLMENT Unavailable Unavailable DESJARLAIS, KATJA DIRECTOR OF ENROLLMENT Unavailable Unavailable DESJARLAIS, KATJA DIRECTOR OF ENROLLMENT Unavailable Unavailable DESJARLAIS, KATJA DIRECTOR OF ENROLLMENT Unavailable Unavailable DESJARLAIS, KATJA DIRECTOR OF ENROLLMENT Unavailable Unavailable DESJARLAIS, KATJA DIRECTOR OF ENROLLMENT Unavailable Unavailable DESJARLAIS, KATJA DIRECTOR OF ENROLLMENT Unavailable Unavailable DESJARLAIS, KATJA DIRECTOR OF ENROLLMENT Unavailable Unavailable DESJARLAIS, KATJA DIRECTOR OF ENROLLMENT Unavailable Unavailable DESJARLAIS, KATJA DIRECTOR OF ENROLLMENT Unavailable Unavailable Dorie ZAPIEN Unavailable Unavailable KENDRA ZAMBRANO Unavailable Unavailable ESTEFANIA DRAKE FINGERNAIL FORMER-C, MSN Unavailable Unavailab le DRAKE, ESTEFANIA DANE FINGERNAIL FORMER-C, MSN Unavailable Unavailab le DRAKE, ESTEFANIA DANE FINGERNAIL FORMER-C, MSN Unavailable Unavailab le DRAKE, ESTEFANIA DANE FINGERNAIL FORMER-C, MSN Unavailable Unavailab le DRAKE, ESTEFANIA DANE FINGERNAIL FORMER-C, MSN Unavailable Unavailab le DRAKE, ESTEFANIA DANE FINGERNAIL FORMER-C, MSN Unavailable Unavailab le DRAKE, ESTEFANIA DANE FINGERNAIL FORMER-C, MSN Unavailable Unavailab le DRAKE, ESTEFANIA DANE FINGERNAIL FORMER-C, MSN Unavailable Unavailab le DRAKE, ESTEFANIA DANE FINGERNAIL FORMER-C, MSN Unavailable Unavailab le DRAKE, ESTEFANIA DANE FINGERNAIL FORMER-C, MSN Unavailable Unavailab le DRAKE, ESTEFANIA DANE FINGERNAIL FORMER-C, MSN Unavailable Unavailab le DRAKE, ESTEFANIA DANE FINGERNAIL FORMER-C, MSN Unavailable Unavailab le DRAKE, ESTEFANIA DANE FINGERNAIL FORMER-C, MSN Unavailable Unavailab le DRAKE, ESTEFANIA DANE FINGERNAIL FORMER-C, MSN Unavailable Unavailab le DRAKE, ESTEFANIA DANE FINGERNAIL FORMER-C, MSN Unavailable Unavailab le DRAKE, ESTEFANIA DANE FINGERNAIL FORMER-C, MSN Unavailable Unavailab le DRAKE, ESTEFANIA DANE FINGERNAIL FORMER-C, MSN Unavailable Unavailab le DRAKE, ESTEFANIA DANE FINGERNAIL FORMER-C, MSN Unavailable Unavailab le DRAKE, ESTEFANIA DANE FINGERNAIL FORMER-C, MSN Unavailable Unavailab le DRAKE, ESTEFANIA DANE FINGERNAIL FORMER-C, MSN Unavailable Unavailab le DRAKE, ESTEFANIA DANE FINGERNAIL FORMER-C, MSN Unavailable Unavailab le DRAKE, ESTEFANIA DANE FINGERNAIL FORMER-C, MSN Unavailable Unavailab le DRAKE, ESTEFANIA DANE FINGERNAIL FORMER-C, MSN Unavailable Unavailab le DRAKE, ESTEFANIA DANE FINGERNAIL FORMER-C, MSN Unavailable Unavailab le DRAKE, ESTEFANIA DANE FINGERNAIL FORMER-C, MSN Unavailable Unavailab le DRAKE, ESTEFANIA DANE FINGERNAIL FORMER-C, MSN Unavailable Unavailab le DRAKE, ESTEFANIA DANE FINGERNAIL FORMER-C, MSN Unavailable Unavailab le DRAKE, ESTEFANIA DANE FINGERNAIL FORMER-C, MSN Unavailable Unavailab le DRAKE, ESTEFANIA DANE FINGERNAIL FORMER-C, MSN Unavailable Unavailab le DRAKE, ESTEFANIA DANE FINGERNAIL FORMER-C, MSN Unavailable Unavailab le DRAKE, ESTEFANIA DANE FINGERNAIL FORMER-C, MSN Unavailable Unavailab le DRAKE, ESTEFANIA DANE FINGERNAIL FORMER-C, MSN Unavailable Unavailab le DRAKE, ESTEFANIA DANE FINGERNAIL FORMER-C, MSN Unavailable Unavailab le DRAKE, ESTEFANIA DANE FINGERNAIL FORMER-C, MSN Unavailable Unavailab le DRAKE, ESTEFANIA DANE FINGERNAIL FORMER-C, MSN Unavailable Unavailab le DRAKE, ESTEFANIA DANE FINGERNAIL FORMER-C, MSN Unavailable Unavailab le DRAKE, ESTEFANIA DANE FINGERNAIL FORMER-C, MSN Unavailable Unavailab le DRAKE, ESTEFANIA DANE FINGERNAIL FORMER-C, MSN Unavailable Unavailab le DRAKE, ESTEFANIA DANE FINGERNAIL FORMER-C, MSN Unavailable Unavailab le DRAKE, ESTEFANIA DANE FINGERNAIL FORMER-C, MSN Unavailable Unavailab le DRAKE, ESTEFANIA DANE FINGERNAIL FORMER-C, MSN Unavailable Unavailab le DRAKE, ESTEFANIA DANE FINGERNAIL FORMER-C, MSN Unavailable Unavailab le DRAKE, ESTEFANIA DANE FINGERNAIL FORMER-C, MSN Unavailable Unavailab le DRAKE, ESTEFANIA DANE FINGERNAIL FORMER-C, MSN Unavailable Unavailab le DRAKE, ESTEFANIA DANE FINGERNAIL FORMER-C, MSN Unavailable Unavailab le WILBER SERRANO PA Unavailable Unavailable WILBER SERRANO PA Unavailable Unavailable WILBER SERRANO PA Unavailable Unavailable WILBER SERRANO PA Unavailable Unavailable WILBER SERRANO PA Unavailable Unavailable ZACHWILBER VILLANUEVA PA Unavailable Unavailable WILBER SERRANO PA Unavailable Unavailable WILBER SERRANO PA Unavailable Unavailable WILBER SERRANO PA Unavailable Unavailable WILBER SERRANO PA Unavailable Unavailable WILBER SERRANO PA Unavailable Unavailable ZACHWILBER VILLANUEVAIC PA Unavailable Unavailable WILBER SERRANO PA Unavailable [...] PA Unavailable Unavailable WERBLIN, Shoaib. KATIE Unavailable [phone] WERBLIN, Z. KATIE Unavailable [phone] WERBLIN, Z. KATIE Unavailable [phone] WERBLIN, Z. KATIE Unavailable [phone] WERBLIN, Z. KATIE Unavailable [phone] Lizzy Zapien Unavailable Lizzy Zapien Unavailable PEGBERT [...] Unavailable PEG, BERT MD Unavailable Unavailable PEG, EBRT MD Unavailable Unavailable PEG, BERT MD Unavailable [...] PEG, BERT MD Unavailable Unavailable PEG, BERT STAFFORD Unavailable Unavailable PEG, BERT STAFFORD Unavailable Unavailable PEG, BERT STAFFORD Unavailable Unavailable PEG, BERT STAFFORD Unavailable Unavailable PEG, BERT STAFFORD Unavailable Unavailable JUAN DAVID, PRALONSO ANTONY MD Unavailable Unavailable JUAN DAVID, PRYJAMADEO [...] PRYJAMADEO ANTONY MD Unavailable Unavailable JUAN DAVID, PRALONSO ANTONY MD Unavailable Unavailable JUAN DAVID, BLUYSHARMIN [...] Edith Aurelia MS, RPA-C Unavailable Unav ailable [facility] Unavailable Unavailable Omkar, A Oly FINGERNAIL FORMER Unavailable Unavailable Omkar, A Oly FINGERNAIL FORMER Unavailable Unavailable Omkar, A Oly FINGERNAIL FORMER Unavailable Unavailable Omkar, A Oly FINGERNAIL FORMER Unavailable Unavailable Omkar, A Oly FINGERNAIL FORMER Unavailable Unavailable Omkar, A Oly FINGERNAIL FORMER Unavailable Unavailable Omkar, A Oly FINGERNAIL FORMER Unavailable Unavailable Omkar, A Oly FINGERNAIL FORMER Unavailable Unavailable Omkar, A Oly FINGERNAIL FORMER Unavailable Unavailable Omkar, A Oly FINGERNAIL FORMER Unavailable Unavailable Omkar, A Oly FINGERNAIL FORMER Unavailable Unavailable Omkar, A Oly FINGERNAIL FORMER Unavailable Unavailable Omkar, A Oly FINGERNAIL FORMER Unavailable Unavailable Omkar, A Oly FINGERNAIL FORMER Unavailable Unavailable Omkar, A Oly FINGERNAIL FORMER Unavailable Unavailable Omkar, A Oly FINGERNAIL FORMER Unavailable Unavailable Omkar, A Oly FINGERNAIL FORMER Unavailable Unavailable Omkar, A Oly FINGERNAIL FORMER Unavailable Unavailable Omkar, A Oly FINGERNAIL FORMER Unavailable Unavailable Omkar, A Oly FINGERNAIL FORMER Unavailable Unavailable Omkar, A Oly FINGERNAIL FORMER Unavailable Unavailable Omkar, A Oly FINGERNAIL FORMER Unavailable Unavailable Omkar, A Oly FINGERNAIL FORMER Unavailable Unavailable Omkar, A Oly FINGERNAIL FORMER Unavailable Unavailable Omkar, A Oly FINGERNAIL FORMER Unavailable Unavailable Omkar, A Oly FINGERNAIL FORMER Unavailable Unavailable Omkar, A Oly FINGERNAIL FORMER Unavailable Unavailable Omkar, A Oly FINGERNAIL FORMER Unavailable Unavailable Omkar, A Oly FINGERNAIL FORMER Unavailable Unavailable Omkar, A Oly FINGERNAIL FORMER Unavailable Unavailable Omkar, A Oly FINGERNAIL FORMER Unavailable Unavailable Omkar, A Oly FINGERNAIL FORMER Unavailable Unavailable Omkar, A Oly FINGERNAIL FORMER Unavailable Unavailable Omkar, A Oly FINGERNAIL FORMER Unavailable Unavailable Omkar, A Oly FINGERNAIL FORMER Unavailable Unavailable Omkar, A Oly FINGERNAIL FORMER Unavailable Unavailable Omkar, A Oly FINGERNAIL FORMER Unavailable Unavailable Omkar, A Oly FINGERNAIL FORMER Unavailable Unavailable Omkar, A Oly FINGERNAIL FORMER Unavailable Unavailable Omkar, A Oly FINGERNAIL FORMER Unavailable Unavailable Omkar, A Oly FINGERNAIL FORMER Unavailable Unavailable Omkar, A Oly FINGERNAIL FORMER Unavailable Unavailable Omkar, A Oly FINGERNAIL FORMER Unavailable Unavailable Omkar, A Oly FINGERNAIL FORMER Unavailable Unavailable Omkar, A Oly FINGERNAIL FORMER Unavailable Unavailable Omkar, A Oly FINGERNAIL FORMER Unavailable Unavailable Omkar, A Oly FINGERNAIL FORMER Unavailable Unavailable Omkar, A Oly FINGERNAIL FORMER Unavailable Unavailable Omkar, A Oly FINGERNAIL FORMER Unavailable Unavailable Omkar, A Oly FINGERNAIL FORMER Unavailable Unavailable Omkar, A Oly FINGERNAIL FORMER Unavailable Unavailable Omkar, A Oly FINGERNAIL FORMER Unavailable Unavailable Omkar, A Oly FINGERNAIL FORMER Unavailable Unavailable Omkar, A Oly FINGERNAIL FORMER Unavailable Unavailable Omkar, A Oly FINGERNAIL FORMER Unavailable Unavailable ZUKER, B SETH MD Unavailable [...] Neida Unavailable Kozacka, Neida Unavailable HANSA, ROCKY WQAAR PA-C Unavailable Unavailable HANSA, ROCKY WAQAR PA-C Unavailable Unavailable HANSA, ROCKY WAQAR PA-C Unavailable Unavailable HANSA, ROCKY WAQAR PA-C Unavailable Unavailable HANSA, ROCKY WAQAR PA-C Unavailable Unavailable HANSA, ROCKY WAQAR PA-C Unavailable Unavailable HANSA, ROCKY WAQAR PA-C Unavailable Unavailable HANSA, ROCKY WAQAR PA-C Unavailable Unavailable HANSA, ROCKY WAQAR PA-C Unavailable Unavailable HANSA, ROCKY WAQAR PA-C Unavailable Unavailable Omkar, A Oly FINGERNAIL FORMER Unavailable Unavailable Omkar, A Oly FINGERNAIL FORMER Unavailable Unavailable Omkar, A Oly FINGERNAIL FORMER Unavailable Unavailable Omkar, A Oly FINGERNAIL FORMER Unavailable Unavailable Omkar, A Oly FINGERNAIL FORMER Unavailable Unavailable Omkar, A Oly FINGERNAIL FORMER Unavailable Unavailable Omkar, A Oly FINGERNAIL FORMER Unavailable Unavailable Omkar, A Oly FINGERNAIL FORMER Unavailable Unavailable Omkar, A Oly FINGERNAIL FORMER Unavailable Unavailable Omkar, A Oly FINGERNAIL FORMER Unavailable Unavailable Omkar, A Oly FINGERNAIL FORMER Unavailable Unavailable Omkar, A Oly FINGERNAIL FORMER Unavailable Unavailable Omkar, A Oly FINGERNAIL FORMER Unavailable Unavailable Omkar, A Oly FINGERNAIL FORMER Unavailable Unavailable Omkar, A Oly FINGERNAIL FORMER Unavailable Unavailable Omkar, A Oly FINGERNAIL FORMER Unavailable Unavailable Omkar, A Oly FINGERNAIL FORMER Unavailable Unavailable Omkar, A Oly FINGERNAIL FORMER Unavailable Unavailable Omkar, A Oly FINGERNAIL FORMER Unavailable Unavailable Omkar, A Oly FINGERNAIL FORMER Unavailable Unavailable Omkar, A Oly FINGERNAIL FORMER Unavailable Unavailable Omkar, A Oly FINGERNAIL FORMER Unavailable Unavailable Omkar, A Oly FINGERNAIL FORMER Unavailable Unavailable Omkar, A Oly FINGERNAIL FORMER Unavailable Unavailable Omkar, A Oly FINGERNAIL FORMER Unavailable Unavailable Omkar, A Oly FINGERNAIL FORMER Unavailable Unavailable Omkar, A Oly FINGERNAIL FORMER Unavailable Unavailable Omkar, A Oly FINGERNAIL FORMER Unavailable Unavailable Omkar, A Oly FINGERNAIL FORMER Unavailable Unavailable Omkar, A Oly FINGERNAIL FORMER Unavailable Unavailable Omkar, A Oly FINGERNAIL FORMER Unavailable Unavailable Omkar, A Oly FINGERNAIL FORMER Unavailable Unavailable Omkar, A Oly FINGERNAIL FORMER Unavailable Unavailable Omkar, A Oly FINGERNAIL FORMER Unavailable Unavailable Omkar, A Oly FINGERNAIL FORMER Unavailable Unavailable Omkar, A Oly FINGERNAIL FORMER Unavailable Unavailable Omkar, A Oly FINGERNAIL FORMER Unavailable Unavailable Omkar, A Oly FINGERNAIL FORMER Unavailable Unavailable Omkar, A Oly FINGERNAIL FORMER Unavailable Unavailable Omkar, A Oly FINGERNAIL FORMER Unavailable Unavailable Omkar, A Oly FINGERNAIL FORMER Unavailable Unavailable Omkar, A Oly FINGERNAIL FORMER Unavailable Unavailable Omkar, A Oly FINGERNAIL FORMER Unavailable Unavailable Omkar, A Oly FINGERNAIL FORMER Unavailable Unavailable Omkar, A Oly FINGERNAIL FORMER Unavailable Unavailable Omkar, A Oly FINGERNAIL FORMER Unavailable Unavailable Omkar, A Oly FINGERNAIL FORMER Unavailable Unavailable Omkar, A Oly FINGERNAIL FORMER Unavailable Unavailable Omkar, A Oly FINGERNAIL FORMER Unavailable Unavailable Omkar, A Oly FINGERNAIL FORMER Unavailable Unavailable Omkar, A Oly FINGERNAIL FORMER Unavailable Unavailable Omkar, A Oly FINGERNAIL FORMER Unavailable Unavailable Omkar, A Oly FINGERNAIL FORMER Unavailable Unavailable Omkar, A Oly FINGERNAIL FORMER Unavailable Unavailable Omkar, A Oly FINGERNAIL FORMER Unavailable Unavailable Dinorah, Estefania Chung FINGERNAIL FORMER Unavailable Unavailable Dayton, Estefania Chung FINGERNAIL FORMER Unavailable Unavailable [place], Estefania Chung FINGERNAIL FORMER Unavailable Unavailable [place], Estefania Chung FINGERNAIL FORMER Unavailable Unavailable Dinorah, Estefania Chung FINGERNAIL FORMER Unavailable Unavailable Dinorah, Estefania Chung FINGERNAIL FORMER Unavailable Unavailable [place], Estefania Chung FINGERNAIL FORMER Unavailable Unavailable [place], Estefania Chung FINGERNAIL FORMER Unavailable Unavailable Dinorah, Estefania Chung FINGERNAIL FORMER Unavailable Unavailable [place], Estefania Chung FINGERNAIL FORMER Unavailable Unavailable Dinorah, Estefania Chung FINGERNAIL FORMER Unavailable Unavailable Dinorah, Estefania Chung FINGERNAIL FORMER Unavailable Unavailable Dinorah, Estefania Chung FINGERNAIL FORMER Unavailable Unavailable [place], Estefania Chung FINGERNAIL FORMER Unavailable Unavailable Re-disclosure Warning The records that [...] is protected by Article 27-F of the [facility] Public Health law. If you continue you may have access to information: Regarding HIV / AIDS; Provided by facilities licensed or operated by the [facility] Office of Mental Health; or Provided by the [facility] Office for People With Developmental Disabilities. If such information is present, then the following [facility] mandated warning applies: This information has [...] law may result in a fine or long-term sentence or both. A general authorization for the release of medical or other information is NOT sufficient authorization for further disc losure. Family History Family Member Name Family Member Gender Family Member Status Date o f Status Description Data Source(s) Unknown Female Problem [facility] ([facility]) Encounters Encounter Providers Location Date Indications Data Source(s ) Outpatient COUNT [facility]CLUDES [facility] 09/28/2021 12:00:00 AM [place] [address] ([facility]) Outpatient COUNT INCLUDES [facility] 09/23/2021 12:00:00 AM [place] [address] ([facility]) Outpatient Attender: Neida Gilbert 09/21/2021 09:08:00 AM [facility] Outpatient Attender: WAQAR SANTO PA-C 09/15/2021 09:50:00 AM [facility] Outpatient Attender: Neida Gilbert 09/15/2021 08:14:00 AM [facility] Outpatient Attender: KATJA PILLAI NP 09/08/2021 08: 34:00 AM [facility] Outpatient Attender: Neida Gilbert 09/07/2021 09:03:00 AM [facility] Outpatient Attender: Neida Gilbert 08/31/2021 09:01:00 AM [facility] Outpatient COUNT INCLUDES [facility] 08/27/2021 12:00:00 AM [facility] ([facility]) Outpatient Attender: Chung URBINA 08/26/2021 09:47:00 AM [facility] Outpatient Attender: KATJA PILLAI NP 08/26/2021 09: 14:00 AM [facility] Outpatient Attender: WAQAR SANTO PA-C 08/26/2021 09:10:00 AM [facility] Outpatient COUNT INCLUDES [facility] 08/26/2021 12:00:00 AM EDT eCW1 ([facility]) Outpatient Attender: Aurelia ROCHAReferrer: Delmer ROCHA EMERGENCY ROOM-LAB REF 08/25/2021 12:29:00 PM EDT - 08/25/2021 12:29:00 PM [facility] Outpatient COUNT INCLUDES [facility] 08/25/2021 12:00:00 AM EDT eCW1 ([facility]) Outpatient Attender: Neida Gilbert 08/24/2021 09:21:00 AM [facility] Outpatient Attender: Lizzy Zapien 08/13/2021 04:45:00 PM [facility] Outpatient Attender: WAQAR SANTO PA-C 08/12/2021 09:35:00 AM [facility] Outpatient Attender: KATJA PILLAI NP 08/12/2021 09: 34:00 AM [facility] Outpatient Attender: WAQAR SANTO PA-C 07/29/2021 09:21:00 AM [facility] Outpatient Attender: KATJA PILLAI NP 07/29/2021 09: 13:00 AM [facility] Outpatient Attender: Aurelia ROCHA 07/23/2021 10:17:00 AM [facility] Outpatient COUNT INCLUDES [facility] 07/23/2021 12:00:00 AM EDT eC ([facility]) Outpatient Attender: WAQAR SANTO PA-C 07/15/2021 09:49:00 AM [facility] Outpatient Attender: Aurelia Doung RNPReferrer: Delmer ROCHA EMERGENCY ROOM-LAB 07/08/2021 06:04:00 PM EDT - 07/08/2021 06:04:00 PM [facility] Outpatient Attender: Oly CAGLEPConsultant: [facility] [id number] 07/08/2021 06:04:00 PM [facility] Outpatient Attender: Oly Espitia FNPReferrer: Aurelia ROCHA EMERGENCY [id number] 07/08/2021 04:16:00 PM EDT - 07/08/2021 04:16:00 PM [facility] Admission cancelled. Disregard status an d admitted date. Outpatient Attender: Oly Espitia CIARA 07/08/2021 10:12 :00 AM [facility] Admission cancelled. Disregard status an d admitted date. Outpatient COUNT INCLUDES [facility] 07/08/2021 12:00:00 AM EDT [facility] ([facility]) Outpatient Attender: Lizzy Zapien 07/02/2021 05:30:00 PM [facility] Outpatient COUNT INCLUDES [facility] 07/01/2021 12:00:00 AM EDT [facility] ([facility]) Outpatient Attender: WAQAR SANTO PA-C 06/24/2021 10:00:00 AM [facility] Outpatient Attender: KATJA PILLAI NP 06/24/2021 09: 21:00 AM [facility] Outpatient Attender: Lizzy Zapien 06/18/2021 10:15:00 AM [facility] Outpatient Attender: Lizzy Zapien 06/10/2021 09:56:00 AM [facility] Outpatient Attender: Lizzy Zapien 06/04/2021 08:03:00 AM [facility] Outpatient Attender: WAQAR SANTO PA-C 06/03/2021 09:18:00 AM [facility] Outpatient Attender: KATJA PILLAI NP 06/03/2021 09: 03:00 AM [facility] Preadmit Attender: Aurelia ROCHA 06/02/2021 10:00:00 AM [facility] Outpatient Attender: BERT RUVALCABA MD Main office - [facility] ravinder 05/21/2021 03:15:00 PM [facility] ([facility] ) Outpatient Attender: Lizzy Zapien 05/19/2021 09:59:00 AM [facility] Admission cancelled. Disregard status an d admitted date. Outpatient Attender: WAQAR SANTO PA-C 05/13/2021 01:47:00 PM [facility] Outpatient Attender: KATJA PILLAI NP 05/13/2021 09: 57:00 AM [facility] Outpatient Attender: WAQAR SANTO PA-C 05/13/2021 09:56:00 AM [facility] Admission cancelled. Disregard status an d admitted date. Outpatient Attender: Aurelia ROCHA 05/12/2021 08:32:00 AM [facility] Outpatient COUNT INCLUDES [facility] 05/12/2021 12:00:00 AM EDT eCW1 ([facility]) Outpatient Attender: Lizzy Zapien 05/05/2021 10:00:00 AM [facility] Outpatient COUNT INCLUDES [facility] 05/01/2021 12:00:00 AM EDT eCW1 ([facility]) Outpatient Attender: KATJA PILLAI NP 04/28/2021 09: 21:00 AM [facility] Outpatient Attender: BERT RUVALCABA MD Main office - [facility] 04/23/2021 03:45:00 PM EDT MEDENT ([facility]) Outpatient Attender: WAQAR SANTO PA-C 04/22/2021 09:54:00 AM [facility] Outpatient Attender: Lizzy Zapien 04/21/2021 10:00:00 AM [facility] Outpatient COUNT INCLUDES THE [facility] 04/08/2021 12:00:00 AM EDT eCW1 ([facility]) Outpatient Attender: Lizzy Zapien 04/07/2021 10:00:00 AM [facility] Outpatient COUNT INCLUDES THE [facility] 04/06/2021 12:00:00 AM EDT eCW1 ([facility]) Outpatient Attender: Oly Sykes PA-C 04/01/2021 11:14 :00 AM [facility] Outpatient Attender: WAQAR SANTO PA-C 04/01/2021 11:00:00 AM [facility] (TCM) TCM/Hospital Follow Up COUNT INCLUDES THE [facility] 04/01/2021 12:00:00 AM EDT eCW1 ([facility]) Outpatient Attender: KATJA PILLAI NP 03/31/2021 10: 40:00 AM [facility] Outpatient Attender: Lizzy Zapien 03/26/2021 11:00:00 AM [facility] Outpatient Attender: Lizzy Zapien 03/13/2021 09:29:00 AM [facility] Outpatient COUNT INCLUDES THE [facility] 03/04/2021 12:00:00 AM EDT eCW1 ([facility]) Outpatient Attender: Lizzy Zapien 03/02/2021 10:00:00 AM [facility] Outpatient Attender: WAQAR SANTO PA-C 02/27/2021 09:55:00 AM [facility] Outpatient COUNT INCLUDES THE [facility] 02/24/2021 12:00:00 AM EDT eCW1 ([facility]) Outpatient Attender: BERT RUVALCABA MD Main office - [facility] 02/23/2021 08:30:00 AM EDT MEDENT ([facility]) Outpatient Attender: WAQAR SANTO PA-C 02/23/2021 08:17:00 AM [facility] Outpatient Attender: KATJA PILLAI NP 02/17/2021 09: 17:00 AM [facility] Outpatient Attender: JANEY EASTON DO 02/16/2021 09:21:00 A [facility] Outpatient Attender: WAQAR SANTO PA-C 02/16/2021 08:49:00 AM [facility] Outpatient COUNT INCLUDES THE [facility] 02/16/2021 12:00:00 AM EDT eCW1 ([facility]) Outpatient COUNT INCLUDES THE [facility] 02/13/2021 12:00:00 AM EDT eCW1 ([facility]) Outpatient Attender: Lizzy Dye: LIZZY PLASENCIA 02/10/2021 09:03:00 AM [facility] Outpatient COUNT INCLUDES THE [facility] 02/10/2021 12:00:00 AM EDT eCW1 ([facility]) Outpatient Attender: KATJA PILLAI NP 01/30/2021 02: 00:00 PM [facility] Outpatient Attender: WAQAR SANTO PA-C 01/29/2021 09:42:00 AM [facility] Outpatient Attender: WAQAR SANTO PA-C 01/27/2021 10:35:00 AM [facility] Outpatient Attender: Lizzy Warrenender: LIZZY PLASENCIA 01/20/2021 06:00:00 PM [facility] Outpatient Attender: Lizzy Warrenender: LIZZY PLASENCIA 01/13/2021 04:00:00 PM [facility] Outpatient Attender: WAQAR SANTO PA-C 01/12/2021 08:47:00 AM [facility] Outpatient Attender: KATJA PILLAI NP 01/08/2021 10: 00:00 AM [facility] Outpatient Attender: WAQAR SANTO PA-C 12/30/2020 09:00:00 AM [facility] Outpatient Attender: WAQAR SANTO PA-C 12/29/2020 08:49:00 AM [facility] Admission cancelled. Disregard status an d admitted date. Outpatient Attender: Lizzy Warrenender: LIZZY PLASENCIA 12/25/2020 05:00:00 PM [facility] Outpatient Attender: KATJA PILLAI NP 12/25/2020 10: 00:00 AM [facility] Outpatient Attender: Lizzy Warrenender: LIZZY PLASENCIA 12/18/2020 10:00:00 AM [facility] Outpatient COUNT INCLUDES THE [facility] 12/17/2020 12:00:00 AM EST eCW1 ([facility]) Outpatient Attender: CASSIA RAJANeferrer: Aurelia ROCHA 12/16/2020 01:00:00 PM [facility] 12/16/2020 12:00:00 AM EST eCW1 ([facility]) Outpatient Attender: Oly Sykes PA-C 12/15/2020 09:48 :00 AM [facility] Outpatient COUNT INCLUDES THE [facility] 12/15/2020 12:00:00 AM EST eCW1 ([facility]) Outpatient Attender: WAQAR SANTO PA-C 12/11/2020 09:04:00 AM [facility] Outpatient Attender: Lizzy Warrenender: LIZZY PLASENCIA 12/08/2020 08:16:00 AM [facility] Outpatient COUNT INCLUDES THE [facility] 12/08/2020 12:00:00 AM EST eCW1 ([facility]) Outpatient Attender: Lizzy Dye: LIZZY PLASENCIA 12/02/2020 09:07:00 AM [facility] Outpatient COUNT INCLUDES THE [facility] 12/01/2020 12:00:00 AM EST eCW1 ([facility]) Outpatient Attender: WAQAR SANTO PA-C 11/26/2020 10:48:00 AM [facility] Outpatient COUNT INCLUDES THE [facility] 11/26/2020 12:00:00 AM EST eCW1 ([facility]) Outpatient Attender: KATJA PILLAI NP 11/25/2020 01: 40:00 PM [facility] Outpatient Attender: WAQAR SANTO PA-C 11/24/2020 09:51:00 AM [facility] Admission cancelled. Disregard status an d admitted date. Outpatient Attender: WAQAR SANTO PA-C 11/10/2020 10:00:00 AM [facility] Outpatient Attender: KATJA PILLAI NP 11/07/2020 10: 40:00 AM [facility] Outpatient COUNT INCLUDES THE [facility] 11/05/2020 12:00:00 AM EST eCW1 ([facility]) Outpatient Attender: Lizzy Dye: LIZZY PLASENCIA 10/29/2020 08:04:00 AM [facility] Outpatient Attender: WAQAR SANTO PA-C 10/27/2020 09:24:00 AM [facility] Outpatient COUNT INCLUDES THE [facility] 10/27/2020 12:00:00 AM EST eCW1 ([facility]) Outpatient COUNT INCLUDES THE [facility] 10/27/2020 12:00:00 AM EST eCW1 ([facility]) Outpatient Attender: KATJA PILLAI NP 10/22/2020 10: 00:00 AM [facility] Outpatient Attender: WAQAR SANTO PA-C 10/20/2020 11:00:00 AM [facility] Outpatient COUNT INCLUDES THE [facility] 10/20/2020 12:00:00 AM EST eCW1 ([facility]) Outpatient Attender: Oly URBINA 10/16/2020 08:58 :00 AM [facility] Outpatient COUNT INCLUDES THE [facility] 10/16/2020 12:00:00 AM EST eCW1 ([facility]) Outpatient COUNT INCLUDES THE [facility] 10/16/2020 12:00:00 AM EST eCW1 ([facility]) Outpatient COUNT INCLUDES THE [facility] 10/16/2020 12:00:00 AM EST eCW1 ([facility]) Outpatient COUNT INCLUDES THE [facility] 10/16/2020 12:00:00 AM EST eCW1 ([facility]) Outpatient COUNT INCLUDES THE [facility] 10/16/2020 12:00:00 AM EST eCW1 ([facility]) Outpatient Attender: LIZZY ZAPIEN 10/15/2020 10:00:00 AM [facility] Outpatient Attender: Aurelia Duong RNPReferrer: Delmer ROCHA EMERGENCY ROOM-LAB 10/13/2020 10:26:00 AM [facility] - 10/13/2020 10:26:00 AM [facility] Outpatient Attender: WAQAR SANTO PA-C 10/13/2020 09:48:00 AM [facility] Outpatient COUNT INCLUDES THE [facility] 10/13/2020 12:00:00 AM EST eCW1 ([facility]) Outpatient Attender: WAQAR SANTO PA-C 10/03/2020 10:55:00 AM [facility] Outpatient Attender: WAQAR SANTO PA-C 10/02/2020 11:00:00 AM [facility] Outpatient Attender: KATJA PILLAI NP 10/02/2020 08: 58:00 AM [facility] Outpatient Attender: LIZZY ZAPIEN 09/30/2020 10:00:00 AM [facility] Outpatient Attender: LIZZY ZAPIEN 09/17/2020 09:02:00 AM [facility] Outpatient Attender: WAQAR SANTO PA-C 09/16/2020 08:56:00 AM [facility] Outpatient Attender: KATJA PILLAI NP 09/11/2020 10: 24:00 AM [facility] Outpatient COUNT INCLUDES THE [facility] 09/09/2020 12:00:00 AM EST eCW1 ([facility]) Outpatient COUNT INCLUDES THE [facility] 09/08/2020 12:00:00 AM EST eCW1 ([facility]) Outpatient COUNT INCLUDES THE [facility] 09/08/2020 12:00:[address] [facility]) Outpatient Attender: LIZZY ZAPIEN 09/03/2020 10:00:00 AM [facility] Outpatient Attender: KAJTA PILLAI NP 08/26/2020 11: 40:00 AM [facility] Outpatient Attender: WAQAR SANTO PA-C 08/26/2020 08:56:00 AM [facility] Outpatient Attender: LIZZY ZAPIEN 08/20/2020 10:00:00 AM [facility] Outpatient Attender: LIZZY ZAPIEN 08/06/2020 09:03:00 AM [facility] Outpatient Attender: WAQAR SANTO PA-C 08/05/2020 09:03:00 AM [facility] Outpatient Attender: KATJA PILLAI NP 07/24/2020 09: 25:00 AM [facility] Outpatient Attender: WAQAR SANTO PA-C 07/23/2020 11:42:00 AM [facility] Outpatient Attender: LIZZY ZAPIEN 07/23/2020 09:02:00 AM [facility] Outpatient Attender: WAQAR SANTO PA-C 07/15/2020 08:52:00 AM [facility] Outpatient Attender: LIZZY ZAPIEN 07/09/2020 09:05:00 AM [facility] Outpatient Attender: KATJA PILLAI NP 07/03/2020 09: 50:00 AM [facility] Outpatient Attender: LIZZY ZAPIEN 07/02/2020 09:02:00 AM [facility] Outpatient Attender: Aurelia ROCHA 06/25/2020 11:00:00 AM [facility] Outpatient Attender: LIZZY ZAPIEN 06/25/2020 09:02:00 AM [facility] Outpatient Attender: DANE SAMS, MSNReferr er: MARÍA ELENA SMITH EMERGENCY ROOM-LAB 06/24/2020 09:29:00 AM T 06/24/2020 09:29:00 AM [facility] Outpatient Attender: WAQAR SANTO PA-C 06/24/2020 08:46:00 AM [facility] Outpatient Attender: Aurelia ROCHA 06/18/2020 10:46:00 AM [facility] Outpatient Attender: KATJA PILLAI NP 06/12/2020 10: 40:00 AM [facility] Outpatient Attender: LIZZY ZAPIEN 06/11/2020 08:16:00 AM [facility] Outpatient Attender: WAQAR SANTO PA-C 06/03/2020 01:07:00 PM [facility] Outpatient Attender: KATJA PILLAI NP 05/30/2020 09: 14:00 AM [facility] Outpatient Attender: LIZZY ZAPIEN 05/13/2020 08:51:00 AM [facility] Outpatient Attender: WAQAR SANTO PA-C 05/13/2020 08:50:00 AM [facility] Outpatient Attender: LIZZY Warrenender: KENDRA LUBIN 05/06/2020 09:44:00 AM [facility] Outpatient Attender: QUE AGRAWAL 04/24/2020 11:30:00 AM [facility] Outpatient Attender: WAQAR SANTO PA-C 04/21/2020 09:55:00 AM [facility] Outpatient Attender: KATJA PILLAI NP 04/16/2020 09: 15:00 AM [facility] Outpatient Attender: QUE AGRAWAL 03/27/2020 10:30:00 AM [facility] Outpatient Attender: QUE AGRAWAL 03/21/2020 04:00:00 PM [facility] Outpatient Attender: CASSIA FALL MDReferrer: HAYDEN KOO 12/11/2019 10:00:00 AM [facility] Outpatient Attender: CASSIA FALL MDReferrer: HAYDEN KOO 09/20/2019 09:52:00 AM [facility] 09/20/2019 09:52:00 AM [facility] Outpatient Attender: CASSIA FALL MDReferrer: HAYDEN KOO 07/17/2019 09:30:00 AM [facility] 07/17/2019 09:30:00 AM [facility] Outpatient Attender: HAYDEN KOOReferr er: HAYDEN KOO 03/19/2019 12:51:00 PM EDT - 03/19/2019 12:51:00 PM [facility] Outpatient Attender: HAYDEN KOOReferr er: HAYDEN KOO 02/23/2019 01:28:00 PM EDT - 02/23/2019 01:28:00 PM [facility] Outpatient Attender: HAYDEN KOOReferr er: HAYDEN KOO 02/20/2019 11:39:00 AM EDT - 02/20/2019 11:39:00 AM [facility] Outpatient Attender: HAYDEN KOOReferr er: HAYDEN KOO EMERGENCY ROOM-LAB 10/19/2018 01:49:00 PM [facility] - 10/19/2018 01:49:00 PM [facility] Emergency Attender: JORGE ALBERTO Zarateerrer: HAYDEN RENE EMERGENCY ROOM-ER 09/07/2018 11:13:00 AM [facility] - 09/07/2018 09:15:00 PM [facility] Outpatient Attender: HAYDEN KOO 07/07/2016 0 2:28:00 PM [facility] Emergency Attender: KATIE URBINA 016 12:47:00 PM [facility] - 03/17/2016 03:50:00 PM [facility] Outpatient Attender: VIDHI URBINA 01/29/2016 02:00 :00 PM [facility] Outpatient Attender: SETH RAJANeferrer: Jodi NOVOA 03/21/2014 12:08:00 PM [facility] Outpatient Attender: Jodi NOVOA 01/04/2014 09:00:00 AM [facility] Emergency Attender: Aurelia Harden MS, RPA-C 09/11/2013 12:24:00 PM [facility] - 09/11/2013 01:30:00 PM [facility] Immunizations Vaccine Date Status Description Data Source(s) COVID-19 VACCINE Moderna 09/17/2021 12:00:00 AM EST completed [facility] Vaccine Series Complete: NOThis Data was Submitted to [facility] Via [employer]. 08/26/2021 10:06:00 AM EDT completed e CW1 ([facility]) 08/26/2021 10:06:00 AM EDT completed e CW1 ([facility]) 08/26/2021 10:06:00 AM EDT completed e CW1 ([facility]) 08/12/2021 09:59:00 AM EDT completed e CW1 ([facility]) 08/12/2021 09:59:00 AM EDT completed e CW1 ([facility]) 08/12/2021 09:59:00 AM EDT completed e CW1 ([facility]) 07/29/2021 10:39:00 AM EDT completed e CW1 ([facility]) 07/29/2021 10:39:00 AM EDT completed e CW1 ([facility]) 07/29/2021 10:39:00 AM EDT completed e CW1 ([facility]) 07/29/2021 10:39:00 AM EDT completed e CW1 ([facility]) 07/15/2021 10:37:00 AM EDT completed e CW1 ([facility]) 07/15/2021 10:37:00 AM EDT completed e CW1 ([facility]) 07/15/2021 10:37:00 AM EDT completed e CW1 ([facility]) 07/15/2021 10:37:00 AM EDT completed e CW1 ([facility]) 06/24/2021 10:21:00 AM EDT completed e CW1 ([facility]) 06/24/2021 10:21:00 AM EDT completed e CW1 ([facility]) 06/24/2021 10:21:00 AM EDT completed e CW1 ([facility]) 06/24/2021 10:21:00 AM EDT completed e CW1 ([facility]) 06/24/2021 10:21:00 AM EDT completed e CW1 ([facility]) 06/24/2021 10:21:00 AM EDT completed e CW1 ([facility]) 06/03/2021 09:35:00 AM EDT completed e CW1 ([facility]) 06/03/2021 09:35:00 AM EDT completed e CW1 ([facility]) 06/03/2021 09:35:00 AM EDT completed e CW1 ([facility]) 06/03/2021 09:35:00 AM EDT completed e CW1 ([facility]) 06/03/2021 09:35:00 AM EDT completed e CW1 ([facility]) 06/03/2021 09:35:00 AM EDT completed e CW1 ([facility]) 05/13/2021 10:38:00 AM EDT completed e CW1 ([facility]) 05/13/2021 10:38:00 AM EDT completed e CW1 ([facility]) 05/13/2021 10:38:00 AM EDT completed e CW1 ([facility]) 05/13/2021 10:38:00 AM EDT completed e CW1 ([facility]) 05/13/2021 10:38:00 AM EDT completed e CW1 ([facility]) 05/13/2021 10:38:00 AM EDT completed e CW1 ([facility]) 05/13/2021 10:38:00 AM EDT completed e CW1 ([facility]) 04/22/2021 11:06:00 AM EDT completed e CW1 ([facility]) 04/22/2021 11:06:00 AM EDT completed e CW1 ([facility]) 04/22/2021 11:06:00 AM EDT completed e CW1 ([facility]) 04/22/2021 11:06:00 AM EDT completed e CW1 ([facility]) 04/22/2021 11:06:00 AM EDT completed e CW1 ([facility]) 04/22/2021 11:06:00 AM EDT completed e CW1 ([facility]) 04/22/2021 11:06:00 AM EDT completed e CW1 ([facility]) 04/22/2021 11:06:00 AM EDT completed e CW1 ([facility]) 04/01/2021 11:31:00 AM EDT completed e CW1 ([facility]) 04/01/2021 11:31:00 AM EDT completed e CW1 ([facility]) 04/01/2021 11:31:00 AM EDT completed e CW1 ([facility]) 04/01/2021 11:31:00 AM EDT completed e CW1 ([facility]) 04/01/2021 11:31:00 AM EDT completed e CW1 ([facility]) 04/01/2021 11:31:00 AM EDT completed e CW1 ([facility]) 04/01/2021 11:31:00 AM EDT completed e CW1 ([facility]) 04/01/2021 11:31:00 AM EDT completed e CW1 ([facility]) 04/01/2021 11:31:00 AM EDT completed e CW1 ([facility]) 04/01/2021 11:31:00 AM EDT completed e CW1 ([facility]) 04/01/2021 11:31:00 AM EDT completed e CW1 ([facility]) 02/27/2021 10:15:00 AM EDT completed e CW1 ([facility]) 02/27/2021 10:15:00 AM EDT completed e CW1 ([facility]) 02/27/2021 10:15:00 AM EDT completed e CW1 ([facility]) 02/27/2021 10:15:00 AM EDT completed e CW1 ([facility]) 02/27/2021 10:15:00 AM EDT completed e CW1 ([facility]) 02/27/2021 10:15:00 AM EDT completed e CW1 ([facility]) 02/27/2021 10:15:00 AM EDT completed e CW1 ([facility]) 02/27/2021 10:15:00 AM EDT completed e CW1 ([facility]) 02/27/2021 10:15:00 AM EDT completed e CW1 ([facility]) 02/27/2021 10:15:00 AM EDT completed e CW1 ([facility]) 02/27/2021 10:15:00 AM EDT completed e CW1 ([facility]) 02/27/2021 10:15:00 AM EDT completed e CW1 ([facility]) 02/27/2021 10:15:00 AM EDT completed e CW1 ([facility]) 02/27/2021 10:15:00 AM EDT completed e CW1 ([facility]) 02/16/2021 09:05:00 AM EDT completed e CW1 ([facility]) 02/16/2021 09:05:00 AM EDT completed e CW1 ([facility]) 02/16/2021 09:05:00 AM EDT completed e CW1 ([facility]) 02/16/2021 09:05:00 AM EDT completed e CW1 ([facility]) 02/16/2021 09:05:00 AM EDT completed e CW1 ([facility]) 02/16/2021 09:05:00 AM EDT completed e CW1 ([facility]) 02/16/2021 09:05:00 AM EDT completed e CW1 ([facility]) 02/16/2021 09:05:00 AM EDT completed e CW1 ([facility]) 02/16/2021 09:05:00 AM EDT completed e CW1 ([facility]) 02/16/2021 09:05:00 AM EDT completed e CW1 ([facility]) 02/16/2021 09:05:00 AM EDT completed e CW1 ([facility]) 02/16/2021 09:05:00 AM EDT completed e CW1 ([facility]) 02/16/2021 09:05:00 AM EDT completed e CW1 ([facility]) 02/16/2021 09:05:00 AM EDT completed e CW1 ([facility]) 02/16/2021 09:05:00 AM EDT completed e CW1 ([facility]) 01/29/2021 10:18:00 AM EDT completed e CW1 ([facility]) 01/29/2021 10:18:00 AM EDT completed e CW1 ([facility]) 01/29/2021 10:18:00 AM EDT completed e CW1 ([facility]) 01/29/2021 10:18:00 AM EDT completed e CW1 ([facility]) 01/29/2021 10:18:00 AM EDT completed e CW1 ([facility]) 01/29/2021 10:18:00 AM EDT completed e CW1 ([facility]) 01/29/2021 10:18:00 AM EDT completed e CW1 ([facility]) 01/29/2021 10:18:00 AM EDT completed e CW1 ([facility]) 01/29/2021 10:18:00 AM EDT completed e CW1 ([facility]) 01/29/2021 10:18:00 AM EDT completed e CW1 ([facility]) 01/29/2021 10:18:00 AM EDT completed e CW1 ([facility]) 01/29/2021 10:18:00 AM EDT completed e CW1 ([facility]) 01/29/2021 10:18:00 AM EDT completed e CW1 ([facility]) 01/29/2021 10:18:00 AM EDT completed e CW1 ([facility]) 01/29/2021 10:18:00 AM EDT completed e CW1 ([facility]) 01/29/2021 10:18:00 AM EDT completed e CW1 ([facility]) 01/12/2021 10:28:00 AM EDT completed e CW1 ([facility]) 01/12/2021 10:28:00 AM EDT completed e CW1 ([facility]) 01/12/2021 10:28:00 AM EDT completed e CW1 ([facility]) 01/12/2021 10:28:00 AM EDT completed e CW1 ([facility]) 01/12/2021 10:28:00 AM EDT completed e CW1 ([facility]) 01/12/2021 10:28:00 AM EDT completed e CW1 ([facility]) 01/12/2021 10:28:00 AM EDT completed e CW1 ([facility]) 01/12/2021 10:28:00 AM EDT completed e CW1 ([facility]) 01/12/2021 10:28:00 AM EDT completed e CW1 ([facility]) 01/12/2021 10:28:00 AM EDT completed e CW1 ([facility]) 01/12/2021 10:28:00 AM EDT completed e CW1 ([facility] [facility] 01/12/2021 10:28:00 AM EDT completed e CW1 ([facility]) 01/12/2021 10:28:00 AM EDT completed e CW1 ([facility]) 01/12/2021 10:28:00 AM EDT completed e CW1 ([facility]) 01/12/2021 10:28:00 AM EDT completed e CW1 ([facility]) 01/12/2021 10:28:00 AM EDT completed e CW1 ([facility]) 12/30/2020 10:00:00 AM EST completed e CW1 ([facility]) 12/30/2020 10:00:00 AM EST completed e CW1 ([facility]) 12/30/2020 10:00:00 AM EST completed e CW1 ([facility]) 12/30/2020 10:00:00 AM EST completed e CW1 ([facility]) 12/30/2020 10:00:00 AM EST completed e CW1 ([facility]) 12/30/2020 10:00:00 AM EST completed e CW1 ([facility]) 12/30/2020 10:00:00 AM EST completed e CW1 ([facility]) 12/30/2020 10:00:00 AM EST completed e CW1 ([facility]) 12/30/2020 10:00:00 AM EST completed e CW1 ([facility]) 12/30/2020 10:00:00 AM EST completed e CW1 ([facility]) 12/30/2020 10:00:00 AM EST completed e CW1 ([facility]) 12/30/2020 10:00:00 AM EST completed e CW1 ([facility]) 12/30/2020 10:00:00 AM EST completed e CW1 ([facility]) 12/30/2020 10:00:00 AM EST completed e CW1 ([facility]) 12/30/2020 10:00:00 AM EST completed e CW1 ([facility]) 12/30/2020 10:00:00 AM EST completed e CW1 ([facility]) 12/11/2020 09:07:00 AM EST completed e CW1 ([facility]) 12/11/2020 09:07:00 AM EST completed e CW1 ([facility]) 12/11/2020 09:07:00 AM EST completed e CW1 ([facility]) 12/11/2020 09:07:00 AM EST completed e CW1 ([facility]) 12/11/2020 09:07:00 AM EST completed e CW1 ([facility]) 12/11/2020 09:07:00 AM EST completed e CW1 ([facility]) 12/11/2020 09:07:00 AM EST completed e CW1 ([facility]) 12/11/2020 09:07:00 AM EST completed e CW1 ([facility]) 12/11/2020 09:07:00 AM EST completed e CW1 ([facility]) 12/11/2020 09:07:00 AM EST completed e CW1 ([facility]) 12/11/2020 09:07:00 AM EST completed e CW1 ([facility]) 12/11/2020 09:07:00 AM EST completed e CW1 ([facility]) 12/11/2020 09:07:00 AM EST completed e CW1 ([facility]) 12/11/2020 09:07:00 AM EST completed e CW1 ([facility]) 12/11/2020 09:07:00 AM EST completed e CW1 ([facility]) 12/11/2020 09:07:00 AM EST completed e CW1 ([facility]) 12/11/2020 09:07:00 AM EST completed e CW1 ([facility]) 12/11/2020 09:07:00 AM EST completed e CW1 ([facility]) 12/11/2020 09:07:00 AM EST completed e CW1 ([facility]) 11/26/2020 09:40:00 AM EST completed e CW1 ([facility]) 11/26/2020 09:40:00 AM EST completed e CW1 ([facility]) 11/26/2020 09:40:00 AM EST completed e CW1 ([facility]) 11/26/2020 09:40:00 AM EST completed e CW1 ([facility]) 11/26/2020 09:40:00 AM EST completed e CW1 ([facility]) 11/26/2020 09:40:00 AM EST completed e CW1 ([facility]) 11/26/2020 09:40:00 AM EST completed e CW1 ([facility]) 11/26/2020 09:40:00 AM EST completed e CW1 ([facility]) 11/26/2020 09:40:00 AM EST completed e CW1 ([facility]) 11/26/2020 09:40:00 AM EST completed e CW1 ([facility]) 11/26/2020 09:40:00 AM EST completed e CW1 ([facility]) 11/26/2020 09:40:00 AM EST completed e CW1 ([facility]) 11/26/2020 09:40:00 AM EST completed e CW1 ([facility]) 11/26/2020 09:40:00 AM EST completed e CW1 ([facility]) 11/26/2020 09:40:00 AM EST completed e CW1 ([facility]) 11/26/2020 09:40:00 AM EST completed e CW1 ([facility]) 11/26/2020 09:40:00 AM EST completed e CW1 ([facility]) 11/26/2020 09:40:00 AM EST completed e CW1 ([facility]) 11/26/2020 09:40:00 AM EST completed e CW1 ([facility]) 11/26/2020 09:40:00 AM EST completed e CW1 ([facility]) 11/26/2020 09:40:00 AM EST completed e CW1 ([facility]) 11/26/2020 09:40:00 AM EST completed e CW1 ([facility]) 11/10/2020 10:32:00 AM EST completed e CW1 ([facility]) 11/10/2020 10:32:00 AM EST completed e CW1 ([facility]) 11/10/2020 10:32:00 AM EST completed e CW1 ([facility]) 11/10/2020 10:32:00 AM EST completed e CW1 ([facility]) 11/10/2020 10:32:00 AM EST completed e CW1 ([facility]) 11/10/2020 10:32:00 AM EST completed e CW1 ([facility]) 11/10/2020 10:32:00 AM EST completed e CW1 ([facility]) 11/10/2020 10:32:00 AM EST completed e CW1 ([facility]) 11/10/2020 10:32:00 AM EST completed e CW1 ([facility]) 11/10/2020 10:32:00 AM EST completed e CW1 ([facility]) 11/10/2020 10:32:00 AM EST completed e CW1 ([facility]) 11/10/2020 10:32:00 AM EST completed e CW1 ([facility]) 11/10/2020 10:32:00 AM EST completed e CW1 ([facility]) 11/10/2020 10:32:00 AM EST completed e CW1 ([facility]) 11/10/2020 10:32:00 AM EST completed e CW1 ([facility]) 11/10/2020 10:32:00 AM EST completed e CW1 ([facility]) 11/10/2020 10:32:00 AM EST completed e CW1 ([facility]) 11/10/2020 10:32:00 AM EST completed e CW1 ([facility]) 11/10/2020 10:32:00 AM EST completed e CW1 ([facility]) 11/10/2020 10:32:00 AM EST completed e CW1 ([facility]) 11/10/2020 10:32:00 AM EST completed e CW1 ([facility]) 11/10/2020 10:32:00 AM EST completed e CW1 ([facility]) 10/27/2020 09:42:00 AM EST completed e CW1 ([facility]) 10/27/2020 09:42:00 AM EST completed e CW1 ([facility]) 10/27/2020 09:42:00 AM EST completed e CW1 ([facility]) 10/27/2020 09:42:00 AM EST completed e CW1 ([facility]) 10/27/2020 09:42:00 AM EST completed e CW1 ([facility]) 10/27/2020 09:42:00 AM EST completed e CW1 ([facility]) 10/27/2020 09:42:00 AM EST completed e CW1 ([facility]) 10/27/2020 09:42:00 AM EST completed e CW1 ([facility]) 10/27/2020 09:42:00 AM EST completed e CW1 ([facility]) 10/27/2020 09:42:00 AM EST completed e CW1 ([facility]) 10/27/2020 09:42:00 AM EST completed e CW1 ([facility]) 10/27/2020 09:42:00 AM EST completed e CW1 ([facility]) 10/27/2020 09:42:00 AM EST completed e CW1 ([facility]) 10/27/2020 09:42:00 AM EST completed e CW1 ([facility]) 10/27/2020 09:42:00 AM EST completed e CW1 ([facility]) 10/27/2020 09:42:00 AM EST completed e CW1 ([facility]) 10/27/2020 09:42:00 AM EST completed e CW1 ([facility]) 10/27/2020 09:42:00 AM EST completed e CW1 ([facility]) 10/27/2020 09:42:00 AM EST completed e CW1 ([facility]) 10/27/2020 09:42:00 AM EST completed e CW1 ([facility]) 10/27/2020 09:42:00 AM EST completed e CW1 ([facility]) 10/27/2020 09:42:00 AM EST completed e CW1 ([facility]) 10/27/2020 09:42:00 AM EST completed e CW1 ([facility]) 10/27/2020 09:42:00 AM EST completed e CW1 ([facility]) 10/27/2020 09:42:00 AM EST completed e CW1 ([facility]) 10/13/2020 11:58:00 AM EST completed e CW1 ([facility]) 10/13/2020 11:58:00 AM EST completed e CW1 ([facility]) 10/13/2020 11:58:00 AM EST completed e CW1 ([facility]) 10/13/2020 11:58:00 AM EST completed e CW1 ([facility]) 10/13/2020 11:58:00 AM EST completed e CW1 ([facility]) 10/13/2020 11:58:00 AM EST completed e CW1 ([facility]) 10/13/2020 11:58:00 AM EST completed e CW1 ([facility]) 10/13/2020 11:58:00 AM EST completed e CW1 ([facility]) 10/13/2020 11:58:00 AM EST completed e CW1 ([facility]) 10/13/2020 11:58:00 AM EST completed e CW1 ([facility]) 10/13/2020 11:58:00 AM EST completed e CW1 ([facility]) 10/13/2020 11:58:00 AM EST completed e CW1 ([facility]) 10/13/2020 11:58:00 AM EST completed e CW1 ([facility]) 10/13/2020 11:58:00 AM EST completed e CW1 ([facility]) 10/13/2020 11:58:00 AM EST completed e CW1 ([facility]) 10/13/2020 11:58:00 AM EST completed e CW1 ([facility]) 10/13/2020 11:58:00 AM EST completed e CW1 ([facility]) 10/13/2020 11:58:00 AM EST completed e CW1 ([facility]) 10/13/2020 11:58:00 AM EST completed e CW1 ([facility]) 10/13/2020 11:58:00 AM EST completed e CW1 ([facility]) 10/13/2020 11:58:00 AM EST completed e CW1 ([facility]) 10/13/2020 11:58:00 AM EST completed e CW1 ([facility]) 10/13/2020 11:58:00 AM EST completed e CW1 ([facility]) 10/13/2020 11:58:00 AM EST completed e CW1 ([facility]) 10/13/2020 11:58:00 AM EST completed e CW1 ([facility]) 10/13/2020 11:58:00 AM EST completed e CW1 ([facility]) 10/13/2020 11:58:00 AM EST completed e CW1 ([facility]) 10/13/2020 11:58:00 AM EST completed e CW1 ([facility]) 10/13/2020 11:58:00 AM EST completed e CW1 ([facility]) 10/13/2020 11:58:00 AM EST completed e CW1 ([facility]) 10/13/2020 11:58:00 AM EST completed e CW1 ([facility]) 10/13/2020 11:58:00 AM EST completed e CW1 ([facility]) 10/03/2020 11:20:00 AM EST completed e CW1 ([facility]) 10/03/2020 11:20:00 AM EST completed e CW1 ([facility]) 10/03/2020 11:20:00 AM EST completed e CW1 ([facility]) 10/03/2020 11:20:00 AM EST completed e CW1 ([facility]) 10/03/2020 11:20:00 AM EST completed e CW1 ([facility]) 10/03/2020 11:20:00 AM EST completed e CW1 ([facility]) 10/03/2020 11:20:00 AM EST completed e CW1 ([facility]) 10/03/2020 11:20:00 AM EST completed e CW1 ([facility]) 10/03/2020 11:20:00 AM EST completed e CW1 ([facility]) 10/03/2020 11:20:00 AM EST completed e CW1 ([facility]) 10/03/2020 11:20:00 AM EST completed e CW1 ([facility]) 10/03/2020 11:20:00 AM EST completed e CW1 ([facility]) 10/03/2020 11:20:00 AM EST completed e CW1 ([facility]) 10/03/2020 11:20:00 AM EST completed e CW1 ([facility]) 10/03/2020 11:20:00 AM EST completed e CW1 ([facility]) 10/03/2020 11:20:00 AM EST completed e CW1 ([facility]) 10/03/2020 11:20:00 AM EST completed e CW1 ([facility]) 10/03/2020 11:20:00 AM EST completed e CW1 ([facility]) 10/03/2020 11:20:00 AM EST completed e CW1 ([facility]) 10/03/2020 11:20:00 AM EST completed e CW1 ([facility]) 10/03/2020 11:20:00 AM EST completed e CW1 ([facility]) 10/03/2020 11:20:00 AM EST completed e CW1 ([facility]) 10/03/2020 11:20:00 AM EST completed e CW1 ([facility]) 10/03/2020 11:20:00 AM EST completed e CW1 ([facility]) 10/03/2020 11:20:00 AM EST completed e CW1 ([facility]) 10/03/2020 11:20:00 AM EST completed e CW1 ([facility]) 10/03/2020 11:20:00 AM EST completed e CW1 ([facility]) 10/03/2020 11:20:00 AM EST completed e CW1 ([facility]) 10/03/2020 11:20:00 AM EST completed e CW1 ([facility]) 10/03/2020 11:20:00 AM EST completed e CW1 ([facility]) 10/03/2020 11:20:00 AM EST completed e CW1 ([facility]) 10/03/2020 11:20:00 AM EST completed e CW1 ([facility]) 09/16/2020 09:41:00 AM EST completed e CW1 ([facility]) 09/16/2020 09:41:00 AM EST completed e CW1 ([facility]) 09/16/2020 09:41:00 AM EST completed e CW1 ([facility]) 09/16/2020 09:41:00 AM EST completed e CW1 ([facility]) 09/16/2020 09:41:00 AM EST completed e CW1 ([facility]) 09/16/2020 09:41:00 AM EST completed e CW1 ([facility]) 09/16/2020 09:41:00 AM EST completed e CW1 ([facility]) 09/16/2020 09:41:00 AM EST completed e CW1 ([facility]) 09/16/2020 09:41:00 AM EST completed e CW1 ([facility]) 09/16/2020 09:41:00 AM EST completed e CW1 ([facility]) 09/16/2020 09:41:00 AM EST completed e CW1 ([facility]) 09/16/2020 09:41:00 AM EST completed e CW1 ([facility]) 09/16/2020 09:41:00 AM EST completed e CW1 ([facility]) 09/16/2020 09:41:00 AM EST completed e CW1 ([facility]) 09/16/2020 09:41:00 AM EST completed e CW1 ([facility]) 09/16/2020 09:41:00 AM EST completed e CW1 ([facility]) 09/16/2020 09:41:00 AM EST completed e CW1 ([facility]) 09/16/2020 09:41:00 AM EST completed e CW1 ([facility]) 09/16/2020 09:41:00 AM EST completed e CW1 ([facility]) 09/16/2020 09:41:00 AM EST completed e CW1 ([facility]) 09/16/2020 09:41:00 AM EST completed e CW1 ([facility]) 09/16/2020 09:41:00 AM EST completed e CW1 ([facility]) 09/16/2020 09:41:00 AM EST completed e CW1 ([facility]) 09/16/2020 09:41:00 AM EST completed e CW1 ([facility]) 09/16/2020 09:41:00 AM EST completed e CW1 ([facility]) 09/16/2020 09:41:00 AM EST completed e CW1 ([facility]) 09/16/2020 09:41:00 AM EST completed e CW1 ([facility]) 09/16/2020 09:41:00 AM EST completed e CW1 ([facility]) 09/16/2020 09:41:00 AM EST completed e CW1 ([facility]) 09/16/2020 09:41:00 AM EST completed e CW1 ([facility]) 09/16/2020 09:41:00 AM EST completed e CW1 ([facility]) 09/16/2020 09:41:00 AM EST completed e CW1 ([facility]) 08/26/2020 09:13:00 AM EDT completed e CW1 ([facility]) 08/26/2020 09:13:00 AM EDT completed e CW1 ([facility]) 08/26/2020 09:13:00 AM EDT completed e CW1 ([facility]) 08/26/2020 09:13:00 AM EDT completed e CW1 ([facility]) 08/26/2020 09:13:00 AM EDT completed e CW1 ([facility]) 08/26/2020 09:13:00 AM EDT completed e CW1 ([facility]) 08/26/2020 09:13:00 AM EDT completed e CW1 ([facility]) 08/26/2020 09:13:00 AM EDT completed e CW1 ([facility]) 08/26/2020 09:13:00 AM EDT completed e CW1 ([facility]) 08/26/2020 09:13:00 AM EDT completed e CW1 ([facility]) 08/26/2020 09:13:00 AM EDT completed e CW1 ([facility]) 08/26/2020 09:13:00 AM EDT completed e CW1 ([facility]) 08/26/2020 09:13:00 AM EDT completed e CW1 ([facility]) 08/26/2020 09:13:00 AM EDT completed e CW1 ([facility]) 08/26/2020 09:13:00 AM EDT completed e CW1 ([facility]) 08/26/2020 09:13:00 AM EDT completed e CW1 ([facility]) 08/26/2020 09:13:00 AM EDT completed e CW1 ([facility]) 08/26/2020 09:13:00 AM EDT completed e CW1 ([facility]) 08/26/2020 09:13:00 AM EDT completed e CW1 ([facility]) 08/26/2020 09:13:00 AM EDT completed e CW1 ([facility]) 08/26/2020 09:13:00 AM EDT completed e CW1 ([facility]) 08/26/2020 09:13:00 AM EDT completed e CW1 ([facility]) 08/26/2020 09:13:00 AM EDT completed e CW1 ([facility]) 08/26/2020 09:13:00 AM EDT completed e CW1 ([facility]) 08/26/2020 09:13:00 AM EDT completed e CW1 ([facility]) 08/26/2020 09:13:00 AM EDT completed e CW1 ([facility]) 08/26/2020 09:13:00 AM EDT completed e CW1 ([facility]) 08/26/2020 09:13:00 AM EDT completed e CW1 ([facility]) 08/26/2020 09:13:00 AM EDT completed e CW1 ([facility]) 08/26/2020 09:13:00 AM EDT completed e CW1 ([facility]) 08/26/2020 09:13:00 AM EDT completed e CW1 ([facility]) 08/26/2020 09:13:00 AM EDT completed e CW1 ([facility]) 08/26/2020 09:13:00 AM EDT completed e CW1 ([facility]) 08/26/2020 09:13:00 AM EDT completed e CW1 ([facility]) 08/26/2020 09:13:00 AM EDT completed e CW1 ([facility]) 08/05/2020 11:45:00 AM EDT completed e CW1 ([facility]) 08/05/2020 11:45:00 AM EDT completed e CW1 ([facility]) 08/05/2020 11:45:00 AM EDT completed e CW1 ([facility]) 08/05/2020 11:45:00 AM EDT completed e CW1 ([facility]) 08/05/2020 11:45:00 AM EDT completed e CW1 ([facility]) 08/05/2020 11:45:00 AM EDT completed e CW1 ([facility]) 08/05/2020 11:45:00 AM EDT completed e CW1 ([facility]) 08/05/2020 11:45:00 AM EDT completed e CW1 ([facility]) 08/05/2020 11:45:00 AM EDT completed e CW1 ([facility]) 08/05/2020 11:45:00 AM EDT completed e CW1 ([facility]) 08/05/2020 11:45:00 AM EDT completed e CW1 ([facility]) 08/05/2020 11:45:00 AM EDT completed e CW1 ([facility]) 08/05/2020 11:45:00 AM EDT completed e CW1 ([facility]) 08/05/2020 11:45:00 AM EDT completed e CW1 ([facility]) 08/05/2020 11:45:00 AM EDT completed e CW1 ([facility]) 08/05/2020 11:45:00 AM EDT completed e CW1 ([facility]) 08/05/2020 11:45:00 AM EDT completed e CW1 ([facility]) 08/05/2020 11:45:00 AM EDT completed e CW1 ([facility]) 08/05/2020 11:45:00 AM EDT completed e CW1 ([facility]) 08/05/2020 11:45:00 AM EDT completed e CW1 ([facility]) 08/05/2020 11:45:00 AM EDT completed e CW1 ([facility]) 08/05/2020 11:45:00 AM EDT completed e CW1 ([facility]) 08/05/2020 11:45:00 AM EDT completed e CW1 ([facility]) 08/05/2020 11:45:00 AM EDT completed e CW1 ([facility]) 08/05/2020 11:45:00 AM EDT completed e CW1 ([facility]) 08/05/2020 11:45:00 AM EDT completed e CW1 ([facility]) 08/05/2020 11:45:00 AM EDT completed e CW1 ([facility]) 08/05/2020 11:45:00 AM EDT completed e CW1 ([facility]) 08/05/2020 11:45:00 AM EDT completed e CW1 ([facility]) 08/05/2020 11:45:00 AM EDT completed e CW1 ([facility]) 08/05/2020 11:45:00 AM EDT completed e CW1 ([facility]) 08/05/2020 11:45:00 AM EDT completed e CW1 ([facility]) 08/05/2020 11:45:00 AM EDT completed e CW1 ([facility]) 08/05/2020 11:45:00 AM EDT completed e CW1 ([facility]) 08/05/2020 11:45:00 AM EDT completed e CW1 ([facility]) Medications Medication Brand Name Start Date Product Form Dose Route Admi nistrative Instructions Pharmacy Instructions Status Indications Reaction Description Data Source(s) ramelteon 8 MG Oral Tablet [Rozerem] Rozerem 8 MG Rozerem 8 MG 09/11/2021 12:00:00 AM EST 1.0 {tablet_at_bedtime_as_needed} active Rozerem 8 MG eCW1 ([facility]) pantoprazole 40 MG Delayed Release Oral Tablet Pantopr azole Sodium 40 MG Pantoprazole Sodium 40 MG 07/23/2021 12:00:00 AM EDT 1.0 {tablet} active Pantoprazole Sodium 40 MG eCW1 ( [facility]) pantoprazole 40 MG Delayed Release Oral Tablet Pantopr azole Sodium 40 MG Pantoprazole Sodium 40 MG 07/23/2021 12:00:00 AM EDT 1.0 {tablet} active Pantoprazole Sodium 40 MG eCW1 ( [facility]) pantoprazole 40 MG Delayed Release Oral Tablet Pantopr azole Sodium 40 MG Pantoprazole Sodium 40 MG 07/23/2021 12:00:00 AM EDT 1.0 {tablet} active Pantoprazole Sodium 40 MG eCW1 ( [facility]) pantoprazole 40 MG Delayed Release Oral Tablet Pantopr azole Sodium 40 MG Pantoprazole Sodium 40 MG 07/23/2021 12:00:00 AM EDT 1.0 {tablet} active Pantoprazole Sodium 40 MG eCW1 ( [facility]) pantoprazole 40 MG Delayed Release Oral Tablet Pantopr azole Sodium 40 MG Pantoprazole Sodium 40 MG 07/23/2021 12:00:00 AM EDT 1.0 {tablet} active Pantoprazole Sodium 40 MG eCW1 ( [facility]) pantoprazole 40 MG Delayed Release Oral Tablet Pantopr azole Sodium 40 MG Pantoprazole Sodium 40 MG 07/23/2021 12:00:00 AM EDT 1.0 {tablet} active Pantoprazole Sodium 40 MG eCW1 ( [facility]) rizatriptan 10 MG Oral Tablet Rizatriptan Benzoate 10 MG Rizatriptan Benzoate 10 MG 07/01/2021 12:00:00 AM EDT active Rizatriptan Benzoate 10 MG eCW1 ([facility]) rizatriptan 10 MG Oral Tablet Rizatriptan Benzoate 10 MG Rizatriptan Benzoate 10 MG 07/01/2021 12:00:00 AM EDT active Rizatriptan Benzoate 10 MG eCW1 ([facility]) rizatriptan 10 MG Oral Tablet Rizatriptan Benzoate 10 MG Rizatriptan Benzoate 10 MG 07/01/2021 12:00:00 AM EDT active Rizatriptan Benzoate 10 MG eCW1 ([facility]) rizatriptan 10 MG Oral Tablet Rizatriptan Benzoate 10 MG Rizatriptan Benzoate 10 MG 07/01/2021 12:00:00 AM EDT active Rizatriptan Benzoate 10 MG eCW1 ([facility]) rizatriptan 10 MG Oral Tablet Rizatriptan Benzoate 10 MG Rizatriptan Benzoate 10 MG 07/01/2021 12:00:00 AM EDT active Rizatriptan Benzoate 10 MG eCW1 ([facility]) rizatriptan 10 MG Oral Tablet Rizatriptan Benzoate 10 MG Rizatriptan Benzoate 10 MG 07/01/2021 12:00:00 AM EDT active Rizatriptan Benzoate 10 MG eCW1 ([facility]) rizatriptan 10 MG Oral Tablet Rizatriptan Benzoate 10 MG Rizatriptan Benzoate 10 MG 07/01/2021 12:00:00 AM EDT active Rizatriptan Benzoate 10 MG eCW1 ([facility]) rizatriptan 10 MG Oral Tablet Rizatriptan Benzoate 10 MG Rizatriptan Benzoate 10 MG 07/01/2021 12:00:00 AM EDT active Rizatriptan Benzoate 10 MG eCW1 ([facility]) Doxepin Hydrochloride 50 MG Oral Capsule Doxepin HCl 50 MG D oxepin HCl 50 MG 06/10/2021 12:00:00 AM EDT 1.0 {capsule_at_bedtime} active Doxepin HCl 50 MG eCW1 ([facility]) Doxepin Hydrochloride 50 MG Oral Capsule Doxepin HCl 50 MG D oxepin HCl 50 MG 06/10/2021 12:00:00 AM EDT 1.0 {capsule_at_bedtime} active Doxepin HCl 50 MG eCW1 ([facility] [place]) Fluphenazine Hydrochloride 5 MG Oral Tablet fluPHENAZi ne HCl 5 MG fluPHENAZine HCl 5 MG 06/10/2021 12:00:00 AM EDT 1.0 {tablet} act zahraa fluPHENAZine HCl 5 MG [facility]CW1 [facility] Fluphenazine Hydrochloride 2.5 MG Oral Tablet fluPHENA Zine HCl 2.5 MG fluPHENAZine HCl 2.5 MG 06/10/2021 12:00:00 AM EDT 1.0 {tablet} active fluPHENAZine HCl 2.5 MG eCW1 ([facility]) Fluphenazine Hydrochloride 2.5 MG Oral Tablet fluPHENA Zine HCl 2.5 MG fluPHENAZine HCl 2.5 MG 06/10/2021 12:00:00 AM EDT 1.0 {tablet} active fluPHENAZine HCl 2.5 MG eCW1 ([facility]) Doxepin Hydrochloride 50 MG Oral Capsule Doxepin HCl 50 MG D oxepin HCl 50 MG 06/10/2021 12:00:00 AM EDT 1.0 {capsule_at_bedtime} active Doxepin HCl 50 MG eCW1 ([facility]) Doxepin Hydrochloride 50 MG Oral Capsule Doxepin HCl 50 MG D oxepin HCl 50 MG 06/10/2021 12:00:00 AM EDT 1.0 {capsule_at_bedtime} active Doxepin HCl 50 MG eCW1 ([facility]) Doxepin Hydrochloride 50 MG Oral Capsule Doxepin HCl 50 MG D oxepin HCl 50 MG 06/10/2021 12:00:00 AM EDT 1.0 {capsule_at_bedtime} active Doxepin HCl 50 MG eCW1 ([facility]) Fluphenazine Hydrochloride 5 MG Oral Tablet fluPHENAZi ne HCl 5 MG fluPHENAZine HCl 5 MG 06/10/2021 12:00:00 AM EDT 1.0 {tablet} act zahraa fluPHENAZine HCl 5 MG eCW1 ([facility]) Fluphenazine Hydrochloride 5 MG Oral Tablet fluPHENAZi ne HCl 5 MG fluPHENAZine HCl 5 MG 06/10/2021 12:00:00 AM EDT 1.0 {tablet} act zahraa fluPHENAZine HCl 5 MG eCW1 ([facility]) Fluphenazine Hydrochloride 5 MG Oral Tablet fluPHENAZi ne HCl 5 MG fluPHENAZine HCl 5 MG 06/10/2021 12:00:00 AM EDT 1.0 {tablet} act zahraa fluPHENAZine HCl 5 MG eCW1 ([facility]) Doxepin Hydrochloride 50 MG Oral Capsule Doxepin HCl 50 MG D oxepin HCl 50 MG 06/10/2021 12:00:00 AM EDT 1.0 {capsule_at_bedtime} active Doxepin HCl 50 MG eCW1 ([facility]) Doxepin Hydrochloride 50 MG Oral Capsule Doxepin HCl 50 MG D oxepin HCl 50 MG 06/10/2021 12:00:00 AM EDT 1.0 {capsule_at_bedtime} active Doxepin HCl 50 MG eCW1 ([facility]) Fluphenazine Hydrochloride 5 MG Oral Tablet fluPHENAZi ne HCl 5 MG fluPHENAZine HCl 5 MG 06/10/2021 12:00:00 AM EDT 1.0 {tablet} act zahraa fluPHENAZine HCl 5 MG eCW1 ([facility] [place]) Fluphenazine Hydrochloride 5 MG Oral Tablet fluPHENAZi ne HCl 5 MG fluPHENAZine HCl 5 MG 06/10/2021 12:00:00 AM EDT 1.0 {tablet} act zahraa fluPHENAZine HCl 5 MG eCW1 ([facility] [place]) Doxepin Hydrochloride 50 MG Oral Capsule Doxepin HCl 50 MG D oxepin HCl 50 MG 06/10/2021 12:00:00 AM EDT 1.0 {capsule_at_bedtime} active Doxepin HCl 50 MG eCW1 ([facility]) topiramate 25 MG Oral Tablet [Topamax] Topamax 25 MG Topamax 25 MG 04/29/2021 12:00:00 AM EDT 1.0 {tablet} active To pamax 25 MG eCW1 ([facility]) topiramate 25 MG Oral Tablet [Topamax] Topamax 25 MG Topamax 25 MG 04/29/2021 12:00:00 AM EDT 1.0 {tablet} active To pamax 25 MG eCW1 ([facility]) topiramate 25 MG Oral Tablet [Topamax] Topamax 25 MG Topamax 25 MG 04/29/2021 12:00:00 AM EDT 1.0 {tablet} active To pamax 25 MG eCW1 ([facility]) topiramate 25 MG Oral Tablet [Topamax] Topamax 25 MG Topamax 25 MG 04/29/2021 12:00:00 AM EDT 1.0 {tablet} active To pamax 25 MG eCW1 ([facility]) topiramate 25 MG Oral Tablet [Topamax] Topamax 25 MG Topamax 25 MG 04/29/2021 12:00:00 AM EDT 1.0 {tablet} active To pamax 25 MG eCW1 ([facility]) topiramate 25 MG Oral Tablet [Topamax] Topamax 25 MG Topamax 25 MG 04/29/2021 12:00:00 AM EDT 1.0 {tablet} active To pamax 25 MG eCW1 ([facility]) topiramate 25 MG Oral Tablet [Topamax] Topamax 25 MG Topamax 25 MG 04/29/2021 12:00:00 AM EDT 1.0 {tablet} active To pamax 25 MG eCW1 ([facility]) topiramate 25 MG Oral Tablet [Topamax] Topamax 25 MG Topamax 25 MG 04/29/2021 12:00:00 AM EDT 1.0 {tablet} active To pamax 25 MG eCW1 ([facility]) topiramate 25 MG Oral Tablet [Topamax] Topamax 25 MG Topamax 25 MG 04/29/2021 12:00:00 AM EDT 1.0 {tablet} active To pamax 25 MG eCW1 ([facility]) topiramate 25 MG Oral Tablet [Topamax] Topamax 25 MG Topamax 25 MG 04/29/2021 12:00:00 AM EDT 1.0 {tablet} active To pamax 25 MG eCW1 ([facility]) Trazodone Hydrochloride 100 MG Oral Tablet traZODone H Cl 100 MG traZODone HCl 100 MG 04/15/2021 12:00:00 AM EDT 1.0 {tablet_at_bedtime} active traZODone HCl 100 MG eCW1 ([facility] [place]) Trazodone Hydrochloride 100 MG Oral Tablet traZODone H Cl 100 MG traZODone HCl 100 MG 04/15/2021 12:00:00 AM EDT 1.0 {tablet_at_bedtime} active traZODone HCl 100 MG eCW1 ([facility] [place]) Acetaminophen 325 MG Oral Tablet [Tylenol] Tylenol 325 MG Ty lenol 325 MG 04/08/2021 12:00:00 AM EDT 2.0 {tablet_as_needed} active Tylenol 325 MG eCW1 ([facility] [place]) Acetaminophen 325 MG Oral Tablet [Tylenol] Tylenol 325 MG Ty lenol 325 MG 04/08/2021 12:00:00 AM EDT 2.0 {tablet_as_needed} active Tylenol 325 MG eCW1 ([facility]) Acetaminophen 325 MG Oral Tablet [Tylenol] Tylenol 325 MG Ty lenol 325 MG 04/08/2021 12:00:00 AM EDT 2.0 {tablet_as_needed} active Tylenol 325 MG eCW1 ([facility]) Acetaminophen 325 MG Oral Tablet [Tylenol] Tylenol 325 MG Ty lenol 325 MG 04/08/2021 12:00:00 AM EDT 2.0 {tablet_as_needed} active Tylenol 325 MG eCW1 ([facility]) Acetaminophen 325 MG Oral Tablet [Tylenol] Tylenol 325 MG Ty lenol 325 MG 04/08/2021 12:00:00 AM EDT 2.0 {tablet_as_needed} active Tylenol 325 MG eCW1 ([facility]) Acetaminophen 325 MG Oral Tablet [Tylenol] Tylenol 325 MG Ty lenol 325 MG 04/08/2021 12:00:00 AM EDT 2.0 {tablet_as_needed} active Tylenol 325 MG eCW1 ([facility]) Acetaminophen 325 MG Oral Tablet [Tylenol] Tylenol 325 MG Ty lenol 325 MG 04/08/2021 12:00:00 AM EDT 2.0 {tablet_as_needed} active Tylenol 325 MG eCW1 ([facility]) Acetaminophen 325 MG Oral Tablet [Tylenol] Tylenol 325 MG Ty lenol 325 MG 04/08/2021 12:00:00 AM EDT 2.0 {tablet_as_needed} active Tylenol 325 MG eCW1 ([facility]) Acetaminophen 325 MG Oral Tablet [Tylenol] Tylenol 325 MG Ty lenol 325 MG 04/08/2021 12:00:00 AM EDT 2.0 {tablet_as_needed} active Tylenol 325 MG eCW1 ([facility]) Acetaminophen 325 MG Oral Tablet [Tylenol] Tylenol 325 MG Ty lenol 325 MG 04/08/2021 12:00:00 AM EDT 2.0 {tablet_as_needed} active Tylenol 325 MG eCW1 ([facility]) Acetaminophen 325 MG Oral Tablet [Tylenol] Tylenol 325 MG Ty lenol 325 MG 04/08/2021 12:00:00 AM EDT 2.0 {tablet_as_needed} active Tylenol 325 MG eCW1 ([facility] [place]) Acetaminophen 325 MG Oral Tablet [Tylenol] Tylenol 325 MG Ty lenol 325 MG 04/08/2021 12:00:00 AM EDT 2.0 {tablet_as_needed} active Tylenol 325 MG eCW1 ([facility] [place]) 20 mg 03/03/2021 12:00:00 AM EDT [...] {tablet_at_bedtime_as_needed} active Trazodone HCl 50 MG eCW1 ([facility]) Trazodone Hydrochloride 50 MG Oral Tablet Trazodone HC l 50 MG Trazodone HCl 50 MG 01/30/2021 12:00:00 AM EDT 1.0 {tablet_at_bedtime_as_needed} active Trazodone HCl 50 MG eCW1 ([facility]) Trazodone Hydrochloride 50 MG Oral Tablet Trazodone HC l 50 MG Trazodone HCl 50 MG 01/30/2021 12:00:00 AM EDT 1.0 {tablet_at_bedtime_as_needed} active Trazodone HCl 50 MG eCW1 ([facility]) Trazodone Hydrochloride 50 MG Oral Tablet Trazodone HC l 50 MG Trazodone HCl 50 MG 01/30/2021 12:00:00 AM EDT 1.0 {tablet_at_bedtime_as_needed} active Trazodone HCl 50 MG eCW1 ([facility]) Trazodone Hydrochloride 50 MG Oral Tablet Trazodone HC l 50 MG Trazodone HCl 50 MG 01/30/2021 12:00:00 AM EDT 1.0 {tablet_at_bedtime_as_needed} active Trazodone HCl 50 MG eCW1 ([facility]) 25 mg/mL 01/28/2021 12:00:00 AM EDT solution [...] BY MOUTH ONCE AT BEDTIME SOLD: 11/09/2020 [facility] 33 gauge 11/06/2020 12:00:00 AM EST [...] EST active One Touch Test Strips eCW1 ([facility]) One Touch Delica Lancets UNK 11/05/2020 12:00:00 AM EST active One Touch Delica Lancets eCW1 ([facility]) 42 mg 11/03/2020 12:00:00 AM EST capsule [...] 1.0 {capsule_with_food} active Caplyta 42 MG eCW1 ([facility]) Caplyta 42 MG Caplyta 42 MG 10/22/2020 12:00:00 AM EST 1.0 {capsule_with_food} active Caplyta 42 MG eCW1 ([facility]) Caplyta 42 MG Caplyta 42 MG 10/22/2020 12:00:00 AM EST 1.0 {capsule_with_food} active Caplyta 42 MG eCW1 ([facility]) Caplyta 42 MG Caplyta 42 MG 10/22/2020 12:00:00 AM EST 1.0 {capsule_with_food} active Caplyta 42 MG eCW1 ([facility]) Caplyta 42 MG Caplyta 42 MG 10/22/2020 12:00:00 AM EST 1.0 {capsule_with_food} active Caplyta 42 MG eCW1 ([facility]) Caplyta 42 MG Caplyta 42 MG 10/22/2020 12:00:00 AM EST 1.0 {capsule_with_food} active Caplyta 42 MG eCW1 ([facility]) Caplyta 42 MG Caplyta 42 MG 10/22/2020 12:00:00 AM EST 1.0 {capsule_with_food} active Caplyta 42 MG eCW1 ([facility]) Caplyta 42 MG Caplyta 42 MG 10/22/2020 12:00:00 AM EST 1.0 {capsule_with_food} active Caplyta 42 MG eCW1 ([facility]) Caplyta 42 MG Caplyta 42 MG 10/22/2020 12:00:00 AM EST 1.0 {capsule_with_food} active Caplyta 42 MG eCW1 ([facility]) Caplyta 42 MG Caplyta 42 MG 10/22/2020 12:00:00 AM EST 1.0 {capsule_with_food} active Caplyta 42 MG eCW1 ([facility]) Caplyta 42 MG Caplyta 42 MG 10/22/2020 12:00:00 AM EST 1.0 {capsule_with_food} active Caplyta 42 MG eCW1 ([facility]) Caplyta 42 MG Caplyta 42 MG 10/22/2020 12:00:00 AM EST 1.0 {capsule_with_food} active Caplyta 42 MG eCW1 ([facility]) Caplyta 42 MG Caplyta 42 MG 10/22/2020 12:00:00 AM EST 1.0 {capsule_with_food} active Caplyta 42 MG eCW1 ([facility]) Caplyta 42 MG Caplyta 42 MG 10/22/2020 12:00:00 AM EST 1.0 {capsule_with_food} active Caplyta 42 MG eCW1 ([facility]) Caplyta 42 MG Caplyta 42 MG 10/22/2020 12:00:00 AM EST 1.0 {capsule_with_food} active Caplyta 42 MG eCW1 ([facility]) Caplyta 42 MG Caplyta 42 MG 10/22/2020 12:00:00 AM EST 1.0 {capsule_with_food} active Caplyta 42 MG eCW1 ([facility]) Caplyta 42 MG Caplyta 42 MG 10/22/2020 12:00:00 AM EST 1.0 {capsule_with_food} active Caplyta 42 MG eCW1 ([facility]) Caplyta 42 MG Caplyta 42 MG 10/22/2020 12:00:00 AM EST 1.0 {capsule_with_food} active Caplyta 42 MG eCW1 ([facility]) Caplyta 42 MG Caplyta 42 MG 10/22/2020 12:00:00 AM EST 1.0 {capsule_with_food} active Caplyta 42 MG eCW1 ([facility]) Caplyta 42 MG Caplyta 42 MG 10/22/2020 12:00:00 AM EST 1.0 {capsule_with_food} active Caplyta 42 MG eCW1 ([facility]) Caplyta 42 MG Caplyta 42 MG 10/22/2020 12:00:00 AM EST 1.0 {capsule_with_food} active Caplyta 42 MG eCW1 ([facility]) 17 gram/dose 10/17/2020 12:00:00 AM EST powder [...] type / Coverage type Policy ID Covered libertarian ID Covered libertarian's relationship to blackman Policy Blackman Plan Information [facility] H[facility] Blue Option Medigap Part B [id number] Self [facility] Community Plan Commercial [id number] Self [place] 4 [place] [id number] S [id number] [facility] MEDICAID [id number] S [id number] Managed Care - [facility] Community Plan P [id number] S [id number] [facility] MEDICAID [id number] S [id number] UNHC WELL 4 [place] [id number] S [id number] Medicaid S [id number] S [id number] [facility] MEDICAID [id number] S [id number] [facility] MEDICAID [id number] S [id number] [facility] MEDICAID [id number] S [id number] [facility] [id number] S [id number] MEDICAID [id number] SP [id number] MEDICAID [id number] S [id number] MEDICAID PROF FEES [id number] S [id number] ANSI-Commercial [id number] ANSI-Commercial [id number] ANSI-Medicaid [id number] ANSI-Medicaid [id number] ANSI-Medicaid [id number] ANSI-Commercial [id number] ANSI-Commercial [id number] ANSI-Medicaid [id number] ANSI-Commercial [id number] [facility] [id number] ANSI-Commercial [id number] [facility] [id number] [facility]-Medicaid [id number] [facility] [id number] ANSI-Commercial [id number] ANSI-Commercial [id number] [facility] [id number] ANSI-Commercial [id number] [facility] [id number] ANSI-Commercial [id number] [facility] [id number] ANSI-Commercial [id number] [facility]-Medicaid [id number] ANSI-Commercial [id number] ANSI-Commercial [id number] [facility] [id number] ANSI-Commercial [id number] [facility] [id number] [facility]-Medicaid [id number] [facility]-Medicaid [id number] ANSI-Commercial [id number] ANSI-Commercial [id number] ANSI-Medicaid [id number] ANSI-Medicaid [id number] ANSI-Commercial [id number] ANSI-Commercial [id number] [facility] MEDICAID [id number] S [id number] [facility] MEDICAID [id number] S [id number] ANSI-Commercial [id number] ANSI-Medicaid [id number] ANSI-Medicaid [id number] ANSI-Commercial [id number] ANSI-Commercial [id number] ANSI-Medicaid [id number] ANSI-Medicaid [id number] ANSI-Commercial [id number]-[id number] ANSI-Commercial [id number]-388q-[id number]-[id number] ANSI-Medicaid [id number] ANSI-Commercial [id number]-lnkx-[id number]-lcpl-[id number] ANSI-Medicaid [id number] ANSI-Medicaid [id number] ANSI-Commercial [id number]-[id number]-[id number]-[id number] ANSI-Medicaid [id number] ANSI-Commercial [id number]-29b6-v2m9-[id number]-36y2-[id number] ANSI-Medicaid [id number] ANSI-Commercial [id number]-[id number]-h9r5-[id number] ANSI-Commercial [id number]-[id number]-i1v7-[id number] ANSI-Medicaid [id number] [facility] [id number] 11 [id number] [facility] [id number] S [id number] ANSI-Medicaid [id number] ANSI-Medicaid [id number] ANSI-Commercial [id number]-[id number]-[id number] ANSI-Commercial 15j10akh-no5v-3vj6-[id number]-ni6x-[id number]-[id number] [facility] [id number] S [id number] ANSI-Commercial [id number]-[id number] ANSI-Medicaid [id number] ANSI-Commercial [id number]-[id number] ANSI-Medicaid [id number] MEDICAID [id number] SP [id number] [employer] WELL 4 ME [place] HMO [id number] S [id number] [employer] WELL 4 ME [place] HMO [id number] S [id number] [facility] MEDICAID [place] HMO [id number] S [id number] MEDICAID [place] [id number] [facility] FBH [place] HMO [id number] S [id number] [facility] MEDICAID [place] HMO [id number] S [id number] [facility] WELL 4 ME [place] HMO [id number] S [id number] [facility] O [id number] S [id number] MEDICAID [place] [id number] S [id number] MEDICAID [place] [id number] S [id number] MEDICAID M [id number] S [id number] MEDICAID [place] [id number] S [id number] [facility] [id number] SP [id number] SELF PAY SP [id number] S [id number] [facility] MEDICAID [place] HMO UN S UN BLUE CROSS KULKARNI PLAN [id number] SP [id number] SELF PAY SP UNAVAILABLE S UNAVAILA BLE BLUE CROSS KULKARNI PLAN [id number] SP [id number] [facility] AL[place] HMO [id number] S [id number] [facility] COMMUNITY PLAN MCDHMO [id number] SP [id number] [facility] [id number] SP [id number] [facility] MEDICAID [id number] S [id number] [facility] WELL 4 [place] [id number] S [id number] [facility] MEDICAID [id number] S [id number] [facility] MEDICAID [id number] S [id number] [facility] WELL 4 [place] [id number] S [id number] [facility] MEDICAID [id number] S [id number] UN COMMUNITY PLAN MCDO [id number] SP [id number] EMEDNY [id number] SP [id number] Problems, Conditions, and Diagnoses Code Display Name Description Problem Type Effective Dates Data Source(s) R49.0 Dysphonia DYSPHONIA Diagnosis 08/26/2021 09:47:00 AM [facility] R05.9 COUGH, UNSPECIFIED COUGH, UNSPECIFIED Diagnosis 09:47:00 AM [facility] Z20.822 CONTACT WITH AND (SUSPECTED) EXPOSURE TO COVID-19 CONTACT WITH AND (SUSPECTED) EXPOSURE TO COVID-19 Diagnosis 08/25/2021 12:29:00 PM [facility] F25.9 Schizoaffective disorder, unspecified [place] HIZOAFFECTIVE DISORDER, UNSPECIFIED Diagnosis 08/13[facility]21 04[facility]45[facility] F[facility].1 Major depressive disorder, recurrent, mo derate MAJOR DEPRESSIVE DISORDER, RECURRENT, MODERATE Diagnosis 07/29/2021 09:13:00 AM [facility] Z71.2 Person consulting for explanation of exa mination or test findings PERSON CONSULTING FOR EXPLANATION OF EXAM OR TEST Diagnosis 07/23/2021 10:17: 00 AM [facility] Z68.34 Body mass index (BMI) 34.0-34.9, adult B RADHA MASS INDEX [BMI] 34.0-34.9, ADULT Diagnosis 07/23/2021 10:17:00 AM [facility] E66.9 Obesity, unspecified OBESITY, UNSPECIFIED Diagnosis 07/23/2021 10:17:00 AM [facility] E78.1 Pure hyperglyceridemia PURE HYPERGLYCERIDEMIA Diagnosi s 07/23/2021 10:17:00 AM [facility] E11.9 Type 2 diabetes mellitus without complic ations TYPE 2 DIABETES MELLITUS WITHOUT COMPLICATIONS Diagnosis 07/23/2021 10:17:00 AM [facility] isaac K21.00 GASTRO-ESOPHAGEAL REFLUX DIS WITH ESOPHA GITIS, WIT GASTRO-ESOPHAGEAL REFLUX DIS WITH ESOPHAGITIS, WIT Diagnosis 07/23/2021 10:17:00 AM [facility] R29.90 Unspecified symptoms and signs involving the nervous system UNSPECIFIED SYMPTOMS AND SIGNS INVOLVING THE NERVO Diagnosis 07/23/2021 10:17:00 A M [facility] F48.9 Nonpsychotic mental disorder, unspecifie d NONPSYCHOTIC MENTAL DISORDER, UNSPECIFIED Diagnosis 07/23/2021 10:17:00 AM [facility] F20.9 Schizophrenia, unspecified SCHIZOPHRENIA, UNSPECIFIED Diagnosis 07/15/2021 09:49:00 AM [facility] R41.3 Other amnesia OTHER AMNESIA Diagnosis 07/08/2021 04:15:00 PM [facility] R81 Glycosuria GLYCOSURIA Diagnosis 07/08/2021 04:15:00 PM [facility] E78.2 Mixed hyperlipidemia MIXED HYPERLIPIDEMIA Diagnosis 07/08/2021 04:15:00 PM [facility] R74.8 Abnormal levels of other serum enzymes A BNORMAL LEVELS OF OTHER SERUM ENZYMES Diagnosis 07/08/2021 04:15:00 PM [facility] I10 Essential (primary) hypertension ESSENTIAL (PRIMARY) H YPERTENSION Diagnosis 07/08/2021 04:15:00 PM [facility] R63.5 Abnormal weight gain ABNORMAL WEIGHT GAIN Diagnosis 07/08/2021 04:15:00 PM [facility] M54.5 Low back pain LOW BACK PAIN Diagnosis 07/08/2021 04:15:00 PM [facility] F25.0 Schizoaffective disorder, bipolar type S CHIZOAFFECTIVE DISORDER, BIPOLAR TYPE Diagnosis 06/24/2021 09:21:00 AM [facility] E55.9 Vitamin D deficiency, unspecified VITAMIN D DEFI CIENCY, UNSPECIFIED Diagnosis 06/24/2021 09:21:00 AM [facility] G47.00 Insomnia, unspecified INSOMNIA, UNSPECIFIED Diagnosis 06/24/2021 09:21:00 AM [facility] F20.0 Paranoid schizophrenia PARANOID SCHIZOPHRENIA Diagnosi s 06/24/2021 09:21:00 AM [facility] G24.01 Drug induced subacute dyskinesia DRUG INDUCED BARONE BACUTE DYSKINESIA Diagnosis 06/03/2021 09:03:00 AM [facility] Z71.89 Other specified counseling OTHER SPECIFIED COUNSELING Diagnosis 05/12/2021 08:32:00 AM [facility] Z23 Encounter for immunization ENCOUNTER FOR IMMUNIZATION Diagnosis 05/12/2021 08:32:00 AM [facility] Z12.31 Encounter for screening mammogram for ma lignant neoplasm of breast ENCNTR SCREEN MAMMOGRAM FOR MALIGNANT NEOPLASM OF Diagnosis 05/12/2021 08:32:00 AM [facility] Z68.32 Body mass index (BMI) 32.0-32.9, adult B RADHA MASS INDEX [BMI] 32.0-32.9, ADULT Diagnosis 05/12/2021 08:32:00 AM [facility] K59.00 Constipation, unspecified CONSTIPATION, UNSPECIFIED Di agnosis 05/12/2021 08:32:00 AM [facility] F33.2 Major depressive disorder, recurrent sev ere without psychotic features MAJOR DEPRESSV DISORDER, RECURRENT SEVERE W/O PSYC Diagnosis 08:32:00 AM [facility] H61.22 Impacted cerumen, left ear IMPACTED CERUMEN, LEFT EAR Diagnosis 05/12/2021 08:32:00 AM [facility] K21.9 Gastro-esophageal reflux disease without esophagitis GASTRO-ESOPHAGEAL REFLUX DISEASE WITHOUT ESOPHAGIT Diagnosis 05/12/2021 08:32:00 AM [facility] Z00.00 Encounter for general adult medical examination without abnormal findings ENCNTR FOR GENERAL ADULT MEDICAL EXAM W/O ABNORMAL FINDINGS Diagnosis 05/12/2021 08:32:00 AM [facility] F43.22 Adjustment disorder with anxiety ADJUSTMENT DISO RDER WITH ANXIETY Diagnosis 04/28/2021 09:21:00 AM [facility] H61.21 Impacted cerumen, right ear IMPACTED CERUMEN, RIGHT EA R Diagnosis 04/01/2021 11:14:00 AM [facility] R45.851 Suicidal ideations SUICIDAL IDEATIONS Diagnosis 12/2020 11:14:00 AM [facility] F33.40 Major depressive disorder, recurrent, in remission, unspecified MAJOR DEPRESSIVE DISORDER, RECURRENT, IN REMISSION Diagnosis 10:40:00 AM [facility] Z02.89 Encounter for other administrative exami nations ENCOUNTER FOR OTHER ADMINISTRATIVE EXAMINATIONS Diagnosis 02/16/2021 09:21:00 AM [facility] R59.0 Localized enlarged lymph nodes LOCALIZED ENLARGED LYMP H NODES Diagnosis 12/16/2020 01:00:00 PM [facility] R41.0 Disorientation, unspecified DISORIENTATION, UNSPECIFIE D Diagnosis 12/15/2020 09:48:00 AM [facility] Z79.899 Other half-way (current) drug therapy O THER PROTECTION MGR (CURRENT) DRUG THERAPY Diagnosis 10/16/2020 08:58:00 AM [facility] R79.9 Abnormal finding of blood chemistry, uns pecified ABNORMAL FINDING OF BLOOD CHEMISTRY, UNSPECIFIED Diagnosis 10/16/2020 08:58:00 AM [facility]ital K14.6 Glossodynia GLOSSODYNIA Diagnosis 10/16/2020 08:58:00 AM [facility] R25.2 Cramp and spasm CRAMP AND SPASM Diagnosis 10/16/2020 08:5 8:00 AM [facility] D50.9 Iron deficiency anemia, unspecified IRON DEFICIE NCY ANEMIA, UNSPECIFIED Diagnosis 10/16/2020 08:58:00 AM [facility] F33.1 [id number] MDD (major depressive disorder), recurrent episode, moderate Problem 07/29/2021 12:00:00 AM EDT eCW1 ([facility]) F48.9 [id number] Mental health problem Problem 07/23/2021 12: 00:00 AM EDT [facility] ([facility]) E78.1 [id number] Hypertriglyceridemia Problem 07/23/2021 12:0 0:00 AM EDT eC1 ([facility]) Z68.34 [id number] BMI 34.0-34.9,adult Problem 07/23/2021 12:00 :00 AM EDT eCW1 ([facility]) E03.8 [id number] Subclinical hypothyroidism Problem 12:00:00 AM EDT eC1 ([facility]) R41.3 [id number] Memory impairment Problem 07/08/2021 12:00:0 0 AM EDT eCW1 ([facility]) F25.9 Schizoaffective disorder Schizoaffective disorder, uns pecified Problem 07/08/2021 12:00:00 AM EDT eCW1 ([facility]) Z68.32 [id number] BMI 32.0-32.9,adult Problem 05/17/2021 12:00 :00 AM EDT eCW1 ([facility]) E66.9 [id number] Obesity (BMI 30.0-34.9) Problem 0 05/12/2021 12:00:00 AM EDT eCW1 ([facility]) F20.9 [id number] Schizophrenia, unspecified type Problem 05/12/2021 12:00:00 AM EDT eCW1 ([facility]) F43.22 [id number] Adjustment disorder with anxious mood Pro blem 04/30/2021 12:00:00 AM EDT eCW1 ([facility]) [id number] Schizoaffective disorder, bipolar type S chizoaffective disorder, bipolar type Condition 04/06/2021 12:00:00 AM EDT [facility] ([facility]) [id number] Schizoaffective disorder, bipolar type S chizoaffective disorder, bipolar type Condition 04/06/2021 12:00:00 AM EDT [facility] ([facility]) [id number] Schizoaffective disorder, bipolar type S chizoaffective disorder, bipolar type Condition 04/06/2021 12:00:00 AM EDT [facility] ([facility]) [id number] Schizoaffective disorder, bipolar type S chizoaffective disorder, bipolar type Condition 04/06/2021 12:00:00 AM EDT [facility] ([facility]) [id number] Schizoaffective disorder, bipolar type S chizoaffective disorder, bipolar type Condition 04/06/2021 12:00:00 AM EDT [facility] ([facility]) R41.3 [id number] Memory loss Problem 12/15/2020 12:00:[address] eCW1 ([facility]) E55.9 Vitamin D deficiency Vitamin D deficiency Problem 10/16/2020 12:00:00 AM EST eCW1 ([facility]) G25.81 [id number] Restless leg syndrome Problem 10/16/2020 12: 00:00 AM EST eCW1 ([facility]) K14.6 [id number] Burning tongue Problem 10/16/2020 12:00:00 A M EST eCW1 ([facility]) Surgeries/Procedures Procedure Description Date Indications Data Source(s) OFFICE OUTPATIENT VISIT 25 MINUTES 05/21/2021 12:00:00 AM EDT [facility] ([facility], ) MRI BRAIN BRAIN STEM W/O CONTRAST MATERIAL 04/30/2021 12:00:00 AM EDT [facility] ([facility], ) MRI BRAIN BRAIN STEM W/O CONTRAST MATERIAL 04/30/2021 12:00:00 AM EDT [facility] ([facility], ) OFFICE OUTPATIENT VISIT 25 MINUTES 04/23/2021 12:00:00 AM EDT [facility] ([facility], ) ELECTROENCEPHALOGRAM W/REC AWAKE&ASLEEP 04/16/2021 12: 00:00 AM EDT [facility] ([facility], ) ELECTROENCEPHALOGRAM W/REC AWAKE&ASLEEP 04/16/2021 12: 00:00 AM EDT [facility] ([facility], ) OFFICE OUTPATIENT VISIT 25 MINUTES 02/23/2021 12:00:00 AM EDT [facility] ([facility], ) Results ID Date Data Source [id number] 08/25/2021 12:15:00 PM EDT [facility] Name Value Range Interpretation Code Description Data Latia rce(s) Supporting Document(s) COVID-19 NEGATIVE [facility] This lab was ordered by [facility] and reported by [facility]. ID Date Data Source [id number] 08/25/2021 12:43:00 PM EDT [facility] Name Value Range Interpretation Code Description Data Latia rce(s) Supporting Document(s) COVID-19 NEGATIVE NEGATIVE [facility] Negative results should be treated as pr [...] are for the indentification of SARS-CoV-2 RNA. [id number]-DiN-9 RNA is generally detectable in respiratorysamples during the actue phase of infection. ID Date Data Source [id number] 08/25/2021 12:00:00 AM EDT eCW1 ([facility]) Name Value Range Interpretation Code Description Data Latia rce(s) Supporting Document(s) NEGATIVE NEGATIVE COVID-19 eCW1 ([facility]) ID Date Data Source [id number] 07/30/2021 12:00:00 AM EDT [facility] Name Value Range Interpretation Code Description Data Latia rce(s) Supporting Document(s) SARS-COV 2 PCR NEGATIVE [facility] This lab was ordered by [id number] and reported by [facility]. ID Date Data Source [id number] 07/30/2021 12:00:00 AM EDT [facility] Name Value Range Interpretation Code Description Data Latia rce(s) Supporting Document(s) SARS-CoV-2 (COVID-19) RNA [Presence] in Respiratory specimen by ROBERTO with probe detection Not detected [facility] This lab was ordered by [facility] and r [facility]ported [facility]. ID Date Data Source [id number] 07/14/2021 06:05:00 AM EDT [facility] Name Value Range Interpretation Code Description Data Latia rce(s) Supporting Document(s) TANDEM-R OSTASE 16.1 ug/L . [facility] Premenopausal Women: 6.0 - 22.7 Postmenopausal Women: 8.1 - 31.6Performed at: [facility] [place] [address] [id number] Director: Rosa Bateman MD, Phone: [phone] ID Date Data Source [id number] 07/14/2021 06:05:00 AM EDT [facility] Name Value Range Interpretation Code Description Data Latia rce(s) Supporting Document(s) Alk Phosphatase, Bone Specific 16.1 ug/L [facility] Premenopausal Wo men: 6.0 - 22.7 Postmenopausal Women: 8.1 - 31.6 PDF . [facility] ID Date Data Source [id number] 07/08/2021 07:03:00 PM EDT [facility] Name Value Range Interpretation Code Description Data Latia rce(s) Supporting Document(s) FREE T4 0.9 ng/dL 0.76-1.46 [facility] ID Date Data Source [id number] 07/08/2021 07:03:00 PM EDT [facility] l Name Value Range Interpretation Code Description Data Latia rce(s) Supporting Document(s) TSH 4.658 uIU/mL 0.358-3.74 H [facility] ID Date Data Source [id number] 07/08/2021 06:46:00 PM EDT [facility] l Name Value Range Interpretation Code Description Data Latia rce(s) Supporting Document(s) GAMMA GLUTAMYL TRANSPEPTIDASE 24 U/L 5-55 [facility] ID Date Data Source [id number] 07/08/2021 06:46:00 PM EDT [facility] l Name Value Range Interpretation Code Description Data Latia rce(s) Supporting Document(s) CHOLESTEROL 190 mg/dL 0-200 [facility] TRIGLYCERIDES 251 mg/dL 0-150 H [facility] LDL CHOLESTEROL 94 mg/dL 0-100 [facility] HDL CHOLESTEROL 46 mg/dL 40-60 [facility] CHOL/HDL RATIO 4.1 0.0-5.0 [facility] ID Date Data Source [id number] 07/08/2021 06:46:00 PM EDT [facility] l Name Value Range Interpretation Code Description Data Latia rce(s) Supporting Document(s) GLUCOSE 117 mg/dL 74-106 H [facility] BLOOD UREA NITROGEN 22 mg/dL 7-18 H [facility] ital CREATININE 0.90 mg/dL 0.6-1.0 [facility] SODIUM 142 mmol/L 136-145 [facility] POTASSIUM 4.0 mmol/L 3.5-5.1 [facility] CHLORIDE 105 mmol/L 98-107 [facility] CO2 25 mmol/L 21-32 [facility] CALCIUM 8.8 mg/dL 8.5-10.1 [facility] ANION GAP 12.0 mmol/L 5-12 [facility] GLOMERULAR FILTRATION RATE 65 mL/min [facility] GFR IS CALCULATED IN mL/min/1.73m2 KARO L FUNCTION: >90MILDLY DECREASED: 60-89MILDY TO MODERATELY DECREASED: 45-59 MODERATELY TO SEVERELY DECREASED: 30-44SEVERELY DECREASED: 15-29RENAL FAILURE: <15 AST 7 U/L 15-37 L [facility] ALT 28 U/L 12-78 [facility] ALKALINE PHOSPHATASE 142 U/L 46-116 H [facility] pital TOTAL BILIRUBIN 0.4 mg/dL 0.2-1.0 [facility] TOTAL PROTEIN 7.9 g/dl 6.4-8.2 [facility] ALBUMIN 3.9 gm/dL 3.4-5.0 [facility] ID Date Data Source [id number] 07/08/2021 06:28:00 PM EDT [facility] Name Value Range Interpretation Code Description Data Latia rce(s) Supporting Document(s) HGBA1C 6.0 % 3.8-5.6 H [facility] Diabetic > or = to 6.5%Prediabetes 5.7-6 .4%Normal <5.7 ESTIMATED AVERAGE GLUCOSE 125.5 mg/dL [facility] ID Date Data Source [id number] 07/08/2021 06:22:00 PM [facility] Name Value Range Interpretation Code Description Data Latia rce(s) Supporting Document(s) URINE MICROALBUMIN 12.3 mg/L 1.3-20.0 [facility] URINE CREATININE 102.8 mg/dL [facility] MICROALBUMIN/CREATININE RATIO 11 ug/mg [facility] ID Date Data Source [id number] 07/08/2021 06:18:00 PM [facility] Name Value Range Interpretation Code Description Data Latia rce(s) Supporting Document(s) WHITE BLOOD COUNT 9.8 K/mm3 4.0-10.0 [facility] al RED BLOOD COUNT 4.49 M/mm3 4.00-5.50 [facility] HEMOGLOBIN 13.7 gm/dL 12.0-16.0 [facility] HEMATOCRIT 40.5 % 36.0-48.8 [facility] MEAN CELL VOLUME 90.2 fl 80-96 [facility] MEAN CORPUSCULAR HEMOGLOBIN 30.5 pg 27.0-31.0 [facility] MEAN CORPUSCULAR HGB CONC 33.8 g/dl 32.0-36.0 [facility] RED CELL DISTRIBUTION WIDTH 13.5 % 10.0-14.5 [facility] PLATELET COUNT 471 K/mm3 172-450 H [facility] MEAN PLATELET VOLUME 8.2 fl 9.0-13.0 L [facility] pital GRAN % 65.5 % 50-80.0 [facility] IG% 0.3 % 0.0-0.2 H [facility] LYMPH % 21.7 % 25.0-50.0 L [facility] MONO % 8.2 % 2.0-10.0 [facility] EOS % 4.1 % 0-5.0 [facility] BASO % 0.2 % 0.0-2.0 [facility] GRAN # 6.4 K/mm3 2.0-8.00 [facility] IG# 0.0 K/mm3 0.0-0.2 [facility] LYMPH # 2.1 K/mm3 1.0-5.0 [facility] MONO # 0.8 K/mm3 0.10-1.20 [facility] EOS # 0.4 K/mm3 0.0-0.5 [facility] BASO # 0.0 K/mm3 0.0-0.2 [facility] ID Date Data Source [id number] 07/08/2021 05:46:00 PM EDT [facility] Name Value Range Interpretation Code Description Data Latia rce(s) Supporting Document(s) URINE RBC 3-5 /hpf 0-3 H [facility] URINE WBC 3-5 /hpf 0-5 [facility] URINE EPITHELIAL CELLS 1+ /hpf 0 [facility] ospital URINE BACTERIA TRACE NONE SEEN H [facility] ID Date Data Source [id number] 07/08/2021 05:45:00 PM EDT [facility] l Name Value Range Interpretation Code Description Data Latia rce(s) Supporting Document(s) URINE COLOR. [facility] URINE APPEARANCE CLEAR [facility] l URINE GLUCOSE (UA) >=1000 mg/dL NEGATIVE [facility] spital URINE BILIRUBIN NEGATIVE NEGATIVE [facility] URINE KETONE NEGATIVE mg/dL NEGATIVE [facility] SPECIFIC GRAVITY,URINE 1.015 1.005-1.030 [facility] URINE BLOOD 1+(SMALL) NEGATIVE [facility] PH,URINE 5.0 5.0-9.0 [facility] URINE PROTEIN NEGATIVE mg/dL NEGATIVE [facility] URINE UROBILINOGEN NORMAL(0.2-1) mg/dL 0-1 [facility] URINE NITRATE NEGATIVE NEGATIVE [facility] URINE LEUKOCYTE ESTERASE NEGATIVE NEGATIVE [facility] ID Date Data Source [id number] 07/08/2021 12:00:00 AM EDT eCW1 ([facility]) Name Value Range Interpretation Code Description Data Laita rce(s) Supporting Document(s) CLEAR URINE APPEARANCE eCW1 ([facility]) YELLOW URINE COLOR. eCW1 ([facility]) >=1000 NEGATIVE URINE GLUCOSE (UA) eCW1 ( [facility]) NEGATIVE NEGATIVE URINE BILIRUBIN eCW1 ([facility]) 1.015 1.005-1.030 SPECIFIC GRAVITY,URINE e CW1 ([facility]) 1+(SMALL) NEGATIVE URINE BLOOD eCW1 ([facility]) NEGATIVE NEGATIVE URINE KETONE eCW1 ([facility]) 5.0 5.0-9.0 PH,URINE eCW1 ([facility]) NEGATIVE NEGATIVE URINE PROTEIN eCW1 ([facility]) NORMAL(0.2-1) 0-1 URINE UROBILINOGEN eCW 1 ([facility]) NEGATIVE NEGATIVE URINE LEUKOCYTE ESTERASE eCW1 ([facility]) NEGATIVE NEGATIVE URINE NITRATE eCW1 ([facility]) ID Date Data Source [id number] 03/13/2021 02:33:00 PM EDT [facility] Name Value Range Interpretation Code Description Data Latia rce(s) Supporting Document(s) SARS-CoV-2 (COVID 19) NEGATIVE - [facility] This [facility] was ordered by [facility] a nd reported by [facility]. ID Date Data Source [id number] 12/16/2020 01:06:00 PM EST [facility] rce(s) Supporting Document(s) ID Date Data Source [id number] 10/16/2020 08:39:00 AM EST [facility] Name Value Range Interpretation Code Description Data Latia rce(s) Supporting Document(s) MAGNESIUM 2.3 mg/dL 1.8-2.4 [facility] ID Date Data Source [id number] 10/16/2020 08:39:00 AM EST [facility] Name Value Range Interpretation Code Description Data Latia rce(s) Supporting Document(s) FERRITIN 36 ng/mL 8-252 [facility] ID Date Data Source [id number] 10/16/2020 08:39:00 AM EST [facility] Name Value Range Interpretation Code Description Data Latia rce(s) Supporting Document(s) IRON 51 ug/dL 50-170 [facility] TIBC 346 ug/dL 250-450 [facility] % SATURATION 15 % 20-50 L [facility] ID Date Data Source [id number] 10/13/2020 11:10:00 AM EST [facility] Name Value Range Interpretation Code Description Data Latia rce(s) Supporting Document(s) CHOLESTEROL 210 mg/dL 0-200 H [facility] TRIGLYCERIDES 210 mg/dL 0-150 H [facility] LDL CHOLESTEROL 121 mg/dL 0-100 H [facility] HDL CHOLESTEROL 47 mg/dL 40-60 [facility] CHOL/HDL RATIO 4.5 0.0-5.0 [facility] ID Date Data Source [id number] 10/13/2020 11:10:00 AM EST [facility] Name Value Range Interpretation Code Description Data Latia rce(s) Supporting Document(s) GLUCOSE 123 mg/dL 74-106 H [facility] BLOOD UREA NITROGEN 30 mg/dL 7-18 H [facility] ital CREATININE 1.0 mg/dL 0.6-1.0 [facility] SODIUM 139 mmol/L 136-145 [facility] POTASSIUM 4.5 mmol/L 3.5-5.1 [facility] CHLORIDE 101 mmol/L 98-107 [facility] CO2 23 mmol/L 21-32 [facility] CALCIUM 9.8 mg/dL 8.5-10.1 [facility] ANION GAP 15.0 mmol/L 5-12 H [facility] GLOMERULAR FILTRATION RATE 57 mL/min [facility] GFR IS CALCULATED IN mL/min/1.73m2 KARO L FUNCTION: >90MILDLY DECREASED: 60-89MILDY TO MODERATELY DECREASED: 45-59 MODERATELY TO SEVERELY DECREASED: 30-44SEVERELY DECREASED: 15-29RENAL FAILURE: <15 AST 14 U/L 15-37 L [facility] ALT 16 U/L 12-78 [facility] ALKALINE PHOSPHATASE 130 U/L 46-116 H [facility] pital TOTAL BILIRUBIN 0.5 mg/dL 0.2-1.0 [facility] TOTAL PROTEIN 7.4 g/dl 6.4-8.2 [facility] ALBUMIN 3.8 gm/dL 3.4-5.0 [facility] ID Date Data Source [id number] 10/13/2020 11:08:00 AM [facility] l Name Value Range Interpretation Code Description Data Latia rce(s) Supporting Document(s) URINE MICROALBUMIN 6.6 mg/L 1.3-20.0 [facility] URINE CREATININE 85.0 mg/dL [facility] al MICROALBUMIN/CREATININE RATIO 7 ug/mg [facility] ID Date Data Source [id number] 10/13/2020 10:57:00 AM [facility] l Name Value Range Interpretation Code Description Data Latia rce(s) Supporting Document(s) HGBA1C 6.6 % 3.8-5.6 H [facility] Diabetic > or = to 6.5%Prediabetes 5.7-6 .4%Normal <5.7 ID Date Data Source [id number] 10/13/2020 10:57:00 AM [facility] l Name Value Range Interpretation Code Description Data Latia rce(s) Supporting Document(s) ESTIMATED AVERAGE GLUCOSE 142.7 mg/dL [facility] Procedure Social History Code Duration Value Status Description Data Source(s ) Smoking 08/26/2021 12:00:00 AM EDT Never Smoker completed Never S moker eCW1 ([facility]) Smoking 08/26/2021 12:00:00 AM EDT Never Smoker completed Never S moker eCW1 ([facility]) Smoking 08/26/2021 12:00:00 AM EDT Never Smoker completed Never S moker eCW1 ([facility]) Smoking 08/26/2021 12:00:00 AM EDT Never Smoker completed Never S moker eCW1 ([facility]) Smoking 08/26/2021 12:00:00 AM EDT Never Smoker completed Never S moker eCW1 ([facility]) Smoking 07/23/2021 12:00:00 AM EDT Never Smoker completed Never S moker eCW1 ([facility]) Smoking 07/08/2021 12:00:00 AM EDT Never Smoker completed Never S moker eCW1 ([facility]) Smoking 05/12/2021 12:00:00 AM EDT Never Smoker completed Never S moker eCW1 ([facility]) Smoking 05/12/2021 12:00:00 AM EDT Never Smoker completed Never S moker eCW1 ([facility]) Smoking 04/01/2021 12:00:00 AM EDT Never Smoker completed Never S moker eCW1 ([facility]) Smoking 04/01/2021 12:00:00 AM EDT Never Smoker completed Never S moker eCW1 ([facility]) Smoking 04/01/2021 12:00:00 AM EDT Never Smoker completed Never S moker eCW1 ([facility]) Smoking 04/01/2021 12:00:00 AM EDT Never Smoker completed Never S moker eCW1 ([facility]) Smoking 12/15/2020 12:00:00 AM EST Never Smoker completed Never S moker eCW1 ([facility]) Smoking 12/15/2020 12:00:00 AM EST Never Smoker completed Never S moker eCW1 ([facility]) Smoking 12/15/2020 12:00:00 AM EST Never Smoker completed Never S moker eCW1 ([facility]) Smoking 12/15/2020 12:00:00 AM EST Never Smoker completed Never S moker eCW1 ([facility]) Smoking 12/15/2020 12:00:00 AM EST Never Smoker completed Never S moker eCW1 ([facility]) Smoking 12/15/2020 12:00:00 AM EST Never Smoker completed Never S moker eCW1 ([facility]) Smoking 12/15/2020 12:00:00 AM EST Never Smoker completed Never S moker eCW1 ([facility]) Smoking 12/15/2020 12:00:00 AM EST Never Smoker completed Never S moker eCW1 ([facility]) Smoking 11/10/2020 12:00:00 AM EST Never Smoker completed Never S moker eCW1 ([facility]) Smoking 11/10/2020 12:00:00 AM EST Never Smoker completed Never S moker eCW1 ([facility]) Smoking 11/10/2020 12:00:00 AM EST Never Smoker completed Never S moker eCW1 ([facility]) Smoking 10/16/2020 12:00:00 AM EST Never Smoker completed Never S moker eCW1 ([facility]) Smoking 10/16/2020 12:00:00 AM EST Never Smoker completed Never S moker eCW1 ([facility]) Smoking 10/16/2020 12:00:00 AM EST Never Smoker completed Never S moker eCW1 ([facility]) Smoking 10/16/2020 12:00:00 AM EST Never Smoker completed Never S moker eCW1 ([facility]) Smoking 10/16/2020 12:00:00 AM EST Never Smoker completed Never S moker eCW1 ([facility]) Smoking 10/16/2020 12:00:00 AM EST Never Smoker completed Never S moker eCW1 ([facility]) Smoking 10/16/2020 12:00:00 AM EST Never Smoker completed Never S moker eCW1 ([facility]) Smoking 10/16/2020 12:00:00 AM EST Never Smoker completed Never S moker eCW1 ([facility]) Smoking 10/16/2020 12:00:00 AM EST Never Smoker completed Never S moker eCW1 ([facility]) Vital Signs ID Date Data Source UNK Name Value Range Interpretation Code Description Data Source(s) Body height 62 [in_i] 62 [in_i] eCW1 ([facility] [place]) Body weight 186 [lb_av] 186 [lb_av] eCW1 ([facility]) Body mass index (BMI) [Ratio] 34.02 kg/m2 34.02 kg/m2 eCW1 ([facility]) Body temperature 98.7 [degF] 98.7 [degF] eCW1 ( [facility]) Heart rate 91 /min 91 /min eCW1 ([facility]) Respiratory rate 18 /min 18 /min eCW1 ([facility]) Oxygen saturation in Arterial blood by Pulse oximetry 98 % 98 % eCW1 ([facility]) Body height 62 [in_i] 62 [in_i] eCW1 ([facility] [place]) Body weight 186.4 [lb_av] 186.4 [lb_av] eCW1 ([facility]) Body mass index (BMI) [Ratio] 34.09 kg/m2 34.09 kg/m2 eCW1 ([facility]) Body temperature 98.4 [degF] 98.4 [degF] eCW1 ( [facility]) Heart rate 103 /min 103 /min eCW1 ([facility]) Respiratory rate 18 /min 18 /min eCW1 ([facility]) Oxygen saturation in Arterial blood by Pulse oximetry 97 % 97 % eCW1 ([facility]) Body height 62 [in_i] 62 [in_i] eCW1 ([facility] [place]) Body weight 182.2 [lb_av] 182.2 [lb_av] eCW1 ([facility]) Body mass index (BMI) [Ratio] 33.32 kg/m2 33.32 kg/m2 eCW1 ([facility]) Body temperature 99 [degF] 99 [degF] eCW1 ([facility]) Heart rate 90 /min 90 /min eCW1 ([facility]) Respiratory rate 18 /min 18 /min eCW1 ([facility]) Oxygen saturation in Arterial blood by Pulse oximetry 97 % 97 % eCW1 ([facility]) Body height 62 [in_i] 62 [in_i] eCW1 ([facility] [place]) Body weight 179.4 [lb_av] 179.4 [lb_av] eCW1 ([facility]) Body mass index (BMI) [Ratio] 32.81 kg/m2 32.81 kg/m2 eCW1 ([facility]) Body temperature 98.4 [degF] 98.4 [degF] eCW1 ( [facility]) Heart rate 88 /min 88 /min eCW1 ([facility]) Respiratory rate 16 /min 16 /min eCW1 ([facility]) Oxygen saturation in Arterial blood by Pulse oximetry 97 % 97 % eCW1 ([facility]) Body height 62 [in_i] 62 [in_i] eCW1 ([facility] [place]) Body weight 178.2 [lb_av] 178.2 [lb_av] eCW1 ([facility]) Body mass index (BMI) [Ratio] 32.59 kg/m2 32.59 kg/m2 eCW1 ([facility]) Body temperature 98.5 [degF] 98.5 [degF] eCW1 ( [facility]) Heart rate 80 /min 80 /min eCW1 ([facility]) Respiratory rate 16 /min 16 /min eCW1 ([facility]) Oxygen saturation in Arterial blood by Pulse oximetry 97 % 97 % eCW1 ([facility]) Body height 62 [in_i] 62 [in_i] eCW1 ([facility] [place]) Body weight 183.6 [lb_av] 183.6 [lb_av] eCW1 ([facility]) Body mass index (BMI) [Ratio] 33.58 kg/m2 33.58 kg/m2 eCW1 ([facility]) Body temperature 98.6 [degF] 98.6 [degF] eCW1 ( [facility]) Heart rate 79 /min 79 /min eCW1 ([facility]) Respiratory rate 16 /min 16 /min eCW1 ([facility]) Oxygen saturation in Arterial blood by Pulse oximetry 98 % 98 % eCW1 ([facility]) ID Date Data Source [id number] 04/21/2021 10:11:00 AM EDT [facility] l Name Value Range Interpretation Code Description Data Source(s) WEIGHT 90.71 kilos 90.71 kilos [facility] al HEIGHT 162.56 centimeters 162.56 centimeter [facility] WEIGHT 90.71 kilos 90.71 kilos [facility] al HEIGHT 162.56 centimeters 162.56 centimeter [facility] Patient Treatment Plan of Care Planned Activity Planned Date Details Description Data Source (s) pantoprazole 40 MG Delayed Release Oral Tablet 07/23/2021 12:00:00 AM EDT eCW1 ([facility]) rizatriptan 10 MG Oral Tablet 07/01/2021 12:00:00 AM EDT eCW1 ([facility]) Doxepin Hydrochloride 50 MG Oral Capsule 06/10/2021 12:00:00 AM EDT eCW1 ([facility]) Fluphenazine Hydrochloride 2.5 MG Oral Tablet 06/10/2021 12:00:00 A M EDT eCW1 ([facility]) Doxepin Hydrochloride 50 MG Oral Capsule 06/10/2021 12:00:00 AM EDT eCW1 ([facility]) Fluphenazine Hydrochloride 5 MG Oral Tablet 06/10/2021 12:00:00 AM EDT eCW1 ([facility]) topiramate 25 MG Oral Tablet [Topamax] 04/29/2021 12:00:00 AM EDT eCW1 ([facility]) topiramate 25 MG Oral Tablet [Topamax] 04/29/2021 12:00:00 AM EDT eCW1 ([facility]) topiramate 25 MG Oral Tablet [Topamax] 04/29/2021 12:00:00 AM EDT eCW1 ([facility]) Acetaminophen 325 MG Oral Tablet [Tylenol] 04/08/2021 12:00:00 AM E DT eCW1 ([facility]) Acetaminophen 325 MG Oral Tablet [Tylenol] 04/08/2021 12:00:00 AM E DT eCW1 ([facility]) One Touch Delica Lancets 11/05/2020 12:00:00 AM EST eCW1 ([facility]) One Touch Test Strips 11/05/2020 12:00:00 AM EST eCW1 ([facility])
[2021-10-02] MEDS: COMBIVENT RESPIMAT 100-20MCG INHALER 4GM INH SCH ×2 (10:57→12:19)
[2021-10-02] MEDS ORDERED: PRED20TA PO (10:59)
[2021-10-02] MEDS ORDERED: predniSONE 20 MG TAB PO ONE (11:00)
[2021-10-02] MEDS ORDERED: CEFDINIR 300 MG CAP (OMNICEF) PO ONE (11:00)
[2021-10-02] MEDS ORDERED: VENTAER INH (11:01)
[2021-10-02] MEDS ORDERED: CEFD1CAP8 PO (11:01)
[2021-10-02 13:24] VITALS: BP 121/68
== END 2021-10-02 13:25 | disposition home or self-care (01) ==
LOC: M ED 08:43
DX: U07.1 COVID-19 (principal); J12.82 Pneumonia due to coronavirus disease 2019; Z88.2 Allergy status to sulfonamides; Z88.9 Allergy status to unspecified drugs, medicaments and biological substances; Z91.09 Other allergy status, other than to drugs and biological substances
CPT/HCPCS: 71046; 87798; 94640; 99283; J7512

== ENCOUNTER 2022-06-18 23:45 | Emergency (ER) | payer OTHER ==
[~2022-06-18] VITALS: Ht 162.6 cm; Wt 86.8 kg
[~2022-06-18 23:45] MED LIST changes: +CEFD300C41 PO; +FLUO-96 PO; -FLUO20CA20 PO; -LATU80TA PO; +LATU80TA2 PO; +LOSA25TA13 PO; -LOSA25TA14 PO; +OMEP-173 PO; -OMEP-218 PO; +PRED20TA PO; +PROT1TAB2 PO; +VENTAER INH
[2022-06-18] MEDS ORDERED: OMEP40CA5 PO (23:57)
[2022-06-18] MEDS ORDERED: CLIN150C17 PO (23:57)
[2022-06-19] MEDS ORDERED: KETOROLAC 30 MG/ML 1ML VIAL IV ONE (02:35)
[2022-06-19] MEDS ORDERED: ONDANSETRON 4MG 2ML VIAL IV ONE (02:35)
[2022-06-19 03:38] LABS: BASO # 0.1 10^3/uL (0.0-0.2); BASO % 0.4 % (0.0-1.0); EOS % 7.2 % (0.0-3.0); HEMATOCRIT 38.9 % (36.0-47.0); HEMOGLOBIN 12.5 g/dl (12.0-15.5); LYMPH # 2.8 10^3/uL (1.5-5.0); LYMPH % 21.6 % (24.0-44.0); MEAN CORPUSCULAR HEMOGLOBIN 29.7 pg (27.0-33.0); MEAN CORPUSCULAR HGB CONC 32.1 g/dl (32.0-36.5); MEAN CORPUSCULAR VOLUME 92.4 fl (80.0-96.0); MONO % 7.9 % (2.0-8.0); NEUTROPHILS # 8.2 10^3/uL (1.5-8.5); NEUTROPHILS % 62.4 % (36.0-66.0); PLATELET COUNT, AUTOMATED 444 10^3/uL (150-450); RED BLOOD COUNT 4.21 10^6/uL (4.00-5.40); WHITE BLOOD COUNT 13.1 10^3/uL (4.0-10.0)
[2022-06-19 04:23] LABS: ALBUMIN 3.3 GM/DL (3.2-5.2); ALT/SGPT 20 U/L (12-78); BILIRUBIN,TOTAL 0.5 MG/DL (0.2-1.0); BLOOD UREA NITROGEN 17 MG/DL (7-18); C REACTIVE PROTEIN QUANTITATIV 1.28 MG/DL (0.00-0.30); CALCIUM LEVEL 8.7 MG/DL (8.5-10.1); CARBON DIOXIDE LEVEL 25 MEQ/L (21-32); CHLORIDE LEVEL 109 MEQ/L (98-107); CREATININE FOR GFR 0.77 MG/DL (0.55-1.30); GLOMERULAR FILTRATION RATE > 60.0 (>51); GLUCOSE, FASTING 126 MG/DL (70-100); LIPASE 177 U/L (73-393); POTASSIUM SERUM 4.3 MEQ/L (3.5-5.1); SODIUM LEVEL 139 MEQ/L (136-145); TOTAL PROTEIN 6.9 GM/DL (6.4-8.2)
[2022-06-19 05:06] VITALS: BP 120/61
[2022-06-19 07:02] LABS: SQUAMOUS EPITHELIAL CELL URINE MOD AMOUNT /hpf (SMALL AMT)
[2022-06-19 07:04] LABS: BACTERIA, URINE SMALL AMOUNT; HYALINE CAST, URINE NONE SEEN /lpf (0-1)
== END 2022-06-19 20:03 | disposition home or self-care (01) ==
LOC: M ED 23:45
DX: K59.00 Constipation, unspecified (principal); R16.0 Hepatomegaly, not elsewhere classified; K44.9 Diaphragmatic hernia without obstruction or gangrene; E11.9 Type 2 diabetes mellitus without complications; I10 Essential (primary) hypertension; Z79.84 Long term (current) use of oral hypoglycemic drugs; Z79.899 Other long term (current) drug therapy; Z88.8 Allergy status to other drugs, medicaments and biological substances; Z91.89 Other specified personal risk factors, not elsewhere classified
CPT/HCPCS: 74177; 80053; 81000; 81015; 83605; 83690; 85025; 86140; 87086; 96374; 96375; 99284; J1885; J2405

== ENCOUNTER 2022-07-07 16:30 | Emergency (ER) | payer OTHER ==
[~2022-07-07] VITALS: Ht 160 cm; Wt 86.4 kg
[~2022-07-07 16:30] MED LIST changes: +CLIN150C17 PO; +OMEP40CA5 PO
[2022-07-07] MEDS ORDERED: BENZ-52 (16:49)
[2022-07-07] MEDS ORDERED: FLUP2.5T12 (16:49)
[2022-07-07] MEDS ORDERED: RAME8TAB2 (16:49)
[2022-07-07] MEDS ORDERED: FAMO40TA3 PO (16:49)
[2022-07-07 17:49] LABS: HEMATOCRIT 40.7 % (36.0-47.0); HEMOGLOBIN 13.1 g/dl (12.0-15.5); MEAN CORPUSCULAR HEMOGLOBIN 29.8 pg (27.0-33.0); MEAN CORPUSCULAR HGB CONC 32.2 g/dl (32.0-36.5); MEAN CORPUSCULAR VOLUME 92.7 fl (80.0-96.0); PLATELET COUNT, AUTOMATED 504 10^3/uL (150-450); RED BLOOD COUNT 4.39 10^6/uL (4.00-5.40); WHITE BLOOD COUNT 10.1 10^3/uL (4.0-10.0)
[2022-07-07 18:23] LABS: RSV AMPLIFICATION NEGATIVE (NEGATIVE)
[2022-07-07 19:27] LABS: ACETAMINOPHEN LEVEL < 2.0 UG/ML (10.0-30.0); ALBUMIN 3.7 GM/DL (3.2-5.2); ALT/SGPT 18 U/L (12-78); BILIRUBIN,DIRECT 0.1 MG/DL (0.0-0.2); BILIRUBIN,TOTAL 0.4 MG/DL (0.2-1.0); BLOOD UREA NITROGEN 19 MG/DL (7-18); CALCIUM LEVEL 9.2 MG/DL (8.5-10.1); CARBON DIOXIDE LEVEL 25 MEQ/L (21-32); CHLORIDE LEVEL 106 MEQ/L (98-107); CREATININE FOR GFR 0.88 MG/DL (0.55-1.30); ETHYL ALCOHOL (ETHANOL) 0.004 % (0.000-0.010); GLOMERULAR FILTRATION RATE > 60.0 (>51); GLUCOSE, FASTING 135 MG/DL (70-100); LITHIUM LEVEL 0.22 MEQ/L (0.60-1.20); POTASSIUM SERUM 4.5 MEQ/L (3.5-5.1); SALICYLATE LEVEL < 1.7 MG/DL (5.0-30.0); SODIUM LEVEL 136 MEQ/L (136-145); TOTAL PROTEIN 7.2 GM/DL (6.4-8.2)
[2022-07-07 19:48] LABS: AMPHETAMINES LEVEL URINE NEGATIVE (NEGATIVE); BARBITURATES URINE NEGATIVE (NEGATIVE); BENZODIAZEPINES URINE NEGATIVE (NEGATIVE); CANNABINOIDS URINE NEGATIVE (NEGATIVE); COCAINE METABOLITE URINE NEGATIVE (NEGATIVE); METHADONE URINE NEGATIVE (NEGATIVE); OPIATES URINE NEGATIVE (NEGATIVE); PHENCYCLIDINE URINE NEGATIVE (NEGATIVE)
[2022-07-07] MEDS ORDERED: ACETAMINOPHEN TAB 650MG DOSE (2X325MG) PO ONE (23:40)
[2022-07-08] MEDS ORDERED: ATOR80TA59 PO (02:02)
[2022-07-08] MEDS ORDERED: VALB40CA PO (02:02)
[2022-07-08] MEDS ORDERED: RIZA10TA64 PO (02:02)
[2022-07-08] MEDS ORDERED: LOSA25TA13 PO (02:02)
[2022-07-08] MEDS ORDERED: BELS1TAB3 PO (02:02)
[2022-07-08] MEDS ORDERED: FAMO40TA3 PO (02:02)
[2022-07-08] MEDS ORDERED: FLUP5TAB13 PO (02:02)
[2022-07-08] MEDS ORDERED: STEG5TAB PO (02:02)
[2022-07-08] MEDS ORDERED: GLIP5TAB8 PO (02:02)
[2022-07-08] MEDS ORDERED: ROZE8TAB16 PO (02:02)
[2022-07-08] MEDS ORDERED: ALBU8.5H INH (02:02)
[2022-07-08] MEDS ORDERED: VITMTA PO (02:28)
[2022-07-08] MEDS ORDERED: ERGO500029 PO (02:28)
[2022-07-08] MEDS ORDERED: TUMS500C PO (02:28)
[2022-07-08] MEDS ORDERED: FLUO40CA PO (02:28)
[2022-07-08] MEDS ORDERED: MIRA1POW3 PO (02:28)
[2022-07-08] MEDS ORDERED: ONDA8TAB8 PO (02:28)
[2022-07-08] MEDS ORDERED: LITH300T2 PO (02:28)
[2022-07-08] MEDS ORDERED: FLUP25VL IM (02:28)
[2022-07-08] MEDS ORDERED: OMEP-173 PO (02:28)
[2022-07-08] MEDS ORDERED: MAGN400T35 PO (02:28)
[2022-07-08] MEDS ORDERED: HOME MED LIST COMPLETE! XX SCH (02:35)
[2022-07-08] MEDS ORDERED: glipiZIDE (GLUCOTROL) 5 MG TAB PO SCH (07:30)
[2022-07-08] MEDS ORDERED: MIRALAX *UNIT DOSE* 17GM PACKET PO SCH (09:00)
[2022-07-08] MEDS ORDERED: fluPHENAZine DECAN 25MG/ML 5ML VIAL (J2680) IM SCH (09:00)
[2022-07-08] MEDS ORDERED: FLUoxetine 20MG CAP PO SCH ×2 (09:00→12:00)
[2022-07-08] MEDS ORDERED: LOSARTAN 25 MG TAB PO SCH (09:00)
[2022-07-08] MEDS ORDERED: RIZATRIPTAN BENZOATE 10 MG TAB PO PRN (10:15)
[2022-07-08] MEDS ORDERED: CALCIUM CARBONATE 500 MG CHEW U/D PO PRN (10:15)
[2022-07-08] MEDS ORDERED: ALBUTEROL 90 MCG/ACT 8GM HFA INHALER INH PRN (10:15)
[2022-07-08] MEDS ORDERED: ONDANSETRON 4MG ORAL DISINTEGRATING TAB PO PRN (10:15)
[2022-07-08] MEDS ORDERED: fluPHENAZine DECAN 25MG/ML 5ML VIAL (J2680) IM ONE (11:45)
[2022-07-08 11:56] VITALS: BP 151/76
[2022-07-08] MEDS ORDERED: fluPHENAZine 5MG TABLET PO SCH (12:00)
[2022-07-08 15:19] VITALS: BP 141/91
[2022-07-08] MEDS ORDERED: OMEPRAZOLE 20MG CAP PO SCH (17:00)
[2022-07-08] MEDS ORDERED: ATORVASTATIN 20 MG TAB PO SCH (21:00)
[2022-07-08] MEDS ORDERED: RAMELTEON 8 MG TAB (ROZEREM) PO SCH (21:00)
[2022-07-08] MEDS ORDERED: FAMOTIDINE 20 MG TAB PO SCH (21:00)
[2022-07-08] MEDS ORDERED: MAGNESIUM OXIDE 400MG TAB (MAG-OX) PO SCH (21:00)
[2022-07-08] MEDS ORDERED: LITHIUM CARBONATE 300 MG CAP PO SCH (21:00)
[2022-07-11] MEDS ORDERED: VITAMIN D 50,000 UNITS CAPSULE (ERGOCALCIFEROL 1.25MG) PO SCH (21:00)
== END 2022-07-08 15:21 ==
LOC: M ED 16:30
DX: F23 Brief psychotic disorder (principal); F25.0 Schizoaffective disorder, bipolar type; E11.9 Type 2 diabetes mellitus without complications; I10 Essential (primary) hypertension; K21.9 Gastro-esophageal reflux disease without esophagitis; E66.9 Obesity, unspecified; Z91.51 Personal history of suicidal behavior; Z79.84 Long term (current) use of oral hypoglycemic drugs; Z79.899 Other long term (current) drug therapy; Z88.8 Allergy status to other drugs, medicaments and biological substances; Z91.89 Other specified personal risk factors, not elsewhere classified
CPT/HCPCS: 80048; 80076; 80143; 80178; 80307; 82077; 84443; 85027; 87631; 93005; 96372; 99284; J2680

== ENCOUNTER 2022-08-28 11:12 | Emergency (ER) | payer OTHER ==
[~2022-08-28] VITALS: Ht 160 cm; Wt 86.8 kg
[~2022-08-28 11:12] MED LIST changes: +ALBU8.5H INH; +BELS1TAB3 PO; +BENZ-52; +FAMO40TA3 PO; +FLUP2.5T12; +FLUP5TAB13 PO; +MAGN400T35 PO; +ONDA8TAB8 PO; +RAME8TAB2; +RIZA10TA64 PO; +ROZE8TAB16 PO; +TUMS500C PO; +VITMTA PO
[2022-08-28 11:13] VITALS: BP 137/84
[2022-08-28] MEDS ORDERED: GI COCKTAIL 50ML BTL(HYOSCYAMINE/MAALOX/LIDOCAINE VISCOUS)(1:3:1) PO ONE (11:55)
[2022-08-28 12:39] LABS: BASO % 0.3 % (0.0-1.0); EOS # 0.4 10^3/uL (0.0-0.5); HEMATOCRIT 39.3 % (36.0-47.0); HEMOGLOBIN 12.3 g/dl (12.0-15.5); LYMPH % 14.5 % (24.0-44.0); MEAN CORPUSCULAR HEMOGLOBIN 28.9 pg (27.0-33.0); MEAN CORPUSCULAR HGB CONC 31.3 g/dl (32.0-36.5); MEAN CORPUSCULAR VOLUME 92.5 fl (80.0-96.0); MONO # 0.8 10^3/uL (0.0-0.8); MONO % 5.7 % (2.0-8.0); NEUTROPHILS # 10.3 10^3/uL (1.5-8.5); PLATELET COUNT, AUTOMATED 498 10^3/uL (150-450); RED BLOOD COUNT 4.25 10^6/uL (4.00-5.40); WHITE BLOOD COUNT 13.6 10^3/uL (4.0-10.0)
[2022-08-28 13:10] LABS: ALBUMIN 3.5 GM/DL (3.2-5.2); ALT/SGPT 19 U/L (12-78); BILIRUBIN,DIRECT 0.1 MG/DL (0.0-0.2); BILIRUBIN,TOTAL 0.6 MG/DL (0.2-1.0); BLOOD UREA NITROGEN 16 MG/DL (7-18); CALCIUM LEVEL 9.2 MG/DL (8.5-10.1); CARBON DIOXIDE LEVEL 24 MEQ/L (21-32); CHLORIDE LEVEL 108 MEQ/L (98-107); CREATININE FOR GFR 0.77 MG/DL (0.55-1.30); GLOMERULAR FILTRATION RATE > 60.0 (>51); GLUCOSE, FASTING 129 MG/DL (70-100); LIPASE 95 U/L (73-393); POTASSIUM SERUM 4.3 MEQ/L (3.5-5.1); SODIUM LEVEL 139 MEQ/L (136-145)
[2022-08-28] MEDS ORDERED: ISOVUE-370 76% 100ML VIAL As Ordered ONE (13:36)
[2022-08-28] MEDS ORDERED: [UNRECOGNIZED DRUG - CODE] PO (14:53)
== END 2022-08-28 20:17 | disposition home or self-care (01) ==
LOC: M ED 11:12
DX: R10.9 Unspecified abdominal pain (principal); R11.2 Nausea with vomiting, unspecified; R19.7 Diarrhea, unspecified; R16.0 Hepatomegaly, not elsewhere classified; N28.1 Cyst of kidney, acquired; E11.9 Type 2 diabetes mellitus without complications; I10 Essential (primary) hypertension; Z87.442 Personal history of urinary calculi; E78.5 Hyperlipidemia, unspecified; G43.909 Migraine, unspecified, not intractable, without status migrainosus; Z90.49 Acquired absence of other specified parts of digestive tract; Z90.89 Acquired absence of other organs; Z90.710 Acquired absence of both cervix and uterus; Z88.8 Allergy status to other drugs, medicaments and biological substances; Z98.1 Arthrodesis status; K44.9 Diaphragmatic hernia without obstruction or gangrene; Z79.51 Long term (current) use of inhaled steroids; Z79.899 Other long term (current) drug therapy
CPT/HCPCS: 36415; 74177; 80048; 80076; 83690; 85025; 93005; 99284; Q9967

== ENCOUNTER 2022-10-05 02:12 | Emergency (ER) | payer OTHER ==
[~2022-10-05] VITALS: Ht 162.6 cm; Wt 86.1 kg
[~2022-10-05 02:12] MED LIST changes: +[UNRECOGNIZED DRUG - CODE] PO
[2022-10-05 02:15] VITALS: BP 142/90
== END 2022-10-05 06:50 | disposition left against medical advice (07) ==
LOC: M ED 02:12
DX: Z53.21 Procedure and treatment not carried out due to patient leaving prior to being seen by health care provider (principal)

== ENCOUNTER 2022-10-25 12:47 | Inpatient (IN) | payer MEDICAID, OTHER ==
[~2022-10-25] VITALS: Ht 162.6 cm; Wt 86.4 kg
[2022-10-25 14:25] LABS: HEMATOCRIT 40.8 % (36.0-47.0); MEAN CORPUSCULAR HEMOGLOBIN 29.7 pg (27.0-33.0); MEAN CORPUSCULAR HGB CONC 31.9 g/dl (32.0-36.5); MEAN CORPUSCULAR VOLUME 93.2 fl (80.0-96.0); PLATELET COUNT, AUTOMATED 493 10^3/uL (150-450); RED BLOOD COUNT 4.38 10^6/uL (4.00-5.40)
[2022-10-25 14:48] LABS: METHADONE URINE NEGATIVE (NEGATIVE); OPIATES URINE NEGATIVE (NEGATIVE)
[2022-10-25 14:49] LABS: AMPHETAMINES LEVEL URINE NEGATIVE (NEGATIVE); BARBITURATES URINE NEGATIVE (NEGATIVE); BENZODIAZEPINES URINE NEGATIVE (NEGATIVE); CANNABINOIDS URINE NEGATIVE (NEGATIVE); COCAINE METABOLITE URINE NEGATIVE (NEGATIVE); PHENCYCLIDINE URINE NEGATIVE (NEGATIVE)
[2022-10-25 14:50] LABS: ETHYL ALCOHOL (ETHANOL) 0.003 % (0.000-0.010)
[2022-10-25 14:52] LABS: BILIRUBIN,DIRECT 0.2 MG/DL (<0.4); SALICYLATE LEVEL < 3.0 MG/DL (<30)
[2022-10-25 14:53] LABS: ACETAMINOPHEN LEVEL < 2.0 UG/ML (10.0-20.0); ALBUMIN 3.8 G/DL (3.2-5.2); ALKALINE PHOSPHATASE 112 U/L (46-116); ALT/SGPT 12 U/L (7.0-40); AST/SGOT 19 U/L (<34); BLOOD UREA NITROGEN 16 MG/DL (9-23); CARBON DIOXIDE LEVEL 24 MMOL/L (20-31); CHLORIDE LEVEL 105 MMOL/L (98-107); CREATININE FOR GFR 0.84 MG/DL (0.55-1.30); GLOMERULAR FILTRATION RATE > 60.0 (>51); GLUCOSE, FASTING 84 MG/DL (60-100); POTASSIUM SERUM 4.4 MMOL/L (3.5-5.1); SODIUM LEVEL 140 MMOL/L (136-145); TOTAL PROTEIN 7.4 G/DL (5.7-8.2)
[2022-10-25 14:55] LABS: THYROID STIMULATING HORMONE 1.583 uIU/ML (0.55-4.78)
[2022-10-25 14:58] LABS: RSV AMPLIFICATION NEGATIVE (NEGATIVE)
[2022-10-25] MEDS ORDERED: PANT40TA29 PO (17:41)
[2022-10-25] MEDS ORDERED: PRAZ1CAP PO (17:41)
[2022-10-25] MEDS ORDERED: FLUO20CA22 PO (17:41)
[2022-10-25] MEDS ORDERED: ACETAMINOPHEN TAB 650MG DOSE (2X325MG) PO PRN (18:30)
[2022-10-25] MEDS ORDERED: MOM 30ML SUSPENSION UDC PO PRN (18:30)
[2022-10-25] MEDS ORDERED: MAALOX 30 ML SUSP *UDC PO PRN (18:30)
[2022-10-25] MEDS ORDERED: LITH45TASA PO (18:36)
[2022-10-25] MEDS ORDERED: FERR325T19 PO (18:36)
[2022-10-25] MEDS ORDERED: BENZ-52 PO (18:36)
[2022-10-25] MEDS ORDERED: FLUP2.5T12 PO (18:36)
[2022-10-25] MEDS ORDERED: med rec comment (18:46)
[2022-10-25] MEDS ORDERED: HOME MED LIST COMPLETE! XX SCH (18:50)
[2022-10-25] MEDS ORDERED: CALCIUM CARBONATE 500 MG CHEW U/D PO PRN (19:40)
[2022-10-25] MEDS ORDERED: ALBUTEROL 90 MCG/ACT 8GM HFA INHALER INH PRN (19:40)
[2022-10-25] MEDS ORDERED: RIZATRIPTAN BENZOATE 10 MG TAB PO PRN (19:40)
[2022-10-25] MEDS ORDERED: RAMELTEON 8 MG TAB (ROZEREM) PO PRN (19:40)
[2022-10-25 20:16] VITALS: BP 110/69
[2022-10-25] MEDS ORDERED: ATORVASTATIN 20 MG TAB PO SCH (21:00)
[2022-10-25] MEDS: FAMOTIDINE 20 MG TAB PO SCH (21:51)
[2022-10-25] MEDS: fluPHENAZine 5MG TABLET PO SCH (21:51)
[2022-10-25] MEDS: traZODone 50 MG TAB PO PRN (21:51)
[2022-10-25] MEDS: LITHIUM CARBONATE 450 MG **CR** TAB PO SCH (21:52)
[2022-10-25] MEDS: BENZTROPINE 1 MG TAB PO SCH (21:52)
[2022-10-25] MEDS: PRAZOSIN 1 MG CAP PO SCH (21:55)
[2022-10-26 07:00] VITALS: BP 111/65
[2022-10-26] MEDS: NICOTINE 14 MG/24 HR TRANSDERMAL TD SCH (08:12)
[2022-10-26] MEDS: MULTIVITAMINS/MINERALS THERAP 1 TAB PO SCH (08:16)
[2022-10-26] MEDS: fluPHENAZine 5MG TABLET PO SCH ×2 (08:16→20:20)
[2022-10-26] MEDS: LOSARTAN 25 MG TAB PO SCH (08:16)
[2022-10-26] MEDS: BENZTROPINE 1 MG TAB PO SCH ×2 (08:16→20:21)
[2022-10-26] MEDS: PANTOPRAZOLE 40MG TAB (PROTONIX) PO SCH (08:17)
[2022-10-26] MEDS: glipiZIDE (GLUCOTROL) 5 MG TAB PO SCH (08:17)
[2022-10-26] MEDS: FERROUS SULFATE 325MG TAB PO SCH (08:17)
[2022-10-26] MEDS: FLUoxetine 20MG CAP PO SCH (08:17)
[2022-10-26] MEDS ORDERED: fluPHENAZine DECAN 25MG/ML 5ML VIAL IM SCH (09:00)
[2022-10-26] MEDS ORDERED: INFLUENZA QUADRIVALENT PF VACCINE 0.5ML SYRINGE IM.IMMUN ONE (09:00)
[2022-10-26] MEDS ORDERED: OMEPRAZOLE 20MG CAP PO SCH (09:00)
[2022-10-26] MEDS ORDERED: ALBUTEROL 90 MCG/ACT 8GM HFA INHALER INH PRN (10:15)
[2022-10-26] MEDS: ACETAMINOPHEN TAB 650MG DOSE (2X325MG) PO PRN (12:15)
[2022-10-26 15:27] VITALS: BP 138/82
[2022-10-26 17:56] VITALS: BP 141/63
[2022-10-26] MEDS: PRAZOSIN 1 MG CAP PO SCH (20:16)
[2022-10-26] MEDS: LITHIUM CARBONATE 450 MG **CR** TAB PO SCH (20:21)
[2022-10-26] MEDS: FAMOTIDINE 20 MG TAB PO SCH (20:22)
[2022-10-26] MEDS: ATORVASTATIN 20 MG TAB PO SCH (20:24)
[2022-10-27] MEDS: traZODone 50 MG TAB PO PRN ×2 (01:41→23:14)
[2022-10-27 07:16] VITALS: BP 96/63
[2022-10-27] MEDS: NICOTINE 14 MG/24 HR TRANSDERMAL TD SCH (08:36)
[2022-10-27] MEDS: glipiZIDE (GLUCOTROL) 5 MG TAB PO SCH (08:38)
[2022-10-27] MEDS: FLUoxetine 20MG CAP PO SCH (08:39)
[2022-10-27] MEDS: LOSARTAN 25 MG TAB PO SCH (08:39)
[2022-10-27] MEDS: BENZTROPINE 1 MG TAB PO SCH ×2 (08:39→20:07)
[2022-10-27] MEDS: fluPHENAZine 5MG TABLET PO SCH ×2 (08:39→20:07)
[2022-10-27] MEDS: PANTOPRAZOLE 40MG TAB (PROTONIX) PO SCH (08:39)
[2022-10-27] MEDS: FERROUS SULFATE 325MG TAB PO SCH (08:39)
[2022-10-27] MEDS: MULTIVITAMINS/MINERALS THERAP 1 TAB PO SCH (08:39)
[2022-10-27 18:21] VITALS: BP 108/66
[2022-10-27] MEDS: PRAZOSIN 1 MG CAP PO SCH (20:06)
[2022-10-27] MEDS: FAMOTIDINE 20 MG TAB PO SCH (20:06)
[2022-10-27] MEDS: ATORVASTATIN 20 MG TAB PO SCH (20:06)
[2022-10-27] MEDS: LITHIUM CARBONATE 450 MG **CR** TAB PO SCH (20:07)
[2022-10-27] MEDS: ACETAMINOPHEN TAB 650MG DOSE (2X325MG) PO PRN (23:14)
[2022-10-28 06:45] VITALS: BP 123/69
[2022-10-28] MEDS: NICOTINE 14 MG/24 HR TRANSDERMAL TD SCH (08:31)
[2022-10-28] MEDS: PANTOPRAZOLE 40MG TAB (PROTONIX) PO SCH (08:34)
[2022-10-28] MEDS: BENZTROPINE 1 MG TAB PO SCH ×2 (08:34→20:47)
[2022-10-28] MEDS: LOSARTAN 25 MG TAB PO SCH (08:34)
[2022-10-28] MEDS: fluPHENAZine 5MG TABLET PO SCH ×2 (08:34→20:47)
[2022-10-28] MEDS: FLUoxetine 20MG CAP PO SCH (08:34)
[2022-10-28] MEDS: FERROUS SULFATE 325MG TAB PO SCH (08:34)
[2022-10-28] MEDS: glipiZIDE (GLUCOTROL) 5 MG TAB PO SCH (08:34)
[2022-10-28] MEDS: MULTIVITAMINS/MINERALS THERAP 1 TAB PO SCH (08:34)
[2022-10-28] MEDS ORDERED: LIDOCAINE 5% (LIDODERM) PATCH TD ONE (09:20)
[2022-10-28] MEDS ORDERED: IBUPROFEN 800 MG TAB PO PRN (09:20)
[2022-10-28 18:12] VITALS: BP 119/70
[2022-10-28] MEDS: FAMOTIDINE 20 MG TAB PO SCH (20:46)
[2022-10-28] MEDS: ATORVASTATIN 20 MG TAB PO SCH (20:46)
[2022-10-28] MEDS: PRAZOSIN 1 MG CAP PO SCH (20:46)
[2022-10-28] MEDS: LITHIUM CARBONATE 450 MG **CR** TAB PO SCH (20:47)
[2022-10-28] MEDS: traZODone 50 MG TAB PO PRN (23:18)
[2022-10-29 06:41] VITALS: BP 139/88
[2022-10-29] MEDS: FLUoxetine 20MG CAP PO SCH (08:12)
[2022-10-29] MEDS: MULTIVITAMINS/MINERALS THERAP 1 TAB PO SCH (08:12)
[2022-10-29] MEDS: FERROUS SULFATE 325MG TAB PO SCH (08:13)
[2022-10-29] MEDS: LOSARTAN 25 MG TAB PO SCH (08:13)
[2022-10-29] MEDS: glipiZIDE (GLUCOTROL) 5 MG TAB PO SCH (08:13)
[2022-10-29] MEDS: BENZTROPINE 1 MG TAB PO SCH ×2 (08:13→20:16)
[2022-10-29] MEDS: PANTOPRAZOLE 40MG TAB (PROTONIX) PO SCH (08:13)
[2022-10-29] MEDS: fluPHENAZine 5MG TABLET PO SCH ×2 (08:13→20:16)
[2022-10-29] MEDS: NICOTINE 14 MG/24 HR TRANSDERMAL TD SCH (08:18)
[2022-10-29 18:17] VITALS: BP 102/71
[2022-10-29] MEDS: FAMOTIDINE 20 MG TAB PO SCH (20:17)
[2022-10-29] MEDS: LITHIUM CARBONATE 450 MG **CR** TAB PO SCH (20:17)
[2022-10-29] MEDS: ATORVASTATIN 20 MG TAB PO SCH (20:18)
[2022-10-29] MEDS: PRAZOSIN 1 MG CAP PO SCH (20:18)
[2022-10-29] MEDS: traZODone 50 MG TAB PO PRN (23:03)
[2022-10-30 06:38] VITALS: BP 122/74
[2022-10-30] MEDS: LOSARTAN 25 MG TAB PO SCH (07:50)
[2022-10-30] MEDS: glipiZIDE (GLUCOTROL) 5 MG TAB PO SCH (07:50)
[2022-10-30] MEDS: FERROUS SULFATE 325MG TAB PO SCH (07:51)
[2022-10-30] MEDS: PANTOPRAZOLE 40MG TAB (PROTONIX) PO SCH (07:52)
[2022-10-30] MEDS: BENZTROPINE 1 MG TAB PO SCH ×2 (07:52→21:17)
[2022-10-30] MEDS: fluPHENAZine 5MG TABLET PO SCH ×2 (07:52→21:19)
[2022-10-30] MEDS: FLUoxetine 20MG CAP PO SCH (07:54)
[2022-10-30] MEDS: NICOTINE 14 MG/24 HR TRANSDERMAL TD SCH (07:54)
[2022-10-30] MEDS: MULTIVITAMINS/MINERALS THERAP 1 TAB PO SCH (07:54)
[2022-10-30 17:36] VITALS: BP 117/72
[2022-10-30] MEDS: LITHIUM CARBONATE 450 MG **CR** TAB PO SCH (21:18)
[2022-10-30] MEDS: FAMOTIDINE 20 MG TAB PO SCH (21:18)
[2022-10-30] MEDS: ATORVASTATIN 20 MG TAB PO SCH (21:19)
[2022-10-30] MEDS: traZODone 50 MG TAB PO PRN (21:19)
[2022-10-30] MEDS: PRAZOSIN 1 MG CAP PO SCH (21:19)
[2022-10-31 07:01] VITALS: BP 115/64
[2022-10-31] MEDS: NICOTINE 14 MG/24 HR TRANSDERMAL TD SCH (09:00)
[2022-10-31] MEDS: FLUoxetine 20MG CAP PO SCH (09:11)
[2022-10-31] MEDS: FERROUS SULFATE 325MG TAB PO SCH (09:11)
[2022-10-31] MEDS: glipiZIDE (GLUCOTROL) 5 MG TAB PO SCH (09:11)
[2022-10-31] MEDS: PANTOPRAZOLE 40MG TAB (PROTONIX) PO SCH (09:12)
[2022-10-31] MEDS: fluPHENAZine 5MG TABLET PO SCH ×2 (09:12→20:36)
[2022-10-31] MEDS: BENZTROPINE 1 MG TAB PO SCH ×2 (09:12→20:36)
[2022-10-31] MEDS: MULTIVITAMINS/MINERALS THERAP 1 TAB PO SCH (09:12)
[2022-10-31] MEDS: LOSARTAN 25 MG TAB PO SCH (09:12)
[2022-10-31 18:00] VITALS: BP 111/70
[2022-10-31] MEDS: FAMOTIDINE 20 MG TAB PO SCH (20:36)
[2022-10-31] MEDS: LITHIUM CARBONATE 450 MG **CR** TAB PO SCH (20:36)
[2022-10-31] MEDS: traZODone 50 MG TAB PO PRN (20:36)
[2022-10-31] MEDS: ATORVASTATIN 20 MG TAB PO SCH (20:37)
[2022-10-31] MEDS: PRAZOSIN 1 MG CAP PO SCH (20:37)
[2022-11-01 06:16] VITALS: BP 106/70
[2022-11-01 08:41] VITALS: BP 106/68
[2022-11-01] MEDS: glipiZIDE (GLUCOTROL) 5 MG TAB PO SCH (08:43)
[2022-11-01] MEDS: BENZTROPINE 1 MG TAB PO SCH ×2 (08:44→21:55)
[2022-11-01] MEDS: MULTIVITAMINS/MINERALS THERAP 1 TAB PO SCH (08:44)
[2022-11-01] MEDS: NICOTINE 14 MG/24 HR TRANSDERMAL TD SCH (08:44)
[2022-11-01] MEDS: LOSARTAN 25 MG TAB PO SCH (08:44)
[2022-11-01] MEDS: FLUoxetine 20MG CAP PO SCH (08:44)
[2022-11-01] MEDS: PANTOPRAZOLE 40MG TAB (PROTONIX) PO SCH (08:44)
[2022-11-01] MEDS: FERROUS SULFATE 325MG TAB PO SCH (08:44)
[2022-11-01] MEDS: fluPHENAZine 5MG TABLET PO SCH ×2 (08:44→21:56)
[2022-11-01] MEDS ORDERED: PILL CUTTER 1 EACH XX PRN (11:05)
[2022-11-01 16:21] VITALS: BP 126/74
[2022-11-01] MEDS ORDERED: LITHIUM CARBONATE 300 MG **CR** TAB PO SCH (21:00)
[2022-11-01] MEDS: ATORVASTATIN 20 MG TAB PO SCH (21:54)
[2022-11-01] MEDS: PRAZOSIN 1 MG CAP PO SCH (21:55)
[2022-11-01] MEDS: FAMOTIDINE 20 MG TAB PO SCH (21:55)
[2022-11-02 06:40] VITALS: BP 120/61
[2022-11-02] MEDS: glipiZIDE (GLUCOTROL) 5 MG TAB PO SCH (08:11)
[2022-11-02] MEDS: PANTOPRAZOLE 40MG TAB (PROTONIX) PO SCH (08:11)
[2022-11-02] MEDS: FLUoxetine 20MG CAP PO SCH (08:11)
[2022-11-02] MEDS: fluPHENAZine 5MG TABLET PO SCH (08:11)
[2022-11-02] MEDS: MULTIVITAMINS/MINERALS THERAP 1 TAB PO SCH (08:11)
[2022-11-02 08:12] VITALS: BP 120/64
[2022-11-02] MEDS: FERROUS SULFATE 325MG TAB PO SCH (08:12)
[2022-11-02] MEDS: BENZTROPINE 1 MG TAB PO SCH (08:12)
[2022-11-02] MEDS: LOSARTAN 25 MG TAB PO SCH (08:12)
[2022-11-02] MEDS: NICOTINE 14 MG/24 HR TRANSDERMAL TD SCH (08:13)
[2022-11-02] MEDS ORDERED: LITH1TAB PO (08:45)
[2022-11-02] MEDS ORDERED: FLUO20CA22 PO (08:45)
== END 2022-11-02 13:33 | disposition home or self-care (01) | DRG 750 ==
LOC: M ED 12:47 → M ED INP 18:28 → M PSY 19:55
PROVIDERS: ADMIT Psychiatry & Neurology Psychiatry; ATTEND Psychiatry & Neurology Psychiatry
DX: F25.0 Schizoaffective disorder, bipolar type (principal); E11.9 Type 2 diabetes mellitus without complications; R45.851 Suicidal ideations; Z79.899 Other long term (current) drug therapy; Z88.8 Allergy status to other drugs, medicaments and biological substances; E66.9 Obesity, unspecified; K21.9 Gastro-esophageal reflux disease without esophagitis; M54.50 Low back pain, unspecified; Z68.32 Body mass index [BMI] 32.0-32.9, adult

== ENCOUNTER 2022-11-16 13:16 | Inpatient (IN) | payer MEDICAID, OTHER ==
[~2022-11-16] VITALS: Ht 162.6 cm; Wt 85.1 kg
[~2022-11-16 13:16] MED LIST changes: +FERR325T19 PO; +LITH1TAB PO; +LITH45TASA PO; +PANT40TA29 PO; +PRAZ1CAP PO; +med rec comment
[2022-11-16 15:16] LABS: HEMATOCRIT 40.9 % (36.0-47.0); HEMOGLOBIN 12.9 g/dl (12.0-15.5); MEAN CORPUSCULAR HEMOGLOBIN 29.7 pg (27.0-33.0); MEAN CORPUSCULAR HGB CONC 31.5 g/dl (32.0-36.5); PLATELET COUNT, AUTOMATED 516 10^3/uL (150-450); RED BLOOD COUNT 4.35 10^6/uL (4.00-5.40)
[2022-11-16] MEDS ORDERED: LITH600C PO (15:21)
[2022-11-16] MEDS ORDERED: TRAZ-252 PO (15:23)
[2022-11-16 15:32] LABS: AMPHETAMINES LEVEL URINE NEGATIVE (NEGATIVE); BARBITURATES URINE NEGATIVE (NEGATIVE); BENZODIAZEPINES URINE NEGATIVE (NEGATIVE); COCAINE METABOLITE URINE NEGATIVE (NEGATIVE)
[2022-11-16 15:33] LABS: CANNABINOIDS URINE NEGATIVE (NEGATIVE); ETHYL ALCOHOL (ETHANOL) 0.003 % (0.000-0.010); METHADONE URINE NEGATIVE (NEGATIVE); OPIATES URINE NEGATIVE (NEGATIVE); PHENCYCLIDINE URINE NEGATIVE (NEGATIVE)
[2022-11-16 15:34] LABS: ACETAMINOPHEN LEVEL < 2.0 UG/ML (10.0-20.0); ALBUMIN 3.7 G/DL (3.2-5.2); ALKALINE PHOSPHATASE 122 U/L (46-116); ALT/SGPT 26 U/L (7.0-40); AST/SGOT 13 U/L (<34); BILIRUBIN,DIRECT 0.2 MG/DL (<0.4); BILIRUBIN,TOTAL 0.7 MG/DL (0.3-1.2); BLOOD UREA NITROGEN 14 MG/DL (9-23); CARBON DIOXIDE LEVEL 27 MMOL/L (20-31); CHLORIDE LEVEL 108 MMOL/L (98-107); CREATININE FOR GFR 0.84 MG/DL (0.55-1.30); GLOMERULAR FILTRATION RATE > 60.0 (>51); GLUCOSE, FASTING 82 MG/DL (60-100); POTASSIUM SERUM 4.2 MMOL/L (3.5-5.1); SODIUM LEVEL 141 MMOL/L (136-145); TOTAL PROTEIN 6.7 G/DL (5.7-8.2)
[2022-11-16 15:35] LABS: SALICYLATE LEVEL < 3.0 MG/DL (<30)
[2022-11-16 15:37] LABS: LITHIUM LEVEL 1.02 MMOL/L (0.60-1.20)
[2022-11-16 15:38] LABS: THYROID STIMULATING HORMONE 2.031 uIU/ML (0.55-4.78)
[2022-11-16 19:06] LABS: RSV AMPLIFICATION NEGATIVE (NEGATIVE)
[2022-11-16] MEDS ORDERED: MAALOX 30 ML SUSP *UDC PO PRN (20:20)
[2022-11-16] MEDS ORDERED: OLANZapine ORAL DISINTEGRATING TAB 5MG PO PRN (20:20)
[2022-11-16] MEDS ORDERED: traZODone 50 MG TAB PO PRN (20:20)
[2022-11-16] MEDS ORDERED: MOM 30ML SUSPENSION UDC PO PRN (20:20)
[2022-11-16] MEDS ORDERED: D5W IV SCH (21:00)
[2022-11-16] MEDS ORDERED: SODIUM CHLORIDE IV SCH (21:00)
[2022-11-16] MEDS ORDERED: POTASSIUM CHLORIDE IV SCH (21:00)
[2022-11-16] MEDS ORDERED: [UNRECOGNIZED DRUG - OTHER] IV SCH (21:00)
[2022-11-16] MEDS ORDERED: FLUO-96 PO (23:36)
[2022-11-17] MEDS ORDERED: ALBUTEROL 90 MCG/ACT 8GM HFA INHALER INH PRN (00:50)
[2022-11-17 06:39] VITALS: BP 119/59
[2022-11-17] MEDS: glipiZIDE (GLUCOTROL) 5 MG TAB PO SCH (07:01)
[2022-11-17] MEDS ORDERED: LITHIUM CARBONATE 600MG CAP PO SCH (09:00)
[2022-11-17] MEDS: fluPHENAZine 5MG TABLET PO SCH ×2 (09:08→21:00)
[2022-11-17] MEDS: PILL CUTTER 1 EACH XX PRN ×2 (09:08→20:59)
[2022-11-17] MEDS: BENZTROPINE 1 MG TAB PO SCH ×2 (09:08→21:00)
[2022-11-17] MEDS: FLUoxetine 20MG CAP PO SCH (09:08)
[2022-11-17] MEDS: FERROUS SULFATE 325MG TAB PO SCH (09:08)
[2022-11-17] MEDS: PANTOPRAZOLE 40MG TAB (PROTONIX) PO SCH (09:08)
[2022-11-17] MEDS: LOSARTAN 25 MG TAB PO SCH (09:09)
[2022-11-17] MEDS ORDERED: LITHIUM CARBONATE 300 MG CAP PO SCH (09:15)
[2022-11-17] MEDS ORDERED: FLUP25VL IM (09:53)
[2022-11-17] MEDS ORDERED: VALB40CA PO (09:53)
[2022-11-17] MEDS ORDERED: HOME MED LIST COMPLETE! XX SCH (10:00)
[2022-11-17] MEDS: MULTIVITAMINS/MINERALS THERAP 1 TAB PO SCH (12:33)
[2022-11-17 16:09] VITALS: BP 114/65
[2022-11-17] MEDS: ATORVASTATIN 20 MG TAB PO SCH (21:00)
[2022-11-17] MEDS: FAMOTIDINE 20 MG TAB PO SCH (21:00)
[2022-11-17] MEDS: PRAZOSIN 1 MG CAP PO SCH (21:01)
[2022-11-18 06:30] VITALS: BP 104/51
[2022-11-18] MEDS: glipiZIDE (GLUCOTROL) 5 MG TAB PO SCH (06:31)
[2022-11-18] MEDS: LITHIUM CARBONATE 600MG CAP PO SCH (10:15)
[2022-11-18] MEDS: FERROUS SULFATE 325MG TAB PO SCH (10:15)
[2022-11-18] MEDS: FLUoxetine 20MG CAP PO SCH (10:16)
[2022-11-18] MEDS: LOSARTAN 25 MG TAB PO SCH (10:17)
[2022-11-18] MEDS: fluPHENAZine 5MG TABLET PO SCH ×2 (10:17→21:27)
[2022-11-18] MEDS: BENZTROPINE 1 MG TAB PO SCH ×2 (10:17→21:26)
[2022-11-18] MEDS: PANTOPRAZOLE 40MG TAB (PROTONIX) PO SCH (10:17)
[2022-11-18] MEDS: PILL CUTTER 1 EACH XX PRN ×2 (10:18→21:26)
[2022-11-18] MEDS: MULTIVITAMINS/MINERALS THERAP 1 TAB PO SCH (11:18)
[2022-11-18] MEDS: ACETAMINOPHEN TAB 650MG DOSE (2X325MG) PO PRN (18:00)
[2022-11-18 18:14] VITALS: BP 158/98
[2022-11-18] MEDS: FAMOTIDINE 20 MG TAB PO SCH (21:26)
[2022-11-18] MEDS: ATORVASTATIN 20 MG TAB PO SCH (21:26)
[2022-11-18] MEDS: PRAZOSIN 1 MG CAP PO SCH (21:27)
[2022-11-19] MEDS: ACETAMINOPHEN TAB 650MG DOSE (2X325MG) PO PRN (04:15)
[2022-11-19 06:22] VITALS: BP 138/65
[2022-11-19] MEDS: glipiZIDE (GLUCOTROL) 5 MG TAB PO SCH (06:39)
[2022-11-19] MEDS: LOSARTAN 25 MG TAB PO SCH (07:55)
[2022-11-19] MEDS: PANTOPRAZOLE 40MG TAB (PROTONIX) PO SCH (07:55)
[2022-11-19] MEDS: PILL CUTTER 1 EACH XX PRN (07:55)
[2022-11-19] MEDS: fluPHENAZine 5MG TABLET PO SCH ×2 (07:55→20:34)
[2022-11-19] MEDS: BENZTROPINE 1 MG TAB PO SCH ×2 (07:56→20:34)
[2022-11-19] MEDS: FERROUS SULFATE 325MG TAB PO SCH (07:57)
[2022-11-19] MEDS: LITHIUM CARBONATE 600MG CAP PO SCH (07:57)
[2022-11-19] MEDS: FLUoxetine 20MG CAP PO SCH (07:57)
[2022-11-19] MEDS ORDERED: PILL CUTTER 1 EACH XX PRN (10:40)
[2022-11-19] MEDS: MULTIVITAMINS/MINERALS THERAP 1 TAB PO SCH (12:08)
[2022-11-19 16:26] VITALS: BP 117/66
[2022-11-19] MEDS: ATORVASTATIN 20 MG TAB PO SCH (20:33)
[2022-11-19] MEDS: PRAZOSIN 1 MG CAP PO SCH (20:34)
[2022-11-19] MEDS: FAMOTIDINE 20 MG TAB PO SCH (20:34)
[2022-11-20] MEDS: ACETAMINOPHEN TAB 650MG DOSE (2X325MG) PO PRN ×2 (00:47→20:30)
[2022-11-20 06:51] VITALS: BP 107/69
[2022-11-20] MEDS: glipiZIDE (GLUCOTROL) 5 MG TAB PO SCH (07:00)
[2022-11-20] MEDS: PANTOPRAZOLE 40MG TAB (PROTONIX) PO SCH (08:25)
[2022-11-20] MEDS: PILL CUTTER 1 EACH XX PRN (08:25)
[2022-11-20] MEDS: FLUoxetine 20MG CAP PO SCH (08:25)
[2022-11-20] MEDS: LITHIUM CARBONATE 600MG CAP PO SCH (08:25)
[2022-11-20] MEDS: LOSARTAN 25 MG TAB PO SCH (08:26)
[2022-11-20] MEDS: fluPHENAZine 5MG TABLET PO SCH ×2 (08:26→20:28)
[2022-11-20] MEDS: FERROUS SULFATE 325MG TAB PO SCH (08:26)
[2022-11-20] MEDS: BENZTROPINE 1 MG TAB PO SCH ×2 (08:26→20:28)
[2022-11-20] MEDS: MULTIVITAMINS/MINERALS THERAP 1 TAB PO SCH (12:13)
[2022-11-20 16:13] VITALS: BP 127/80
[2022-11-20] MEDS: ATORVASTATIN 20 MG TAB PO SCH (20:28)
[2022-11-20] MEDS: PRAZOSIN 1 MG CAP PO SCH (20:28)
[2022-11-20] MEDS: FAMOTIDINE 20 MG TAB PO SCH (20:28)
[2022-11-21 06:42] VITALS: BP 122/67
[2022-11-21] MEDS: glipiZIDE (GLUCOTROL) 5 MG TAB PO SCH (06:58)
[2022-11-21] MEDS: LITHIUM CARBONATE 600MG CAP PO SCH (08:58)
[2022-11-21] MEDS: fluPHENAZine 5MG TABLET PO SCH ×2 (08:58→21:53)
[2022-11-21] MEDS: PANTOPRAZOLE 40MG TAB (PROTONIX) PO SCH (08:58)
[2022-11-21] MEDS: BENZTROPINE 1 MG TAB PO SCH ×2 (08:58→21:53)
[2022-11-21] MEDS: FLUoxetine 20MG CAP PO SCH (08:58)
[2022-11-21] MEDS: PILL CUTTER 1 EACH XX PRN (08:58)
[2022-11-21] MEDS: FERROUS SULFATE 325MG TAB PO SCH (08:59)
[2022-11-21] MEDS: LOSARTAN 25 MG TAB PO SCH (09:00)
[2022-11-21] MEDS: MULTIVITAMINS/MINERALS THERAP 1 TAB PO SCH (11:37)
[2022-11-21] MEDS ORDERED: IBUPROFEN 400MG TAB PO PRN (12:20)
[2022-11-21] MEDS: BENZOCAINE 10% 9GM TUBE (ANBESOL) TOP SCH ×2 (13:42→21:53)
[2022-11-21 16:26] VITALS: BP 132/68
[2022-11-21] MEDS: ACETAMINOPHEN TAB 650MG DOSE (2X325MG) PO PRN (17:37)
[2022-11-21] MEDS: FAMOTIDINE 20 MG TAB PO SCH (21:53)
[2022-11-21] MEDS: PRAZOSIN 1 MG CAP PO SCH (21:53)
[2022-11-21] MEDS: ATORVASTATIN 20 MG TAB PO SCH (21:53)
[2022-11-22 05:59] VITALS: BP 135/78
[2022-11-22] MEDS: glipiZIDE (GLUCOTROL) 5 MG TAB PO SCH (06:33)
[2022-11-22 09:48] VITALS: BP 123/81
[2022-11-22] MEDS: LOSARTAN 25 MG TAB PO SCH (09:48)
[2022-11-22] MEDS: LITHIUM CARBONATE 600MG CAP PO SCH (09:49)
[2022-11-22] MEDS: FLUoxetine 20MG CAP PO SCH (09:49)
[2022-11-22] MEDS: fluPHENAZine 5MG TABLET PO SCH (09:50)
[2022-11-22] MEDS: BENZTROPINE 1 MG TAB PO SCH (09:50)
[2022-11-22] MEDS: FERROUS SULFATE 325MG TAB PO SCH (09:50)
[2022-11-22] MEDS: PANTOPRAZOLE 40MG TAB (PROTONIX) PO SCH (09:50)
[2022-11-22] MEDS: BENZOCAINE 10% 9GM TUBE (ANBESOL) TOP SCH (09:51)
[2022-11-22] MEDS ORDERED: FLUP5TAB13 PO (11:12)
[2022-11-22] MEDS ORDERED: FLUP2.5T12 PO (11:12)
[2022-11-22] MEDS: MULTIVITAMINS/MINERALS THERAP 1 TAB PO SCH (12:00)
== END 2022-11-22 12:37 | disposition home or self-care (01) | DRG 750 ==
LOC: M ED 14:28 → M ED INP 20:16 → M PSY 23:22
PROVIDERS: ADMIT Psychiatry & Neurology Psychiatry; ATTEND Psychiatry & Neurology Psychiatry
DX: F25.0 Schizoaffective disorder, bipolar type (principal); R45.850 Homicidal ideations; E11.9 Type 2 diabetes mellitus without complications; I10 Essential (primary) hypertension; E78.5 Hyperlipidemia, unspecified; K21.9 Gastro-esophageal reflux disease without esophagitis; F17.200 Nicotine dependence, unspecified, uncomplicated; D72.829 Elevated white blood cell count, unspecified; E66.9 Obesity, unspecified; Z20.822 Contact with and (suspected) exposure to COVID-19; Z79.84 Long term (current) use of oral hypoglycemic drugs; Z79.899 Other long term (current) drug therapy; Z88.8 Allergy status to other drugs, medicaments and biological substances; Z91.048 Other nonmedicinal substance allergy status; Z90.79 Acquired absence of other genital organ(s)

== ENCOUNTER 2022-12-10 14:09 | Emergency (ER) | payer MEDICAID, OTHER ==
[~2022-12-10] VITALS: Ht 160 cm; Wt 84.1 kg
[~2022-12-10 14:09] MED LIST changes: -BENZ-52; -BENZ-52 PO; +BENZ1TAB5; +BENZ1TAB5 PO; +LITH600C PO
[2022-12-10] MEDS ORDERED: AUGMENTIN 875 MG TAB PO ONE (18:20)
[2022-12-10] MEDS ORDERED: traMADol 50 MG TAB PO ONE (18:20)
[2022-12-10] MEDS ORDERED: IBUP-1022 PO (18:22)
[2022-12-10] MEDS ORDERED: AMOX875T2 PO (18:22)
[2022-12-10 18:41] VITALS: BP 152/75
== END 2022-12-10 18:44 | disposition home or self-care (01) ==
LOC: M ED 14:09
DX: K02.9 Dental caries, unspecified (principal); K04.7 Periapical abscess without sinus; E11.9 Type 2 diabetes mellitus without complications; I10 Essential (primary) hypertension; K21.9 Gastro-esophageal reflux disease without esophagitis; Z79.84 Long term (current) use of oral hypoglycemic drugs; Z79.899 Other long term (current) drug therapy; Z88.8 Allergy status to other drugs, medicaments and biological substances

== ENCOUNTER 2022-12-22 16:43 | Emergency (ER) | payer OTHER ==
[~2022-12-22] VITALS: Ht 160 cm; Wt 81.8 kg
[~2022-12-22 16:43] MED LIST changes: +AMOX875T2 PO; +IBUP-1022 PO
[2022-12-22] MEDS ORDERED: MORPHINE 4 MG/ML 1ML VIAL IV PRN (17:25)
[2022-12-22] MEDS ORDERED: ONDANSETRON 4MG 2ML VIAL IV ONE (17:25)
[2022-12-22] MEDS ORDERED: ISOVUE-370 76% 100ML VIAL As Ordered ONE (17:32)
[2022-12-22 17:36] LABS: HEMATOCRIT 42.9 % (36.0-47.0); HEMOGLOBIN 13.6 g/dl (12.0-15.5); MEAN CORPUSCULAR HGB CONC 31.7 g/dl (32.0-36.5); MEAN CORPUSCULAR VOLUME 94.7 fl (80.0-96.0); PLATELET COUNT, AUTOMATED 495 10^3/uL (150-450); RED BLOOD COUNT 4.53 10^6/uL (4.00-5.40)
[2022-12-22 18:05] LABS: BLOOD UREA NITROGEN 13 MG/DL (9-23); CALCIUM LEVEL 9.5 MG/DL (8.5-10.1); CARBON DIOXIDE LEVEL 24 MMOL/L (20-31); CHLORIDE LEVEL 108 MMOL/L (98-107); CREATININE FOR GFR 0.87 MG/DL (0.55-1.30); GLOMERULAR FILTRATION RATE > 60.0 (>51); GLUCOSE, FASTING 117 MG/DL (60-100); SODIUM LEVEL 139 MMOL/L (136-145)
[2022-12-22] MEDS ORDERED: MORPHINE 2 MG/ML 1ML VIAL SC ONE (18:45)
[2022-12-22 20:30] VITALS: BP 135/73
== END 2022-12-22 21:23 | disposition home or self-care (01) ==
LOC: M ED 16:43 → EDBD 16:43 → M ED 21:23
DX: S70.02XA Contusion of left hip, initial encounter (principal); S20.212A Contusion of left front wall of thorax, initial encounter; W10.9XXA Fall (on) (from) unspecified stairs and steps, initial encounter; Y92.009 Unspecified place in unspecified non-institutional (private) residence as the place of occurrence of the external cause; E11.9 Type 2 diabetes mellitus without complications; I10 Essential (primary) hypertension; E78.5 Hyperlipidemia, unspecified; K21.9 Gastro-esophageal reflux disease without esophagitis; F20.9 Schizophrenia, unspecified
CPT/HCPCS: 70450; 71250; 72125; 73700; 74176; 80048; 85027; 93041; 94760; 96372; 99285; J2270

== ENCOUNTER 2022-12-25 00:15 | Emergency (ER) | payer OTHER ==
[~2022-12-25] VITALS: Ht 162.6 cm; Wt 86.4 kg
[2022-12-25] MEDS ORDERED: LIDOCAINE 5% (LIDODERM) PATCH TD ONE (01:30)
[2022-12-25] MEDS ORDERED: PERCOCET 5MG/325MG TAB PO ONE (01:30)
[2022-12-25 02:25] LABS: BASO # 0.1 10^3/uL (0.0-0.2); BASO % 0.6 % (0.0-1.0); EOS # 1.5 10^3/uL (0.0-0.5); EOS % 11.8 % (0.0-3.0); HEMATOCRIT 41.3 % (36.0-47.0); HEMOGLOBIN 13.1 g/dl (12.0-15.5); LYMPH # 2.7 10^3/uL (1.5-5.0); LYMPH % 20.9 % (24.0-44.0); MEAN CORPUSCULAR HEMOGLOBIN 29.8 pg (27.0-33.0); MEAN CORPUSCULAR HGB CONC 31.7 g/dl (32.0-36.5); MEAN CORPUSCULAR VOLUME 94.1 fl (80.0-96.0); MONO % 7.5 % (2.0-8.0); NEUTROPHILS # 7.5 10^3/uL (1.5-8.5); NEUTROPHILS % 58.9 % (36.0-66.0); PLATELET COUNT, AUTOMATED 473 10^3/uL (150-450); RED BLOOD COUNT 4.39 10^6/uL (4.00-5.40); WHITE BLOOD COUNT 12.7 10^3/uL (4.0-10.0)
[2022-12-25] MEDS ORDERED: diazePAM 10MG/2ML SYRINGE IV ONE (02:45)
[2022-12-25 02:48] LABS: LIPASE 31 U/L (12-53)
[2022-12-25 02:50] LABS: AMYLASE 23 U/L (30-118)
[2022-12-25 03:14] LABS: ALBUMIN 3.7 G/DL (3.2-5.2); ALKALINE PHOSPHATASE 117 U/L (46-116); ALT/SGPT 10 U/L (7.0-40); AST/SGOT 11 U/L (<34); BILIRUBIN,TOTAL 0.6 MG/DL (0.3-1.2); BLOOD UREA NITROGEN 14 MG/DL (9-23); CALCIUM LEVEL 9.7 MG/DL (8.5-10.1); CARBON DIOXIDE LEVEL 25 MMOL/L (20-31); CHLORIDE LEVEL 107 MMOL/L (98-107); CREATININE FOR GFR 0.68 MG/DL (0.55-1.30); GLOMERULAR FILTRATION RATE > 60.0 (>51); GLUCOSE, FASTING 110 MG/DL (60-100); POTASSIUM SERUM 4.6 MMOL/L (3.5-5.1); SODIUM LEVEL 142 MMOL/L (136-145); TOTAL PROTEIN 6.6 G/DL (5.7-8.2)
[2022-12-25 03:39] LABS: APPEARANCE, URINE CLEAR (CLEAR); BACTERIA, URINE AUTO NEGATIVE (NEGATIVE); BILIRUBIN, URINE AUTO NEGATIVE (NEGATIVE); BLOOD, URINE BLOOD 2+ (NEGATIVE); COLOR, URINE YELLOW (YELLOW); GLUCOSE, URINE (UA) AUTO 3+ mg/dL (NEGATIVE); KETONE, URINE AUTO NEGATIVE (NEGATIVE); LEUKOCYTE ESTERASE, URINE AUTO NEGATIVE (NEGATIVE); NITRITE, URINE AUTO NEGATIVE (NEGATIVE); PROTEIN, URINE AUTO NEGATIVE (NEGATIVE); RBC, URINE AUTO 9 /HPF (0-3); SPECIFIC GRAVITY URINE AUTO 1.033 (1.002-1.035); SQUAMOUS EPITHELIAL CELL UR AU 1 /HPF (0-6); UROBILINOGEN, URINE AUTO 0.2 mg/dL (0.0-2.0); WBC, URINE AUTO 2 /HPF (0-3)
[2022-12-25 04:45] VITALS: BP 153/86
[2022-12-25] MEDS ORDERED: LIDO5DIS41 TD (05:44)
[2022-12-25] MEDS ORDERED: CYCL5TAB PO (05:44)
== END 2022-12-25 06:26 | disposition home or self-care (01) ==
LOC: EDSEX 00:15 → M ED 00:15 → EDBD 00:15 → M ED 06:26
DX: S39.011D Strain of muscle, fascia and tendon of abdomen, subsequent encounter (principal); W10.9XXD Fall (on) (from) unspecified stairs and steps, subsequent encounter; Y92.009 Unspecified place in unspecified non-institutional (private) residence as the place of occurrence of the external cause; E11.9 Type 2 diabetes mellitus without complications; K21.9 Gastro-esophageal reflux disease without esophagitis; G43.909 Migraine, unspecified, not intractable, without status migrainosus; E78.5 Hyperlipidemia, unspecified; F31.9 Bipolar disorder, unspecified; Z90.710 Acquired absence of both cervix and uterus; Z90.89 Acquired absence of other organs; Z88.8 Allergy status to other drugs, medicaments and biological substances; Z79.899 Other long term (current) drug therapy; Z79.51 Long term (current) use of inhaled steroids
CPT/HCPCS: 71250; 74176; 80053; 81001; 82150; 83690; 85025; 96374; 99284; J3360

== ENCOUNTER 2022-12-27 23:06 | Emergency (ER) | payer OTHER ==
[~2022-12-27] VITALS: Ht 160 cm; Wt 86.4 kg
[~2022-12-27 23:06] MED LIST changes: +CYCL5TAB PO; +LIDO5DIS41 TD
[2022-12-28] MEDS ORDERED: LIDOCAINE 5% (LIDODERM) PATCH TD ONE (00:55)
[2022-12-28] MEDS ORDERED: ACETAMINOPHEN 325 MG TAB PO ONE (00:55)
[2022-12-28 01:18] LABS: BASO # 0.1 10^3/uL (0.0-0.2); BASO % 0.5 % (0.0-1.0); EOS # 0.9 10^3/uL (0.0-0.5); EOS % 6.5 % (0.0-3.0); HEMATOCRIT 41.6 % (36.0-47.0); HEMOGLOBIN 13.4 g/dl (12.0-15.5); LYMPH # 1.7 10^3/uL (1.5-5.0); LYMPH % 12.4 % (24.0-44.0); MEAN CORPUSCULAR HEMOGLOBIN 29.9 pg (27.0-33.0); MEAN CORPUSCULAR HGB CONC 32.2 g/dl (32.0-36.5); MEAN CORPUSCULAR VOLUME 92.9 fl (80.0-96.0); MONO % 7.4 % (2.0-8.0); NEUTROPHILS # 10.1 10^3/uL (1.5-8.5); NEUTROPHILS % 72.7 % (36.0-66.0); PLATELET COUNT, AUTOMATED 482 10^3/uL (150-450); RED BLOOD COUNT 4.48 10^6/uL (4.00-5.40); WHITE BLOOD COUNT 13.9 10^3/uL (4.0-10.0)
[2022-12-28 01:37] LABS: INR 1.04; PROTHROMBIN TIME 13.8 SECONDS (12.5-14.5)
[2022-12-28 01:38] LABS: PARTIAL THROMBOPLASTIN TIME 28.3 SECONDS (24.8-34.2)
[2022-12-28 01:42] LABS: LIPASE 24 U/L (12-53)
[2022-12-28 01:44] LABS: ALBUMIN 3.9 G/DL (3.2-5.2); ALKALINE PHOSPHATASE 121 U/L (46-116); ALT/SGPT 11 U/L (7.0-40); AST/SGOT 19 U/L (<34); BILIRUBIN,DIRECT 0.3 MG/DL (<0.4); BILIRUBIN,TOTAL 0.9 MG/DL (0.3-1.2); BLOOD UREA NITROGEN 14 MG/DL (9-23); CALCIUM LEVEL 9.4 MG/DL (8.5-10.1); CARBON DIOXIDE LEVEL 25 MMOL/L (20-31); CHLORIDE LEVEL 106 MMOL/L (98-107); CREATININE FOR GFR 0.76 MG/DL (0.55-1.30); GLOMERULAR FILTRATION RATE > 60.0 (>51); GLUCOSE, FASTING 112 MG/DL (60-100); POTASSIUM SERUM 4.6 MMOL/L (3.5-5.1); SODIUM LEVEL 140 MMOL/L (136-145)
[2022-12-28] MEDS ORDERED: ISOVUE-370 76% 100ML VIAL As Ordered ONE (01:48)
[2022-12-28 02:12] LABS: ETHYL ALCOHOL (ETHANOL) < 0.003 % (0.000-0.010)
[2022-12-28] MEDS ORDERED: KETOROLAC 30 MG/ML 1ML VIAL IV ONE (04:15)
[2022-12-28] MEDS ORDERED: BENZONATATE 100MG CAPSULE PO ONE (04:15)
[2022-12-28] MEDS ORDERED: CEPHALEXIN 500 MG CAP PO ONE (04:15)
[2022-12-28] MEDS ORDERED: CEPH500C PO (04:16)
[2022-12-28] MEDS ORDERED: NAPR-837 PO (04:16)
[2022-12-28] MEDS ORDERED: BENZ200C70 PO (04:16)
[2022-12-28 04:41] VITALS: BP 156/78
[2022-12-31] MEDS ORDERED: NITR1CAP11 PO (08:30)
== END 2022-12-28 04:43 | disposition home or self-care (01) ==
LOC: M ED 23:06
DX: N39.0 Urinary tract infection, site not specified (principal); R10.9 Unspecified abdominal pain; E11.9 Type 2 diabetes mellitus without complications; I10 Essential (primary) hypertension; J45.909 Unspecified asthma, uncomplicated; K21.9 Gastro-esophageal reflux disease without esophagitis; Z87.442 Personal history of urinary calculi; Z87.440 Personal history of urinary (tract) infections; F41.9 Anxiety disorder, unspecified; F32.9 Major depressive disorder, single episode, unspecified; R16.0 Hepatomegaly, not elsewhere classified; K44.9 Diaphragmatic hernia without obstruction or gangrene; Z79.899 Other long term (current) drug therapy; Z88.8 Allergy status to other drugs, medicaments and biological substances; Z79.84 Long term (current) use of oral hypoglycemic drugs
CPT/HCPCS: 71275; 74177; 80048; 80076; 81001; 82077; 83690; 85025; 85610; 85730; 87088; 87186; 96374; 99284; J1885

== ENCOUNTER 2023-01-10 11:33 | Emergency (ER) | payer OTHER ==
[~2023-01-10] VITALS: Ht 162.6 cm; Wt 80.4 kg
[~2023-01-10 11:33] MED LIST changes: +BENZ200C70 PO; +CEPH500C PO; +NAPR-837 PO; +NITR1CAP11 PO
[2023-01-10 11:34] VITALS: BP 115/67
[2023-01-10 12:47] LABS: BASO % 0.2 % (0.0-1.0); EOS # 0.5 10^3/uL (0.0-0.5); EOS % 2.7 % (0.0-3.0); HEMATOCRIT 42.6 % (36.0-47.0); HEMOGLOBIN 13.5 g/dl (12.0-15.5); LYMPH # 1.1 10^3/uL (1.5-5.0); LYMPH % 6.1 % (24.0-44.0); MEAN CORPUSCULAR HEMOGLOBIN 30.1 pg (27.0-33.0); MEAN CORPUSCULAR HGB CONC 31.7 g/dl (32.0-36.5); MEAN CORPUSCULAR VOLUME 95.1 fl (80.0-96.0); MONO # 0.7 10^3/uL (0.0-0.8); MONO % 3.9 % (2.0-8.0); NEUTROPHILS # 15.2 10^3/uL (1.5-8.5); NEUTROPHILS % 86.6 % (36.0-66.0); PLATELET COUNT, AUTOMATED 532 10^3/uL (150-450); RED BLOOD COUNT 4.48 10^6/uL (4.00-5.40); WHITE BLOOD COUNT 17.5 10^3/uL (4.0-10.0)
[2023-01-10 13:11] LABS: LIPASE 20 U/L (12-53)
[2023-01-10 13:16] LABS: ALBUMIN 3.9 G/DL (3.2-5.2); ALKALINE PHOSPHATASE 130 U/L (46-116); ALT/SGPT < 9 U/L (7.0-40); AST/SGOT 15 U/L (<34); BILIRUBIN,DIRECT 0.3 MG/DL (<0.4); BLOOD UREA NITROGEN 18 MG/DL (9-23); CALCIUM LEVEL 9.4 MG/DL (8.5-10.1); CARBON DIOXIDE LEVEL 25 MMOL/L (20-31); CHLORIDE LEVEL 107 MMOL/L (98-107); CREATININE FOR GFR 0.86 MG/DL (0.55-1.30); GLOMERULAR FILTRATION RATE > 60.0 (>51); GLUCOSE, FASTING 90 MG/DL (60-100); POTASSIUM SERUM 4.4 MMOL/L (3.5-5.1); SODIUM LEVEL 140 MMOL/L (136-145); TOTAL PROTEIN 6.6 G/DL (5.7-8.2)
[2023-01-10] MEDS ORDERED: CIPROFLOXACIN 500MG TABLET PO ONE (13:30)
[2023-01-10] MEDS ORDERED: KETOROLAC TROMETHAMINE 10 MG TAB PO ONE (13:30)
[2023-01-10] MEDS ORDERED: CIPR-249 PO (14:24)
== END 2023-01-10 14:36 | disposition home or self-care (01) ==
LOC: M ED 11:33
DX: N10 Acute pyelonephritis (principal); K51.219 Ulcerative (chronic) proctitis with unspecified complications; E11.9 Type 2 diabetes mellitus without complications; Z87.442 Personal history of urinary calculi; Z79.84 Long term (current) use of oral hypoglycemic drugs; Z79.899 Other long term (current) drug therapy; Z88.8 Allergy status to other drugs, medicaments and biological substances; Z91.89 Other specified personal risk factors, not elsewhere classified

== ENCOUNTER → 2023-01-17 | Outpatient (CLI) | payer OTHER ==
[~2023-01-17] MED LIST changes: +CIPR-249 PO
== END ==
LOC: M LABSMTC 11:49
PROVIDERS: ATTEND Anesthesiology
DX: Z01.812 Encounter for preprocedural laboratory examination (principal); Z20.822 Contact with and (suspected) exposure to COVID-19

== ENCOUNTER 2023-01-21 07:18 | Day surgery (SDC) | payer OTHER ==
[~2023-01-21] VITALS: Ht 160 cm; Wt 80.9 kg
[~2023-01-21 07:18] MED LIST changes: +ACET-907 PO; +MILKSUS3 PO; +MIRA3350 PO; +NYST1POW9 TOP
[2023-01-21] MEDS ORDERED: AMPICILLIN SOD/SULBACTAM SOD 3 GM in D5W MINI-BAG PLUS 100 ML IV ONE (07:35)
[2023-01-21] MEDS ORDERED: LIDOCAINE 2% W/ EPINEPHRINE 1.7 ML DENTAL INJ As Ordered ONE (08:52)
[2023-01-21] MEDS ORDERED: propofoL 200 MG/20 ML VIAL As Ordered ONE (09:20)
[2023-01-21] MEDS ORDERED: MIDAZOLAM INJ 2MG/2ML VIAL As Ordered ONE (09:20)
[2023-01-21] MEDS ORDERED: CHLORHEXIDINE GLUCONATE 0.12 % 15ML UDC (PERIDEX ORAL RINSE) As Ordered ONE (09:20)
[2023-01-21] MEDS ORDERED: LIDOCAINE 2% 100MG/5ML SDV (FOR ANES.) As Ordered ONE (09:20)
[2023-01-21] MEDS ORDERED: ROCURONIUM BROMIDE 50MG/5ML VIAL As Ordered ONE (09:20)
[2023-01-21] MEDS ORDERED: ONDANSETRON 4MG 2ML VIAL As Ordered ONE (09:20)
[2023-01-21] MEDS ORDERED: fentaNYL 100 MCG/2 ML INJECTION As Ordered ONE (09:20)
[2023-01-21] MEDS ORDERED: METOPROLOL 5 MG/5 ML VIAL As Ordered ONE (09:24)
[2023-01-21] MEDS ORDERED: HYDROMORPHONE HCL 0.5 MG/ 0.5 ML SYRINGE IV PRN (09:55)
[2023-01-21] MEDS ORDERED: LR 1,000 ML IV SCH (09:55)
[2023-01-21] MEDS ORDERED: oxyCODONE 5MG TAB PO PRN (09:55)
[2023-01-21] MEDS ORDERED: fentaNYL 100 MCG/2 ML INJECTION IV PRN (09:55)
[2023-01-21] MEDS ORDERED: ONDANSETRON 4MG 2ML VIAL IV PRN (09:55)
[2023-01-21] MEDS ORDERED: SUGAMMADEX SODIUM 500 MG/5 ML VIAL (BRIDION) As Ordered ONE (10:56)
[2023-01-21 13:40] VITALS: BP 122/77
== END 2023-01-21 11:40 | disposition home or self-care (01) ==
LOC: M SDC 07:18
PROVIDERS: ATTEND Dentist
DX: K02.9 Dental caries, unspecified (principal); I10 Essential (primary) hypertension; E78.5 Hyperlipidemia, unspecified; E11.9 Type 2 diabetes mellitus without complications; K21.9 Gastro-esophageal reflux disease without esophagitis; F31.9 Bipolar disorder, unspecified; F32.A Depression, unspecified; F41.9 Anxiety disorder, unspecified; J45.909 Unspecified asthma, uncomplicated; R51.9 Headache, unspecified; M81.0 Age-related osteoporosis without current pathological fracture; Z79.84 Long term (current) use of oral hypoglycemic drugs; Z79.51 Long term (current) use of inhaled steroids; Z79.899 Other long term (current) drug therapy; Z88.8 Allergy status to other drugs, medicaments and biological substances
CPT/HCPCS: 88300; D7210; D9223; J1100; J2250; J2405; J3010

== ENCOUNTER 2023-09-07 11:44 | Emergency (ER) | payer MEDICAID, OTHER ==
[~2023-09-07] VITALS: Ht 165.1 cm; Wt 74.1 kg
[~2023-09-07 11:44] MED LIST changes: +BENZ0.5T2 PO; -BENZ0.5T23 PO; -CEFD300C41 PO; +CEFD300C42 PO; -COZA1TAB PO; +GLIP5TAB17 PO; -GLIP5TAB8 PO; +LITH300C PO; +LOSA-527 PO; -MAXA10TA15 PO; +RIZA10TA66 PO; +SENN-186 PO; -SENN-80 PO
[2023-09-07] MEDS ORDERED: ACETAMINOPHEN 325 MG TAB PO ONE (12:00)
[2023-09-07 14:05] VITALS: BP 129/60; TEMP 98; O2SAT 98
== END 2023-09-07 14:33 | disposition home or self-care (01) ==
LOC: M ED 11:44 → EDBD 11:44 → M ED 14:33
DX: S30.0XXA Contusion of lower back and pelvis, initial encounter (principal); S16.1XXA Strain of muscle, fascia and tendon at neck level, initial encounter; W01.0XXA Fall on same level from slipping, tripping and stumbling without subsequent striking against object, initial encounter; F20.9 Schizophrenia, unspecified; E78.5 Hyperlipidemia, unspecified; I10 Essential (primary) hypertension; E11.9 Type 2 diabetes mellitus without complications; J45.909 Unspecified asthma, uncomplicated; Z79.52 Long term (current) use of systemic steroids; Z79.02 Long term (current) use of antithrombotics/antiplatelets; Z79.811 Long term (current) use of aromatase inhibitors; Z79.899 Other long term (current) drug therapy; Z88.8 Allergy status to other drugs, medicaments and biological substances; Z91.048 Other nonmedicinal substance allergy status

== ENCOUNTER 2024-06-03 16:56 | Inpatient (IN) | payer MEDICAID, OTHER ==
[~2024-06-03] VITALS: Ht 162.6 cm; Wt 79.3 kg
[~2024-06-03 16:56] MED LIST changes: +CEFD1CAP9 PO; -CEFD300C42 PO; +FLUO-365 PO; -FLUO20CA22 PO; -MIRA1POW3 PO; +MIRA33506 PO; +MULT18TA PO; +NITR100C3 PO; -NITR1CAP11 PO; +ONDA-284 PO; -ONDA8TAB8 PO; -ONE-1TAB PO; +RISP-106 PO; -RISP-9 PO
[2024-06-03] MEDS ORDERED: SERO1TAB PO (17:49)
[2024-06-03] MEDS ORDERED: Seroquel OR (17:59)
[2024-06-03 18:34] LABS: HEMATOCRIT 41.2 % (36.0-47.0); HEMOGLOBIN 13.5 g/dl (12.0-15.5); MEAN CORPUSCULAR HEMOGLOBIN 31.1 pg (27.0-33.0); MEAN CORPUSCULAR HGB CONC 32.8 g/dl (32.0-36.5); MEAN CORPUSCULAR VOLUME 94.9 fl (80.0-96.0); PLATELET COUNT, AUTOMATED 430 10^3/uL (150-450); RED BLOOD COUNT 4.34 10^6/uL (4.00-5.40); WHITE BLOOD COUNT 8.9 10^3/uL (4.0-10.0)
[2024-06-03 19:06] LABS: ETHYL ALCOHOL (ETHANOL) < 0.003 % (0.000-0.010)
[2024-06-03 19:08] LABS: ALKALINE PHOSPHATASE 134 U/L (46-116); ALT/SGPT 10 U/L (7.0-40); AST/SGOT < 8 U/L (<34); BILIRUBIN,DIRECT 0.2 MG/DL (<0.4); BILIRUBIN,TOTAL 0.8 MG/DL (0.3-1.2); BLOOD UREA NITROGEN 15 MG/DL (9-23); CALCIUM LEVEL 9.5 MG/DL (8.5-10.1); CARBON DIOXIDE LEVEL 24 MMOL/L (20-31); CHLORIDE LEVEL 110 MMOL/L (98-107); CREATININE FOR GFR 0.65 MG/DL (0.55-1.30); GLOMERULAR FILTRATION RATE > 60.0 (>51); GLUCOSE, FASTING 105 MG/DL (60-100); POTASSIUM SERUM 4.5 MMOL/L (3.5-5.1); SALICYLATE LEVEL < 3.0 MG/DL (<30); SODIUM LEVEL 141 MMOL/L (136-145); TOTAL PROTEIN 6.8 G/DL (5.7-8.2)
[2024-06-03 19:10] LABS: THYROID STIMULATING HORMONE 2.615 uIU/ML (0.55-4.78)
[2024-06-03 19:16] LABS: AMPHETAMINES LEVEL URINE NEGATIVE (NEGATIVE); BARBITURATES URINE NEGATIVE (NEGATIVE)
[2024-06-03 19:17] LABS: BENZODIAZEPINES URINE NEGATIVE (NEGATIVE); CANNABINOIDS URINE NEGATIVE (NEGATIVE); COCAINE METABOLITE URINE NEGATIVE (NEGATIVE); METHADONE URINE NEGATIVE (NEGATIVE); OPIATES URINE NEGATIVE (NEGATIVE); PHENCYCLIDINE URINE NEGATIVE (NEGATIVE)
[2024-06-04] MEDS ORDERED: QUET200T2 PO (06:25)
[2024-06-04] MEDS ORDERED: PRAZ2CAP PO (06:25)
[2024-06-04] MEDS ORDERED: HOME MED LIST COMPLETE! XX SCH (06:30)
[2024-06-04] MEDS ORDERED: MAALOX 30 ML SUSP *UDC PO PRN (23:15)
[2024-06-04] MEDS ORDERED: IBUPROFEN 400MG TAB PO PRN (23:15)
[2024-06-04] MEDS ORDERED: MOM 30ML SUSPENSION UDC PO PRN (23:15)
[2024-06-04] MEDS: ACETAMINOPHEN TAB 650MG DOSE (2X325MG) PO PRN (23:25)
[2024-06-05] MEDS: QUEtiapine FUMARATE 200 MG TAB PO ONE (00:46)
[2024-06-05 01:19] VITALS: BP 135/83; TEMP 98.8; O2SAT 95
[2024-06-05] MEDS: diphenhydrAMINE 25MG CAP PO PRN (02:00)
[2024-06-05] MEDS ORDERED: ALBUTEROL 90 MCG/ACT 8GM HFA INHALER INH PRN (10:40)
[2024-06-05] MEDS: FERROUS SULFATE 325MG TAB PO SCH (11:16)
[2024-06-05] MEDS: glipiZIDE (GLUCOTROL) 5 MG TAB PO SCH (11:17)
[2024-06-05] MEDS: LOSARTAN 25 MG TAB PO SCH (11:17)
[2024-06-05] MEDS ORDERED: DEXTROSE 50% 50ML SYRINGE IV PRN (14:05)
[2024-06-05] MEDS ORDERED: GLUCOSE 4 GM CHEW PO PRN (14:05)
[2024-06-05] MEDS ORDERED: GLUCAGON INJ 1MG VIAL SC PRN (14:05)
[2024-06-05 15:44] VITALS: BP 111/65; TEMP 98.6; O2SAT 97
[2024-06-05] MEDS: INSULIN LISPRO (NovoLOG) PER UNIT SC SCH ×2 (16:59→20:05)
[2024-06-05] MEDS: traZODone 50 MG TAB PO PRN (20:03)
[2024-06-05] MEDS: ATORVASTATIN 20 MG TAB PO SCH (20:03)
[2024-06-05] MEDS: FAMOTIDINE 20 MG TAB PO SCH (20:03)
[2024-06-06 06:35] VITALS: BP 134/71; TEMP 97.2; O2SAT 97
[2024-06-06 17:22] VITALS: BP 128/72; TEMP 98.5; O2SAT 98
[2024-06-06] MEDS: QUEtiapine FUMARATE 200 MG TAB PO SCH (20:10)
[2024-06-06] MEDS: fluPHENAZine 5MG TABLET PO SCH (20:10)
[2024-06-06] MEDS: LITHIUM CARBONATE 300 MG CAP PO SCH (20:10)
[2024-06-06] MEDS: PRAZOSIN 1 MG CAP PO SCH (20:10)
[2024-06-07 06:38] VITALS: BP 105/52; TEMP 97.8; O2SAT 95
[2024-06-07] MEDS: BENZTROPINE 1 MG TAB PO SCH (09:18)
[2024-06-07] MEDS: FLUoxetine 20MG CAP PO SCH (09:18)
[2024-06-07] MEDS: LITHIUM CARBONATE 300 MG CAP PO SCH (11:07)
[2024-06-07 17:31] VITALS: BP 148/90; TEMP 98.5; O2SAT 97
[2024-06-08 06:16] VITALS: BP 119/59; TEMP 97.7; O2SAT 96
[2024-06-08] MEDS: FLUoxetine 20MG CAP PO SCH (08:01)
[2024-06-08 17:36] VITALS: BP 114/77; TEMP 97.6; O2SAT 98
[2024-06-08 20:08] VITALS: BP 133/62
[2024-06-08] MEDS: QUEtiapine FUMARATE 100 MG TAB PO SCH (20:12)
[2024-06-09 06:24] VITALS: BP 112/64; TEMP 97.2; O2SAT 96
[2024-06-09 19:04] VITALS: BP 139/78; TEMP 98.1
[2024-06-09 20:55] VITALS: BP 125/79
[2024-06-09] MEDS: MIRTAZAPINE 15 MG TAB PO SCH (20:57)
[2024-06-10 06:44] VITALS: BP 108/64; TEMP 98; O2SAT 97
[2024-06-10 17:53] VITALS: BP 135/79; TEMP 97.5; O2SAT 98
[2024-06-10] MEDS: VITAMIN D 50,000 UNITS CAPSULE (ERGOCALCIFEROL 1.25MG) PO SCH (20:17)
[2024-06-11 06:09] VITALS: BP 135/68; TEMP 97.9; O2SAT 96
[2024-06-11 08:15] VITALS: BP 125/75
[2024-06-11] MEDS ORDERED: LITH300C PO (10:23)
[2024-06-11] MEDS ORDERED: FLUO-365 PO (10:23)
[2024-06-11] MEDS ORDERED: MIRT-10 PO (10:23)
[2024-06-14] MEDS ORDERED: fluPHENAZine DECAN 25MG/ML 5ML VIAL IM SCH (15:00)
== END 2024-06-11 12:51 | disposition home or self-care (01) | DRG 750 ==
LOC: M ED 16:56 → M ED INP 06-04 23:13 → M PSY 06-05 00:09
PROVIDERS: ADMIT Psychiatry & Neurology Psychiatry; ATTEND Psychiatry & Neurology Child & Adolescent Psychiatry
DX: F20.0 Paranoid schizophrenia (principal); R45.851 Suicidal ideations; I10 Essential (primary) hypertension; E78.5 Hyperlipidemia, unspecified; K21.9 Gastro-esophageal reflux disease without esophagitis; M54.9 Dorsalgia, unspecified; G89.29 Other chronic pain; G43.909 Migraine, unspecified, not intractable, without status migrainosus; F60.89 Other specific personality disorders; E11.9 Type 2 diabetes mellitus without complications; Z79.84 Long term (current) use of oral hypoglycemic drugs; Z91.048 Other nonmedicinal substance allergy status; Z88.8 Allergy status to other drugs, medicaments and biological substances; Z11.52 Encounter for screening for COVID-19; Z91.51 Personal history of suicidal behavior; Z79.899 Other long term (current) drug therapy; Z90.79 Acquired absence of other genital organ(s); Z90.49 Acquired absence of other specified parts of digestive tract

== ENCOUNTER 2024-11-30 10:40 | Emergency (ER) | payer MEDICAID, OTHER ==
[~2024-11-30] VITALS: Ht 160 cm; Wt 80.0 kg
[~2024-11-30 10:40] MED LIST changes: -CYCL5TAB PO; +CYCL5TAB4 PO; +LITH450T11 PO; -LITH45TASA PO; +MIRT-10 PO; +NYST1POW3 TOP; -NYST1POW9 TOP; +PRAZ2CAP PO; +QUET200T2 PO; +SERO1TAB PO; +Seroquel OR; -ZIPR80CA12 PO; +ZIPR80CA31 PO
[2024-11-30 11:34] LABS: HEMATOCRIT 37.8 % (36.0-47.0); HEMOGLOBIN 12.2 g/dl (12.0-15.5); MEAN CORPUSCULAR HEMOGLOBIN 30.8 pg (27.0-33.0); MEAN CORPUSCULAR HGB CONC 32.3 g/dl (32.0-36.5); MEAN CORPUSCULAR VOLUME 95.5 fl (80.0-96.0); PLATELET COUNT, AUTOMATED 443 10^3/uL (150-450); RED BLOOD COUNT 3.96 10^6/uL (4.00-5.40); WHITE BLOOD COUNT 10.9 10^3/uL (4.0-10.0)
[2024-11-30 11:55] LABS: AMPHETAMINES LEVEL URINE NEGATIVE (NEGATIVE); BARBITURATES URINE NEGATIVE (NEGATIVE); BENZODIAZEPINES URINE NEGATIVE (NEGATIVE); CANNABINOIDS URINE NEGATIVE (NEGATIVE); COCAINE METABOLITE URINE NEGATIVE (NEGATIVE); METHADONE URINE NEGATIVE (NEGATIVE); OPIATES URINE NEGATIVE (NEGATIVE); PHENCYCLIDINE URINE NEGATIVE (NEGATIVE)
[2024-11-30 11:58] LABS: ETHYL ALCOHOL (ETHANOL) < 0.003 % (0.000-0.010)
[2024-11-30 11:59] LABS: SALICYLATE LEVEL < 3.0 MG/DL (<30)
[2024-11-30 12:00] LABS: ALBUMIN 3.4 G/DL (3.2-5.2); ALKALINE PHOSPHATASE 127 U/L (35-104); ALT/SGPT 11 U/L (7.0-40); AST/SGOT < 8 U/L (<34); BILIRUBIN,DIRECT 0.3 MG/DL (<0.4); BILIRUBIN,TOTAL 1.2 MG/DL (0.3-1.2); BLOOD UREA NITROGEN 14 MG/DL (9-23); CALCIUM LEVEL 9.2 MG/DL (8.3-10.6); CARBON DIOXIDE LEVEL 24 MMOL/L (20-31); CHLORIDE LEVEL 110 MMOL/L (98-107); CREATININE FOR GFR 0.61 MG/DL (0.55-1.30); GLOMERULAR FILTRATION RATE > 60.0 (>45); GLUCOSE, FASTING 134 MG/DL (74-106); POTASSIUM SERUM 4.4 MMOL/L (3.5-5.1); SODIUM LEVEL 142 MMOL/L (136-145); TOTAL PROTEIN 6.6 G/DL (5.7-8.2)
[2024-11-30 12:01] LABS: THYROID STIMULATING HORMONE 2.148 uIU/ML (0.55-4.78)
[2024-11-30 12:18] LABS: KETONE, URINE AUTO RFX NEGATIVE (NEGATIVE); LEUKOCYTE ESTERASE UR AUTO RFX 2+ (NEGATIVE); MUCUS, URINE RFX SMALL (NEGATIVE); NITRITE, URINE AUTO RFX POSITIVE (NEGATIVE); RBC, URINE AUTO RFX 2 /HPF (0-3); SQUAM EPITHELIAL CELL UR AURFX 0 /HPF (0-6); WBC, URINE AUTO RFX 43 /HPF (0-3)
[2024-11-30 12:37] LABS: LITHIUM LEVEL 0.74 MMOL/L (1.0-1.20)
[2024-11-30] MEDS: CEFDINIR 300 MG CAP (OMNICEF) PO ONE (13:30)
[2024-11-30] MEDS ORDERED: LITH300C PO (14:50)
[2024-11-30] MEDS ORDERED: RIZA10TA2 PO (14:55)
[2024-11-30] MEDS ORDERED: HOME MED LIST COMPLETE! XX SCH (14:55)
[2024-11-30] MEDS: CEFDINIR 300 MG CAP (OMNICEF) PO SCH (21:38)
[2024-11-30 21:39] VITALS: BP 130/61
[2024-11-30] MEDS: LITHIUM CARBONATE 300 MG CAP PO SCH (21:39)
[2024-11-30] MEDS: PRAZOSIN 1 MG CAP PO SCH (21:39)
[2024-11-30] MEDS: fluPHENAZine 5MG TABLET PO SCH (21:39)
[2024-12-01] MEDS: FLUoxetine 20MG CAP PO SCH (08:50)
[2024-12-01] MEDS: FAMOTIDINE 20 MG TAB PO SCH (08:50)
[2024-12-01] MEDS: FERROUS SULFATE 325MG TAB PO SCH (08:50)
[2024-12-01] MEDS: ATORVASTATIN 20 MG TAB PO SCH (08:50)
[2024-12-01] MEDS: LOSARTAN 25 MG TAB PO SCH (08:51)
[2024-12-01] MEDS: BENZTROPINE 1 MG TAB PO SCH (08:51)
[2024-12-01] MEDS: glipiZIDE (GLUCOTROL) 5 MG TAB PO SCH (08:51)
[2024-12-01] MEDS ORDERED: LOSARTAN 50MG TABLET PO SCH (09:00)
[2024-12-01 10:11] VITALS: BP 133/70; TEMP 97.8; O2SAT 97
[2024-12-02] MEDS ORDERED: VITAMIN D 50,000 UNITS CAPSULE (ERGOCALCIFEROL 1.25MG) PO SCH (09:00)
== END 2024-12-01 18:35 ==
LOC: M ED 10:40
DX: N39.0 Urinary tract infection, site not specified (principal); R44.1 Visual hallucinations; R45.851 Suicidal ideations; K21.9 Gastro-esophageal reflux disease without esophagitis; E11.9 Type 2 diabetes mellitus without complications; I10 Essential (primary) hypertension; G43.909 Migraine, unspecified, not intractable, without status migrainosus; M54.9 Dorsalgia, unspecified; Z79.84 Long term (current) use of oral hypoglycemic drugs; Z79.899 Other long term (current) drug therapy; Z88.8 Allergy status to other drugs, medicaments and biological substances; Z91.89 Other specified personal risk factors, not elsewhere classified

== ENCOUNTER 2025-05-02 17:02 | Inpatient (IN) | payer OTHER, MEDICAID ==
[~2025-05-02] VITALS: Ht 167.6 cm; Wt 81.0 kg
[~2025-05-02 17:02] MED LIST changes: +LIDO1ADH93 TD; -LIDO5DIS41 TD; -LITH450T11 PO; +LITH450T17 PO; +RIZA10TA2 PO
[2025-05-02 17:50] LABS: PLATELET COUNT, AUTOMATED 468 10^3/uL (150-450)
[2025-05-02 18:01] LABS: AMPHETAMINES LEVEL URINE NEGATIVE (NEGATIVE); BARBITURATES URINE NEGATIVE (NEGATIVE); BENZODIAZEPINES URINE NEGATIVE (NEGATIVE); CANNABINOIDS URINE NEGATIVE (NEGATIVE); COCAINE METABOLITE URINE NEGATIVE (NEGATIVE); METHADONE URINE NEGATIVE (NEGATIVE); OPIATES URINE NEGATIVE (NEGATIVE); PHENCYCLIDINE URINE NEGATIVE (NEGATIVE)
[2025-05-02 18:04] LABS: ETHYL ALCOHOL (ETHANOL) 0.003 % (0.000-0.010)
[2025-05-02 18:05] LABS: ALT/SGPT 13 U/L (7.0-40); AST/SGOT 14 U/L (<34); CALCIUM LEVEL 9.2 MG/DL (8.3-10.6); CARBON DIOXIDE LEVEL 24 MMOL/L (20-31); CHLORIDE LEVEL 107 MMOL/L (98-107); CREATININE FOR GFR 0.60 MG/DL (0.55-1.30); GLOMERULAR FILTRATION RATE > 90.0 (>45); POTASSIUM SERUM 4.4 MMOL/L (3.5-5.1); SALICYLATE LEVEL < 3.0 MG/DL (<30); SODIUM LEVEL 142 MMOL/L (136-145)
[2025-05-02] MEDS ORDERED: MED REC IN PROGRESS XX SCH (20:25)
[2025-05-02] MEDS ORDERED: MOM 30 ML SUSPENSION UDC PO PRN (20:45)
[2025-05-02] MEDS ORDERED: MAALOX 30 ML SUSP *UDC PO PRN (20:45)
[2025-05-02 22:00] VITALS: BP 142/88; TEMP 98.1; O2SAT 97
[2025-05-02] MEDS: traZODone 50 MG TAB PO PRN (22:37)
[2025-05-03 06:15] VITALS: BP 141/90; TEMP 98; O2SAT 97
[2025-05-03] MEDS: ACETAMINOPHEN 325 MG TAB PO PRN (10:28)
[2025-05-03] MEDS: FLUoxetine 20 MG CAP PO SCH (12:28)
[2025-05-03] MEDS: BENZTROPINE 1 MG TAB PO SCH (12:29)
[2025-05-03] MEDS ORDERED: ALBUTEROL 90 MCG/ACT 8 GM HFA INHALER INH PRN (14:05)
[2025-05-03] MEDS: LIDOCAINE 5% PATCH TD SCH (14:14)
[2025-05-03 15:06] VITALS: BP 127/69; TEMP 98.4; O2SAT 96
[2025-05-04] MEDS ORDERED: HOME MED LIST COMPLETE! XX SCH (00:30)
[2025-05-04 06:35] VITALS: BP 150/84; TEMP 98.3; O2SAT 100
[2025-05-04] MEDS ORDERED: RIZATRIPTAN BENZOATE 10 MG TAB PO PRN (06:45)
[2025-05-04 08:27] VITALS: BP 138/98
[2025-05-04] MEDS: FAMOTIDINE 20 MG TAB PO SCH (08:30)
[2025-05-04] MEDS: glipiZIDE 5 MG TAB PO SCH (08:31)
[2025-05-04] MEDS: LOSARTAN 25 MG TAB PO SCH (08:31)
[2025-05-04] MEDS: FERROUS SULFATE 325 MG TAB PO SCH (08:31)
[2025-05-04 15:38] VITALS: BP 120/70; TEMP 98.4; O2SAT 96
[2025-05-04] MEDS: ATORVASTATIN 20 MG TAB PO SCH (20:31)
[2025-05-04] MEDS: IBUPROFEN 400 MG TAB PO PRN (20:32)
[2025-05-05 06:36] VITALS: BP 136/82; TEMP 97.9; O2SAT 97
[2025-05-05 08:02] VITALS: BP 136/82; TEMP 97.9; O2SAT 97
[2025-05-05 15:16] VITALS: BP 162/88; TEMP 97.9; O2SAT 98
[2025-05-05] MEDS: RAMELTEON 8 MG TAB PO PRN (20:15)
[2025-05-06 06:34] VITALS: BP 130/92; TEMP 97.9; O2SAT 98
[2025-05-06 15:30] VITALS: BP 148/78; TEMP 98.5; O2SAT 97
[2025-05-06] MEDS: traZODone 50 MG TAB PO PRN (21:25)
[2025-05-07 06:27] VITALS: BP 147/76; TEMP 97.3; O2SAT 96
[2025-05-07 14:53] VITALS: BP 127/82; TEMP 98.2; O2SAT 99
[2025-05-07] MEDS: traZODone 50 MG TAB PO SCH (20:05)
[2025-05-08 06:15] VITALS: BP 106/51; TEMP 97.7; O2SAT 91
[2025-05-08 08:07] VITALS: BP 145/65
[2025-05-08] MEDS ORDERED: FLUP5TAB13 PO (11:51)
[2025-05-08] MEDS ORDERED: FLUP25VL IM (11:51)
[2025-05-08] MEDS ORDERED: FLUO-365 PO (11:51)
[2025-05-08] MEDS ORDERED: TRAZ-252 PO (11:51)
[2025-05-08] MEDS ORDERED: HYDR-3363 PO (11:51)
[2025-05-08] MEDS ORDERED: BENZ1TAB5 PO (11:51)
== END 2025-05-08 14:56 | disposition home or self-care (01) | DRG 750 ==
LOC: M ED 17:02 → M ED INP 20:41 → M PSY 21:37
PROVIDERS: ADMIT Psychiatry & Neurology Neurology; ATTEND Psychiatry & Neurology Neurology
DX: F25.1 Schizoaffective disorder, depressive type (principal); F41.9 Anxiety disorder, unspecified; R45.851 Suicidal ideations; Z88.8 Allergy status to other drugs, medicaments and biological substances; I10 Essential (primary) hypertension; E11.9 Type 2 diabetes mellitus without complications; M54.59 Other low back pain; J45.909 Unspecified asthma, uncomplicated; Z79.899 Other long term (current) drug therapy

== ENCOUNTER 2025-05-14 10:10 | Observation (INO) | payer MEDICAID, OTHER ==
[~2025-05-14] VITALS: Ht 160 cm; Wt 77.7 kg
[~2025-05-14 10:10] MED LIST changes: +HYDR-3363 PO; -PROZ20CA11 PO; +PROZ20CA12 PO
[2025-05-14 11:24] LABS: BASO # 0.1 10^3/uL (0.0-0.2); BASO % 0.7 % (0.0-1.0); EOS # 0.2 10^3/uL (0.0-0.5); EOS % 2.2 % (0.0-3.0); LYMPH # 1.1 10^3/uL (1.5-5.0); LYMPH % 13.1 % (24.0-44.0); MONO # 0.5 10^3/uL (0.0-0.8); MONO % 6.7 % (2.0-8.0); NEUTROPHILS # 6.2 10^3/uL (1.5-8.5); NEUTROPHILS % 76.9 % (36.0-66.0); PLATELET COUNT, AUTOMATED 385 10^3/uL (150-450)
[2025-05-14] MEDS: TETANUS/DIPHTH/ACEL. PERTUSSIS 0.5 ML SYR IM.IMMUN ONE (11:42)
[2025-05-14 11:51] LABS: CALCIUM LEVEL 8.7 MG/DL (8.3-10.6); CARBON DIOXIDE LEVEL 24 MMOL/L (20-31); CHLORIDE LEVEL 107 MMOL/L (98-107); CREATININE FOR GFR 0.68 MG/DL (0.55-1.30); GLOMERULAR FILTRATION RATE > 90.0 (>45); MAGNESIUM LEVEL 1.8 MG/DL (1.8-2.4); POTASSIUM SERUM 4.5 MMOL/L (3.5-5.1); SODIUM LEVEL 143 MMOL/L (136-145)
[2025-05-14] MEDS ORDERED: HOME MED LIST COMPLETE! XX SCH (12:45)
[2025-05-14] MEDS ORDERED: ISOVUE-370 76% 100 ML VIAL As Ordered ONE (14:50)
[2025-05-14] MEDS: ACETAMINOPHEN *IV* 1,000 MG in IV 1 EA IV ONE (16:15)
[2025-05-14] MEDS: ATORVASTATIN 20 MG TAB PO SCH (20:58)
[2025-05-14] MEDS: traZODone 50 MG TAB PO SCH (20:58)
[2025-05-14] MEDS: LOSARTAN 50 MG TABLET PO SCH (20:59)
[2025-05-14] MEDS: BENZTROPINE 1 MG TAB PO SCH (20:59)
[2025-05-15 08:16] LABS: PLATELET COUNT, AUTOMATED 402 10^3/uL (150-450)
[2025-05-15 08:41] LABS: CALCIUM LEVEL 9.1 MG/DL (8.3-10.6); CARBON DIOXIDE LEVEL 24 MMOL/L (20-31); CHLORIDE LEVEL 106 MMOL/L (98-107); CREATININE FOR GFR 0.63 MG/DL (0.55-1.30); GLOMERULAR FILTRATION RATE > 90.0 (>45); POTASSIUM SERUM 3.9 MMOL/L (3.5-5.1); SODIUM LEVEL 142 MMOL/L (136-145)
[2025-05-15] MEDS: ENOXAPARIN 40 MG/0.4 ML SYRINGE (J1650 PER 10MG) SC SCH (09:07)
[2025-05-15] MEDS: FERROUS SULFATE 325 MG TAB PO SCH (09:08)
[2025-05-15] MEDS: FAMOTIDINE 20 MG TAB PO SCH (09:08)
[2025-05-15] MEDS: FLUoxetine 20 MG CAP PO SCH (09:08)
[2025-05-15] MEDS: LOSARTAN 25 MG TAB PO ONE (14:12)
[2025-05-15 18:46] VITALS: BP 178/83; TEMP 97.4; O2SAT 95
[2025-05-15 20:00] VITALS: BP 144/70; TEMP 98.2; O2SAT 98
[2025-05-15 21:22] VITALS: BP 144/70
[2025-05-15] MEDS: amLODIPine 5 MG TAB PO SCH (21:22)
[2025-05-15] MEDS ORDERED: ACETAMINOPHEN 500 MG TAB PO PRN (21:45)
[2025-05-15] MEDS: ACETAMINOPHEN 325 MG TAB PO PRN (21:53)
[2025-05-16 04:00] VITALS: BP 145/83; TEMP 98.1; O2SAT 95
[2025-05-16 08:23] VITALS: BP 140/79
[2025-05-16 08:26] VITALS: BP 137/94
[2025-05-16 08:29] VITALS: BP 130/90
[2025-05-16] MEDS: LOSARTAN 25 MG TAB PO SCH (09:28)
[2025-05-16 11:53] VITALS: BP 176/79; TEMP 97.9; O2SAT 92
[2025-05-16 12:08] VITALS: BP 176/79; TEMP 97.9; O2SAT 92
[2025-05-16] MEDS ORDERED: LOSA25TA13 PO (13:39)
[2025-05-16] MEDS ORDERED: NORV5TAB PO (13:39)
[2025-05-16] MEDS ORDERED: BACI500O8 TOP (13:52)
== END 2025-05-16 17:00 | disposition home or self-care (01) ==
LOC: EDBD 10:10 → M ED 10:10 → M ED INP 10:11 → M MS4PR 05-15 17:45
PROVIDERS: ADMIT Internal Medicine; ATTEND Internal Medicine
DX: R55 Syncope and collapse (principal); S00.81XA Abrasion of other part of head, initial encounter; R42 Dizziness and giddiness; S02.2XXK Fracture of nasal bones, subsequent encounter for fracture with nonunion; W19.XXXA Unspecified fall, initial encounter; Y92.89 Other specified places as the place of occurrence of the external cause; F25.1 Schizoaffective disorder, depressive type; I10 Essential (primary) hypertension; E11.9 Type 2 diabetes mellitus without complications; G43.909 Migraine, unspecified, not intractable, without status migrainosus; D50.9 Iron deficiency anemia, unspecified; K21.9 Gastro-esophageal reflux disease without esophagitis; E78.5 Hyperlipidemia, unspecified; E55.9 Vitamin D deficiency, unspecified; Z23 Encounter for immunization; Z79.899 Other long term (current) drug therapy
CPT/HCPCS: 36415; 70450; 70486; 70551; 71045; 71275; 72125; 80048; 83735; 84443; 84484; 85025; 85027; 90471; 90715; 93005; 93306; 93880; 96372; 96374; 97116; 97161; 97530; 99285; J0131; J1650; Q9967

== ENCOUNTER 2025-06-12 00:19 | Emergency (ER) | payer OTHER ==
[~2025-06-12] VITALS: Ht 162.6 cm; Wt 79.5 kg
[~2025-06-12 00:19] MED LIST changes: +BACI500O8 TOP; +NORV5TAB PO
[2025-06-12 01:32] LABS: PLATELET COUNT, AUTOMATED 426 10^3/uL (150-450)
[2025-06-12 01:48] LABS: ETHYL ALCOHOL (ETHANOL) < 0.003 % (0.000-0.010)
[2025-06-12 01:50] LABS: ALT/SGPT 12 U/L (7.0-40); AST/SGOT 12 U/L (<34); CALCIUM LEVEL 9.3 MG/DL (8.3-10.6); CARBON DIOXIDE LEVEL 26 MMOL/L (20-31); CHLORIDE LEVEL 107 MMOL/L (98-107); CREATININE FOR GFR 0.70 MG/DL (0.55-1.30); GLOMERULAR FILTRATION RATE > 90.0 (>45); POTASSIUM SERUM 4.0 MMOL/L (3.5-5.1); SALICYLATE LEVEL < 3.0 MG/DL (<30); SODIUM LEVEL 143 MMOL/L (136-145)
[2025-06-12 03:49] LABS: KETONE, URINE AUTO RFX NEGATIVE (NEGATIVE); LEUKOCYTE ESTERASE UR AUTO RFX 1+ (NEGATIVE); MUCUS, URINE RFX SMALL (NEGATIVE); NITRITE, URINE AUTO RFX NEGATIVE (NEGATIVE); RBC, URINE AUTO RFX 2 /HPF (0-3); SQUAM EPITHELIAL CELL UR AURFX 1 /HPF (0-6); WBC, URINE AUTO RFX 5 /HPF (0-3)
[2025-06-12 03:54] LABS: AMPHETAMINES LEVEL URINE NEGATIVE (NEGATIVE); BARBITURATES URINE NEGATIVE (NEGATIVE); BENZODIAZEPINES URINE NEGATIVE (NEGATIVE); CANNABINOIDS URINE NEGATIVE (NEGATIVE); COCAINE METABOLITE URINE NEGATIVE (NEGATIVE); MAGNESIUM LEVEL 1.8 MG/DL (1.8-2.4); METHADONE URINE NEGATIVE (NEGATIVE); OPIATES URINE NEGATIVE (NEGATIVE); PHENCYCLIDINE URINE NEGATIVE (NEGATIVE)
[2025-06-12 03:56] LABS: CPK CREATINE PHOSPHOKINASE 75 U/L (34-145)
[2025-06-12 03:57] LABS: CK-MB VALUE MASS < 1.0 NG/ML (<3.6)
[2025-06-12] MEDS ORDERED: HYDR-3363 PO (09:07)
[2025-06-12] MEDS ORDERED: FLUP5TAB13 PO (09:07)
[2025-06-12] MEDS ORDERED: AMLO1TAB24 PO (09:07)
[2025-06-12] MEDS ORDERED: HOME MED LIST COMPLETE! XX SCH (09:10)
[2025-06-12 14:33] VITALS: BP 118/66; TEMP 98.6; O2SAT 98
== END 2025-06-12 15:12 | disposition home or self-care (01) ==
LOC: M ED 00:19
DX: F20.9 Schizophrenia, unspecified (principal); E11.9 Type 2 diabetes mellitus without complications; I10 Essential (primary) hypertension; E78.5 Hyperlipidemia, unspecified; K21.9 Gastro-esophageal reflux disease without esophagitis; K59.00 Constipation, unspecified; G43.909 Migraine, unspecified, not intractable, without status migrainosus; D50.9 Iron deficiency anemia, unspecified; F31.30 Bipolar disorder, current episode depressed, mild or moderate severity, unspecified; Z91.51 Personal history of suicidal behavior; E66.9 Obesity, unspecified; M54.9 Dorsalgia, unspecified

== ENCOUNTER 2025-07-08 17:32 | Emergency (ER) | payer OTHER ==
[~2025-07-08] VITALS: Ht 152.4 cm; Wt 74.4 kg
[~2025-07-08 17:32] MED LIST changes: +AMLO1TAB24 PO; -IBUP-1022 PO; +IBUP600T42 PO
[2025-07-08 21:48] VITALS: BP 158/77; TEMP 97.1; O2SAT 98
== END 2025-07-08 21:55 | disposition home or self-care (01) ==
LOC: M ED 17:32
DX: S01.81XA Laceration without foreign body of other part of head, initial encounter (principal); S80.211A Abrasion, right knee, initial encounter; W19.XXXA Unspecified fall, initial encounter; Y92.009 Unspecified place in unspecified non-institutional (private) residence as the place of occurrence of the external cause; Y93.01 Activity, walking, marching and hiking; Y99.9 Unspecified external cause status; M47.12 Other spondylosis with myelopathy, cervical region; E11.9 Type 2 diabetes mellitus without complications; K21.9 Gastro-esophageal reflux disease without esophagitis; J45.909 Unspecified asthma, uncomplicated; Z87.442 Personal history of urinary calculi; Z79.84 Long term (current) use of oral hypoglycemic drugs; Z79.899 Other long term (current) drug therapy; Z88.8 Allergy status to other drugs, medicaments and biological substances; Z91.89 Other specified personal risk factors, not elsewhere classified

== ENCOUNTER 2025-07-27 02:48 | Inpatient (IN) | payer OTHER, MEDICAID ==
[~2025-07-27] VITALS: Ht 162.6 cm; Wt 72.4 kg
[~2025-07-27 02:48] MED LIST changes: +FLUP25VI3 IM; -FLUP25VL IM; -LUMA42CA PO; +LUMA42CA4 PO
[2025-07-27] MEDS ORDERED: MOM 30 ML SUSPENSION UDC PO PRN (06:05)
[2025-07-27] MEDS ORDERED: MAALOX 30 ML SUSP *UDC PO PRN (06:05)
[2025-07-27 09:06] VITALS: BP 118/68; TEMP 97.5; O2SAT 97
[2025-07-27] MEDS ORDERED: MED REC CURRENTLY UNOBTAINABLE XX SCH (13:15)
[2025-07-27] MEDS ORDERED: **hydrALAZINE HCL** 25 MG TAB PO PRN (13:25)
[2025-07-27 14:40] VITALS: BP 119/78; TEMP 98.7; O2SAT 97
[2025-07-27] MEDS: ATORVASTATIN 20 MG TAB PO SCH (20:06)
[2025-07-27] MEDS: traZODone 50 MG TAB PO PRN (20:06)
[2025-07-28 06:26] VITALS: BP 132/84; TEMP 97.2; O2SAT 98
[2025-07-28] MEDS: glipiZIDE 5 MG TAB PO SCH (07:18)
[2025-07-28] MEDS: FLUoxetine 20 MG CAP PO SCH (09:35)
[2025-07-28 15:21] VITALS: BP 125/64; TEMP 98.6; O2SAT 99
[2025-07-29 06:30] VITALS: BP 140/68; TEMP 98.2; O2SAT 99
[2025-07-29 08:07] VITALS: BP 111/59
[2025-07-29] MEDS: LOSARTAN 25 MG TAB PO SCH (09:00)
[2025-07-29] MEDS ORDERED: LITH300T2 PO (12:03)
[2025-07-29] MEDS ORDERED: INGR80CA PO (12:03)
[2025-07-29] MEDS ORDERED: HOME MED LIST COMPLETE! XX SCH (12:05)
[2025-07-29] MEDS: ACETAMINOPHEN 325 MG TAB PO PRN (13:47)
[2025-07-29 16:27] VITALS: BP 126/80; TEMP 98.2; O2SAT 100
[2025-07-29] MEDS: OLANZapine 5 MG TAB PO SCH (20:20)
[2025-07-30] MEDS: BENZTROPINE 0.5 MG TAB PO SCH (12:43)
[2025-07-30 14:48] VITALS: BP 121/60; TEMP 98.2; O2SAT 95
[2025-07-31 06:25] VITALS: BP 152/84; TEMP 97.9; O2SAT 97
[2025-07-31 14:49] VITALS: BP_SYST 135; BP_SYST 147; BP_DIAS 60; BP_DIAS 96; TEMP 98.8; O2SAT 98; O2SAT 99
[2025-07-31] MEDS: OLANZapine 10 MG TAB PO SCH (20:06)
[2025-08-01 06:18] VITALS: BP 143/83; TEMP 97.7; O2SAT 100
[2025-08-01 15:49] VITALS: BP 133/66; TEMP 98.4; O2SAT 99
[2025-08-02 06:27] VITALS: BP 132/68; TEMP 97.4; O2SAT 96
[2025-08-02 15:26] VITALS: BP 116/83; TEMP 98.2; O2SAT 98
[2025-08-03 06:29] VITALS: BP 152/72; TEMP 98; O2SAT 99
[2025-08-03 08:08] VITALS: BP 120/87
[2025-08-03 15:00] VITALS: BP 119/62; TEMP 98.2; O2SAT 99
[2025-08-04] MEDS: IBUPROFEN 400 MG TAB PO PRN (02:32)
[2025-08-04 06:47] VITALS: BP 144/72; TEMP 97.4; O2SAT 99
[2025-08-04 15:33] VITALS: BP 134/70; TEMP 98.1; O2SAT 100
[2025-08-05 06:28] VITALS: BP 141/64; TEMP 97.2; O2SAT 97
[2025-08-05 09:00] VITALS: BP 139/90
[2025-08-05 15:45] VITALS: BP 136/82; TEMP 98; O2SAT 99
[2025-08-06 06:28] VITALS: BP 122/63; TEMP 97.2
[2025-08-06 11:24] LABS: BASO # 0.1 10^3/uL (0.0-0.2); BASO % 0.7 % (0.0-1.0); EOS # 0.2 10^3/uL (0.0-0.5); EOS % 2.3 % (0.0-3.0); LYMPH # 1.4 10^3/uL (1.5-5.0); LYMPH % 16.1 % (24.0-44.0); MONO # 0.5 10^3/uL (0.0-0.8); MONO % 5.9 % (2.0-8.0); NEUTROPHILS # 6.3 10^3/uL (1.5-8.5); NEUTROPHILS % 74.5 % (36.0-66.0); PLATELET COUNT, AUTOMATED 548 10^3/uL (150-450)
[2025-08-06 12:51] LABS: ALT/SGPT 16 U/L (7.0-40); AST/SGOT 15 U/L (<34); CALCIUM LEVEL 9.2 MG/DL (8.3-10.6); CARBON DIOXIDE LEVEL 23 MMOL/L (20-31); CHLORIDE LEVEL 110 MMOL/L (98-107); CREATININE FOR GFR 0.66 MG/DL (0.55-1.30); GLOMERULAR FILTRATION RATE > 90.0 (>45); POTASSIUM SERUM 4.3 MMOL/L (3.5-5.1); SODIUM LEVEL 145 MMOL/L (136-145)
[2025-08-06 18:58] VITALS: BP 148/84; TEMP 98.1; O2SAT 97
[2025-08-07 06:41] VITALS: BP 134/79; TEMP 97.2; O2SAT 96
[2025-08-07 08:20] VITALS: BP 142/87
[2025-08-07 15:28] VITALS: BP 142/70; TEMP 97.8; O2SAT 98
[2025-08-08 06:43] VITALS: BP 108/55; TEMP 97.2; O2SAT 95
[2025-08-08 21:55] VITALS: BP 130/80; TEMP 98.1; O2SAT 94
[2025-08-08] MEDS: LOPERAMIDE 2 MG CAPLET PO ONE (23:46)
[2025-08-09 06:25] VITALS: BP 124/63; TEMP 97.8; O2SAT 98
[2025-08-09 09:10] LABS: PLATELET COUNT, AUTOMATED 528 10^3/uL (150-450)
[2025-08-09 09:37] LABS: ALT/SGPT 23.0 U/L (7.0-40); AST/SGOT 17.0 U/L (<34); CALCIUM LEVEL 9.3 MG/DL (8.3-10.6); CARBON DIOXIDE LEVEL 25.0 MMOL/L (20-31); CHLORIDE LEVEL 108.0 MMOL/L (98-107); CREATININE FOR GFR 0.79 MG/DL (0.55-1.30); GLOMERULAR FILTRATION RATE 85.6 (>45); POTASSIUM SERUM 4.1 MMOL/L (3.5-5.1); SODIUM LEVEL 145.0 MMOL/L (136-145)
[2025-08-09 15:26] VITALS: BP 128/81; TEMP 98.3; O2SAT 100
[2025-08-10 06:21] VITALS: BP 133/65; TEMP 97.5; O2SAT 95
[2025-08-10 15:50] VITALS: BP 108/65; TEMP 98; O2SAT 97
[2025-08-11 09:05] VITALS: BP 116/56
[2025-08-11 15:37] VITALS: BP 122/82; TEMP 98; O2SAT 99
[2025-08-11] MEDS ORDERED: LOSA-527 PO (15:55)
[2025-08-11] MEDS ORDERED: OLAN1TAB20 PO (15:55)
[2025-08-11] MEDS ORDERED: BENZ0.5T2 PO (15:55)
[2025-08-11] MEDS ORDERED: GLIP5TAB17 PO (15:55)
[2025-08-11] MEDS ORDERED: FLUO-365 PO (15:55)
[2025-08-11] MEDS ORDERED: ATOR1TAB21 PO (15:55)
[2025-08-12 06:31] VITALS: BP 146/81; TEMP 96.8; O2SAT 97
[2025-08-12 08:29] VITALS: BP 147/80
== END 2025-08-12 11:21 | disposition home or self-care (01) | DRG 750 ==
LOC: M ED 02:48 → M ED INP 06:05 → M PSY 08:51
PROVIDERS: ADMIT Student in an Organized Health Care Education/Training Program; ATTEND Student in an Organized Health Care Education/Training Program
DX: F25.1 Schizoaffective disorder, depressive type (principal); E11.9 Type 2 diabetes mellitus without complications; R45.851 Suicidal ideations; F41.9 Anxiety disorder, unspecified; G31.84 Mild cognitive impairment of uncertain or unknown etiology; I10 Essential (primary) hypertension; G43.909 Migraine, unspecified, not intractable, without status migrainosus; E78.5 Hyperlipidemia, unspecified; E66.9 Obesity, unspecified; M54.9 Dorsalgia, unspecified; Z56.0 Unemployment, unspecified; G89.29 Other chronic pain; K21.9 Gastro-esophageal reflux disease without esophagitis; Z90.79 Acquired absence of other genital organ(s); Z91.51 Personal history of suicidal behavior; Z90.49 Acquired absence of other specified parts of digestive tract; Z79.84 Long term (current) use of oral hypoglycemic drugs; Z79.899 Other long term (current) drug therapy; Z88.8 Allergy status to other drugs, medicaments and biological substances; Z91.048 Other nonmedicinal substance allergy status